=== PATIENT | male | born 1965 | race African-American/Black ===

== ENCOUNTER → 2016-10-31 | Outpatient (CLI) | payer BC ==
--- NOTE | 2016-10-31 08:59 | US ---
EXAMINATION TYPE: US kidneys/renal and bladder DATE OF EXAM: 10/31/2016 8:29 AM COMPARISON: NONE CLINICAL HISTORY: R31.9 Hematuria, R10.9 Right Flank Pain since fell on back early September 2016; larg e body habitus patient; diabetic. EXAM MEASUREMENTS: Right Kidney: 12.9 x 6.1 x 5.3 cm Left Kidney: 12.5 x 6.4 x 5.8 cm Post Void Residual Volume: 4.8 mL TECHNOLOGIST IMPRESSION: Right Kidney: No hydronephrosis or masses seen Left Kidney: No hydronephrosis or masses seen Bladder: wnl Bilateral Jets seen: Yes Normal Post Void Residual: Yes There is no evidence for hydronephrosis at this point in time. No nephrolithiasis is seen. No trinity s are identified on images saved. The urinary bladder is anechoic. Bilateral ureteral jets are seen . Bladder is not greatly distended and thus suboptimally evaluated. No intraluminal mass is present. Af ter voiding minimal residual urine is present. IMPRESSION: No hydronephrosis is evident bilaterally. No significant finding is seen to account for patient's sym ptoms.
== END | disposition home or self-care (01) ==
LOC: RADUSWWP 08:01
PROVIDERS: ATTEND Internal Medicine
DX: R10.9 Unspecified abdominal pain (principal); R31.9 Hematuria, unspecified
CPT/HCPCS: 76770

== ENCOUNTER → 2018-04-24 | Outpatient (CLI) | payer BC ==
--- NOTE | 2018-04-24 18:09 | PN ---
PROGRESS NOTE A 52-year-old male patient seeing me in followup regarding his obstructive sleep apnea. The patient was diagnosed having severe DIAMOND with an AHI of 65 back in 2008. Subsequently the patient underwent a CPAP titration and following that, he was switched to a BiPAP back in 2014 at pressure of 22/18 cm of water. On today's evaluation, the patient is coming in for a compliancy check. His main complaint is leaks around the mask. He is currently using the AirTouch full face mask. Based on the compliance data, he has been utilizing his CPAP every night. His CPAP use for more than 4 hours is 28/30 based on a 30-day compliancy and his average CPAP use is around 6.3 hours per night. Leak factor is 119 L/minute. His tidal volume obtained is 640. His AHI while on treatment is at 15.6. He is gaining weight. He is up to 397 pounds and used to weigh 346 back in 2008. His BMI is 64. He is feeling well. His does not major sleepiness during the day. His excessive hypersomnia and sleepiness improved while on the BiPAP treatment. He is diabetic. He also has hypertension and diabetes mellitus. REVIEW OF SYSTEMS: A 12-point review of system was done. Positive findings are mentioned above in history of present illness. He has still some residual tiredness and fatigue. He goes to bed around 12:00 a.m., wakes up at 6:00 a.m. in the morning, averaging about 6 hours of sleep. He has some restlessness in the lower extremities and he is waking up with a dry mouth. He sleeps on his side rather than the back. No nightmares. No history of motor vehicle accident because of feeling drowsy or sleepy. MEDICATION LIST: Includes: 1. Lisinopril 10 daily. 2. Amlodipine 10 daily. 3. Lantus insulin 110 units twice a day. 4. Lasix 40 mg p.o. daily. 5. Potassium 10 mEq daily. 6. Tamsulosin 0.4 daily. 7. Hydrochlorothiazide 25 daily. BP is 184/93, pulse 96, respirations 16, temperature 98.0, saturation 90% on room air. Weight is 397. Height is 5 feet 6 inches, BMI is 64. GENERAL APPEARANCE: Calm, comfortable. HEAD: Atraumatic, normocephalic. Neck is supple. No JVD. No goiter or neck mass. Mallampati class IV. LUNGS: Diminished, otherwise clear. HEART: Sounds are regular rate and rhythm. Normal S1, S2. No S3, S4. No murmurs. ABDOMEN: Obese, soft, nontender. No organomegaly. EXTREMITIES: Trace edema. There is no cyanosis or clubbing. NEUROLOGIC: Alert and oriented x3. There are no focal neurological deficits. PSYCHIATRIC: Negative for anxiety or depression. IMPRESSION: 1. Severe obstructive sleep apnea, apnea-hypopnea index of 65. The patient demonstrates excellent compliancy. He is having leaks around the mask due to a poor mask fit. 2. Morbid obesity, BMI of 64. 3. Diabetes mellitus. 4. Hypertension. PLAN: 1. Continue BiPAP therapy at a pressure of 22/18. 2. Utilize a full-face mask. I will switch this patient to an AirFit F20 large size and I gave another alternative, which would be an Yadira View large size. Both masks were appropriate and gave him a good seal and he will call me and decide at a later stage which will be his mask of choice. 3. Encourage weight loss. 4. Tight control of cardiovascular risk factors. 5. Renew his of CPAP supplies. 6. See me back in a year's time, earlier if needed. MMODL / IJN: [id number] /
== END | disposition home or self-care (01) ==
LOC: SLEEP 15:39
PROVIDERS: ATTEND Internal Medicine
DX: G47.33 Obstructive sleep apnea (adult) (pediatric) (principal); E11.9 Type 2 diabetes mellitus without complications; I10 Essential (primary) hypertension; E66.01 Morbid (severe) obesity due to excess calories; Z79.4 Long term (current) use of insulin; Z79.899 Other long term (current) drug therapy; Z68.44 Body mass index [BMI] 60.0-69.9, adult; Z99.89 Dependence on other enabling machines and devices
CPT/HCPCS: 99211

== ENCOUNTER → 2018-05-14 | Outpatient (CLI) | payer BC ==
--- NOTE | 2018-05-14 15:15 | US ---
EXAMINATION TYPE: US venous doppler duplex LE BI DATE OF EXAM: 05/14/2018 2:23 PM COMPARISON: NONE CLINICAL HISTORY: 52-year-old male R22.41 Swelling right leg;R22.42 swelling left leg. Morbidly obese patient with bilat leg swelling, left is worse then right, no h/o dvt SIDE PERFORMED: Bilateral TECHNIQUE: The lower extremity deep venous system is examined utilizing real time linear array sonog иван with graded compression, doppler sonography and color-flow sonography. FINDINGS: VESSELS IMAGED: External Iliac Vein (EIV) Common Femoral Vein Deep Femoral Vein Greater Saphenous Vein * Femoral Vein Popliteal Vein Small Saphenous Vein * Proximal Calf Veins (* superficial vessels) Right Leg: Appears negative for DVT Left Leg: APpears negative for DVT *tech impression relayed to Dr Plummer's office IMPRESSION: No evidence for DVT within the bilateral lower extremities imaged from the groin to the knees.
== END | disposition home or self-care (01) ==
LOC: RADUSWWP 13:34
PROVIDERS: ATTEND Internal Medicine
DX: R22.42 Localized swelling, mass and lump, left lower limb (principal)
CPT/HCPCS: 93970

== ENCOUNTER 2019-09-06 10:14 | Inpatient (IN) | payer OTHER ==
[2019-09-06] MEDS ORDERED: MECLIZINE 12.5 MG TAB PO STA (10:22)
[2019-09-06] MEDS ORDERED: SODIUM CHLORIDE 0.9% 1,000 ML IV STA (10:22)
[2019-09-06] MEDS ORDERED: SODIUM CHLORIDE 0.9% 500 ML 500 ML IV STA (10:22)
[2019-09-06 10:33] LABS: Glucose,Whole Blood 311 mg/dL (75-99)
[2019-09-06] MEDS ORDERED: hydrALAZINE HCL 20 MG/ML 1 ML VIAL IVP STA (10:34)
--- NOTE | 2019-09-06 10:34 | ED ---
General Adult HPI - General Source: patient, EMS, RN notes reviewed Mode of arrival: EMS Limitations: no limitations <Kishan Garrison - Last Filed: 09/06/19 11:27> <Wili Hua - Last Filed: 09/06/19 13:09> - General Stated complaint: Hyperglycemia Time Seen by Provider: 09/06/19 10:17 - History of Present Illness Initial comments: This a 54-year-old male presents emergency department via EMS chief complaint of hyperglycemia, dizziness. Patient states that he is a known diabetic and history of hypertension. Patient states he woke up his blood sugar was over 300. He states she just felt sick. He states that he was dizzy with movement. Denies any focal weakness denies chest pain or shortness of breath. Patient states he did take his 100 units of long-acting insulin this morning. Patient is also on oral medications. Patient has no complaints of blurred vision, fever, chills, dysuria, diarrhea or any other complaints this time. (Kishan Garrison) - Related Data Home Medications Medication Instructions Recorded Confirmed Furosemide [Lasix] 40 mg PO DAILY 09/06/19 09/06/19 Insulin Glargine,Hum.rec.anlog 110 unit SQ BID 09/06/19 09/06/19 [Basaglar Kwikpen U-100] Tamsulosin [Flomax] 0.4 mg PO DAILY 09/06/19 09/06/19 amLODIPine [Norvasc] 10 mg PO DAILY 09/06/19 09/06/19 metFORMIN HCL 1,000 mg PO BID 09/06/19 09/06/19 Allergies Allergy/AdvReac Type Severity Reaction Status Date / Time aspirin AdvReac Dyspnea Verified 09/06/19 10:30 Review of Systems ROS Other: All systems not noted in ROS Statement are negative. <Kishan Garrison - Last Filed: 09/06/19 11:27> ROS Other: All systems not noted in ROS Statement are negative. <Wili Hua - Last Filed: 09/06/19 13:09> ROS Statement: Those systems with pertinent positive or pertinent negative responses have been documented in the HPI. Past Medical History Past Medical History: Diabetes Mellitus, Hyperlipidemia, Hypertension, Sleep Apnea/CPAP/BIPAP Additional Past Medical History / Comment(s): neuropathy History of Any Multi-Drug Resistant Organisms: None Reported Past Surgical History: No Surgical Hx Reported Past Psychological History: No Psychological Hx Reported Smoking Status: Never smoker Past Alcohol Use History: None Reported Past Drug Use History: Marijuana <Kishan Garrison - Last Filed: 09/06/19 11:27> General Exam Limitations: no limitations General appearance: alert, in no apparent distress Head exam: Present: atraumatic, normocephalic, normal inspection Eye exam: Present: normal appearance, PERRL, EOMI. Absent: scleral icterus, conjunctival injection, periorbital swelling Neck exam: Present: normal inspection, full ROM. Absent: tenderness, meningismus, lymphadenopathy Respiratory exam: Present: normal lung sounds bilaterally. Absent: respiratory distress, wheezes, rales, rhonchi, stridor Cardiovascular Exam: Present: regular rate, normal rhythm, normal heart sounds. Absent: systolic murmur, diastolic murmur, rubs, gallop, clicks GI/Abdominal exam: Present: soft, normal bowel sounds. Absent: distended, tenderness, guarding, rebound, rigid Neurological exam: Present: alert, oriented X3, CN II-XII intact, reflexes normal. Absent: motor sensory deficit Skin exam: Present: warm, dry, intact, normal color. Absent: rash <Kishan Garrison - Last Filed: 09/06/19 11:27> Course Vital Signs 09/06/19 09/06/19 09/06/19 10:18 11:08 11:21 Temperature 98.5 F Pulse Rate 71 78 Respiratory 16 17 Rate Blood Pressure 174/123 199/108 181/92 O2 Sat by Pulse 94 L Oximetry 09/06/19 09/06/19 12:03 12:37 Temperature 98.3 F Pulse Rate 77 Respiratory 18 17 Rate Blood Pressure 156/76 O2 Sat by Pulse 100 Oximetry EKG Findings - EKG Comments: EKG Findings:: EKG performed at 10:30 sinus rhythm with first-degree block rate of 71 OK 234 QRS 118 QTC is QTC 4:30/467 is inverted T waves in V4 through V6 no old EKG to compare to. <Kishan Garrison - Last Filed: 09/06/19 11:27> Medical Decision Making - Lab Data Result diagrams: 09/06/19 10:48 09/06/19 10:48 <Kishan Garrison - Last Filed: 09/06/19 11:27> - Lab Data Result diagrams: 09/06/19 10:48 09/06/19 10:48 - Radiology Data Radiology results: image reviewed (Chest x-ray shows left hilar infiltrate) <Wili Hua - Last Filed: 09/06/19 13:09> - Medical Decision Making Patient presented for hypertension, hyperglycemia, dizziness. Patient has noted EKG changes with no old EKG to compare to. Troponin is mildly elevated he currently does not have any chest pain. Patient told to have hypokalemia. This was corrected with oral, IV. Patient was given blood pressure control, insulin was ordered. Patient will be admitted for cardiology evaluation, hyperglycemia, hypokalemia (Kishan Garrison) Patient was reevaluated by myself, Dr. Hua. Patient resting comfortably in bed. Heart rate has elevated. Monitor shows narrow complex tachycardia with a regular rhythm consistent with atrial fibrillation. Patient is near symptom- free at this time. Patient is updated on results and plan. Cardiology was arty placed on consult. Cardizem and heparin will be started. Chest x-ray concerning for infiltrate. Blood culture and antibiotics have been ordered. Tachycardia is related to atrial fibrillation. Patient does not meet sepsis criteria at this time. (Wili Hua) - Lab Data Lab Results 09/06/19 09/06/19 09/06/19 Range/Units 10:22 10:23 10:48 WBC (3.8-10.6) k/uL RBC (4.30-5.90) m/uL Hgb (13.0-17.5) gm/dL Hct (39.0-53.0) % MCV (80.0-100.0) fL MCH (25.0-35.0) pg MCHC (31.0-37.0) g/dL RDW (11.5-15.5) % Plt Count (150-450) k/uL Neutrophils % % Lymphocytes % % Monocytes % % Eosinophils % % Basophils % % Neutrophils # (1.3-7.7) k/uL Lymphocytes # (1.0-4.8) k/uL Monocytes # (0-1.0) k/uL Eosinophils # (0-0.7) k/uL Basophils # (0-0.2) k/uL VBG pH (7.31-7.41) VBG pCO2 (37-51) mmHg VBG HCO3 (24-28) mmol/L Sodium 142 (137-145) mmol/L Potassium 2.5 L* (3.5-5.1) mmol/L Chloride 101 (98-107) mmol/L Carbon Dioxide 35 H (22-30) mmol/L Anion Gap 6 mmol/L BUN 12 (9-20) mg/dL Creatinine 1.05 (0.66-1.25) mg/dL Est GFR (CKD-EPI)AfAm >90 (>60 ml/min/1.73 sqM) Est GFR (CKD-EPI)NonAf 80 (>60 ml/min/1.73 sqM) Glucose 303 H (74-99) mg/dL POC Glucose (mg/dL) 311 H (75-99) mg/dL POC Glu [employer] ID Nuria Reynolds Calcium 8.8 (8.4-10.2) mg/dL Magnesium 1.5 L (1.6-2.3) mg/dL Total Bilirubin 0.4 (0.2-1.3) mg/dL AST 27 (17-59) U/L ALT 20 (4-49) U/L Alkaline Phosphatase 103 (38-126) U/L Troponin I (0.000-0.034) ng/mL Total Protein 6.8 (6.3-8.2) g/dL Albumin 3.5 (3.5-5.0) g/dL Urine Color Colorless Urine Appearance Clear (Clear) Urine pH 7.5 (5.0-8.0) Ur Specific [employer] 1.004 (1.001-1.035) Urine Protein 1+ H (Negative) Urine Glucose (UA) 3+ H (Negative) Urine Ketones Negative (Negative) Urine Blood Trace H (Negative) Urine Nitrite Negative (Negative) Urine Bilirubin Negative (Negative) Urine Urobilinogen <2.0 (<2.0) mg/dL Ur Leukocyte Esterase Negative (Negative) Urine RBC 1 (0-5) /hpf Urine WBC <1 (0-5) /hpf Urine Bacteria Rare H (None) /hpf Acetone, Qual Negative (Negative) 09/06/19 09/06/19 09/06/19 Range/Units 10:48 10:48 10:48 WBC 6.3 (3.8-10.6) k/uL RBC 4.34 (4.30-5.90) m/uL Hgb 12.3 L (13.0-17.5) gm/dL Hct 37.3 L (39.0-53.0) % MCV 86.1 (80.0-100.0) fL MCH 28.3 (25.0-35.0) pg MCHC 32.9 (31.0-37.0) g/dL RDW 14.0 (11.5-15.5) % Plt Count 302 (150-450) k/uL Neutrophils % 75 % Lymphocytes % 12 % Monocytes % 7 % Eosinophils % 2 % Basophils % 2 % Neutrophils # 4.7 (1.3-7.7) k/uL Lymphocytes # 0.8 L (1.0-4.8) k/uL Monocytes # 0.4 (0-1.0) k/uL Eosinophils # 0.1 (0-0.7) k/uL Basophils # 0.1 (0-0.2) k/uL VBG pH 7.38 (7.31-7.41) VBG pCO2 60 H (37-51) mmHg VBG HCO3 35 H (24-28) mmol/L Sodium (137-145) mmol/L Potassium (3.5-5.1) mmol/L Chloride (98-107) mmol/L Carbon Dioxide (22-30) mmol/L Anion Gap mmol/L BUN (9-20) mg/dL Creatinine (0.66-1.25) mg/dL Est GFR (CKD-EPI)AfAm (>60 ml/min/1.73 sqM) Est GFR (CKD-EPI)NonAf (>60 ml/min/1.73 sqM) Glucose (74-99) mg/dL POC Glucose (mg/dL) (75-99) mg/dL POC Glu [employer] ID Calcium (8.4-10.2) mg/dL Magnesium (1.6-2.3) mg/dL Total Bilirubin (0.2-1.3) mg/dL AST (17-59) U/L ALT (4-49) U/L Alkaline Phosphatase (38-126) U/L Troponin I 0.048 H* (0.000-0.034) ng/mL Total Protein (6.3-8.2) g/dL Albumin (3.5-5.0) g/dL Urine Color Urine Appearance (Clear) Urine pH (5.0-8.0) Ur Specific [employer] (1.001-1.035) Urine Protein (Negative) Urine Glucose (UA) (Negative) Urine Ketones (Negative) Urine Blood (Negative) Urine Nitrite (Negative) Urine Bilirubin (Negative) Urine Urobilinogen (<2.0) mg/dL Ur Leukocyte Esterase (Negative) Urine RBC (0-5) /hpf Urine WBC (0-5) /hpf Urine Bacteria (None) /hpf Acetone, Qual (Negative) Disposition <Kishan Garrison - Last Filed: 09/06/19 11:27> <Wili Hua - Last Filed: 09/06/19 13:09> Clinical Impression: Hyperglycemia, Hypertension, Dizziness, Hypokalemia Disposition: ADMITTED IP TO THIS [facility] Condition: Fair
[2019-09-06] MEDS ORDERED: INSULIN ASPART (NovoLOG) 100 UNIT/ML VIAL SQ ONE (10:35)
[2019-09-06 10:51] LABS: Appearance,Urine Clear (Clear); Bacteria,Urine Rare /hpf; Bilirubin,Urine Negative (Negative); Blood,Urine Trace (Negative); Color,Urine Colorless; Glucose,Urine (UA) 3+ (Negative); Ketones,Urine Negative (Negative); Leukocyte Esterase,Urine Negative (Negative); Nitrite,Urine Negative (Negative); PH, Urine 7.5 (5.0-8.0); Protein,Urine 1+ (Negative); RBC,Urine 1 /hpf (0-5); Specific Gravity,Urine 1.004 (1.001-1.035); Urobilinogen,Urine <2.0 mg/dL (<2.0); WBC,Urine <1 /hpf (0-5)
[2019-09-06 11:02] LABS: Basophils # (A) 0.1 k/uL (0-0.2); Basophils % (A) 2 %; Eosinophils # (A) 0.1 k/uL (0-0.7); Eosinophils % (A) 2 %; HCT 37.3 % (39.0-53.0); HGB 12.3 gm/dL (13.0-17.5); Lymphocytes # (A) 0.8 k/uL (1.0-4.8); Lymphocytes % (A) 12 %; MCH 28.3 pg (25.0-35.0); MCHC 32.9 g/dL (31.0-37.0); MCV 86.1 fL (80.0-100.0); Monocytes # (A) 0.4 k/uL (0-1.0); Monocytes % (A) 7 %; Neutrophils # (A) 4.7 k/uL (1.3-7.7); Neutrophils % (A) 75 %; Platelet Count 302 k/uL (150-450); RBC 4.34 m/uL (4.30-5.90); VBG PH 7.38 (7.31-7.41); WBC 6.3 k/uL (3.8-10.6)
[2019-09-06 11:11] LABS: ALT 20 U/L (4-49); AST 27 U/L (17-59); African American GFR (CKD) >90 (>60 ml/min/1.73 sqM); Albumin 3.5 g/dL (3.5-5.0); Alkaline Phosphatase 103 U/L (38-126); Anion Gap 6 mmol/L; Blood Urea Nitrogen 12 mg/dL (9-20); Calcium 8.8 mg/dL (8.4-10.2); Carbon Dioxide 35 mmol/L (22-30); Chloride 101 mmol/L (98-107); Glucose 303 mg/dL (74-99); Magnesium 1.5 mg/dL (1.6-2.3); Non-African American GFR(CKD) 80 (>60 ml/min/1.73 sqM); Sodium 142 mmol/L (137-145); Total Bilirubin 0.4 mg/dL (0.2-1.3); Total Protein 6.8 g/dL (6.3-8.2)
[2019-09-06 11:18] LABS: Potassium 2.5 mmol/L (3.5-5.1)
[2019-09-06] MEDS ORDERED: POTASSIUM CHLORIDE ER 20 MEQ TAB.ER PO STA (11:25)
[2019-09-06 11:27] LABS: Glucose,Whole Blood 278 mg/dL (75-99)
[2019-09-06] MEDS ORDERED: NITROGLYCERIN SL TABS 0.4 MG TAB SUBLINGUAL PRN (11:29)
[2019-09-06] MEDS ORDERED: POTASSIUM CHLORIDE 20 MEQ in WATER FOR INJECTION 1 100ML.BAG IVPB STA (11:30)
[2019-09-06] MEDS ORDERED: MAGNESIUM OXIDE 400 MG TAB PO STA (11:45)
--- NOTE | 2019-09-06 11:45 | XR ---
EXAMINATION TYPE: XR chest 2V DATE OF EXAM: 09/06/2019 HISTORY: dizziness. REFERENCE: NONE. FINDINGS: Lung lines are mildly prominent. The heart is not enlarged. Pleural spaces are clear. There is a left-sided perihilar infiltrate. There is some peribronchial cuffing. IMPRESSION: 1. CORRELATE FOR COPD. 2. EVIDENCE OF A PERIHILAR INFILTRATE LIKELY REPRESENTING PNEUMONIA.
[2019-09-06] MEDS ORDERED: MAGNESIUM SULFATE-D5W PMX 1 GM in DEXTROSE/WATER 1 100ML.BAG IVPB ONE (12:43)
[2019-09-06] MEDS ORDERED: HEPARIN SODIUM,PORCINE 5,000 UNIT/ML 1 ML VIAL IV ONE (12:55)
[2019-09-06] MEDS ORDERED: DILTIAZEM DRIP BOLUS FROM BAG 1 MG SOLN IV ONE (12:55)
[2019-09-06 13:08] LABS: Glucose,Whole Blood 167 mg/dL (75-99)
[2019-09-06] MEDS ORDERED: AZITHROMYCIN 500 MG in SODIUM CHLORIDE 0.9% 250 ML IVPB STA (13:08)
[2019-09-06] MEDS ORDERED: PNEUMONIA PROTOCOL UTILIZED 1 EACH MISC PO PRN (13:08)
[2019-09-06] MEDS ORDERED: DILTIAZEM 125 MG in SODIUM CHLORIDE 0.9% 100 ML IV SCH (13:15)
[2019-09-06] MEDS: HEPARIN SOD,PORK IN 0.45% NACL 25,000 UNIT in 0.45% NACL 1 250ML.BAG IV SCH (13:33)
[2019-09-06] MEDS: INSULIN ASPART (NovoLOG) 100 UNIT/ML VIAL SQ SCH ×3 (13:36→21:38)
[2019-09-06] MEDS ORDERED: Potassium Replacement Protocol 1 EACH MISC MISCELLANE PRN ×3 (15:39→23:14)
[2019-09-06] MEDS: METOPROLOL TARTRATE 12.5 MG TAB PO SCH ×2 (15:45→20:03)
[2019-09-06 17:05] LABS: Glucose,Whole Blood 47 mg/dL (75-99)
[2019-09-06 17:25] LABS: Glucose,Whole Blood 69 mg/dL (75-99)
--- NOTE | 2019-09-06 17:30 | P.CRDCN ---
History of Present Illness Consult date: 09/06/19 History of present illness: This is a 54-year-old gentleman with history of hypertension and also diabetes mellitus who comes with complaints of weakness and dizziness. Apparently his blood sugar was more than 300. He took some insulin and came to the emergency room. He was complaining of dizziness like vertigo. He claims that whenever he tries to move., He gets the dizziness. Denied any chest pain or shortness of breath. He was in sinus rhythm on arrival to the emergency room. However, he converted to atrial fibrillation. While in the emergency room. Patient was initiated on IV Cardizem. However, by the time patient came to the 40s rate is well controlled. He is being initiated on metoprolol 12.5 mg by mouth twice a day. His EKG showed mild ST-T abnormalities. His troponin is mildly elevated. We're going to get serious of troponins and echocardiogram. Patient is also initiated on a heparin drip. His potassium is low at 2.5 which is being c orrected. Further recommendations depend upon the clinical course. Chest x-ray did not show any evidence of CHF Review of Systems As per the chart Past Medical History Past Medical History: Diabetes Mellitus, Hyperlipidemia, Hypertension, Sleep Apnea/CPAP/BIPAP Additional Past Medical History / Comment(s): neuropathy History of Any Multi-Drug Resistant Organisms: None Reported Past Surgical History: No Surgical Hx Reported Past Anesthesia/Blood Transfusion Reactions: No Reported Reaction Past Psychological History: No Psychological Hx Reported Smoking Status: Never smoker Past Alcohol Use History: None Reported Past Drug Use History: Marijuana - Past Family History Father Family Medical History: No Reported History Additional Family Medical History / Comment(s): not sure Mother Family Medical History: Diabetes Mellitus, Hypertension Additional Family Medical History / Comment(s): mom is still alive Medications and Allergies Home Medications Medication Instructions Recorded Confirmed Type Furosemide [Lasix] 40 mg PO DAILY 09/06/19 09/06/19 History Insulin Glargine,Hum.rec.anlog 110 unit SQ BID 09/06/19 09/06/19 History [Basaglar Kwikpen U-100] Tamsulosin [Flomax] 0.4 mg PO DAILY 09/06/19 09/06/19 History amLODIPine [Norvasc] 10 mg PO DAILY 09/06/19 09/06/19 History metFORMIN HCL 1,000 mg PO BID 09/06/19 09/06/19 History Allergies Allergy/AdvReac Type Severity Reaction Status Date / Time aspirin AdvReac Dyspnea Verified 09/06/19 10:30 Physical Exam Vitals: Vital Signs Temp Pulse Pulse Resp BP BP Pulse Ox 09/06/19 14:34 97 09/06/19 14:30 98.1 F 83 20 148/76 97 09/06/19 14:16 98.6 F 93 09/06/19 14:01 18 09/06/19 13:45 92 18 156/84 100 09/06/19 13:25 98.1 F 84 20 148/76 97 09/06/19 12:37 17 09/06/19 12:03 98.3 F 77 18 156/76 100 09/06/19 11:21 17 181/92 09/06/19 11:08 78 199/108 09/06/19 10:18 98.5 F 71 16 174/123 94 L Intake and Output 09/06/19 09/06/19 09/06/19 06:59 14:59 22:59 Output Total 500 Balance -500 Output: Urine 500 Other: Voiding Method Urinal Weight 159.5 kg GENERAL EXAM: Patient is alert and oriented and doesn't appear to be in any acute distress HEENT: Normocephalic. Normal reaction of pupils, equal size, normal range of extraocular motion. No erythema or exudates in the throat. NECK: No masses, no nuchal rigidity. CHEST: No chest wall deformity. LUNGS: Equal air entry with no crackles or wheeze. HEART: S1 and S2 normal with no audible mumurs or gallops. Regular rhythm, femorals equal on both sides.. ABDOMEN: No hepatosplenomegaly, normal bowel sounds, no guarding or rigidity. SKIN: No rashes CENTRAL NERVOUS SYSTEM: No focal deficits. EXTREMITIES: 2+ edema Results 09/06/19 10:48 09/06/19 10:48 Cardiac Enzymes 09/06/19 09/06/19 Range/Units 10:48 10:48 AST 27 (17-59) U/L Troponin I 0.048 H* (0.000-0.034) ng/mL CBC 09/06/19 Range/Units 10:48 WBC 6.3 (3.8-10.6) k/uL RBC 4.34 (4.30-5.90) m/uL Hgb 12.3 L (13.0-17.5) gm/dL Hct 37.3 L (39.0-53.0) % Plt Count 302 (150-450) k/uL Comprehensive Metabolic Panel 09/06/19 Range/Units 10:48 Sodium 142 (137-145) mmol/L Potassium 2.5 L* (3.5-5.1) mmol/L Chloride 101 (98-107) mmol/L Carbon Dioxide 35 H (22-30) mmol/L BUN 12 (9-20) mg/dL Creatinine 1.05 (0.66-1.25) mg/dL Glucose 303 H (74-99) mg/dL Calcium 8.8 (8.4-10.2) mg/dL AST 27 (17-59) U/L ALT 20 (4-49) U/L Alkaline Phosphatase 103 (38-126) U/L Total Protein 6.8 (6.3-8.2) g/dL Albumin 3.5 (3.5-5.0) g/dL Current Medications Generic Name Dose Route Start Last Admin Trade Name Freq PRN Reason Stop Dose Admin Azithromycin 500 mg 09/07/19 12:00 Zithromax PO DAILY@1200 MICHAEL Heparin Sodium (Porcine) 0 unit 09/06/19 12:55 Heparin IV PER PROTOCOL PRN Low PTT Protocol Heparin Sodium/Sodium Chloride 250 mls @ 10 mls/hr 09/06/19 13:00 09/06/19 13:33 25,000 unit/ Sodium Chloride IV 6.04 units/kg/hr .Q24H MICHAEL 10 mls/hr Administration Protocol 6.04 UNITS/KG/HR Ceftriaxone Sodium 1 gm/ 50 mls @ 100 mls/hr 09/07/19 09:00 Sodium Chloride IVPB 09/10/19 09:01 Q24HR [facility] Insulin Aspart 0 unit 09/06/19 12:30 09/06/19 17:16 Novolog SQ Not Given ACHS [facility] Protocol Metoprolol Tartrate 12.5 mg 09/06/19 15:45 09/06/19 15:45 Lopressor PO 12.5 mg BID MICHAEL Administration Miscellaneous Information 1 each 09/06/19 13:08 Pneumonia Protocol Utilized PO ONCE PRN Per Protocol Miscellaneous Information 1 each 09/06/19 15:39 Potassium Per Protocol MISCELLANE DAILY PRN Per Protocol Protocol Nitroglycerin 0.4 mg 09/06/19 11:29 Nitrostat SUBLINGUAL Q5M PRN Chest Pain Intake and Output 09/06/19 09/06/19 09/06/19 06:59 14:59 22:59 Output Total 500 Balance -500 Output: Urine 500 Other: Voiding Method Urinal Weight 159.5 kg Patient Weight 09/07/19 06:59 Weight 159.5 kg 09/06/19 10:48 09/06/19 10:48 EKG Interpretations (text) Initial EKG showed sinus rhythm. Subsequent EKG showed atrial fibrillation with a rapid ventricular response with ST-T changes in the lateral leads Assessment and Plan (1) New onset atrial fibrillation Current Visit: Yes Status: Acute Code(s): I48.91 - UNSPECIFIED ATRIAL FIBRILLATION SNOMED Code(s): 05647158 (2) Dizziness Current Visit: Yes Status: Acute Code(s): R42 - DIZZINESS AND GIDDINESS SNOMED Code(s): 551124628 (3) Hyperglycemia Current Visit: Yes Status: Acute Code(s): R73.9 - HYPERGLYCEMIA, UNSPECIFIED SNOMED Code(s): 16800941 (4) Hypertension Current Visit: Yes Status: Acute Code(s): I10 - ESSENTIAL (PRIMARY) HYPERTENSION SNOMED Code(s): 22820830 (5) Hypokalemia Current Visit: Yes Status: Acute Code(s): E87.6 - HYPOKALEMIA SNOMED Code(s): 96966951 (6) Elevated troponin Current Visit: Yes Status: Acute Code(s): R79.89 - OTHER SPECIFIED ABNORMAL FINDINGS OF BLOOD CHEMISTRY SNOMED Code(s): 062327960 Plan: Continue current medical therapy with beta blockers, heparin and aspirin. He'll continue to manage his diabetes. Echocardiogram. Continue to follow troponin values. Further recommendations depend upon the clinical course and lab values
[2019-09-06 17:31] LABS: Glucose,Whole Blood 117 mg/dL (75-99)
--- NOTE | 2019-09-06 18:02 | P.HPIM ---
History of Present Illness H&P Date: 09/06/19 Chief Complaint: Severe dizziness Patient is a 54-year-old male with a known history of diabetes type 2 insulin- dependent, hypertension, hyperlipidemia, obstructive sleep apnea and morbid obesity and also marijuana use came to ER with complaints of severe dizziness. Patient says that she woke up in the morning and check his blood sugar found to be more than 300. Patient also felt very sick and extreme dizziness and lightheadedness and about to fall. No complaints of chest pain. Patient does have nausea. as of vomiting. No shortness of breath. No commerce of focal weakness. No complaints of visual disturbance. Denied any dysuria. No recent diarrhea or changes. No recent change in medications. Initial EKG showed sinus rhythm with ST-T wave AV block and T-wave inversions in the lateral leads.. Patient later converted to atrial fibrillation with rapid regular rate. Chest x-ray showed correlate for COPD. Evidence of a perihilar infiltrate likely representing pneumonia. Potassium 2.5, bicarb 35 The sugar was 303 on admission Magnesium 1.5 Troponin 0.048 Acidosis negative UA negative for infection. Review of Systems Constitutional: Patient denies any fever or chills . Generalized weakness. Abdomen: Patient denied nausea vomiting and diarrhea and abdominal pain. Cardiovascular: Patient denies any chest pain or short of breath no palpitations. Respiratory: patient denied any cough is from production. No shortness of breath Neurologic: Patient denied any numbness or tingling headache. Patient does have dizziness and near syncope. Musculoskeletal: Patient denies any complaints of joint swelling or deformity. Skin: Negative Psychiatric: Negative Endocrine: No heat or cold intolerance. No recent weight gain. Genitourinary: No dysuria or hematuria. All other 14 point ROS negative except the above Past Medical History Past Medical History: Diabetes Mellitus, Hyperlipidemia, Hypertension, Sleep Apnea/CPAP/BIPAP Additional Past Medical History / Comment(s): neuropathy History of Any Multi-Drug Resistant Organisms: None Reported Past Surgical History: No Surgical Hx Reported Past Anesthesia/Blood Transfusion Reactions: No Reported Reaction Past Psychological History: No Psychological Hx Reported Smoking Status: Never smoker Past Alcohol Use History: None Reported Past Drug Use History: Marijuana - Past Family History Father Family Medical History: No Reported History Additional Family Medical History / Comment(s): not sure Mother Family Medical History: Diabetes Mellitus, Hypertension Additional Family Medical History / Comment(s): mom is still alive Medications and Allergies Home Medications Medication Instructions Recorded Confirmed Type Furosemide [Lasix] 40 mg PO DAILY 09/06/19 09/06/19 History Insulin Glargine,Hum.rec.anlog 110 unit SQ BID 09/06/19 09/06/19 History [Basaglar Kwikpen U-100] Tamsulosin [Flomax] 0.4 mg PO DAILY 09/06/19 09/06/19 History amLODIPine [Norvasc] 10 mg PO DAILY 09/06/19 09/06/19 History metFORMIN HCL 1,000 mg PO BID 09/06/19 09/06/19 History Allergies Allergy/AdvReac Type Severity Reaction Status Date / Time aspirin AdvReac Dyspnea Verified 09/06/19 10:30 Physical Exam Vitals: Vital Signs Temp Pulse Pulse Resp BP BP Pulse Ox 09/06/19 14:34 97 09/06/19 14:30 98.1 F 83 20 148/76 97 09/06/19 14:16 98.6 F 93 09/06/19 14:01 18 09/06/19 13:45 92 18 156/84 100 09/06/19 13:25 98.1 F 84 20 148/76 97 09/06/19 12:37 17 09/06/19 12:03 98.3 F 77 18 156/76 100 09/06/19 11:21 17 181/92 09/06/19 11:08 78 199/108 09/06/19 10:18 98.5 F 71 16 174/123 94 L Intake and Output 09/06/19 09/06/19 09/06/19 06:59 14:59 22:59 Output Total 500 Balance -500 Output: Urine 500 Other: Voiding Method Urinal Weight 159.5 kg PHYSICAL EXAMINATION: Patient is lying in the bed comfortably, no acute distress, awake alert and oriented. Morbid obese.. HEENT: Normocephalic. Neck is supple. Pupils reactive. Nostrils clear. Oral cavity is moist. Ears reveal no drainage. Neck reveals no JVD, carotid bruits, or thyromegaly. CHEST EXAMINATION: Trachea is central. Symmetrical expansion. Bibasilar diminished air entry. Lung ricketts clear to auscultation and percussion. CARDIAC: Normal S1, S2 with no gallops. No murmurs. Tachycardic. ABDOMEN: Soft. Bowel sounds normal. No organomegaly. No abdominal bruits. Extremities: Trace edema. No clubbing or cyanosis Neurologically awake, alert, oriented x3 with well-coordinated movements. No focal deficits noted Skin: No rash or skin lesions. Psychiatric: Coperative. Nonsuicidal Musculoskeletal: No joint swelling or deformity. Normal range of motion. Results CBC & Chem 7: 09/06/19 10:48 09/06/19 10:48 Labs: Abnormal Lab Results - Last 24 Hours (Table) 09/06/19 09/06/19 09/06/19 Range/Units 10:22 10:23 10:48 Hgb (13.0-17.5) gm/dL Hct (39.0-53.0) % Lymphocytes # (1.0-4.8) k/uL VBG pCO2 (37-51) mmHg VBG HCO3 (24-28) mmol/L Potassium 2.5 L* (3.5-5.1) mmol/L Carbon Dioxide 35 H (22-30) mmol/L Glucose 303 H (74-99) mg/dL POC Glucose (mg/dL) 311 H (75-99) mg/dL Magnesium 1.5 L (1.6-2.3) mg/dL Troponin I (0.000-0.034) ng/mL Urine Protein 1+ H (Negative) Urine Glucose (UA) 3+ H (Negative) Urine Blood Trace H (Negative) Urine Bacteria Rare H (None) /hpf 09/06/19 09/06/19 09/06/19 Range/Units 10:48 10:48 10:48 Hgb 12.3 L (13.0-17.5) gm/dL Hct 37.3 L (39.0-53.0) % Lymphocytes # 0.8 L (1.0-4.8) k/uL VBG pCO2 60 H (37-51) mmHg VBG HCO3 35 H (24-28) mmol/L Potassium (3.5-5.1) mmol/L Carbon Dioxide (22-30) mmol/L Glucose (74-99) mg/dL POC Glucose (mg/dL) (75-99) mg/dL Magnesium (1.6-2.3) mg/dL Troponin I 0.048 H* (0.000-0.034) ng/mL Urine Protein (Negative) Urine Glucose (UA) (Negative) Urine Blood (Negative) Urine Bacteria (None) /hpf 09/06/19 09/06/19 09/06/19 Range/Units 11:27 13:07 16:58 Hgb (13.0-17.5) gm/dL Hct (39.0-53.0) % Lymphocytes # (1.0-4.8) k/uL VBG pCO2 (37-51) mmHg VBG HCO3 (24-28) mmol/L Potassium (3.5-5.1) mmol/L Carbon Dioxide (22-30) mmol/L Glucose (74-99) mg/dL POC Glucose (mg/dL) 278 H 167 H 47 L (75-99) mg/dL Magnesium (1.6-2.3) mg/dL Troponin I (0.000-0.034) ng/mL Urine Protein (Negative) Urine Glucose (UA) (Negative) Urine Blood (Negative) Urine Bacteria (None) /hpf 09/06/19 Range/Units 17:14 Hgb (13.0-17.5) gm/dL Hct (39.0-53.0) % Lymphocytes # (1.0-4.8) k/uL VBG pCO2 (37-51) mmHg VBG HCO3 (24-28) mmol/L Potassium (3.5-5.1) mmol/L Carbon Dioxide (22-30) mmol/L Glucose (74-99) mg/dL POC Glucose (mg/dL) 69 L (75-99) mg/dL Magnesium (1.6-2.3) mg/dL Troponin I (0.000-0.034) ng/mL Urine Protein (Negative) Urine Glucose (UA) (Negative) Urine Blood (Negative) Urine Bacteria (None) /hpf Thrombosis Risk Factor Assmnt - DVT/VTE Prophylaxis DVT/VTE Prophylaxis: Pharmacologic Prophylaxis ordered - Choose All That Apply Each Factor Represents 1 point: Age 41-60 years, Obesity (BMI >25), Swollen legs (current) Thrombosis Risk Factor Assessment Total Risk Factor Score: 3 Thrombosis Risk Factor Assessment Level: Moderate Risk Assessment and Plan Assessment: Dizziness and near syncope secondary to atrial fibrillation. New onset atrial fibrillation with RVR. Elevated troponin level possible non-ST OK Left perihilar infiltrate with possible pneumonia. Severe hypokalemia and hypomagnesemia Hyperglycemia with uncontrolled diabetes type 2 Hypertensive urgency History of marijuana use Diary peripheral neuropathy Obstructive sleep apnea on CPAP at home Hyperlipidemia Morbid obesity BMI 56.8 No prior history of smoking Plan: Patient will be continued on telemetry monitoring. Serial EKGs and troponins. Patient was started on Cardizem drip which is being tapered off. Continue with heparin IV. Patient was started on Plavix, metoprolol and follow-up lipid panel. Continue with antibiotics in the form of ceftriaxone and azithromycin. Continue with insulin dosing Levemir 110 units twice daily along with insulin sliding scale and follow blood sugars closely. Replace electrolyte, potassium and magnesium. Cardiology has seen the patient and 2-D echocardiography was ordered. Further recommendations based on the clinical course. Time with Patient: Greater than 30
[2019-09-06] MEDS: POTASSIUM CHLORIDE ER 20 MEQ TAB.ER PO SCH ×3 (18:35→21:47)
[2019-09-06] MEDS: HEPARIN SODIUM,PORCINE 5,000 UNIT/ML 1 ML VIAL IV PRN (20:03)
[2019-09-06 20:24] LABS: Glucose,Whole Blood 108 mg/dL (75-99)
[2019-09-06] MEDS: INSULIN DETEMIR (LEVEMIR) 100 UNIT/ML SYR SQ SCH (21:47)
[2019-09-06 22:15] LABS: Glucose,Whole Blood 135 mg/dL (75-99)
[2019-09-07] MEDS: POTASSIUM CHLORIDE ER 20 MEQ TAB.ER PO SCH ×10 (00:02→22:54)
[2019-09-07 01:37] LABS: Glucose,Whole Blood 49 mg/dL (75-99)
[2019-09-07 02:02] LABS: Glucose,Whole Blood 75 mg/dL (75-99)
[2019-09-07 02:39] LABS: Glucose,Whole Blood 126 mg/dL (75-99)
[2019-09-07 02:59] LABS: Basophils # (A) 0.1 k/uL (0-0.2); Basophils % (A) 1 %; Eosinophils # (A) 0.2 k/uL (0-0.7); Eosinophils % (A) 2 %; HCT 37.1 % (39.0-53.0); Lymphocytes # (A) 1.4 k/uL (1.0-4.8); Lymphocytes % (A) 17 %; MCH 28.2 pg (25.0-35.0); MCHC 32.3 g/dL (31.0-37.0); MCV 87.3 fL (80.0-100.0); Mean Platelet Volume 7.6; Monocytes # (A) 0.5 k/uL (0-1.0); Monocytes % (A) 7 %; Neutrophils # (A) 5.8 k/uL (1.3-7.7); Neutrophils % (A) 72 %; Platelet Count 302 k/uL (150-450); RBC 4.25 m/uL (4.30-5.90); RDW 14.1 % (11.5-15.5); WBC 8.1 k/uL (3.8-10.6)
[2019-09-07 03:11] LABS: ALT 19 U/L (4-49); AST 26 U/L (17-59); African American GFR (CKD) >90 (>60 ml/min/1.73 sqM); Albumin 3.3 g/dL (3.5-5.0); Alkaline Phosphatase 74 U/L (38-126); Anion Gap 6 mmol/L; Blood Urea Nitrogen 11 mg/dL (9-20); Calcium 8.8 mg/dL (8.4-10.2); Carbon Dioxide 33 mmol/L (22-30); Chloride 105 mmol/L (98-107); Cholesterol 132 mg/dL (<200); Glucose 110 mg/dL (74-99); HDL Cholesterol 38 mg/dL (40-60); LDL Cholesterol,Calculated 68 mg/dL (0-99); Magnesium 1.5 mg/dL (1.6-2.3); Non-African American GFR(CKD) 87 (>60 ml/min/1.73 sqM); Potassium 2.8 mmol/L (3.5-5.1); Sodium 144 mmol/L (137-145); Total Bilirubin 0.4 mg/dL (0.2-1.3); Total Protein 6.4 g/dL (6.3-8.2); Triglycerides 128 mg/dL (<150)
[2019-09-07] MEDS: HEPARIN SODIUM,PORCINE 5,000 UNIT/ML 1 ML VIAL IV PRN ×2 (04:02→12:06)
[2019-09-07] MEDS ORDERED: Magnesium Replacement Protocol 1 EACH MISC MISCELLANE PRN (05:35)
[2019-09-07 06:15] LABS: Glucose,Whole Blood 77 mg/dL (75-99)
[2019-09-07] MEDS: MAGNESIUM SULFATE-D5W PMX 1 GM in DEXTROSE/WATER 1 100ML.BAG IVPB SCH ×2 (06:17→08:24)
[2019-09-07] MEDS: HEPARIN SOD,PORK IN 0.45% NACL 25,000 UNIT in 0.45% NACL 1 250ML.BAG IV SCH ×2 (06:17→17:55)
--- NOTE | 2019-09-07 06:35 | XR ---
EXAMINATION TYPE: XR chest 2V DATE OF EXAM: 09/07/2019 HISTORY: pneumonia. REFERENCE: Previous examination dated 09/06/2019. FINDINGS: There is patchy airspace disease present bilaterally. That on the right may have worsened s lightly. Heart size upper limits of normal. Pleural spaces are clear. IMPRESSION: 1. PATCHY BILATERAL INFILTRATES. 2. INFILTRATE ON THE RIGHT MAY HAVE WORSENED SLIGHTLY.
[2019-09-07] MEDS: INSULIN DETEMIR (LEVEMIR) 100 UNIT/ML SYR SQ SCH ×2 (07:05→21:32)
[2019-09-07] MEDS: INSULIN ASPART (NovoLOG) 100 UNIT/ML VIAL SQ SCH ×4 (07:06→21:32)
[2019-09-07] MEDS: TAMSULOSIN 0.4 MG CAP.ER.24H PO SCH (08:21)
[2019-09-07] MEDS: CLOPIDOGREL 75 MG TAB PO SCH (08:21)
[2019-09-07] MEDS: METOPROLOL TARTRATE 12.5 MG TAB PO SCH (08:21)
[2019-09-07] MEDS: amLODIPine 10 MG TAB PO SCH (09:50)
--- NOTE | 2019-09-07 10:19 | P.PN ---
Subjective This is a pleasant 54-year-old -[place] male past medical history significant for hypertension, dyslipidemia, diabetes mellitus and obstructive sleep apnea. He presented to the emergency department and was found to be in atrial fibrillation. He has since converted to sinus mechanism. Cardizem as been discontinued. He is maintained on IV heparin. He is seen and examined ambulate back to the bathroom. He is quite dyspneic with exertion. He denies symptoms of chest pain continues to complain of shortness of breath. He denies palpitations or dizziness. Laboratory data reviewed, to be WBC 8.1, hemoglobin 12, platelets 302, sodium 144, potassium 2.8, creatinine 0.98, LDL 68. GENERAL: Well-appearing, well-nourished and in no acute distress. Morbidly obese. NECK: Supple without JVD or thyromegaly. LUNGS: Breath sounds clear to auscultation bilaterally. Respiration equal and unlabored. No wheezes, rales or rhonchi. Diminished bilaterally. HEART: Regular rate and rhythm without murmurs, rubs or gallops. S1 and S2 heard. Distant heart sounds. EXTREMITIES: Normal range of motion, 2+ bilateral lower extremity pitting edema. No clubbing or cyanosis. Peripheral pulses intact. ASSESSMENT New onset atrial fibrillation with rapid ventricular response, spontaneously converted to sinus mechanism Elevated troponin of unclear etiology. Could be related to RVR. Hypokalemia Hypomagnesemia Hyperglycemia PLAN Continue to replace electrolytes per protocol. Continue IV heparin at this time until echocardiogram has been obtained. If there is wall motion abnormalities heart catheterization will be considered. jail anticoagulation will be initiated thereafter. Continue Plavix at this time as he is anaphylactic reaction to aspirin. Resume amlodipine 10 mg daily. Increase metoprolol to 25 mg twice a day. Further recommendations to follow based upon clinical course. Nurse Practitioner note has been reviewed, I agree with a documented findings and plan of care. Patient was seen and examined. Objective - Vital Signs Vital signs: Vital Signs Temp 98.2 F 09/07/19 08:00 Pulse 83 09/07/19 08:00 Resp 20 09/07/19 08:00 BP 185/90 09/07/19 08:00 Pulse Ox 96 09/07/19 08:00 Intake & Output 09/06/19 09/07/19 09/07/19 18:59 06:59 18:59 Intake Total 700 349.173 240 Output Total 1000 750 400 Balance -300 -400.827 -160 Weight 159.5 kg 162.2 kg Intake: Intake, IV Titration 229.173 Amount Heparin Sod,Pork in 0.45% 229.173 NaCl 25,000 unit In 0.45 % NaCl 1 250ml.bag @ 6.04 UNITS/KG/HR 10 mls/hr IV .Q24H [facility] Rx#:[id number] Oral 700 120 240 Output: Urine 1000 750 400 Other: Voiding Method Urinal # Voids 1 - Labs CBC & Chem 7: 09/07/19 02:31 09/07/19 02:31 Labs: Abnormal Lab Results - Last 24 Hours (Table) 09/06/19 09/06/19 09/06/19 Range/Units 10:22 10:23 10:48 RBC (4.30-5.90) m/uL Hgb (13.0-17.5) gm/dL Hct (39.0-53.0) % Lymphocytes # (1.0-4.8) k/uL APTT (22.0-30.0) sec VBG pCO2 (37-51) mmHg VBG HCO3 (24-28) mmol/L Potassium 2.5 L* (3.5-5.1) mmol/L Carbon Dioxide 35 H (22-30) mmol/L Glucose 303 H (74-99) mg/dL POC Glucose (mg/dL) 311 H (75-99) mg/dL Magnesium 1.5 L (1.6-2.3) mg/dL Troponin I (0.000-0.034) ng/mL Albumin (3.5-5.0) g/dL HDL Cholesterol (40-60) mg/dL Urine Protein 1+ H (Negative) Urine Glucose (UA) 3+ H (Negative) Urine Blood Trace H (Negative) Urine Bacteria Rare H (None) /hpf 09/06/19 09/06/19 09/06/19 Range/Units 10:48 10:48 10:48 RBC (4.30-5.90) m/uL Hgb 12.3 L (13.0-17.5) gm/dL Hct 37.3 L (39.0-53.0) % Lymphocytes # 0.8 L (1.0-4.8) k/uL APTT (22.0-30.0) sec VBG pCO2 60 H (37-51) mmHg VBG HCO3 35 H (24-28) mmol/L Potassium (3.5-5.1) mmol/L Carbon Dioxide (22-30) mmol/L Glucose (74-99) mg/dL POC Glucose (mg/dL) (75-99) mg/dL Magnesium (1.6-2.3) mg/dL Troponin I 0.048 H* (0.000-0.034) ng/mL Albumin (3.5-5.0) g/dL HDL Cholesterol (40-60) mg/dL Urine Protein (Negative) Urine Glucose (UA) (Negative) Urine Blood (Negative) Urine Bacteria (None) /hpf 09/06/19 09/06/19 09/06/19 Range/Units 11:27 13:07 16:58 RBC (4.30-5.90) m/uL Hgb (13.0-17.5) gm/dL Hct (39.0-53.0) % Lymphocytes # (1.0-4.8) k/uL APTT (22.0-30.0) sec VBG pCO2 (37-51) mmHg VBG HCO3 (24-28) mmol/L Potassium (3.5-5.1) mmol/L Carbon Dioxide (22-30) mmol/L Glucose (74-99) mg/dL POC Glucose (mg/dL) 278 H 167 H 47 L (75-99) mg/dL Magnesium (1.6-2.3) mg/dL Troponin I (0.000-0.034) ng/mL Albumin (3.5-5.0) g/dL HDL Cholesterol (40-60) mg/dL Urine Protein (Negative) Urine Glucose (UA) (Negative) Urine Blood (Negative) Urine Bacteria (None) /hpf 09/06/19 09/06/19 09/06/19 Range/Units 16:59 16:59 17:14 RBC (4.30-5.90) m/uL Hgb (13.0-17.5) gm/dL Hct (39.0-53.0) % Lymphocytes # (1.0-4.8) k/uL APTT (22.0-30.0) sec VBG pCO2 (37-51) mmHg VBG HCO3 (24-28) mmol/L Potassium 2.8 L (3.5-5.1) mmol/L Carbon Dioxide (22-30) mmol/L Glucose (74-99) mg/dL POC Glucose (mg/dL) 69 L (75-99) mg/dL Magnesium (1.6-2.3) mg/dL Troponin I 0.053 H* (0.000-0.034) ng/mL Albumin (3.5-5.0) g/dL HDL Cholesterol (40-60) mg/dL Urine Protein (Negative) Urine Glucose (UA) (Negative) Urine Blood (Negative) Urine Bacteria (None) /hpf 09/06/19 09/06/19 09/06/19 Range/Units 17:27 20:22 21:45 RBC (4.30-5.90) m/uL Hgb (13.0-17.5) gm/dL Hct (39.0-53.0) % Lymphocytes # (1.0-4.8) k/uL APTT (22.0-30.0) sec VBG pCO2 (37-51) mmHg VBG HCO3 (24-28) mmol/L Potassium (3.5-5.1) mmol/L Carbon Dioxide (22-30) mmol/L Glucose (74-99) mg/dL POC Glucose (mg/dL) 117 H 108 H 135 H (75-99) mg/dL Magnesium (1.6-2.3) mg/dL Troponin I (0.000-0.034) ng/mL Albumin (3.5-5.0) g/dL HDL Cholesterol (40-60) mg/dL Urine Protein (Negative) Urine Glucose (UA) (Negative) Urine Blood (Negative) Urine Bacteria (None) /hpf 09/06/19 09/06/19 09/07/19 Range/Units 22:08 22:08 01:35 RBC (4.30-5.90) m/uL Hgb (13.0-17.5) gm/dL Hct (39.0-53.0) % Lymphocytes # (1.0-4.8) k/uL APTT (22.0-30.0) sec VBG pCO2 (37-51) mmHg VBG HCO3 (24-28) mmol/L Potassium 2.9 L (3.5-5.1) mmol/L Carbon Dioxide (22-30) mmol/L Glucose (74-99) mg/dL POC Glucose (mg/dL) 49 L (75-99) mg/dL Magnesium (1.6-2.3) mg/dL Troponin I 0.057 H* (0.000-0.034) ng/mL Albumin (3.5-5.0) g/dL HDL Cholesterol (40-60) mg/dL Urine Protein (Negative) Urine Glucose (UA) (Negative) Urine Blood (Negative) Urine Bacteria (None) /hpf 09/07/19 09/07/19 09/07/19 Range/Units 02:31 02:31 02:31 RBC 4.25 L (4.30-5.90) m/uL Hgb 12.0 L (13.0-17.5) gm/dL Hct 37.1 L (39.0-53.0) % Lymphocytes # (1.0-4.8) k/uL APTT 30.6 H (22.0-30.0) sec VBG pCO2 (37-51) mmHg VBG HCO3 (24-28) mmol/L Potassium 2.8 L (3.5-5.1) mmol/L Carbon Dioxide 33 H (22-30) mmol/L Glucose 110 H (74-99) mg/dL POC Glucose (mg/dL) (75-99) mg/dL Magnesium 1.5 L (1.6-2.3) mg/dL Troponin I (0.000-0.034) ng/mL Albumin 3.3 L (3.5-5.0) g/dL HDL Cholesterol 38 L (40-60) mg/dL Urine Protein (Negative) Urine Glucose (UA) (Negative) Urine Blood (Negative) Urine Bacteria (None) /hpf 09/07/19 Range/Units 02:37 RBC (4.30-5.90) m/uL Hgb (13.0-17.5) gm/dL Hct (39.0-53.0) % Lymphocytes # (1.0-4.8) k/uL APTT (22.0-30.0) sec VBG pCO2 (37-51) mmHg VBG HCO3 (24-28) mmol/L Potassium (3.5-5.1) mmol/L Carbon Dioxide (22-30) mmol/L Glucose (74-99) mg/dL POC Glucose (mg/dL) 126 H (75-99) mg/dL Magnesium (1.6-2.3) mg/dL Troponin I (0.000-0.034) ng/mL Albumin (3.5-5.0) g/dL HDL Cholesterol (40-60) mg/dL Urine Protein (Negative) Urine Glucose (UA) (Negative) Urine Blood (Negative) Urine Bacteria (None) /hpf
[2019-09-07 11:11] LABS: Glucose,Whole Blood 143 mg/dL (75-99)
[2019-09-07 11:22] LABS: INR 0.9 (<1.2); Partial Thromboplastin Time 38.7 sec (22.0-30.0)
[2019-09-07 11:42] LABS: Glucose,Whole Blood 118 mg/dL (75-99)
[2019-09-07] MEDS: AZITHROMYCIN 500 MG TAB PO SCH (12:06)
[2019-09-07] MEDS ORDERED: ONDANSETRON 4 MG/2 ML VIAL IVP PRN (14:02)
[2019-09-07 14:13] LABS: Glucose,Whole Blood 220 mg/dL (75-99)
[2019-09-07] MEDS ORDERED: METOPROLOL TARTRATE 25 MG TAB PO STA (14:52)
--- NOTE | 2019-09-07 15:51 | CT ---
EXAMINATION TYPE: CT brain wo con DATE OF EXAM: 09/07/2019 HISTORY: dizziness CT DLP: 1074.4 mGycm. Automated Exposure Control for Dose Reduction was Utilized. TECHNIQUE: CT scan of the head is performed without contrast. COMPARISON: None. FINDINGS: There is no acute intracranial hemorrhage or midline shift identified. Campa-white matter differentiation is maintained. Ventricles and sulci are felt within normal limits in size for patient 's age. No suspicious fluid signal in bilateral mastoid air cells. The visualized sinuses are clear. Symmetric curvilinear calcification superior medial globe near rectus muscle insertion incidentall y noted. IMPRESSION: No acute intracranial hemorrhage or midline shift.
[2019-09-07 16:51] LABS: Glucose,Whole Blood 182 mg/dL (75-99)
[2019-09-07 20:51] LABS: Glucose,Whole Blood 167 mg/dL (75-99)
[2019-09-07] MEDS: METOPROLOL TARTRATE 25 MG TAB PO SCH (21:32)
[2019-09-07] MEDS ORDERED: ACETAMINOPHEN TAB 325 MG TAB PO PRN (21:41)
[2019-09-08] MEDS: amLODIPine 10 MG TAB PO SCH (05:13)
[2019-09-08] MEDS: METOPROLOL TARTRATE 25 MG TAB PO SCH (05:14)
[2019-09-08] MEDS: HEPARIN SOD,PORK IN 0.45% NACL 25,000 UNIT in 0.45% NACL 1 250ML.BAG IV SCH (05:14)
[2019-09-08 06:55] LABS: Glucose,Whole Blood 199 mg/dL (75-99)
[2019-09-08 06:55] LABS: Basophils # (A) 0.1 k/uL (0-0.2); Basophils % (A) 1 %; Eosinophils # (A) 0.1 k/uL (0-0.7); Eosinophils % (A) 2 %; HGB 11.4 gm/dL (13.0-17.5); Lymphocytes # (A) 1.5 k/uL (1.0-4.8); Lymphocytes % (A) 22 %; MCH 27.8 pg (25.0-35.0); MCHC 31.7 g/dL (31.0-37.0); MCV 87.8 fL (80.0-100.0); Monocytes # (A) 0.3 k/uL (0-1.0); Monocytes % (A) 5 %; Neutrophils # (A) 4.8 k/uL (1.3-7.7); Neutrophils % (A) 69 %; Platelet Count 275 k/uL (150-450); RDW 14.2 % (11.5-15.5); WBC 6.9 k/uL (3.8-10.6)
[2019-09-08 06:59] LABS: INR 0.9 (<1.2); Prothrombin Time 10.1 sec (9.0-12.0)
[2019-09-08] MEDS: INSULIN DETEMIR (LEVEMIR) 100 UNIT/ML SYR SQ SCH ×2 (07:06→21:08)
[2019-09-08 07:14] LABS: Magnesium 1.8 mg/dL (1.6-2.3); Potassium 3.3 mmol/L (3.5-5.1)
[2019-09-08] MEDS ORDERED: Potassium Replacement Protocol 1 EACH MISC MISCELLANE PRN (08:01)
[2019-09-08] MEDS: TAMSULOSIN 0.4 MG CAP.ER.24H PO SCH (08:29)
[2019-09-08] MEDS: CLOPIDOGREL 75 MG TAB PO SCH (08:29)
[2019-09-08] MEDS: INSULIN ASPART (NovoLOG) 100 UNIT/ML VIAL SQ SCH ×4 (08:29→21:08)
[2019-09-08] MEDS: POTASSIUM CHLORIDE ER 20 MEQ TAB.ER PO SCH ×2 (09:04→11:37)
[2019-09-08 10:38] VITALS: BMI 57.8
[2019-09-08] MEDS: AZITHROMYCIN 500 MG TAB PO SCH (11:37)
[2019-09-08] MEDS ORDERED: METOPROLOL TARTRATE 25 MG TAB PO STA (11:46)
[2019-09-08] MEDS ORDERED: MECLIZINE 25 MG TAB PO PRN (11:53)
[2019-09-08 12:06] LABS: Glucose,Whole Blood 112 mg/dL (75-99)
[2019-09-08] MEDS: LOSARTAN 50 MG TAB PO SCH (12:11)
--- NOTE | 2019-09-08 12:42 | P.PN ---
Subjective Progress Note Date: 09/08/19 This is a pleasant 54-year-old -[place] male past medical history significant for hypertension, dyslipidemia, diabetes mellitus and obstructive sleep apnea. He presented to the emergency department and was found to be in atrial fibrillation. He has since converted to sinus mechanism.he continues to be in normal sinus rhythm this morning. Patient is still complaining of some symptoms of dizziness. We will add Antivert to his medication regime. His echo was reviewed by Dr. Edwards, revealed mildly reduced LV function. His troponin abnormality was likely secondary to atrial fibrillation with rapid ventricular response with no evidence of significant rise or fall pattern. We will discontinue the IV heparin and start the patient on Eliquis.initiate losartan 50 mg daily, and increase dose of beta sunny to 50 mg by mouth twice a day to optimize blood pressure control. Objective - Vital Signs Vital signs: Vital Signs Temp 98.7 F 09/08/19 11:53 Pulse 83 09/08/19 11:53 Resp 18 09/08/19 11:53 BP 198/95 09/08/19 11:53 Pulse Ox 95 09/08/19 11:53 Intake & Output 09/07/19 09/08/19 09/08/19 18:59 06:59 18:59 Intake Total 1328.132 1278 50 Output Total 3350 950 1200 Balance -1938.000 420 -1150 Weight 162.5 kg 162.5 kg Intake: IV 442 270 50 Heparin Sod,Pork in 0.45% 192 270 NaCl 25,000 unit In 0.45 % NaCl 1 250ml.bag @ 6.04 UNITS/KG/HR 10 mls/hr IV .Q24H [facility] Rx#:[id number] Magnesium Sulfate-D5w Pmx 200 1 gm In Dextrose/Water 1 100ml.bag @ 100 mls/hr IVPB Q1H [facility] Rx#: [id number] cefTRIAXone 1 gm In 50 50 Sodium Chloride 0.9% 50 ml @ 100 mls/hr IVPB Q24HR [facility] Rx#:[id number] Intake, IV Titration 250.000 250 Amount Heparin Sod,Pork in 0.45% 250.000 250 NaCl 25,000 unit In 0.45 % NaCl 1 250ml.bag @ 6.04 UNITS/KG/HR 10 mls/hr IV .Q24H [facility] Rx#:[id number] Oral 720 850 Output: Urine 3350 950 1200 Other: Voiding Method Urinal Urinal # Voids 1 3 1 # Bowel Movements 0 - Exam GENERAL: Well-appearing, well-nourished and in no acute distress. Morbidly obese. NECK: Supple without JVD or thyromegaly. LUNGS: Breath sounds clear to auscultation bilaterally. Respiration equal and unlabored. No wheezes, rales or rhonchi. Diminished bilaterally. HEART: Regular rate and rhythm without murmurs, rubs or gallops. S1 and S2 heard. Distant heart sounds. EXTREMITIES: Normal range of motion, 2+ bilateral lower extremity pitting edema. No clubbing or cyanosis. Peripheral pulses intact. - Labs CBC & Chem 7: 09/08/19 06:18 09/08/19 06:18 Labs: Abnormal Lab Results - Last 24 Hours (Table) 09/07/19 09/07/19 09/07/19 Range/Units 14:11 14:26 16:29 RBC (4.30-5.90) m/uL Hgb (13.0-17.5) gm/dL Hct (39.0-53.0) % APTT (22.0-30.0) sec Potassium 3.0 L (3.5-5.1) mmol/L POC Glucose (mg/dL) 220 H 182 H (75-99) mg/dL 09/07/19 09/07/19 09/07/19 Range/Units 18:16 18:16 20:47 RBC (4.30-5.90) m/uL Hgb (13.0-17.5) gm/dL Hct (39.0-53.0) % APTT 53.4 H (22.0-30.0) sec Potassium 3.1 L (3.5-5.1) mmol/L POC Glucose (mg/dL) 167 H (75-99) mg/dL 09/07/19 09/08/19 09/08/19 Range/Units 22:46 06:18 06:18 RBC 4.10 L (4.30-5.90) m/uL Hgb 11.4 L (13.0-17.5) gm/dL Hct 36.0 L (39.0-53.0) % APTT (22.0-30.0) sec Potassium 3.4 L 3.3 L (3.5-5.1) mmol/L POC Glucose (mg/dL) (75-99) mg/dL 09/08/19 09/08/19 09/08/19 Range/Units 06:49 08:57 12:04 RBC (4.30-5.90) m/uL Hgb (13.0-17.5) gm/dL Hct (39.0-53.0) % APTT 44.0 H (22.0-30.0) sec Potassium (3.5-5.1) mmol/L POC Glucose (mg/dL) 199 H 112 H (75-99) mg/dL Microbiology - Last 24 Hours (Table) 09/06/19 13:25 Blood Culture - Preliminary Blood No Growth after 24 hours Assessment and Plan Plan: ASSESSMENTand plan #1New onset atrial fibrillation with rapid ventricular response,paroxysmal, spontaneously converted to sinus mechanism #2Elevated troponin likely related to atrial fibrillation with rapid ventricular response, no significant rise and fall pattern #3Hypokalemia, replaced #4Hypomagnesemia #5Hyperglycemia #6 hypertension Plan We will discontinue the IV heparin and start the patient on Eliquis. Add losartan to his medication regime and increase the dose of beta sunny to optimize blood pressure control. We will also start the patient on some Anti vert because of this symptoms of dizziness. DNP note has been reviewed, I agree with a documented findings and plan of care. Patient was seen and examined.
[2019-09-08] MEDS: APIXABAN 5 MG TAB PO SCH ×2 (13:37→21:08)
[2019-09-08 16:55] LABS: Glucose,Whole Blood 172 mg/dL (75-99)
[2019-09-08 20:12] LABS: Glucose,Whole Blood 205 mg/dL (75-99)
[2019-09-08] MEDS: METOPROLOL TARTRATE 50 MG TAB PO SCH (21:08)
[2019-09-08] MEDS: MECLIZINE 25 MG TAB PO SCH (21:08)
--- NOTE | 2019-09-08 21:37 | P.PN ---
Subjective Progress Note Date: 09/07/19 Principal diagnosis: new onset atrial fibrillationcurrently converted tosinus rhythm Dizziness Elevated troponin level Patient is a 54-year-old male with a known history of diabetes type 2 insulin- dependent, hypertension, hyperlipidemia, obstructive sleep apnea and morbid obesity and also marijuana use came to ER with complaints of severe dizziness. Patient says that she woke up in the morning and check his blood sugar found to be more than 300. Patient also felt very sick and extreme dizziness and lightheadedness and about to fall. No complaints of chest pain. Patient does have nausea. as of vomiting. No shortness of breath. No commerce of focal weakness. No complaints of visual disturbance. Denied any dysuria. No recent diarrhea or changes. No recent change in medications. Initial EKG showed sinus rhythm with ST-T wave AV block and T-wave inversions in the lateral leads.. Patient later converted to atrial fibrillation with rapid regular rate. Chest x-ray showed correlate for COPD. Evidence of a perihilar infiltrate likely representing pneumonia. Potassium 2.5, bicarb 35 The sugar was 303 on admission Magnesium 1.5 Troponin 0.048 Acidosis negative UA negative for infection. 09/07/2019 Patient is complaining ofdizziness today especially when he lies flat. Converted to normal sinus rhythm spontaneously. Heart rate is controlled. Cardizem has been discontinued. Currently on IV heparin due to elevatedtroponin level. Patient is having exertional dyspnea. No complaints of chest pain. CT of the head was done showedno acute cardiopulmonary process. Chest x-ray showed possible increasing right-sided air space disease. WBC 8.1, hemoglobin 12, platelets 302, creatinine leve 0.98 and Potassium 2.8 which is being replaced aggressively. patient was having hypoglycemic episodes. Levemir dose reduced to 55 units twice a day. current medications reviewed. Objective - Vital Signs Vital signs: Vital Signs Temp 98.2 F 09/07/19 08:00 Pulse 83 09/07/19 08:00 Resp 20 09/07/19 08:00 BP 185/90 09/07/19 08:00 Pulse Ox 96 09/07/19 08:00 Intake & Output 09/06/19 09/07/19 09/07/19 18:59 06:59 18:59 Intake Total 700 349.173 240 Output Total 1000 750 400 Balance -300 -400.827 -160 Weight 159.5 kg 162.2 kg Intake: Intake, IV Titration 229.173 Amount Heparin Sod,Pork in 0.45% 229.173 NaCl 25,000 unit In 0.45 % NaCl 1 250ml.bag @ 6.04 UNITS/KG/HR 10 mls/hr IV .Q24H [facility] Rx#:[id number] Oral 700 120 240 Output: Urine 1000 750 400 Other: Voiding Method Urinal # Voids 1 - Exam PHYSICAL EXAMINATION: Patient is lying in the bed comfortably, no acute distress, awake alert and oriented.. HEENT: Normocephalic. Neck is supple. Pupils reactive. Nostrils clear. Oral cavity is moist. Ears reveal no drainage. Neck reveals no JVD, carotid bruits, or thyromegaly. CHEST EXAMINATION: Trachea is central. Symmetrical expansion. bibasilar diminished ar entry.Lung ricketts clear to auscultation and percussion. CARDIAC: Normal S1, S2 with no gallops. No murmurs ABDOMEN: Soft. Bowel sounds normal. No organomegaly. No abdominal bruits. Extremities: reveal no edema. No clubbing or cyanosis Neurologically awake, alert, oriented x3 with well-coordinated movements. No focal deficits noted Skin: No rash or skin lesions. Psychiatric: Coperative. Nonsuicidal Musculoskeletal: No joint swelling or deformity. Normal range of motion. - Labs CBC & Chem 7: 09/08/19 06:18 09/08/19 06:18 Labs: Abnormal Lab Results - Last 24 Hours (Table) 09/06/19 09/06/19 09/06/19 Range/Units 10:22 10:23 10:48 RBC (4.30-5.90) m/uL Hgb (13.0-17.5) gm/dL Hct (39.0-53.0) % Lymphocytes # (1.0-4.8) k/uL APTT (22.0-30.0) sec VBG pCO2 (37-51) mmHg VBG HCO3 (24-28) mmol/L Potassium 2.5 L* (3.5-5.1) mmol/L Carbon Dioxide 35 H (22-30) mmol/L Glucose 303 H (74-99) mg/dL POC Glucose (mg/dL) 311 H (75-99) mg/dL Magnesium 1.5 L (1.6-2.3) mg/dL Troponin I (0.000-0.034) ng/mL Albumin (3.5-5.0) g/dL HDL Cholesterol (40-60) mg/dL Urine Protein 1+ H (Negative) Urine Glucose (UA) 3+ H (Negative) Urine Blood Trace H (Negative) Urine Bacteria Rare H (None) /hpf 09/06/19 09/06/19 09/06/19 Range/Units 10:48 10:48 10:48 RBC (4.30-5.90) m/uL Hgb 12.3 L (13.0-17.5) gm/dL Hct 37.3 L (39.0-53.0) % Lymphocytes # 0.8 L (1.0-4.8) k/uL APTT (22.0-30.0) sec VBG pCO2 60 H (37-51) mmHg VBG HCO3 35 H (24-28) mmol/L Potassium (3.5-5.1) mmol/L Carbon Dioxide (22-30) mmol/L Glucose (74-99) mg/dL POC Glucose (mg/dL) (75-99) mg/dL Magnesium (1.6-2.3) mg/dL Troponin I 0.048 H* (0.000-0.034) ng/mL Albumin (3.5-5.0) g/dL HDL Cholesterol (40-60) mg/dL Urine Protein (Negative) Urine Glucose (UA) (Negative) Urine Blood (Negative) Urine Bacteria (None) /hpf 09/06/19 09/06/19 09/06/19 Range/Units 11:27 13:07 16:58 RBC (4.30-5.90) m/uL Hgb (13.0-17.5) gm/dL Hct (39.0-53.0) % Lymphocytes # (1.0-4.8) k/uL APTT (22.0-30.0) sec VBG pCO2 (37-51) mmHg VBG HCO3 (24-28) mmol/L Potassium (3.5-5.1) mmol/L Carbon Dioxide (22-30) mmol/L Glucose (74-99) mg/dL POC Glucose (mg/dL) 278 H 167 H 47 L (75-99) mg/dL Magnesium (1.6-2.3) mg/dL Troponin I (0.000-0.034) ng/mL Albumin (3.5-5.0) g/dL HDL Cholesterol (40-60) mg/dL Urine Protein (Negative) Urine Glucose (UA) (Negative) Urine Blood (Negative) Urine Bacteria (None) /hpf 09/06/19 09/06/19 09/06/19 Range/Units 16:59 16:59 17:14 RBC (4.30-5.90) m/uL Hgb (13.0-17.5) gm/dL Hct (39.0-53.0) % Lymphocytes # (1.0-4.8) k/uL APTT (22.0-30.0) sec VBG pCO2 (37-51) mmHg VBG HCO3 (24-28) mmol/L Potassium 2.8 L (3.5-5.1) mmol/L Carbon Dioxide (22-30) mmol/L Glucose (74-99) mg/dL POC Glucose (mg/dL) 69 L (75-99) mg/dL Magnesium (1.6-2.3) mg/dL Troponin I 0.053 H* (0.000-0.034) ng/mL Albumin (3.5-5.0) g/dL HDL Cholesterol (40-60) mg/dL Urine Protein (Negative) Urine Glucose (UA) (Negative) Urine Blood (Negative) Urine Bacteria (None) /hpf 09/06/19 09/06/19 09/06/19 Range/Units 17:27 20:22 21:45 RBC (4.30-5.90) m/uL Hgb (13.0-17.5) gm/dL Hct (39.0-53.0) % Lymphocytes # (1.0-4.8) k/uL APTT (22.0-30.0) sec VBG pCO2 (37-51) mmHg VBG HCO3 (24-28) mmol/L Potassium (3.5-5.1) mmol/L Carbon Dioxide (22-30) mmol/L Glucose (74-99) mg/dL POC Glucose (mg/dL) 117 H 108 H 135 H (75-99) mg/dL Magnesium (1.6-2.3) mg/dL Troponin I (0.000-0.034) ng/mL Albumin (3.5-5.0) g/dL HDL Cholesterol (40-60) mg/dL Urine Protein (Negative) Urine Glucose (UA) (Negative) Urine Blood (Negative) Urine Bacteria (None) /hpf 09/06/19 09/06/19 09/07/19 Range/Units 22:08 22:08 01:35 RBC (4.30-5.90) m/uL Hgb (13.0-17.5) gm/dL Hct (39.0-53.0) % Lymphocytes # (1.0-4.8) k/uL APTT (22.0-30.0) sec VBG pCO2 (37-51) mmHg VBG HCO3 (24-28) mmol/L Potassium 2.9 L (3.5-5.1) mmol/L Carbon Dioxide (22-30) mmol/L Glucose (74-99) mg/dL POC Glucose (mg/dL) 49 L (75-99) mg/dL Magnesium (1.6-2.3) mg/dL Troponin I 0.057 H* (0.000-0.034) ng/mL Albumin (3.5-5.0) g/dL HDL Cholesterol (40-60) mg/dL Urine Protein (Negative) Urine Glucose (UA) (Negative) Urine Blood (Negative) Urine Bacteria (None) /hpf 09/07/19 09/07/19 09/07/19 Range/Units 02:31 02:31 02:31 RBC 4.25 L (4.30-5.90) m/uL Hgb 12.0 L (13.0-17.5) gm/dL Hct 37.1 L (39.0-53.0) % Lymphocytes # (1.0-4.8) k/uL APTT 30.6 H (22.0-30.0) sec VBG pCO2 (37-51) mmHg VBG HCO3 (24-28) mmol/L Potassium 2.8 L (3.5-5.1) mmol/L Carbon Dioxide 33 H (22-30) mmol/L Glucose 110 H (74-99) mg/dL POC Glucose (mg/dL) (75-99) mg/dL Magnesium 1.5 L (1.6-2.3) mg/dL Troponin I (0.000-0.034) ng/mL Albumin 3.3 L (3.5-5.0) g/dL HDL Cholesterol 38 L (40-60) mg/dL Urine Protein (Negative) Urine Glucose (UA) (Negative) Urine Blood (Negative) Urine Bacteria (None) /hpf 09/07/19 Range/Units 02:37 RBC (4.30-5.90) m/uL Hgb (13.0-17.5) gm/dL Hct (39.0-53.0) % Lymphocytes # (1.0-4.8) k/uL APTT (22.0-30.0) sec VBG pCO2 (37-51) mmHg VBG HCO3 (24-28) mmol/L Potassium (3.5-5.1) mmol/L Carbon Dioxide (22-30) mmol/L Glucose (74-99) mg/dL POC Glucose (mg/dL) 126 H (75-99) mg/dL Magnesium (1.6-2.3) mg/dL Troponin I (0.000-0.034) ng/mL Albumin (3.5-5.0) g/dL HDL Cholesterol (40-60) mg/dL Urine Protein (Negative) Urine Glucose (UA) (Negative) Urine Blood (Negative) Urine Bacteria (None) /hpf Assessment and Plan Assessment: Dizziness and near syncope secondary to atrial fibrillation. currently converted to spontaneous rhythm. New onset atrial fibrillation with RVR. rate controlled. Patient is off Cardizem drip Elevated troponin level .likely due to atrial fibrillation. Left perihilar infiltrate with possible pneumonia. Severe hypokalemia and hypomagnesemia Hyperglycemia with uncontrolled diabetes type 2 Hypertensive urgency History of marijuana use Diary peripheral neuropathy Obstructive sleep apnea on CPAP at home Hyperlipidemia Morbid obesity BMI 56.8 No prior history of smoking Plan: Patient will be continued on telemetry monitoring. Serial EKGs and troponinstrending down. Patient was started on Cardizem drip which is being tapered off. Continue with heparin IV. Patient was started on Plavix, metoprolol and LDL 68. Continue with antibiotics in the form of ceftriaxone and azithromycin. Continue with insulin dosing Levemir 110-->55 units twice daily along with insulin sliding scale and follow blood sugars closely. Replace electrolyte, potassium and magnesium. Cardiology has seen the patient and 2-D echocardiography was ordered. Further recommendations based on the clinical course. Time with Patient: Greater than 30
--- NOTE | 2019-09-08 21:47 | P.PN ---
Subjective Progress Note Date: 09/08/19 Principal diagnosis: new onset atrial fibrillationcurrently converted tosinus rhythm Dizziness Elevated troponin level Patient is a 54-year-old male with a known history of diabetes type 2 insulin- dependent, hypertension, hyperlipidemia, obstructive sleep apnea and morbid obesity and also marijuana use came to ER with complaints of severe dizziness. Patient says that she woke up in the morning and check his blood sugar found to be more than 300. Patient also felt very sick and extreme dizziness and lightheadedness and about to fall. No complaints of chest pain. Patient does have nausea. as of vomiting. No shortness of breath. No commerce of focal weakness. No complaints of visual disturbance. Denied any dysuria. No recent diarrhea or changes. No recent change in medications. Initial EKG showed sinus rhythm with ST-T wave AV block and T-wave inversions in the lateral leads.. Patient later converted to atrial fibrillation with rapid regular rate. Chest x-ray showed correlate for COPD. Evidence of a perihilar infiltrate likely representing pneumonia. Potassium 2.5, bicarb 35 The sugar was 303 on admission Magnesium 1.5 Troponin 0.048 Acidosis negative UA negative for infection. 09/07/2019 Patient is complaining ofdizziness today especially when he lies flat. Converted to normal sinus rhythm spontaneously. Heart rate is controlled. Cardizem has been discontinued. Currently on IV heparin due to elevatedtroponin level. Patient is having exertional dyspnea. No complaints of chest pain. CT of the head was done showedno acute cardiopulmonary process. Chest x-ray showed possible increasing right-sided air space disease. WBC 8.1, hemoglobin 12, platelets 302, creatinine leve 0.98 and Potassium 2.8 which is being replaced aggressively. patient was having hypoglycemic episodes. Levemir dose reduced to 55 units twice a day. 09/08/2019 Patient says that his dizziness is better today. Still having dizziness when he is lying flat. Added Antivert. Otherwise patient remaned in sinus rhythm. heparin drip has been discontinued and was started on Eliquis. patient is blood pressure is high today with SBP greater than 190 mm Hg.continued on metoprolol and added losartan. Cardiology is following. No complaints of chest pain. Shortness of breath is improving. Currently patient is also on antibiotics for possible pneumonia. Patient has be en afebrile ..blood sugar is controlled. Anticipate discharge in the next 24-48 hours with symptomatic improvement. current medications reviewed. Active Medications Acetaminophen (Tylenol Tab) 650 mg PO Q6HR PRN PRN Reason: Fever and/ or Pain Amlodipine Besylate (Norvasc) 10 mg PO DAILY [facility] Last Admin: 09/08/19 05:13 Dose: 10 mg Documented by: Apixaban (Eliquis) 5 mg PO BID [facility] Last Admin: 09/08/19 13:37 Dose: 5 mg Documented by: Azithromycin (Zithromax) 500 mg PO DAILY@1200 [facility] Last Admin: 09/08/19 11:37 Dose: 500 mg Documented by: Clopidogrel Bisulfate (Plavix) 75 mg PO DAILY [facility] Last Admin: 09/08/19 08:29 Dose: 75 mg Documented by: Ceftriaxone Sodium 1 gm/ (Sodium Chloride) 50 mls @ 100 mls/hr IVPB Q24HR [facility] Stop: 09/10/19 09:01 Last Admin: 09/08/19 08:28 Dose: 100 mls/hr Documented by: Insulin Aspart (Novolog) 0 unit SQ ACHS [facility]; Protocol Last Admin: 09/08/19 21:08 Dose: 5 unit Documented by: Insulin Detemir (Levemir) 55 unit SQ BID@0700,2100 [facility] Last Admin: 09/08/19 21:08 Dose: 55 unit Documented by: Losartan Potassium (Cozaar) 50 mg PO DAILY [facility] Last Admin: 09/08/19 12:11 Dose: 50 mg Documented by: Meclizine HCl (Antivert) 25 mg PO BID [facility] Last Admin: 09/08/19 21:08 Dose: 25 mg Documented by: Metoprolol Tartrate (Lopressor) 50 mg PO BID [facility] Last Admin: 09/08/19 21:08 Dose: 50 mg Documented by: Miscellaneous Information (Pneumonia Protocol Utilized) 1 each PO ONCE PRN PRN Reason: Per Protocol Miscellaneous Information (Potassium Per Protocol) 1 each MISCELLANE DAILY PRN; Protocol PRN Reason: Per Protocol Miscellaneous Information (Magnesium Per Protocol) 1 each MISCELLANE DAILY PRN; Protocol PRN Reason: Per Protocol Miscellaneous Information (Potassium Per Protocol) 1 each MISCELLANE DAILY PRN; Protocol PRN Reason: Per Protocol Nitroglycerin (Nitrostat) 0.4 mg SUBLINGUAL Q5M PRN PRN Reason: Chest Pain Ondansetron HCl (Zofran) 4 mg IVP Q6HR PRN PRN Reason: Nausea And Vomiting Last Admin: 09/07/19 14:12 Dose: 4 mg Documented by: Tamsulosin HCl (Flomax) 0.4 mg PO DAILY [facility] Last Admin: 09/08/19 08:29 Dose: 0.4 mg Documented by: Objective - Vital Signs Vital signs: Vital Signs Temp 97.8 F 09/08/19 15:42 Pulse 77 09/08/19 15:42 Resp 18 09/08/19 15:42 BP 132/86 09/08/19 15:42 Pulse Ox 97 09/08/19 17:37 Intake & Output 09/07/19 09/08/19 09/08/19 18:59 06:59 18:59 Intake Total 6013.419 2530 650 Output Total 3350 950 1200 Balance -1938.000 420 -550 Weight 162.5 kg 162.5 kg Intake: IV 442 270 50 Heparin Sod,Pork in 0.45% 192 270 NaCl 25,000 unit In 0.45 % NaCl 1 250ml.bag @ 6.04 UNITS/KG/HR 10 mls/hr IV .Q24H [facility] Rx#:[id number] Magnesium Sulfate-D5w Pmx 200 1 gm In Dextrose/Water 1 100ml.bag @ 100 mls/hr IVPB Q1H [facility] Rx#: [id number] cefTRIAXone 1 gm In 50 50 Sodium Chloride 0.9% 50 ml @ 100 mls/hr IVPB Q24HR [facility] Rx#:[id number] Intake, IV Titration 250.000 250 Amount Heparin Sod,Pork in 0.45% 250.000 250 NaCl 25,000 unit In 0.45 % NaCl 1 250ml.bag @ 6.04 UNITS/KG/HR 10 mls/hr IV .Q24H [facility] Rx#:[id number] Oral 720 850 600 Output: Urine 3350 950 1200 Other: Voiding Method Urinal Urinal # Voids 1 3 1 # Bowel Movements 0 - Exam PHYSICAL EXAMINATION: Patient is lying in the bed comfortably, no acute distress, awake alert and oriented.. HEENT: Normocephalic. Neck is supple. Pupils reactive. Nostrils clear. Oral cavity is moist. Ears reveal no drainage. Neck reveals no JVD, carotid bruits, or thyromegaly. CHEST EXAMINATION: Trachea is central. Symmetrical expansion. bibasilar diminished ar entry.Lung ricketts clear to auscultation and percussion. CARDIAC: Normal S1, S2 with no gallops. No murmurs ABDOMEN: Soft. Bowel sounds normal. No organomegaly. No abdominal bruits. Extremities: reveal no edema. No clubbing or cyanosis Neurologically awake, alert, oriented x3 with well-coordinated movements. No focal deficits noted Skin: No rash or skin lesions. Psychiatric: Coperative. Nonsuicidal Musculoskeletal: No joint swelling or deformity. Normal range of motion. - Labs CBC & Chem 7: 09/08/19 06:18 09/08/19 06:18 Labs: Abnormal Lab Results - Last 24 Hours (Table) 09/07/19 09/07/19 09/07/19 Range/Units 18:16 18:16 20:47 RBC (4.30-5.90) m/uL Hgb (13.0-17.5) gm/dL Hct (39.0-53.0) % APTT 53.4 H (22.0-30.0) sec Potassium 3.1 L (3.5-5.1) mmol/L POC Glucose (mg/dL) 167 H (75-99) mg/dL 09/07/19 09/08/19 09/08/19 Range/Units 22:46 06:18 06:18 RBC 4.10 L (4.30-5.90) m/uL Hgb 11.4 L (13.0-17.5) gm/dL Hct 36.0 L (39.0-53.0) % APTT (22.0-30.0) sec Potassium 3.4 L 3.3 L (3.5-5.1) mmol/L POC Glucose (mg/dL) (75-99) mg/dL 09/08/19 09/08/19 09/08/19 Range/Units 06:49 08:57 12:04 RBC (4.30-5.90) m/uL Hgb (13.0-17.5) gm/dL Hct (39.0-53.0) % APTT 44.0 H (22.0-30.0) sec Potassium (3.5-5.1) mmol/L POC Glucose (mg/dL) 199 H 112 H (75-99) mg/dL 09/08/19 Range/Units 16:52 RBC (4.30-5.90) m/uL Hgb (13.0-17.5) gm/dL Hct (39.0-53.0) % APTT (22.0-30.0) sec Potassium (3.5-5.1) mmol/L POC Glucose (mg/dL) 172 H (75-99) mg/dL Microbiology - Last 24 Hours (Table) 09/06/19 13:25 Blood Culture - Preliminary Blood No Growth after 48 hours Assessment and Plan Assessment: Dizziness and near syncope secondary to atrial fibrillation. currently converted to spontaneous rhythm. New onset atrial fibrillation with RVR. rate controlled. Patient is off Cardizem drip. started on Eliquis Elevated troponin level .likely due to atrial fibrillation. Left perihilar infiltrate with possible pneumonia. Severe hypokalemia and hypomagnesemia. Replaced Hyperglycemia with uncontrolled diabetes type 2 Hypertensive urgency History of marijuana use Diary peripheral neuropathy Obstructive sleep apnea on CPAP at home Hyperlipidemia Morbid obesity BMI 56.8 No prior history of smoking Plan: Patient will be continued on telemetry monitoring. Serial EKGs and troponinstrending down. Patient was started on Cardizem drip which is being tapered off. Continue with heparin IV. Patient was started on Plavix, metoprolol and LDL 68. Continue with antibiotics in the form of ceftriaxone and azithromycin. Continue with insulin dosing Levemir 110-->55 units twice daily along with insulin sliding scale and follow blood sugars closely. Replace electrolyte, potassium and magnesium. Cardiology has seen the patient and 2-D echocardiography was ordered. Further recommendations based on the clinical course. Time with Patient: Greater than 30
[2019-09-09 06:32] LABS: Glucose,Whole Blood 94 mg/dL (75-99)
[2019-09-09] MEDS: INSULIN DETEMIR (LEVEMIR) 100 UNIT/ML SYR SQ SCH ×2 (06:43→20:45)
[2019-09-09] MEDS: INSULIN ASPART (NovoLOG) 100 UNIT/ML VIAL SQ SCH ×4 (06:43→20:45)
[2019-09-09 06:55] LABS: Basophils % (A) 1 %; Eosinophils # (A) 0.2 k/uL (0-0.7); Eosinophils % (A) 2 %; HCT 33.6 % (39.0-53.0); HGB 11.1 gm/dL (13.0-17.5); Lymphocytes # (A) 1.3 k/uL (1.0-4.8); Lymphocytes % (A) 18 %; MCH 28.3 pg (25.0-35.0); MCV 85.6 fL (80.0-100.0); Mean Platelet Volume 7.8; Monocytes # (A) 0.4 k/uL (0-1.0); Monocytes % (A) 5 %; Neutrophils # (A) 5.5 k/uL (1.3-7.7); Neutrophils % (A) 73 %; Platelet Count 270 k/uL (150-450); RBC 3.92 m/uL (4.30-5.90); WBC 7.6 k/uL (3.8-10.6)
[2019-09-09 07:04] LABS: Prothrombin Time 10.3 sec (9.0-12.0)
[2019-09-09] MEDS: LOSARTAN 50 MG TAB PO SCH (09:02)
[2019-09-09] MEDS: amLODIPine 10 MG TAB PO SCH (09:02)
[2019-09-09] MEDS: CLOPIDOGREL 75 MG TAB PO SCH (09:02)
[2019-09-09] MEDS: APIXABAN 5 MG TAB PO SCH ×2 (09:02→19:49)
[2019-09-09] MEDS: METOPROLOL TARTRATE 50 MG TAB PO SCH ×2 (09:02→19:50)
[2019-09-09] MEDS: MECLIZINE 25 MG TAB PO SCH ×2 (09:02→19:49)
[2019-09-09] MEDS: TAMSULOSIN 0.4 MG CAP.ER.24H PO SCH (09:02)
[2019-09-09 11:29] LABS: Glucose,Whole Blood 94 mg/dL (75-99)
[2019-09-09] MEDS: AZITHROMYCIN 500 MG TAB PO SCH (11:52)
[2019-09-09] MEDS: hydrALAZINE HCL 10 MG TAB PO SCH ×2 (12:44→19:49)
[2019-09-09 16:48] LABS: Glucose,Whole Blood 133 mg/dL (75-99)
--- NOTE | 2019-09-09 18:38 | P.PN ---
Subjective Progress Note Date: 09/09/19 This 54-year-old gentleman was admitted with a dizziness, not feeling well with uncontrolled hypertension and also bout of atrial fibrillation while in the emergency room. Patient converted to sinus rhythm. She complains of being fatigued and dizzy. His blood pressure has been fluctuating. Echo showed evidence of mild nonischemic cardiomyopathy. Patient has been on Cozaar and also beta sunny. Add hydralazine today. Continue current medical therapy. Increase activity as tolerated. Possible discharge within next 24-48 hours. Needs further evaluation with the stress correlation study to rule out underlying ischemic heart disease Objective - Vital Signs Vital signs: Vital Signs Temp 98.1 F 09/09/19 15:46 Pulse 70 09/09/19 15:46 Resp 18 09/09/19 15:46 BP 161/80 09/09/19 15:46 Pulse Ox 97 09/09/19 15:46 Intake & Output 09/08/19 09/09/19 09/09/19 18:59 06:59 18:59 Intake Total 1130 740 Output Total 1200 Balance -70 740 Weight 162.5 kg 165.3 kg Intake: IV 50 cefTRIAXone 1 gm In 50 Sodium Chloride 0.9% 50 ml @ 100 mls/hr IVPB Q24HR [facility] Rx#:[id number] Oral 1080 740 Output: Urine 1200 Other: Voiding Method Urinal Urinal Urinal # Voids 1 2 3 - Exam GENERAL EXAM: Patient is alert and oriented and doesn't appear to be in any acute distress HEENT: Normocephalic. Normal reaction of pupils, equal size, normal range of extraocular motion. No erythema or exudates in the throat. NECK: No masses, no nuchal rigidity. CHEST: No chest wall deformity. LUNGS: Equal air entry with no crackles or wheeze. HEART: S1 and S2 normal with no audible mumurs or gallops. Regular rhythm, femorals equal on both sides.. ABDOMEN: No hepatosplenomegaly, normal bowel sounds, no guarding or rigidity. SKIN: No rashes CENTRAL NERVOUS SYSTEM: No focal deficits. EXTREMITIES: No cyanosis, clubbing or edema. - Labs CBC & Chem 7: 09/09/19 06:07 09/08/19 06:18 Labs: Abnormal Lab Results - Last 24 Hours (Table) 09/08/19 09/09/19 09/09/19 Range/Units 20:10 06:07 16:47 RBC 3.92 L (4.30-5.90) m/uL Hgb 11.1 L (13.0-17.5) gm/dL Hct 33.6 L (39.0-53.0) % POC Glucose (mg/dL) 205 H 133 H (75-99) mg/dL Microbiology - Last 24 Hours (Table) 09/06/19 13:25 Blood Culture - Preliminary Blood No Growth after 72 hours Assessment and Plan (1) New onset atrial fibrillation Current Visit: Yes Status: Acute Code(s): I48.91 - UNSPECIFIED ATRIAL FIBRILLATION SNOMED Code(s): 26142116 (2) Dizziness Current Visit: Yes Status: Acute Code(s): R42 - DIZZINESS AND GIDDINESS SNOMED Code(s): 304223225 (3) Hyperglycemia Current Visit: Yes Status: Acute Code(s): R73.9 - HYPERGLYCEMIA, UNSPECIFIED SNOMED Code(s): 17194009 (4) Hypertension Current Visit: Yes Status: Acute Code(s): I10 - ESSENTIAL (PRIMARY) HYPERTENSION SNOMED Code(s): 48896875 (5) Hypokalemia Current Visit: Yes Status: Acute Code(s): E87.6 - HYPOKALEMIA SNOMED Code(s): 34757937 (6) Elevated troponin Current Visit: Yes Status: Acute Code(s): R79.89 - OTHER SPECIFIED ABNORMAL FINDINGS OF BLOOD CHEMISTRY SNOMED Code(s): 523346788 Plan: Patient is feeling slightly better. Blood pressure is not well controlled. Ma intaining sinus rhythm. We will order hydralazine. Further recommendations depend upon the clinical course
[2019-09-09 20:32] LABS: Glucose,Whole Blood 216 mg/dL (75-99)
[2019-09-10 06:08] LABS: Glucose,Whole Blood 109 mg/dL (75-99)
[2019-09-10] MEDS: INSULIN ASPART (NovoLOG) 100 UNIT/ML VIAL SQ SCH ×2 (06:14→12:24)
[2019-09-10] MEDS: INSULIN DETEMIR (LEVEMIR) 100 UNIT/ML SYR SQ SCH (07:03)
[2019-09-10 08:37] LABS: Calcium 8.8 mg/dL (8.4-10.2); Magnesium 1.8 mg/dL (1.6-2.3); Potassium 3.2 mmol/L (3.5-5.1)
[2019-09-10] MEDS: CLOPIDOGREL 75 MG TAB PO SCH (08:47)
[2019-09-10] MEDS: hydrALAZINE HCL 10 MG TAB PO SCH (08:47)
[2019-09-10] MEDS: METOPROLOL TARTRATE 50 MG TAB PO SCH (08:47)
[2019-09-10] MEDS: TAMSULOSIN 0.4 MG CAP.ER.24H PO SCH (08:47)
[2019-09-10] MEDS: LOSARTAN 50 MG TAB PO SCH (08:47)
[2019-09-10] MEDS: amLODIPine 10 MG TAB PO SCH (08:47)
[2019-09-10] MEDS: APIXABAN 5 MG TAB PO SCH (08:47)
[2019-09-10] MEDS: MECLIZINE 25 MG TAB PO SCH (08:47)
[2019-09-10] MEDS: POTASSIUM CHLORIDE ER 20 MEQ TAB.ER PO SCH ×2 (09:59→11:30)
[2019-09-10] MEDS: MAGNESIUM SULFATE-D5W PMX 1 GM in DEXTROSE/WATER 1 100ML.BAG IVPB SCH ×2 (09:59→11:30)
[2019-09-10] MEDS: AZITHROMYCIN 500 MG TAB PO SCH (11:30)
[2019-09-10 11:55] LABS: Glucose,Whole Blood 148 mg/dL (75-99)
--- NOTE | 2019-09-10 13:56 | P.PN ---
Subjective Progress Note Date: 09/10/19 This 54-year-old gentleman was admitted with a dizziness, not feeling well with uncontrolled hypertension and also bout of atrial fibrillation while in the emergency room. Patient converted to sinus rhythm. She complains of being fatigued and dizzy. His blood pressure has been fluctuating. Echo showed evidence of mild nonischemic cardiomyopathy. Patient has been on Cozaar and also beta sunny. Add hydralazine today. Continue current medical therapy. Increase activity as tolerated. Possible discharge within next 24-48 hours. Needs further evaluation with the stress correlation study to rule out underlying ischemic heart disease. 08/28/2019: This patient is feeling better. Complaints of mild dizziness. Blood pressure is well controlled tolerating activity. No complaints of any chest pain or shortness of breath. Patient could be discharged home on current medical therapy. Follow-up in the office in one week. Outpatient stress test to be considered Objective - Vital Signs Vital signs: Vital Signs Temp 98 F 09/10/19 08:00 Pulse 75 09/10/19 11:40 Resp 18 09/10/19 11:40 BP 135/74 09/10/19 11:40 Pulse Ox 93 L 09/10/19 11:40 Intake & Output 09/09/19 09/10/19 09/10/19 18:59 06:59 18:59 Intake Total 740 240 50 Balance 740 240 50 Weight 165.9 kg Intake: Intake, IV Titration 50 Amount cefTRIAXone 1 gm In 50 Sodium Chloride 0.9% 50 ml @ 100 mls/hr IVPB Q24HR [facility] Rx#:[id number] Oral 740 240 Other: Voiding Method Urinal Urinal Urinal # Voids 3 2 - Exam GENERAL EXAM: Patient is alert and oriented and doesn't appear to be in any acute distress HEENT: Normocephalic. Normal reaction of pupils, equal size, normal range of extraocular motion. No erythema or exudates in the throat. NECK: No masses, no nuchal rigidity. CHEST: No chest wall deformity. LUNGS: Equal air entry with no crackles or wheeze. HEART: S1 and S2 normal with no audible mumurs or gallops. Regular rhythm, femorals equal on both sides.. ABDOMEN: No hepatosplenomegaly, normal bowel sounds, no guarding or rigidity. SKIN: No rashes CENTRAL NERVOUS SYSTEM: No focal deficits. EXTREMITIES: No cyanosis, clubbing or edema. - Labs CBC & Chem 7: 09/09/19 06:07 09/10/19 12:49 Labs: Abnormal Lab Results - Last 24 Hours (Table) 09/09/19 09/09/19 09/10/19 Range/Units 16:47 20:31 06:07 Potassium (3.5-5.1) mmol/L Glucose (74-99) mg/dL POC Glucose (mg/dL) 133 H 216 H 109 H (75-99) mg/dL 09/10/19 09/10/19 Range/Units 07:53 11:52 Potassium 3.2 L (3.5-5.1) mmol/L Glucose 183 H (74-99) mg/dL POC Glucose (mg/dL) 148 H (75-99) mg/dL Microbiology - Last 24 Hours (Table) 09/06/19 13:25 Blood Culture - Preliminary Blood No Growth after 72 hours Assessment and Plan (1) New onset atrial fibrillation Current Visit: Yes Status: Acute Code(s): I48.91 - UNSPECIFIED ATRIAL FIBRILLATION SNOMED Code(s): 96479404 (2) Dizziness Current Visit: Yes Status: Acute Code(s): R42 - DIZZINESS AND GIDDINESS SNOMED Code(s): 425468517 (3) Hyperglycemia Current Visit: Yes Status: Acute Code(s): R73.9 - HYPERGLYCEMIA, UNSPECIFIED SNOMED Code(s): 09214916 (4) Hypertension Current Visit: Yes Status: Acute Code(s): I10 - ESSENTIAL (PRIMARY) HYPERTENSION SNOMED Code(s): 55442377 (5) Hypokalemia Current Visit: Yes Status: Acute Code(s): E87.6 - HYPOKALEMIA SNOMED Code(s): 65894386 (6) Elevated troponin Current Visit: Yes Status: Acute Code(s): R79.89 - OTHER SPECIFIED ABNORMAL FINDINGS OF BLOOD CHEMISTRY SNOMED Code(s): 137288911 Plan: Patient is critically stable. Blood pressure is well controlled. Patient could be discharged home. Follow-up in the office in one week
[2019-09-10] MEDS ORDERED: POTASSIUM CHLORIDE ER 20 MEQ TAB.ER PO SCH (15:00)
--- NOTE | 2019-09-10 15:09 | P.PN ---
Subjective Progress Note Date: 09/09/19 Principal diagnosis: new onset atrial fibrillation currently in sinus rhythm Dizziness Elevated troponin level 54-year-old gentleman was admitted with a dizziness, not feeling well with uncontrolled hypertension and also bout of atrial fibrillation while in the emergency room. Patient converted to sinus rhythm. She complains of being fatigued and dizzy. His blood pressure has been fluctuating. Echo showed evidence of mild nonischemic cardiomyopathy. Patient has been on Cozaar and also beta sunny. Objective - Vital Signs Vital signs: Vital Signs Temp 98.1 F 09/09/19 15:46 Pulse 70 09/09/19 15:46 Resp 18 09/09/19 15:46 BP 161/80 09/09/19 15:46 Pulse Ox 97 09/09/19 15:46 Intake & Output 09/08/19 09/09/19 09/09/19 18:59 06:59 18:59 Intake Total 1130 620 Output Total 1200 Balance -70 620 Weight 162.5 kg 165.3 kg Intake: IV 50 cefTRIAXone 1 gm In 50 Sodium Chloride 0.9% 50 ml @ 100 mls/hr IVPB Q24HR [facility] Rx#:[id number] Oral 1080 620 Output: Urine 1200 Other: Voiding Method Urinal Urinal Urinal # Voids 1 2 3 - Exam Patient is lying in the bed comfortably, no acute distress, awake alert and oriented.. HEENT: Normocephalic. Neck is supple. Pupils reactive. Nostrils clear. Oral cavity is moist. Ears reveal no drainage. Neck reveals no JVD, carotid bruits, or thyromegaly. CHEST EXAMINATION: Trachea is central. Symmetrical expansion. bibasilar diminished ar entry.Lung ricketts clear to auscultation and percussion. CARDIAC: Normal S1, S2 with no gallops. No murmurs ABDOMEN: Soft. Bowel sounds normal. No organomegaly. No abdominal bruits. Extremities: reveal no edema. No clubbing or cyanosis Neurologically awake, alert, oriented x3 with well-coordinated movements. No focal deficits noted Skin: No rash or skin lesions. - Labs CBC & Chem 7: 09/09/19 06:07 09/10/19 12:49 Labs: Abnormal Lab Results - Last 24 Hours (Table) 09/08/19 09/08/19 09/09/19 Range/Units 16:52 20:10 06:07 RBC 3.92 L (4.30-5.90) m/uL Hgb 11.1 L (13.0-17.5) gm/dL Hct 33.6 L (39.0-53.0) % POC Glucose (mg/dL) 172 H 205 H (75-99) mg/dL Microbiology - Last 24 Hours (Table) 09/06/19 13:25 Blood Culture - Preliminary Blood No Growth after 48 hours Assessment and Plan Assessment: Dizziness and near syncope secondary to atrial fibrillation. currently converted to spontaneous rhythm. New onset atrial fibrillation with RVR. rate controlled. Patient is off Cardizem drip. started on Eliquis Elevated troponin level .likely due to atrial fibrillation. Left perihilar infiltrate with possible pneumonia. Severe hypokalemia and hypomagnesemia. Replaced Hyperglycemia with uncontrolled diabetes type 2 Hypertensive urgency History of marijuana use Diary peripheral neuropathy Obstructive sleep apnea on CPAP at home Hyperlipidemia Morbid obesity BMI 56.8 No prior history of smoking Plan: Patient will be continued on telemetry monitoring. Serial EKGs and troponinstrending down. Patient was started on Cardizem drip which is being tapered off. Continue with heparin IV. Patient was started on Plavix, metoprolol and LDL 68. Continue with antibiotics in the form of ceftriaxone and azithromycin. Continue with insulin dosing Levemir 110-->55 units twice daily along with in sulin sliding scale and follow blood sugars closely. Replace electrolyte, potassium and magnesium. Cardiology has seen the patient and 2-D echocardiography was ordered. Further recommendations based on the clinical course.
[2019-09-10 15:12] VITALS: BP 171/79; PULSE 68; RESP 16; TEMP 97.6
--- NOTE | 2019-09-10 15:31 | P.DS ---
Providers Date of admission: 09/06/19 11:26 Expected date of discharge: 09/10/19 Attending physician: Monica Betancourt Consults: 09/06/19 11:29 Consult Physician Urgent Consulting Provider: Devorah Edwards Consult Reason/Comments: dizziness, hypokalemia, elevated trop Do you want consulting provider notified?: Yes Primary care physician: Elian Luna [facility] Course: 54-year-old gentleman was admitted with a dizziness, not feeling well with uncontrolled hypertension and also bout of atrial fibrillation while in the emergency room. Patient converted to sinus rhythm. She complains of being fatigued and dizzy. His blood pressure has been fluctuating. Echo showed evidence of mild nonischemic cardiomyopathy. Patient has been on Cozaar and also beta sunny. Add hydralazine today. Continue current medical therapy. Increase activity as tolerated. Possible discharge within next 24-48 hours per cardiology. Needs further evaluation with the stress correlation study to rule out underlying ischemic heart disease BP meds were adjusted extensivel and patient is recommended ischemia workup as outpatient Patient Condition at Discharge: Fair Plan - Discharge Summary Discharge Rx Participant: Yes New Discharge Prescriptions: New Meclizine [Antivert] 25 mg PO BID #15 tab hydrALAZINE HCL [Apresoline] 20 mg PO BID #60 tab Losartan [Cozaar] 50 mg PO DAILY #30 tab Apixaban [Eliquis] 5 mg PO BID #60 tab Metoprolol Tartrate [Lopressor] 50 mg PO BID #30 tab Clopidogrel [Plavix] 75 mg PO DAILY #30 tab Continue metFORMIN HCL 1,000 mg PO BID amLODIPine [Norvasc] 10 mg PO DAILY Tamsulosin [Flomax] 0.4 mg PO DAILY Furosemide [Lasix] 40 mg PO DAILY Insulin Glargine,Hum.rec.anlog [Basaglar Kwikpen U-100] 110 unit SQ BID Discharge Medication List Furosemide [Lasix] 40 mg PO DAILY 09/06/19 [History] Insulin Glargine,Hum.rec.anlog [Basaglar Kwikpen U-100] 110 unit SQ BID 09/06/19 [History] Tamsulosin [Flomax] 0.4 mg PO DAILY 09/06/19 [History] amLODIPine [Norvasc] 10 mg PO DAILY 09/06/19 [History] metFORMIN HCL 1,000 mg PO BID 09/06/19 [History] Apixaban [Eliquis] 5 mg PO BID #60 tab 09/10/19 [Rx] Clopidogrel [Plavix] 75 mg PO DAILY #30 tab 09/10/19 [Rx] Losartan [Cozaar] 50 mg PO DAILY #30 tab 09/10/19 [Rx] Meclizine [Antivert] 25 mg PO BID #15 tab 09/10/19 [Rx] Metoprolol Tartrate [Lopressor] 50 mg PO BID #30 tab 09/10/19 [Rx] hydrALAZINE HCL [Apresoline] 20 mg PO BID #60 tab 09/10/19 [Rx] Follow up Appointment(s)/Referral(s): Cliff Plummer MD [Primary Care Provider] - 1-2 days Activity/Diet/Wound Care/Special Instructions: Prescription for test strips on chart, please make sure patient has this on discharge. outpatient diabetes program Discharge Disposition: HOME SELF-CARE
== END 2019-09-10 16:07 | disposition home or self-care (01) | DRG 308 ==
LOC: EC 10:14 → 3SCARD 11:26
PROVIDERS: ADMIT Hospitalist; ATTEND Hospitalist
DX: I48.91 Unspecified atrial fibrillation (principal); J18.9 Pneumonia, unspecified organism; Z68.43 Body mass index [BMI] 50.0-59.9, adult; E11.65 Type 2 diabetes mellitus with hyperglycemia; E66.01 Morbid (severe) obesity due to excess calories; E78.5 Hyperlipidemia, unspecified; E83.42 Hypomagnesemia; E87.6 Hypokalemia; G47.33 Obstructive sleep apnea (adult) (pediatric); E11.42 Type 2 diabetes mellitus with diabetic polyneuropathy; I10 Essential (primary) hypertension; I16.0 Hypertensive urgency; I42.8 Other cardiomyopathies; I44.30 Unspecified atrioventricular block; Z79.01 Long term (current) use of anticoagulants; Z79.02 Long term (current) use of antithrombotics/antiplatelets; Z79.4 Long term (current) use of insulin; Z79.899 Other long term (current) drug therapy; Z82.49 Family history of ischemic heart disease and other diseases of the circulatory system; Z83.3 Family history of diabetes mellitus; R79.89 Other specified abnormal findings of blood chemistry
CPT/HCPCS: 36415; 70450; 71046; 80048; 80053; 80061; 81001; 82009; 82803; 83605; 83735; 84132; 84484; 85025; 85610; 85730; 87040; 93005; 93306; 94660; 96361; 96365; 96366; 96368; 96375; 96376; 99285

== ENCOUNTER 2020-04-25 20:55 | Inpatient (IN) | payer OTHER ==
[2020-04-25] MEDS ORDERED: NITROGLYCERIN SL TABS 0.4 MG TAB SUBLINGUAL STA (21:06)
[2020-04-25] MEDS ORDERED: NITROGLYCERIN-D5W PMX 50 MG in DEXTROSE/WATER 1 250ML.BAG IV ONE (21:16)
[2020-04-25 21:17] LABS: VBG PH 7.46 (7.31-7.41)
[2020-04-25 21:19] LABS: Basophils # (A) 0.1 k/uL (0-0.2); Basophils % (A) 1 %; Eosinophils # (A) 0.3 k/uL (0-0.7); Eosinophils % (A) 2 %; HCT 44.6 % (39.0-53.0); HGB 14.3 gm/dL (13.0-17.5); Lymphocytes # (A) 1.9 k/uL (1.0-4.8); Lymphocytes % (A) 14 %; MCH 28.1 pg (25.0-35.0); MCHC 32.1 g/dL (31.0-37.0); MCV 87.5 fL (80.0-100.0); Monocytes # (A) 0.6 k/uL (0-1.0); Monocytes % (A) 4 %; Neutrophils # (A) 10.5 k/uL (1.3-7.7); Neutrophils % (A) 77 %; Platelet Count 334 k/uL (150-450); RBC 5.09 m/uL (4.30-5.90); RDW 13.9 % (11.5-15.5); WBC 13.6 k/uL (3.8-10.6)
--- NOTE | 2020-04-25 21:19 | ED ---
General Adult HPI - General Chief complaint: Shortness of Breath Stated complaint: JONO Time Seen by Provider: 04/25/20 21:07 Source: patient, EMS Mode of arrival: EMS Limitations: no limitations - History of Present Illness Initial comments: Dictation was produced using [employer] dictation software. please excuse any grammatical, word or spelling errors. This patient was cared for during a federal and state declared state of emergency secondary to Covid 19 Chief Complaint: 54-year-old male with one-day history of dyspnea. History of Present Illness: 54-year-old male who has past medical history of morbid obesity, sleep apnea, dyslipidemia and hypertension. Patient also has A. fib. He takes liquids. Patient states that upon waking up this morning he has been feeling worsening shortness of breath. Last night he had some spaghetti. Today he had some chili dogs. Patient states his symptoms are severe. Feels definitely more symptomatic when lying flat. Patient has history of hypertension. Takes multiple antihypertensive medications. Patient has a history of heart failure. The ROS documented in this emergency department record has been reviewed and confirmed by me. Those systems with pertinent positive or negative responses have been documented in the HPI. All other systems are other negative and/or noncontributory. PHYSICAL EXAM: General Impression: Alert and oriented x3, diaphoretic, dyspneic HEENT: Normocephalic atraumatic, extra-ocular movements intact, pupils equal and reactive to light bilaterally, mucous membranes moist. Cardiovascular: Diffuse rales Chest: One to 2 word sentences, tripoding Abdomen: abdomen soft, non-tender, non-distended, no organomegaly Musculoskeletal: Pulses present and equal in all extremities, diffuse lower extremity edema Motor: no focal deficits noted Neurological: CN II-XII grossly intact, no focal motor or sensory deficits noted Skin: Intact with no visualized rashes Psych: Normal affect and mood ED course: 54-year-old male with multiple comorbidities presents with acute onset dyspnea. Signs upon arrival shows heart rate of 1:30, respiratory rate of 38, oxygen saturation 91 on 6 L nasal cannula. Patient is in severe acute respiratory distress. Point of care bedside ultrasound showed findings to suggest pulmonary edema. Patient placed on BiPAP. EKG shows sinus tachycardia. No signs of myocardial infarction. Patient gives sublingual nitroglycerin. Clinical presentation consistent with hypertensive emergency secondary to acute decompensated heart failure. Patient's systolic blood pressure is 190. Laboratory evaluation obtained. Leukocytosis of 13.66 secondary to stress. Coag panel is unremarkable. Blood gas shows pH is 7.46 with a CO2 of 41 and a bicarb of 29. Metabolic panel is unremarkable. Troponin is 0.063 with a brain natruretic peptide of 1130. Chest x-ray shows interstitial perineum the hilar pulmonary infiltrates. Patient reevaluated after several minutes of BiPAP and after sublingual nitroglycerin and some time on nitro glycerin infusion with significant improvement of symptoms. He is not diaphoretic or showing any signs or rest. Her distress. He sitting comfortably with his legs up. At this point I believe patient is amenable for cardiac telemetry floor. We will have cardiology consulted. Patient given 40 mg of IV Lasix. EKG interpretation: Ventricular rate 1I, sinus tachycardia, RI interval 180, QRS 112, QTC 487. No RI prolongation, no QTC prolongation, no ST or T-wave changes noted. EKG compared to September 06 2019 showing no changes. Overall, this EKG is unremarkable - Related Data Home Medications Medication Instructions Recorded Confirmed Furosemide [Lasix] 40 mg PO DAILY 09/06/19 09/06/19 Insulin Glargine,Hum.rec.anlog 110 unit SQ BID 09/06/19 09/06/19 [Basaglyvette Mata U-100] Tamsulosin [Flomax] 0.4 mg PO DAILY 09/06/19 09/06/19 amLODIPine [Norvasc] 10 mg PO DAILY 09/06/19 09/06/19 metFORMIN HCL 1,000 mg PO BID 09/06/19 09/06/19 Previous Rx's Medication Instructions Recorded Apixaban [Eliquis] 5 mg PO BID #60 tab 09/10/19 Clopidogrel [Plavix] 75 mg PO DAILY #30 tab 09/10/19 Losartan [Cozaar] 50 mg PO DAILY #30 tab 09/10/19 Meclizine [Antivert] 25 mg PO BID #15 tab 09/10/19 Metoprolol Tartrate [Lopressor] 50 mg PO BID #30 tab 09/10/19 hydrALAZINE HCL [Apresoline] 20 mg PO BID #60 tab 09/10/19 Allergies Allergy/AdvReac Type Severity Reaction Status Date / Time aspirin AdvReac Dyspnea Verified 09/06/19 10:30 Review of Systems ROS Statement: Those systems with pertinent positive or pertinent negative responses have been documented in the HPI. ROS Other: All systems not noted in ROS Statement are negative. Past Medical History Past Medical History: Diabetes Mellitus, Hyperlipidemia, Hypertension, Sleep Apnea/CPAP/BIPAP Additional Past Medical History / Comment(s): neuropathy History of Any Multi-Drug Resistant Organisms: None Reported Past Surgical History: No Surgical Hx Reported Past Anesthesia/Blood Transfusion Reactions: No Reported Reaction Past Psychological History: No Psychological Hx Reported Past Alcohol Use History: None Reported Past Drug Use History: Marijuana - Past Family History Father Family Medical History: No Reported History Additional Family Medical History / Comment(s): not sure Mother Family Medical History: Diabetes Mellitus, Hypertension Additional Family Medical History / Comment(s): mom is still alive General Exam Limitations: no limitations Course Vital Signs 04/25/20 04/25/20 04/25/20 21:00 21:07 21:12 Temperature 98.5 F Pulse Rate 130 H 108 H Respiratory 38 H 32 H 38 H Rate Blood Pressure 194/105 O2 Sat by Pulse 91 L 100 Oximetry 04/25/20 21:30 Temperature Pulse Rate 101 H Respiratory 28 H Rate Blood Pressure 183/99 O2 Sat by Pulse 100 Oximetry Medical Decision Making - Lab Data Result diagrams: 04/25/20 21:11 04/25/20 21:11 Lab Results 04/25/20 04/25/20 04/25/20 Range/Units 21:03 21:11 21:11 WBC 13.6 H (3.8-10.6) k/uL RBC 5.09 (4.30-5.90) m/uL Hgb 14.3 (13.0-17.5) gm/dL Hct 44.6 (39.0-53.0) % MCV 87.5 (80.0-100.0) fL MCH 28.1 (25.0-35.0) pg MCHC 32.1 (31.0-37.0) g/dL RDW 13.9 (11.5-15.5) % Plt Count 334 (150-450) k/uL Neutrophils % 77 % Lymphocytes % 14 % Monocytes % 4 % Eosinophils % 2 % Basophils % 1 % Neutrophils # 10.5 H (1.3-7.7) k/uL Lymphocytes # 1.9 (1.0-4.8) k/uL Monocytes # 0.6 (0-1.0) k/uL Eosinophils # 0.3 (0-0.7) k/uL Basophils # 0.1 (0-0.2) k/uL PT 9.5 (9.0-12.0) sec INR 0.9 (<1.2) APTT 23.5 (22.0-30.0) sec VBG pH 7.46 H (7.31-7.41) VBG pCO2 41 (37-51) mmHg VBG HCO3 29 H (24-28) mmol/L Sodium (137-145) mmol/L Potassium (3.5-5.1) mmol/L Chloride (98-107) mmol/L Carbon Dioxide (22-30) mmol/L Anion Gap mmol/L BUN (9-20) mg/dL Creatinine (0.66-1.25) mg/dL Est GFR (CKD-EPI)AfAm (>60 ml/min/1.73 sqM) Est GFR (CKD-EPI)NonAf (>60 ml/min/1.73 sqM) Glucose (74-99) mg/dL Plasma Lactic Acid Vick (0.7-2.0) mmol/L Calcium (8.4-10.2) mg/dL Magnesium (1.6-2.3) mg/dL Total Bilirubin (0.2-1.3) mg/dL AST (17-59) U/L ALT (4-49) U/L Alkaline Phosphatase (38-126) U/L Troponin I (0.000-0.034) ng/mL NT-Pro-B Natriuret Pep pg/mL Total Protein (6.3-8.2) g/dL Albumin (3.5-5.0) g/dL 04/25/20 04/25/20 04/25/20 Range/Units 21:11 21:11 21:11 WBC (3.8-10.6) k/uL RBC (4.30-5.90) m/uL Hgb (13.0-17.5) gm/dL Hct (39.0-53.0) % MCV (80.0-100.0) fL MCH (25.0-35.0) pg MCHC (31.0-37.0) g/dL RDW (11.5-15.5) % Plt Count (150-450) k/uL Neutrophils % % Lymphocytes % % Monocytes % % Eosinophils % % Basophils % % Neutrophils # (1.3-7.7) k/uL Lymphocytes # (1.0-4.8) k/uL Monocytes # (0-1.0) k/uL Eosinophils # (0-0.7) k/uL Basophils # (0-0.2) k/uL PT (9.0-12.0) sec INR (<1.2) APTT (22.0-30.0) sec VBG pH (7.31-7.41) VBG pCO2 (37-51) mmHg VBG HCO3 (24-28) mmol/L Sodium 140 (137-145) mmol/L Potassium 4.2 (3.5-5.1) mmol/L Chloride 103 (98-107) mmol/L Carbon Dioxide 27 (22-30) mmol/L Anion Gap 10 mmol/L BUN 16 (9-20) mg/dL Creatinine 1.08 (0.66-1.25) mg/dL Est GFR (CKD-EPI)AfAm 88 (>60 ml/min/1.73 sqM) Est GFR (CKD-EPI)NonAf 76 (>60 ml/min/1.73 sqM) Glucose 196 H (74-99) mg/dL Plasma Lactic Acid Vick 1.7 (0.7-2.0) mmol/L Calcium 9.3 (8.4-10.2) mg/dL Magnesium 1.6 (1.6-2.3) mg/dL Total Bilirubin 0.6 (0.2-1.3) mg/dL AST 45 (17-59) U/L ALT 24 (4-49) U/L Alkaline Phosphatase 100 (38-126) U/L Troponin I 0.063 H* (0.000-0.034) ng/mL NT-Pro-B Natriuret Pep pg/mL Total Protein 8.0 (6.3-8.2) g/dL Albumin 4.3 (3.5-5.0) g/dL 04/25/20 Range/Units 21:11 WBC (3.8-10.6) k/uL RBC (4.30-5.90) m/uL Hgb (13.0-17.5) gm/dL Hct (39.0-53.0) % MCV (80.0-100.0) fL MCH (25.0-35.0) pg MCHC (31.0-37.0) g/dL RDW (11.5-15.5) % Plt Count (150-450) k/uL Neutrophils % % Lymphocytes % % Monocytes % % Eosinophils % % Basophils % % Neutrophils # (1.3-7.7) k/uL Lymphocytes # (1.0-4.8) k/uL Monocytes # (0-1.0) k/uL Eosinophils # (0-0.7) k/uL Basophils # (0-0.2) k/uL PT (9.0-12.0) sec INR (<1.2) APTT (22.0-30.0) sec VBG pH (7.31-7.41) VBG pCO2 (37-51) mmHg VBG HCO3 (24-28) mmol/L Sodium (137-145) mmol/L Potassium (3.5-5.1) mmol/L Chloride (98-107) mmol/L Carbon Dioxide (22-30) mmol/L Anion Gap mmol/L BUN (9-20) mg/dL Creatinine (0.66-1.25) mg/dL Est GFR (CKD-EPI)AfAm (>60 ml/min/1.73 sqM) Est GFR (CKD-EPI)NonAf (>60 ml/min/1.73 sqM) Glucose (74-99) mg/dL Plasma Lactic Acid Vick (0.7-2.0) mmol/L Calcium (8.4-10.2) mg/dL Magnesium (1.6-2.3) mg/dL Total Bilirubin (0.2-1.3) mg/dL AST (17-59) U/L ALT (4-49) U/L Alkaline Phosphatase (38-126) U/L Troponin I (0.000-0.034) ng/mL NT-Pro-B Natriuret Pep 1130 pg/mL Total Protein (6.3-8.2) g/dL Albumin (3.5-5.0) g/dL Critical Care Time Critical Care Time: Yes Total Critical Care Time: 33 Disposition Clinical Impression: Congestive heart failure Disposition: ADMITTED IP TO THIS HOSP Condition: Fair Referrals: Cliff Plummer MD [Primary Care Provider] - 1-2 days Decision Time: 22:07
--- NOTE | 2020-04-25 21:27 | XR ---
EXAMINATION TYPE: XR chest 1V portable DATE OF EXAM: 04/25/2020 COMPARISON: 09/07/2019 HISTORY: Difficulty breathing TECHNIQUE: Single view FINDINGS: Heart is normal. There is coarsening of the interstitial pulmonary markings. There is no gr oss heart failure. There is no pleural effusion. Mediastinum appears normal. IMPRESSION: Interstitial perihilar pulmonary infiltrates. No heart failure seen. Pulmonary density in creased overall compared to last exam.
[2020-04-25 21:28] LABS: Albumin 4.3 g/dL (3.5-5.0); Calcium 9.3 mg/dL (8.4-10.2); INR 0.9 (<1.2); Magnesium 1.6 mg/dL (1.6-2.3); Partial Thromboplastin Time 23.5 sec (22.0-30.0); Prothrombin Time 9.5 sec (9.0-12.0); Total Bilirubin 0.6 mg/dL (0.2-1.3)
[2020-04-25 21:31] LABS: Potassium 4.2 mmol/L (3.5-5.1)
[2020-04-25] MEDS ORDERED: FUROSEMIDE 10 MG/ML 4 ML VIAL IV STA (22:02)
[2020-04-25] MEDS ORDERED: NITROGLYCERIN OINT 1 INCH/GM PACKET TOPICAL STA (22:27)
[2020-04-25 23:38] LABS: Glucose,Whole Blood 167 mg/dL (75-99)
[2020-04-25] MEDS ORDERED: HYDROcodone/APAP 10-325MG 1 EACH TAB PO PRN (23:59)
[2020-04-26] MEDS: hydrALAZINE HCL 25 MG TAB PO SCH ×2 (00:39→09:12)
[2020-04-26] MEDS ORDERED: DEXTROSE 50% SYRINGE 50 ML IVP ONE (05:36)
[2020-04-26 05:43] LABS: Glucose,Whole Blood 49 mg/dL (75-99)
[2020-04-26 05:50] LABS: Glucose,Whole Blood 106 mg/dL (75-99)
[2020-04-26] MEDS: INSULIN ASPART (NovoLOG) 100 UNIT/ML VIAL SQ SCH ×4 (06:19→20:39)
[2020-04-26] MEDS: INSULIN DETEMIR (LEVEMIR) 100 UNIT/ML SYR SQ SCH ×2 (08:56→20:39)
[2020-04-26] MEDS ORDERED: CLOPIDOGREL 75 MG TAB PO SCH (09:00)
[2020-04-26] MEDS: TAMSULOSIN 0.4 MG CAP.ER.24H PO SCH (09:11)
[2020-04-26] MEDS: METOPROLOL TARTRATE 50 MG TAB PO SCH ×2 (09:11→20:38)
[2020-04-26] MEDS: POTASSIUM CHLORIDE ER 20 MEQ TAB.ER PO SCH (09:11)
[2020-04-26] MEDS: amLODIPine 5 MG TAB PO SCH (09:12)
[2020-04-26] MEDS: MECLIZINE 25 MG TAB PO SCH ×2 (09:12→20:38)
[2020-04-26] MEDS: FUROSEMIDE 10 MG/ML 4 ML VIAL IV SCH ×2 (09:12→20:38)
[2020-04-26 09:23] LABS: Glucose,Whole Blood 49 mg/dL (75-99)
[2020-04-26 09:23] LABS: Glucose,Whole Blood 80 mg/dL (75-99)
[2020-04-26] MEDS ORDERED: ALPRAZolam 0.5 MG TAB PO PRN (09:59)
[2020-04-26] MEDS ORDERED: NITROGLYCERIN SL TABS 0.4 MG TAB SUBLINGUAL PRN (09:59)
[2020-04-26] MEDS ORDERED: ATORVASTATIN 80 MG TAB PO STA (09:59)
[2020-04-26] MEDS ORDERED: SODIUM CHLORIDE 0.9% 1,000 ML in EMPTY BAG 1 BAG IV ONE ×2 (09:59→21:00)
[2020-04-26] MEDS ORDERED: ASPIRIN 325 MG TAB PO STA (09:59)
[2020-04-26] MEDS ORDERED: ALPRAZolam 0.25 MG TAB PO PRN (09:59)
[2020-04-26] MEDS: LOSARTAN 50 MG TAB PO SCH (10:50)
[2020-04-26] MEDS: hydroCHLOROthiazide 25 MG TAB PO SCH (10:50)
[2020-04-26 11:39] LABS: Glucose,Whole Blood 162 mg/dL (75-99)
[2020-04-26 12:36] VITALS: BMI 51.9
[2020-04-26 13:51] LABS: Cholesterol 158 mg/dL (<200); HDL Cholesterol 41 mg/dL (40-60); LDL Cholesterol,Calculated 99 mg/dL (0-99); Triglycerides 92 mg/dL (<150)
--- NOTE | 2020-04-26 15:14 | CONS ---
CONSULTATION Mr. Harvey is a 54-year-old male, history of hypertension, history of diabetes mellitus, morbid obesity, who presented with progressive dyspnea, much worse on presentation. In view of that, Cardiology consultation was requested. The patient has no prior history of ischemic heart disease. He had an episode of paroxysmal atrial fibrillation in August related to pneumonia, electrolyte imbalance. He has been followed by Dr. Edwards. His dyspnea is quite severe, quite limiting with minimal physical activity. He has some dizziness. No palpitation. No syncope. He has chronic peripheral edema. He has not been very compliant with his salt intake and had excess salt over the last day or so. He denies any prior history of ischemic heart disease. His echocardiogram in August revealed a mildly impaired left ventricular systolic function. MEDICATION: At home include metoprolol tartrate 50 mg twice a day, losartan 50 mg daily, insulin, furosemide 40 mg daily, Eliquis 5 mg twice a day, metformin 1 g twice a day, hydralazine 20 mg twice a day, tamsulosin and Norvasc 5 mg daily. REVIEW OF SYSTEMS: RESPIRATORY SYSTEM: He had dyspnea on exertion. No recent wheezing or cough. No history of obstructive lung disease. GI SYSTEM: No recent GI bleeding. No peptic ulcer disease. SYSTEM: No dysuria or hematuria. NERVOUS SYSTEM: No stroke or seizure. PAST MEDICAL HISTORY: Past medical history is remarkable for history of hypertension, diabetes, obstructive sleep apnea on CPAP. PHYSICAL EXAMINATION: He is a 54-year-old male, alert, oriented, in no apparent distress on BiPAP, blood pressure running in the 160s to 100 with a heart rate in the 80s. HEAD: Normocephalic. EYES: Sclerae nonicteric. NECK: Good upstroke, no bruit. LUNGS: With a few crackles at the bases. HEART: Regular rate and rhythm, S1, S2. No S3 with a systolic murmur at the base. No diastolic murmur, no rub. ABDOMEN: Soft, obese, nontender. Positive bowel sounds, no organomegaly. EXTREMITIES: +1 edema bilaterally. LAB DATA: Revealed troponin 0.063 and 0.124. NT proBNP of 1130. BUN and creatinine 16 and 1.08. Hemoglobin 14.3, white blood cell of 13.6. His EKG revealed a sinus mechanism with PACs, left axis deviation, left ventricular hypertrophy. His chest x-ray showed mild congestion. IMPRESSION: 1. Symptoms of worsening dyspnea on exertion, could be exacerbated by the hypertension and the salt load, although the mild elevation of the troponin raised a question of ischemic event. The possibility of acute coronary artery syndrome cannot be totally excluded. 2. History of hypertension. 3. Diabetes mellitus. 4. Morbid obesity with obstructive sleep apnea. 5. Prior history of atrial fibrillation. RECOMMENDATION: I will hold his Eliquis. Continue IV diuretics. I would recommend to proceed with coronary angiography tomorrow by Dr. Edwards to assess his status and guide his treatment. The rationale behind the procedures, risks, and complication were discussed with the patient, who is in full understanding and agreement. Thank you for this consult. Will follow with you. HARJEET / MODESTAN: [id number] / AMISH
[2020-04-26 17:28] LABS: Glucose,Whole Blood 189 mg/dL (75-99)
[2020-04-26] MEDS: hydrALAZINE HCL 50 MG TAB PO SCH ×2 (17:30→20:38)
[2020-04-26] MEDS ORDERED: LIDOCAINE 1% (10MG/ML) FOR IV START INTRADERMA PRN (17:47)
--- NOTE | 2020-04-26 17:49 | ECHOF ---
Referral Reason:chf MEASUREMENTS -------- HEIGHT: 167.6 cm WEIGHT: 145.6 kg BP: 165/86 RVIDd: 3.4 cm (< 3.3) IVSd: 2.0 cm (0.6 - 1.1) LVIDd: 5.3 cm (3.9 - 5.3) LVPWd: 2.3 cm (0.6 - 1.1) IVSs: 2.3 cm LVIDs: 4.2 cm LVPWs: 2.8 cm LAESV Index (A-L): 36.62 ml/m Ao Diam: 3.2 cm (2.0 - 3.7) AV Cusp: 2.3 cm (1.5 - 2.6) MV EXCURSION: 18.486 mm (> 18.000) MV EF SLOPE: 82 mm/s (70 - 150) EPSS: 1.4 cm MV E Frankie: 0.94 m/s MV DecT: 155 ms MV A Frankie: 0.37 m/s MV E/A Ratio: 2.56 RAP: 20.00 mmHg RVSP: 31.57 mmHg FINDINGS -------- This was a technically difficult study with suboptimal apical views. The left ventricular size is normal. There is severe concentric left ventricular hypertrophy. Ove rall left ventricular systolic function is mildly impaired with, an EF between 45 - 50 %. The RV was not well visualized. LA is moderately dilated 34-39 ml/m2 The right atrium was not well visualized. 5.0mg of Lumason was utilized for enhancement of images Interatrial and interventricular septum intact. There is no evidence of aortic regurgitation. There is no evidence of aortic stenosis. [id number] mitral regurgitation is present. Mild tricuspid regurgitation present. There is borderline pulmonary artery hypertension. The righ t ventricular systolic pressure, as measured by Doppler, is 31.57mmHg. There is no pulmonic regurgitation present. The aortic root size is normal. The inferior vena cava is dilated with poor inspiratory collapse which is consistent with estimated r ight atrial pressure of 20 mmHg. There is no pericardial effusion. CONCLUSIONS -------- 1. The left ventricular size is normal. 2. There is severe concentric left ventricular hypertrophy. 3. Overall left ventricular systolic function is mildly impaired with, an EF between 45 - 50 %. 4. LA is moderately dilated 34-39 ml/m2 5. [id number] mitral regurgitation is present. 6. Mild tricuspid regurgitation present. 7. There is borderline pulmonary artery hypertension. 8. The right ventricular systolic pressure, as measured by Doppler, is 31.57mmHg. 9. The inferior vena cava is dilated with poor inspiratory collapse which is consistent with estimate d right atrial pressure of 20 mmHg. TICKET DISPATCHER: Zabrina Carrington RDCS
[2020-04-26] MEDS: LACTATED RINGERS 1,000 ML IV SCH (17:56)
[2020-04-26 20:35] LABS: Glucose,Whole Blood 200 mg/dL (75-99)
--- NOTE | 2020-04-27 01:15 | P.HPIM ---
History of Present Illness H&P Date: 04/26/20 Chief Complaint: Dyspnea Mr. Harvey is a 54-year-old male with a past medical history of chronic multiple medical conditions including diabetes mellitus, hypertension, hyperlipidemia, obstructive sleep apnea on BiPAP, atrial fibrillation, morbid obesity with BMI of 52, coming in with a chief complaint of difficulty in breathing. Patient follows with Dr. Edwards in the outpatient setting. Patient has difficulty in breathing at baseline due to morbid obesity and chronic peripheral edema. But for the past 1 day, his difficulty in breathing has worsened. Patient states that he has been compliant with his diet and salt intake. Patient denies having any cough, fevers, chills or rigors. Denies having any abdominal pain, nausea or vomiting. No diarrhea or constipation. No dysuria or hematuria. In the emergency patient, he was given a dose of IV Lasix. Patient had EKG done showing left axis deviation with left ventricular hypertrophy and in sinus rhy thm. He HAD blood work done showing elevation of troponin to 0.063 and he was evaluated by cardiology Dr. Morales and they are planning for cardiac catheterization for tomorrow morning. Patient is currently asymptomatic and sleeping in bed with his BiPAP on. Review of Systems REVIEW OF SYSTEMS: CONSTITUTIONAL: No fever, no malaise, no fatigue. HEENT: No recent visual problems or hearing problems. Denied any sore throat. CARDIOVASCULAR: As per HPI PULMONARY: No shortness of breath, no cough, no hemoptysis. GASTROINTESTINAL: No diarrhea, no nausea,no abdominal pain. NEUROLOGICAL: No headaches, no weakness, no numbness. HEMATOLOGICAL: Denies any bleeding or petechiae. GENITOURINARY: Denies any burning micturition, frequency, or urgency. MUSCULOSKELETAL/RHEUMATOLOGICAL: No joint pain or swelling ENDOCRINE: Denies any polyuria or polydipsia. The rest of the 13-point review of systems is negative. Past Medical History Past Medical History: Diabetes Mellitus, Hyperlipidemia, Hypertension, Sleep Ap elizabeth/CPAP/BIPAP Additional Past Medical History / Comment(s): neuropathy, afib History of Any Multi-Drug Resistant Organisms: None Reported Past Surgical History: No Surgical Hx Reported Past Anesthesia/Blood Transfusion Reactions: No Reported Reaction Past Psychological History: No Psychological Hx Reported Smoking Status: Never smoker Past Alcohol Use History: None Reported Past Drug Use History: Marijuana - Past Family History Father Family Medical History: No Reported History Additional Family Medical History / Comment(s): not sure Mother Family Medical History: Diabetes Mellitus, Hypertension Additional Family Medical History / Comment(s): mom is still alive Medications and Allergies Home Medications Medication Instructions Recorded Confirmed Type Furosemide [Lasix] 40 mg PO DAILY 09/06/19 04/25/20 History Insulin Glargine,Hum.rec.anlog 110 unit SQ BID 09/06/19 04/25/20 History [Basaglar Kwikpen U-100] Tamsulosin [Flomax] 0.4 mg PO DAILY 09/06/19 04/25/20 History metFORMIN HCL 1,000 mg PO BID 09/06/19 04/25/20 History Apixaban [Eliquis] 5 mg PO BID #60 tab 09/10/19 04/25/20 Rx Losartan [Cozaar] 50 mg PO DAILY #30 tab 09/10/19 04/25/20 Rx Meclizine [Antivert] 25 mg PO BID #15 tab 09/10/19 04/25/20 Rx Metoprolol Tartrate [Lopressor] 50 mg PO BID #30 tab 09/10/19 04/25/20 Rx hydrALAZINE HCL [Apresoline] 20 mg PO BID #60 tab 09/10/19 04/25/20 Rx HYDROcodone/APAP 10-325MG [Century 1 tab PO TID PRN 04/25/20 04/25/20 History 10-325] Potassium Chloride [Klor-Con 20] 20 meq PO DAILY 04/25/20 04/25/20 History amLODIPine [Norvasc] 5 mg PO DAILY 04/25/20 04/25/20 History Allergies Allergy/AdvReac Type Severity Reaction Status Date / Time aspirin AdvReac Dyspnea Verified 04/25/20 22:53 Physical Exam Vitals: Vital Signs Temp Pulse Pulse Resp BP BP Pulse Ox 04/26/20 11:48 97.3 F L 80 14 161/74 92 L 04/26/20 08:00 97.3 F L 92 22 191/87 97 04/26/20 03:52 97.9 F 82 29 H 165/86 100 04/26/20 00:30 98 F 86 30 H 168/103 98 04/25/20 23:34 97.8 F 94 29 H 201/99 100 04/25/20 23:02 98.4 F 97 24 218/137 98 04/25/20 22:00 96 20 202/119 100 04/25/20 21:30 101 H 28 H 183/99 100 04/25/20 21:12 38 H 04/25/20 21:07 108 H 32 H 194/105 100 04/25/20 21:00 98.5 F 130 H 38 H 91 L Intake and Output 04/25/20 04/26/20 04/26/20 22:59 06:59 14:59 Intake Total 600 Output Total 183 129 8406 Balance -021 -548 -4427 Intake: Oral 600 Output: Urine 945 963 0770 Other: Voiding Method Indwelling Catheter Indwelling Catheter Weight 165.108 kg 146 kg 146 kg PHYSICAL EXAMINATION: GENERAL: morbidly obese , sleeping with BiPPAP HEENT: Pupils are round and equally reacting to light. EOMI. mild scleral icterus. No conjunctival pallor. Normocephalic, atraumatic. Short webbed neck CARDIOVASCULAR: Distant heart sounds heard PULMONARY: Bilateral breath sounds are positive distantly ABDOMEN: Soft, nontender, nondistended, normoactive bowel sounds. Thick abdominal wall. MUSCULOSKELETAL: No joint swelling or deformity. EXTREMITIES: mild pitting edema NEUROLOGICAL: AAO X 3, Gross neurological examination did not reveal any focal deficits. Results CBC & Chem 7: 04/27/20 06:25 04/27/20 06:25 Labs: Abnormal Lab Results - Last 24 Hours (Table) 04/25/20 04/25/20 04/25/20 Range/Units 21:03 21:11 21:11 WBC 13.6 H (3.8-10.6) k/uL Neutrophils # 10.5 H (1.3-7.7) k/uL VBG pH 7.46 H (7.31-7.41) VBG HCO3 29 H (24-28) mmol/L Glucose 196 H (74-99) mg/dL POC Glucose (mg/dL) (75-99) mg/dL Troponin I (0.000-0.034) ng/mL 04/25/20 04/25/20 04/26/20 Range/Units 21:11 23:35 03:10 WBC (3.8-10.6) k/uL Neutrophils # (1.3-7.7) k/uL VBG pH (7.31-7.41) VBG HCO3 (24-28) mmol/L Glucose (74-99) mg/dL POC Glucose (mg/dL) 167 H (75-99) mg/dL Troponin I 0.063 H* 0.124 H* (0.000-0.034) ng/mL 04/26/20 04/26/20 04/26/20 Range/Units 05:34 05:49 09:01 WBC (3.8-10.6) k/uL Neutrophils # (1.3-7.7) k/uL VBG pH (7.31-7.41) VBG HCO3 (24-28) mmol/L Glucose (74-99) mg/dL POC Glucose (mg/dL) 49 L 106 H 49 L (75-99) mg/dL Troponin I (0.000-0.034) ng/mL 04/26/20 04/26/20 04/26/20 Range/Units 09:09 09:09 11:31 WBC (3.8-10.6) k/uL Neutrophils # (1.3-7.7) k/uL VBG pH (7.31-7.41) VBG HCO3 (24-28) mmol/L Glucose 44 L* (74-99) mg/dL POC Glucose (mg/dL) 162 H (75-99) mg/dL Troponin I 0.102 H* (0.000-0.034) ng/mL Thrombosis Risk Factor Assmnt - Choose All That Apply Each Factor Represents 1 point: Age 41-60 years Thrombosis Risk Factor Assessment Total Risk Factor Score: 1 Thrombosis Risk Factor Assessment Level: Low Risk Assessment and Plan Assessment: ASSESSMENT Dyspnea -could have multiple etiologies-chest x-ray showing interstitial perihilar pulmonary infiltrates and there mild elevation in troponin, morbid besity Type 2 diabetes mellitus Hypertension Hyperlipidemia Obstructive sleep apnea on BiPAP Morbid obesity with BMI of 52 PLAN: Patient was given IV Lasix, that helped the patient with dyspnea. Patient had an echocardiogram done this afternoon showing ejection fraction of 45 to 50%. There is borderline pulmonary hypertension and mild to moderate mitral regurgitation. Cardiology on board and planning for cardiac catheterization tomorrow morning. Patient's home medications have been resumed. Overall prognosis is guarded due to chronic multiple medical conditions. Further recommendations depending on the progress of the patient.
[2020-04-27] MEDS: amLODIPine 5 MG TAB PO SCH (04:58)
[2020-04-27] MEDS: LOSARTAN 50 MG TAB PO SCH (04:58)
[2020-04-27] MEDS: ATORVASTATIN 40 MG TAB PO SCH (04:58)
[2020-04-27] MEDS: METOPROLOL TARTRATE 50 MG TAB PO SCH ×2 (04:58→22:26)
[2020-04-27] MEDS: hydrALAZINE HCL 50 MG TAB PO SCH ×3 (04:58→22:26)
[2020-04-27] MEDS: INSULIN ASPART (NovoLOG) 100 UNIT/ML VIAL SQ SCH ×4 (06:14→22:25)
[2020-04-27 06:21] LABS: Glucose,Whole Blood 50 mg/dL (75-99)
[2020-04-27 06:35] LABS: Glucose,Whole Blood 53 mg/dL (75-99)
[2020-04-27] MEDS ORDERED: DEXTROSE 50% SYRINGE 50 ML IVP ONE (06:35)
[2020-04-27 06:49] LABS: Glucose,Whole Blood 124 mg/dL (75-99)
[2020-04-27 07:29] LABS: Basophils # (A) 0.1 k/uL (0-0.2); Basophils % (A) 1 %; Eosinophils # (A) 0.2 k/uL (0-0.7); Eosinophils % (A) 3 %; HCT 37.5 % (39.0-53.0); HGB 11.7 gm/dL (13.0-17.5); Lymphocytes # (A) 1.9 k/uL (1.0-4.8); Lymphocytes % (A) 21 %; MCH 27.6 pg (25.0-35.0); MCHC 31.3 g/dL (31.0-37.0); MCV 88.2 fL (80.0-100.0); Monocytes # (A) 0.6 k/uL (0-1.0); Monocytes % (A) 6 %; Neutrophils % (A) 67 %; Platelet Count 263 k/uL (150-450); RBC 4.25 m/uL (4.30-5.90); RDW 13.9 % (11.5-15.5); WBC 8.9 k/uL (3.8-10.6)
[2020-04-27] MEDS ORDERED: VERAPAMIL 2.5 MG/ML 2 ML AMP ONE (07:41)
[2020-04-27] MEDS ORDERED: LIDOCAINE 1% INJ 10MG/ML (20 ML MDV) ONE (07:42)
[2020-04-27 07:50] LABS: Calcium 8.6 mg/dL (8.4-10.2); Potassium 3.3 mmol/L (3.5-5.1)
[2020-04-27] MEDS ORDERED: IV FLUID CONTINUATION 900 ML IV ONE (07:59)
[2020-04-27] MEDS ORDERED: LIDOCAINE 1% INJ 10MG/ML (20 ML MDV) SQ ONE (08:02)
[2020-04-27] MEDS ORDERED: MIDAZOLAM 2 MG/2 ML VIAL IV ONE (08:03)
[2020-04-27] MEDS: VERAPAMIL SYRINGE (5 MG/10 ML) INTRAARTER ONE ×2 (08:06→08:21)
[2020-04-27] MEDS ORDERED: IOPAMIDOL-370 100ML BTL INJ ONE (08:24)
[2020-04-27] MEDS ORDERED: RX INFO: IV CONTRAST WAS GIVEN 1 EACH MISC MISCELLANE PRN (08:28)
[2020-04-27] MEDS: INSULIN DETEMIR (LEVEMIR) 100 UNIT/ML SYR SQ SCH ×2 (08:31→22:25)
--- NOTE | 2020-04-27 08:36 | P.CARDCATH ---
Date of Procedure: 04/27/20 Preoperative Diagnosis: CHF, cardiomyopathy and multiple risk factors including hypertension and diabetes Postoperative Diagnosis: Normal coronary arteries Procedure(s) Performed: Left heart catheterization without left ventriculography Description of Procedure: HISTORY: This is a 54-year-old gentleman with history of hypertension, diabetes, atrial fibrillation was admitted to the hospital with exertional shortness of breath and CHF. Because of his risk factor profile a cardiac catheterization is requested to rule out underlying ischemic heart disease CONSENT:I have discussed the risks, benefits and alternative therapies for the above-mentioned procedure and for both sedation/analgesia as well as necessary blood product administration, if indicated, as they pertain to this patient. The patient has indicated understanding and acceptance of the risks and procedures discussed. PROCEDURE: Patient was brought to the lab in a fasting state. Patient was given some IV sedation. The right wrist is infiltrated with lidocaine and right radial artery was entered using Seldinger technique. A 6-Latvian catheter was left in place and selective coronary arteriography was performed. Patient tolerated the procedure well. TR band was applied for hemostasis. No immediate complications were noted and patient was transferred to [facility] in a stable condition Conscious Sedation: Versed 1mg Fentanyl 25 g Duration 20minutes HEMODYNAMICS: Aortic pressure is about 170/80. Left ventricular end-diastolic pressure was 20. There was no gradient across the aortic valve SELECTIVE CORONARY ARTERIOGRAPHY: LEFT MAIN: Large and free of occlusive disease THE LEFT ANTERIOR DESCENDING CORONARY ARTERY:. Good caliber vessel giving rise to good-sized diagonal branch. Free of occlusive disease THE LEFT CIRCUMFLEX AND IS CORONARY ARTERY:. Good caliber vessel giving rise to good-sized OM branch, free of any occlusive disease THE RIGHT CORONARY ARTERY:. Good caliber vessel giving rise to good-sized PDA. Free of any significant occlusive disease LEFT VENTRICULOGRAPHY:. Not performed FINAL IMPRESSION:, Normal coronary arteries. Elevated end-diastolic pressure PLAN: Continuation of maximal medical therapy and risk factor modification PROGNOSIS: Is guarded
[2020-04-27] MEDS: FUROSEMIDE 10 MG/ML 4 ML VIAL IV SCH ×3 (09:40→22:25)
[2020-04-27] MEDS: POTASSIUM CHLORIDE ER 20 MEQ TAB.ER PO SCH ×3 (09:46→16:43)
[2020-04-27] MEDS: TAMSULOSIN 0.4 MG CAP.ER.24H PO SCH (09:46)
[2020-04-27] MEDS: hydroCHLOROthiazide 25 MG TAB PO SCH (09:46)
[2020-04-27] MEDS: MECLIZINE 25 MG TAB PO SCH ×2 (09:46→22:26)
[2020-04-27] MEDS: SODIUM CHLORIDE 0.9% 1,000 ML IV SCH (09:47)
[2020-04-27] MEDS ORDERED: LOSARTAN 50 MG TAB PO STA (11:37)
[2020-04-27 12:01] LABS: Glucose,Whole Blood 99 mg/dL (75-99)
[2020-04-27] MEDS ORDERED: Potassium Replacement Protocol 1 EACH MISC MISCELLANE PRN (14:53)
[2020-04-27] MEDS: AZITHROMYCIN 500 MG in SODIUM CHLORIDE 0.9% 250 ML IVPB SCH (15:42)
[2020-04-27 16:42] LABS: Glucose,Whole Blood 163 mg/dL (75-99)
[2020-04-27 18:42] LABS: Glucose,Whole Blood 117 mg/dL (75-99)
--- NOTE | 2020-04-27 18:44 | NM ---
EXAMINATION TYPE: NM pul vent and perfuse DATE OF EXAM: 04/27/2020 COMPARISON: Chest x-ray 04/25/2020 HISTORY: Positive d-dimer, shortness of breath and difficulty breathing TECHNIQUE: Utilizing inhalation of 68.9 mCi Tc 99m DTPA aerosol and intravenous injection of 5.2 mCi of Tc 99m MAA, ventilation and perfusion images are acquired post injection in multiple projections. FINDINGS: Normal radiotracer distribution is noted in the lungs. There is no evidence of mismatched defects. IMPRESSION: Normal ventilation/perfusion scan
[2020-04-27] MEDS: LACTATED RINGERS 1,000 ML IV SCH (18:45)
[2020-04-27 20:33] LABS: Glucose,Whole Blood 220 mg/dL (75-99)
--- NOTE | 2020-04-27 23:52 | P.PN ---
Subjective Progress Note Date: 04/27/20 Mr. Harvey is a 54-year-old male with a past medical history of chronic multiple medical conditions including diabetes mellitus, hypertension, hyperlipidemia, obstructive sleep apnea on BiPAP, atrial fibrillation, morbid obesity with BMI of 52, coming in with a chief complaint of difficulty in breathing. Patient follows with Dr. Edwards in the outpatient setting. Patient has difficulty in breathing at baseline due to morbid obesity and chronic peripheral edema. But for the past 1 day, his difficulty in breathing has worsened. Patient states that he has been compliant with his diet and salt intake. In the emergency patient, he was given a dose of IV Lasix. Patient had EKG done showing left axis deviation with left ventricular hypertrophy and in sinus rhythm. He HAD blood work done showing elevation of troponin to 0.063 and he was evaluated by cardiology Dr. Morales and they are planning for cardiac catheterization for tomorrow morning. Patient is currently asymptomatic and slee ping in bed with his BiPAP on. On 04/27/20 - Patient had cardiac catheterization done this morning and it showed normal coronary arteries with elevated end-diastolic pressure. Patient states that he is still short of breath on walking from the bed to the restroom. Patient denies having any recent travel but mentions about working with homeless people. Will check d-dimer to look for other reasons for his dyspnea. If the d-dimer levels are high we will get a VQ scan as the patient's creatinine is slightly high at 1.27 compared to yesterday. On review of systems Constitutional-no fever chills or rigors, denies myalgias Respiratory-still having difficulty in breathing Cardiovascular-no chest pain or palpitations GI-no abdominal pain nausea vomiting or diarrhea Active Medications Hydrocodone Bitart/Acetaminophen (Roscoe 10) 1 each PO TID PRN PRN Reason: Pain Alprazolam (Xanax) 0.25 mg PO Q6HR PRN PRN Reason: Mild Anxiety Alprazolam (Xanax) 0.5 mg PO Q6HR PRN PRN Reason: Moderate Anxiety Amlodipine Besylate (Norvasc) 5 mg PO DAILY [facility] Last Admin: 04/27/20 04:58 Dose: 5 mg Documented by: Atorvastatin Calcium (Lipitor) 40 mg PO DAILY [facility] Last Admin: 04/27/20 04:58 Dose: 40 mg Documented by: Furosemide (Lasix) 40 mg IV Q12H [facility] Last Admin: 04/27/20 11:43 Dose: 40 mg Documented by: Hydralazine HCl (Apresoline) 50 mg PO TID [facility] Last Admin: 04/27/20 04:58 Dose: 50 mg Documented by: Hydrochlorothiazide (Hydrodiuril) 25 mg PO DAILY [facility] Last Admin: 04/27/20 09:46 Dose: 25 mg Documented by: Lactated Ringer's (Lactated Ringers) 1,000 mls @ 20 mls/hr IV .Q24H [facility] Last Admin: 04/26/20 17:56 Dose: Not Given Documented by: Sodium Chloride (Saline 0.9%) 1,000 mls @ 50 mls/hr IV .Q20H [facility] Last Admin: 04/27/20 09:47 Dose: Not Given Documented by: Ceftriaxone Sodium 1 gm/ (Sodium Chloride) 50 mls @ 100 mls/hr IVPB Q24HR [facility] Azithromycin 500 mg/ Sodium (Chloride) 250 mls @ 250 mls/hr IVPB DAILY [facility] Insulin Aspart (Novolog) 0 unit SQ ACHS [facility]; Protocol Last Admin: 04/27/20 12:39 Dose: Not Given Documented by: Insulin Detemir (Levemir) 55 unit SQ BID [facility] Last Admin: 04/27/20 08:31 Dose: Not Given Documented by: Lidocaine HCl (.Xylocaine 1% Inj (10mg/Ml) For Iv Start) 0.1 ml INTRADERMA PER PROTOCOL PRN PRN Reason: IV Start Losartan Potassium (Cozaar) 100 mg PO DAILY [facility] Meclizine HCl (Antivert) 25 mg PO BID [facility] Last Admin: 04/27/20 09:46 Dose: 25 mg Documented by: Metoprolol Tartrate (Lopressor) 50 mg PO BID [facility] Last Admin: 04/27/20 04:58 Dose: 50 mg Documented by: Miscellaneous Information (Rx Info: Iv Contrast Was Given) 1 each MISCELLANE DAILY PRN PRN Reason: Per Protocol Stop: 04/29/20 08:28 Miscellaneous Information (Potassium Per Protocol) 1 each MISCELLANE DAILY PRN; Protocol PRN Reason: Per Protocol Nitroglycerin (Nitrostat) 0.4 mg SUBLINGUAL Q5M PRN PRN Reason: Chest Pain Potassium Chloride (K-Dur 20) 20 meq PO DAILY [facility] Last Admin: 04/27/20 09:46 Dose: 20 meq Documented by: Potassium Chloride (K-Dur 20) 20 meq PO Q1HR MICHAEL; Protocol Stop: 04/27/20 16:01 Tamsulosin HCl (Flomax) 0.4 mg PO DAILY [facility] Last Admin: 04/27/20 09:46 Dose: 0.4 mg Documented by: Objective - Vital Signs Vital signs: Vital Signs Temp 98.3 F 04/27/20 04:44 Pulse 72 04/27/20 12:13 Resp 16 04/27/20 12:13 BP 188/79 04/27/20 12:13 Pulse Ox 95 04/27/20 08:43 Intake & Output 04/26/20 04/27/20 04/27/20 18:59 06:59 18:59 Intake Total 1910 170 Output Total 4000 800 Balance -2089 Weight 146 kg 169.8 kg Intake: IV 50 Oral 0 120 Output: Urine 4000 800 Other: Voiding Method Indwelling Catheter Urinal Urinal # Voids 2 2 - Exam PHYSICAL EXAMINATION: GENERAL: morbidly obese HEENT: Pupils are round and equally reacting to light. EOMI. mild scleral icterus. No conjunctival pallor. Normocephalic, atraumatic. Short webbed neck CARDIOVASCULAR: Distant heart sounds heard PULMONARY: Bilateral breath sounds are positive distantly . No wheezing or crackles. ABDOMEN: Soft, nontender, nondistended, normoactive bowel sounds. Thick abdominal wall. MUSCULOSKELETAL: No joint swelling or deformity. EXTREMITIES: mild pitting edema NEUROLOGICAL: AAO X 3, Gross neurological examination did not reveal any focal deficits. - Labs CBC & Chem 7: 04/27/20 06:25 04/27/20 06:25 Labs: Abnormal Lab Results - Last 24 Hours (Table) 04/26/20 04/26/20 04/27/20 Range/Units 17:15 20:34 06:19 RBC (4.30-5.90) m/uL Hgb (13.0-17.5) gm/dL Hct (39.0-53.0) % Potassium (3.5-5.1) mmol/L Carbon Dioxide (22-30) mmol/L Creatinine (0.66-1.25) mg/dL Glucose (74-99) mg/dL POC Glucose (mg/dL) 189 H 200 H 50 L (75-99) mg/dL 04/27/20 04/27/20 04/27/20 Range/Units 06:25 06:25 06:34 RBC 4.25 L (4.30-5.90) m/uL Hgb 11.7 L (13.0-17.5) gm/dL Hct 37.5 L (39.0-53.0) % Potassium 3.3 L (3.5-5.1) mmol/L Carbon Dioxide 35 H (22-30) mmol/L Creatinine 1.27 H (0.66-1.25) mg/dL Glucose 37 L* (74-99) mg/dL POC Glucose (mg/dL) 53 L (75-99) mg/dL 04/27/20 Range/Units 06:46 RBC (4.30-5.90) m/uL Hgb (13.0-17.5) gm/dL Hct (39.0-53.0) % Potassium (3.5-5.1) mmol/L Carbon Dioxide (22-30) mmol/L Creatinine (0.66-1.25) mg/dL Glucose (74-99) mg/dL POC Glucose (mg/dL) 124 H (75-99) mg/dL Assessment and Plan Assessment: ASSESSMENT Dyspnea -could have multiple etiologies-chest x-ray showing interstitial perihilar pulmonary infiltrates and there mild elevation in troponin, morbid besity Type 2 diabetes mellitus Hypertension Hyperlipidemia Obstructive sleep apnea on BiPAP Morbid obesity with BMI of 52 PLAN: Patient had an echocardiogram done showing ejection fraction of 45 to 50%. There is borderline pulmonary hypertension and mild to moderate mitral regurgitation. Cardiology on board , cath done today showing normal coronaries. Will check d-dimer to look for other reasons for his dyspnea. If the d-dimer levels are high we will get a VQ scan as the patient's creatinine is slightly high at 1.27 compared to yesterday. Patient has been started on ceftriaxone and Zithromax for possible underlying pneumonia. Overall prognosis is guarded due to chronic multiple medical conditions. Further recommendations depending on the progress of the patient.
[2020-04-28 02:55] LABS: Glucose,Whole Blood 219 mg/dL (75-99)
[2020-04-28 05:03] LABS: Glucose,Whole Blood 182 mg/dL (75-99)
[2020-04-28] MEDS: SODIUM CHLORIDE 0.9% 1,000 ML IV SCH (05:59)
[2020-04-28 06:13] LABS: Glucose,Whole Blood 165 mg/dL (75-99)
[2020-04-28] MEDS: INSULIN ASPART (NovoLOG) 100 UNIT/ML VIAL SQ SCH ×4 (06:19→21:21)
[2020-04-28 07:55] LABS: Basophils # (A) 0.1 k/uL (0-0.2); Basophils % (A) 1 %; Eosinophils # (A) 0.2 k/uL (0-0.7); Eosinophils % (A) 3 %; HCT 37.3 % (39.0-53.0); HGB 11.6 gm/dL (13.0-17.5); Lymphocytes # (A) 1.3 k/uL (1.0-4.8); Lymphocytes % (A) 16 %; MCH 27.5 pg (25.0-35.0); MCHC 31.1 g/dL (31.0-37.0); MCV 88.3 fL (80.0-100.0); Mean Platelet Volume 8.1; Monocytes # (A) 0.5 k/uL (0-1.0); Monocytes % (A) 7 %; Neutrophils % (A) 72 %; Platelet Count 270 k/uL (150-450); RBC 4.22 m/uL (4.30-5.90); RDW 13.8 % (11.5-15.5); WBC 8.2 k/uL (3.8-10.6)
[2020-04-28 08:12] LABS: Calcium 8.6 mg/dL (8.4-10.2); Potassium 3.3 mmol/L (3.5-5.1)
[2020-04-28] MEDS: INSULIN DETEMIR (LEVEMIR) 100 UNIT/ML SYR SQ SCH ×2 (08:56→21:24)
[2020-04-28] MEDS: FUROSEMIDE 10 MG/ML 4 ML VIAL IV SCH ×2 (08:56→21:21)
[2020-04-28] MEDS: APIXABAN 5 MG TAB PO SCH ×2 (08:57→21:21)
[2020-04-28] MEDS: POTASSIUM CHLORIDE ER 20 MEQ TAB.ER PO SCH ×2 (08:57→21:20)
[2020-04-28] MEDS: hydroCHLOROthiazide 25 MG TAB PO SCH (08:57)
[2020-04-28] MEDS: TAMSULOSIN 0.4 MG CAP.ER.24H PO SCH (08:57)
[2020-04-28] MEDS: METOPROLOL TARTRATE 50 MG TAB PO SCH ×2 (08:57→21:20)
[2020-04-28] MEDS: hydrALAZINE HCL 50 MG TAB PO SCH ×3 (08:57→21:20)
[2020-04-28] MEDS: amLODIPine 5 MG TAB PO SCH (08:57)
[2020-04-28] MEDS: ATORVASTATIN 40 MG TAB PO SCH (08:57)
[2020-04-28] MEDS: MECLIZINE 25 MG TAB PO SCH ×2 (08:57→21:20)
[2020-04-28] MEDS: LOSARTAN 50 MG TAB PO SCH (08:57)
--- NOTE | 2020-04-28 09:57 | PN ---
PROGRESS NOTE Mr. Harvey is a 54-year-old male with history of paroxysmal atrial fibrillation who presented with symptoms of dyspnea, had elevation of troponin, underwent cardiac catheterization yesterday by Dr. Edwards and was found to have no evidence of obstructive coronary artery disease. He is doing well this morning. His breathing is stable. He continues to have peripheral edema. He denies any dizziness, palpitation. He denies any nausea. He continues to be on amlodipine 5 mg daily, Lipitor 40 mg daily, hydralazine 50 mg 3 times a day, Lasix 40 mg IV q.12 hours, hydrochlorothiazide 25 mg daily, metoprolol tartrate 50 mg twice a day, potassium 20 mEq daily. PHYSICAL EXAMINATION: Blood pressure 145/70 with a heart rate in the 60s. LUNGS: Clear. HEART: Regular rate and rhythm, S1, S2. No S3 with no rub. ABDOMEN: Soft, obese, nontender. EXTREMITIES: +2 edema bilaterally. Right radial pulse intact. LAB DATA: Revealed a potassium of 3.3, creatinine 1.42, BUN of 20, hemoglobin of 11.6. IMPRESSION: 1. Symptoms of congestive heart failure with evidence of fluid overload, probably related to hypertension, diastolic dysfunction. 2. Mild troponin elevation related to the heart failure with no significant obstructive disease. 3. Paroxysmal atrial fibrillation. 4. Morbid obesity. RECOMMENDATION: Will re-initiate treatment with the anticoagulation, continue the rest of his medical regimen. Increase his level of activity. Follow his renal function. Continue IV diuretic for 24 hours. If he is stable, I would expect he should be able to be discharged home in the next 24 to 48 hours. MMODL / MODESTAN: [id number] /
[2020-04-28] MEDS: AZITHROMYCIN 500 MG in SODIUM CHLORIDE 0.9% 250 ML IVPB SCH (09:59)
[2020-04-28 12:21] LABS: Glucose,Whole Blood 167 mg/dL (75-99)
[2020-04-28 17:20] LABS: Glucose,Whole Blood 223 mg/dL (75-99)
[2020-04-28 20:52] LABS: Glucose,Whole Blood 246 mg/dL (75-99)
[2020-04-28] MEDS: LACTATED RINGERS 1,000 ML IV SCH (21:21)
--- NOTE | 2020-04-28 22:43 | P.PN ---
Subjective Progress Note Date: 04/28/20 Principal diagnosis: Diastolic CHF exacerbation Mr. Harvey is a 54-year-old male with a past medical history of chronic multiple medical conditions including diabetes mellitus, hypertension, hyperlipidemia, obstructive sleep apnea on BiPAP, atrial fibrillation, morbid obesity with BMI of 52, coming in with a chief complaint of difficulty in breathing. Patient follows with Dr. Edwards in the outpatient setting. Patient has difficulty in breathing at baseline due to morbid obesity and chronic peripheral edema. But for the past 1 day, his difficulty in breathing has worsened. Patient states that he has been compliant with his diet and salt intake. In the emergency patient, he was given a dose of IV Lasix. Patient had EKG done showing left axis deviation with left ventricular hypertrophy and in sinus rhythm. He HAD blood work done showing elevation of troponin to 0.063 and he was evaluated by cardiology Dr. Morales and they are planning for cardiac jeane terization for tomorrow morning. Patient is currently asymptomatic and sleeping in bed with his BiPAP on. On 04/27/20 - Patient had cardiac catheterization done this morning and it showed normal coronary arteries with elevated end-diastolic pressure. Patient states that he is still short of breath on walking from the bed to the restroom. Patient denies having any recent travel but mentions about working with homeless people. Will check d-dimer to look for other reasons for his dyspnea. If the d-dimer levels are high we will get a VQ scan as the patient's creatinine is slightly high at 1.27 compared to yesterday. On 04/28/20 - Patient is sitting up in the bed and his fiance is at the be dside. He states that his difficulty in breathing is better today. Yesterday d-dimer was slightly elevated at 0.71, as the patient's creatinine was high, a VQ scan was obtained and it was showing normal ventilation/perfusion scan. He was also started on ceftriaxone and Zithromax. COVID-19 came back negative. On reviewing the vitals patient is saturating at 95% on room air. Blood pressure 135/62, heart rate 77, temperature 98.2. On reviewing his labs white count of 8.2, hemoglobin 9.6. Sodium 140, potassium 3.3, chloride 99, bicarb 37, BUN 20, creatinine 1.42 slightly increased from yesterday. Blood sugars running in 200- 3 100s. On review of systems Constitutional-no fever chills or rigors, denies myalgias Respiratory- difficulty in breathing better than yesterday Cardiovascular-no chest pain or palpitations GI-no abdominal pain nausea vomiting or diarrhea Active Medications Hydrocodone Bitart/Acetaminophen ([place] 10) 1 each PO TID PRN PRN Reason: Pain Alprazolam (Xanax) 0.25 mg PO Q6HR PRN PRN Reason: Mild Anxiety Alprazolam (Xanax) 0.5 mg PO Q6HR PRN PRN Reason: Moderate Anxiety Amlodipine Besylate (Norvasc) 5 mg PO DAILY [facility] Last Admin: 04/28/20 08:57 Dose: 5 mg Documented by: Apixaban (Eliquis) 5 mg PO BID [facility] Last Admin: 04/28/20 08:57 Dose: 5 mg Documented by: Atorvastatin Calcium (Lipitor) 40 mg PO DAILY [facility] Last Admin: 04/28/20 08:57 Dose: 40 mg Documented by: Azithromycin (Zithromax) 500 mg PO DAILY [facility] Furosemide (Lasix) 40 mg IV Q12H [facility] Last Admin: 04/28/20 08:56 Dose: 40 mg Documented by: Hydralazine HCl (Apresoline) 50 mg PO TID [facility] Last Admin: 04/28/20 08:57 Dose: 50 mg Documented by: Hydrochlorothiazide (Hydrodiuril) 25 mg PO DAILY [facility] Last Admin: 04/28/20 08:57 Dose: 25 mg Documented by: Lactated Ringer's (Lactated Ringers) 1,000 mls @ 20 mls/hr IV .Q24H [facility] Last Admin: 04/27/20 18:45 Dose: Not Given Documented by: Sodium Chloride (Saline 0.9%) 1,000 mls @ 50 mls/hr IV .Q20H [facility] Last Admin: 04/28/20 05:59 Dose: Not Given Documented by: Ceftriaxone Sodium 1 gm/ (Sodium Chloride) 50 mls @ 100 mls/hr IVPB Q24HR [facility] Last Admin: 04/28/20 08:56 Dose: 100 mls/hr Documented by: Insulin Aspart (Novolog) 0 unit SQ ACHS [facility]; Protocol Last Admin: 04/28/20 12:48 Dose: 3 unit Documented by: Insulin Detemir (Levemir) 55 unit SQ BID [facility] Last Admin: 04/28/20 08:56 Dose: 55 unit Documented by: Lidocaine HCl (.Xylocaine 1% Inj (10mg/Ml) For Iv Start) 0.1 ml INTRADERMA PER PROTOCOL PRN PRN Reason: IV Start Losartan Potassium (Cozaar) 100 mg PO DAILY [facility] Last Admin: 04/28/20 08:57 Dose: 100 mg Documented by: Meclizine HCl (Antivert) 25 mg PO BID [facility] Last Admin: 04/28/20 08:57 Dose: 25 mg Documented by: Metoprolol Tartrate (Lopressor) 50 mg PO BID [facility] Last Admin: 04/28/20 08:57 Dose: 50 mg Documented by: Miscellaneous Information (Rx Info: Iv Contrast Was Given) 1 each MISCELLANE DAILY PRN PRN Reason: Per Protocol Stop: 04/29/20 08:28 Miscellaneous Information (Potassium Per Protocol) 1 each MISCELLANE DAILY PRN; Protocol PRN Reason: Per Protocol Nitroglycerin (Nitrostat) 0.4 mg SUBLINGUAL Q5M PRN PRN Reason: Chest Pain Potassium Chloride (K-Dur 20) 20 meq PO BID [facility] Last Admin: 04/28/20 08:57 Dose: 20 meq Documented by: Tamsulosin HCl (Flomax) 0.4 mg PO DAILY [facility] Last Admin: 04/28/20 08:57 Dose: 0.4 mg Documented by: Objective - Vital Signs Vital signs: Vital Signs Temp 98.2 F 04/28/20 12:00 Pulse 61 04/28/20 12:00 Resp 18 04/28/20 12:00 BP 135/62 04/28/20 12:00 Pulse Ox 100 04/28/20 12:00 Intake & Output 04/27/20 04/28/20 04/28/20 18:59 06:59 18:59 Intake Total 170 150 340 Output Total 1600 2200 700 Balance -1429 -360 Weight 169.7 kg Intake: IV 50 Oral 120 150 340 Output: Urine 1600 2200 700 Other: Voiding Method Urinal # Voids 2 2 # Bowel Movements 1 - Exam PHYSICAL EXAMINATION: GENERAL: morbidly obese HEENT: Pupils are round and equally reacting to light. EOMI. mild scleral icterus. No conjunctival pallor. Normocephalic, atraumatic. Short webbed neck CARDIOVASCULAR: Distant heart sounds heard PULMONARY: Bilateral breath sounds are positive distantly . No wheezing or crackles. ABDOMEN: Soft, nontender, nondistended, normoactive bowel sounds. Thick abdominal wall. MUSCULOSKELETAL: No joint swelling or deformity. EXTREMITIES: wrinking of the skin in lower extremities indicating decreasing edema NEUROLOGICAL: AAO X 3, Gross neurological examination did not reveal any focal deficits. - Labs CBC & Chem 7: 04/28/20 07:26 04/28/20 07:26 Labs: Abnormal Lab Results - Last 24 Hours (Table) 04/27/20 04/27/20 04/27/20 Range/Units 15:02 16:35 18:38 RBC (4.30-5.90) m/uL Hgb (13.0-17.5) gm/dL Hct (39.0-53.0) % D-Dimer 0.71 H (<0.60) mg/L FEU Potassium (3.5-5.1) mmol/L Carbon Dioxide (22-30) mmol/L Creatinine (0.66-1.25) mg/dL Glucose (74-99) mg/dL POC Glucose (mg/dL) 163 H 117 H (75-99) mg/dL 04/27/20 04/28/20 04/28/20 Range/Units 20:31 02:53 05:01 RBC (4.30-5.90) m/uL Hgb (13.0-17.5) gm/dL Hct (39.0-53.0) % D-Dimer (<0.60) mg/L FEU Potassium (3.5-5.1) mmol/L Carbon Dioxide (22-30) mmol/L Creatinine (0.66-1.25) mg/dL Glucose (74-99) mg/dL POC Glucose (mg/dL) 220 H 219 H 182 H (75-99) mg/dL 04/28/20 04/28/20 04/28/20 Range/Units 06:11 07:26 07:26 RBC 4.22 L (4.30-5.90) m/uL Hgb 11.6 L (13.0-17.5) gm/dL Hct 37.3 L (39.0-53.0) % D-Dimer (<0.60) mg/L FEU Potassium 3.3 L (3.5-5.1) mmol/L Carbon Dioxide 37 H (22-30) mmol/L Creatinine 1.42 H (0.66-1.25) mg/dL Glucose 116 H (74-99) mg/dL POC Glucose (mg/dL) 165 H (75-99) mg/dL 04/28/20 Range/Units 12:19 RBC (4.30-5.90) m/uL Hgb (13.0-17.5) gm/dL Hct (39.0-53.0) % D-Dimer (<0.60) mg/L FEU Potassium (3.5-5.1) mmol/L Carbon Dioxide (22-30) mmol/L Creatinine (0.66-1.25) mg/dL Glucose (74-99) mg/dL POC Glucose (mg/dL) 167 H (75-99) mg/dL Assessment and Plan Assessment: ASSESSMENT Dyspnea -could have multiple etiologies-chest x-ray showing interstitial perihilar pulmonary infiltrates and there mild elevation in troponin, morbid besity Diastolic CHF exacerbation Type 2 diabetes mellitus Hypertension Hyperlipidemia Obstructive sleep apnea on BiPAP Morbid obesity with BMI of 52 PLAN: Patient had an echocardiogram done showing ejection fraction of 45 to 50%. There is borderline pulmonary hypertension and mild to moderate mitral regurgitation. Cardiology on board , cath done today showing normal coronaries. Patient was started on ceftriaxone and Zithromax for possible underlying pneumonia. Yesterday d-dimer was slightly elevated at 0.71, as the patient's creatinine was high, a VQ scan was obtained and it was showing normal ventilation/perfusion scan. COVID-19 came back negative. Will repeat AM labs due to uptrending creatinine. Overall prognosis is guarded due to chronic multiple medical conditions. Further recommendations depending on the progress of the patient.
[2020-04-29] MEDS: SODIUM CHLORIDE 0.9% 1,000 ML IV SCH ×2 (03:23→21:11)
[2020-04-29 06:00] LABS: Glucose,Whole Blood 117 mg/dL (75-99)
[2020-04-29 06:19] LABS: Calcium 8.4 mg/dL (8.4-10.2); Potassium 3.1 mmol/L (3.5-5.1)
[2020-04-29] MEDS: INSULIN ASPART (NovoLOG) 100 UNIT/ML VIAL SQ SCH ×4 (07:01→21:10)
[2020-04-29] MEDS: ATORVASTATIN 40 MG TAB PO SCH (08:11)
[2020-04-29] MEDS: hydroCHLOROthiazide 25 MG TAB PO SCH (08:11)
[2020-04-29] MEDS: FUROSEMIDE 10 MG/ML 4 ML VIAL IV SCH ×2 (08:11→21:10)
[2020-04-29] MEDS: METOPROLOL TARTRATE 50 MG TAB PO SCH ×2 (08:11→21:09)
[2020-04-29] MEDS: AZITHROMYCIN 500 MG TAB PO SCH (08:11)
[2020-04-29] MEDS: INSULIN DETEMIR (LEVEMIR) 100 UNIT/ML SYR SQ SCH ×2 (08:11→21:09)
[2020-04-29] MEDS: hydrALAZINE HCL 50 MG TAB PO SCH (08:11)
[2020-04-29] MEDS: LOSARTAN 50 MG TAB PO SCH (08:11)
[2020-04-29] MEDS: APIXABAN 5 MG TAB PO SCH ×2 (08:11→21:09)
[2020-04-29] MEDS: MECLIZINE 25 MG TAB PO SCH ×2 (08:11→21:09)
[2020-04-29] MEDS: amLODIPine 5 MG TAB PO SCH (08:11)
[2020-04-29] MEDS: POTASSIUM CHLORIDE ER 20 MEQ TAB.ER PO SCH ×2 (08:11→21:09)
[2020-04-29] MEDS: TAMSULOSIN 0.4 MG CAP.ER.24H PO SCH (08:12)
--- NOTE | 2020-04-29 11:26 | P.PN ---
Subjective Progress Note Date: 04/29/20 CHIEF COMPLAINT: Heart failure HISTORY OF PRESENT ILLNESS: Patient examined this morning at the bedside. He reports he walked to the bathroom this morning and is feeling short of breath. He reports a lack of energy. He reports some improvement in his lower extremity edema. He is in a negative fluid balance 1760cc over the last 24 hours. Weight is down approximately 5 kg. Patient's blood pressure remains significantly elevated this morning with a systolic of 190. Creatinine slightly improved at 1.34 today. PHYSICAL EXAM: VITAL SIGNS: Reviewed. GENERAL: Well-developed in no acute distress. NECK: Supple. No JVD or thyromegaly LUNGS: Respirations even and unlabored. Lungs essentially clear to auscultation bilaterally. HEART: Regular rate and rhythm. S1 and S2 heard. EXTREMITIES: Normal range of motion. No clubbing or cyanosis. Peripheral pulses intact. 2+ lower extremity edema ASSESSMENT: 1. Symptoms of congestive heart failure with evidence of fluid overload, probably related to hypertension and diastolic dysfunction 2. Mild troponin elevation related to heart failure with no significant ob structive disease 3. Paroxysmal atrial fibrillation 4. Morbid obesity PLAN: -Continue Eliquis for anticoagulation -Continue IV Lasix for another 24 hours. Anticipate transitioning to oral dosing tomorrow -Accurate I&O and daily weights -Hydralazine increased to 75 mg 3 times a day -Add Imdur 30 mg daily Nurse practitioner note has been reviewed by physician. Signing provider agrees with the documented findings, assessment, and plan of care. Objective - Vital Signs Vital signs: Vital Signs Temp 97.5 F L 04/29/20 08:00 Pulse 69 04/29/20 08:00 Resp 22 04/29/20 08:00 BP 161/79 04/29/20 08:00 Pulse Ox 97 04/29/20 08:00 Intake & Output 04/28/20 04/29/20 04/29/20 18:59 06:59 18:59 Intake Total 340 240 Output Total 700 1400 500 Balance -360 -1400 -260 Weight 164.6 kg Intake: Oral 340 240 Output: Urine 700 1400 500 Other: Voiding Method Urinal Urinal # Voids 2 # Bowel Movements 1 - Labs CBC & Chem 7: 04/28/20 07:26 04/29/20 05:51 Labs: Abnormal Lab Results - Last 24 Hours (Table) 04/28/20 04/28/20 04/28/20 Range/Units 12:19 17:09 20:50 Potassium (3.5-5.1) mmol/L Carbon Dioxide (22-30) mmol/L BUN (9-20) mg/dL Creatinine (0.66-1.25) mg/dL Glucose (74-99) mg/dL POC Glucose (mg/dL) 167 H 223 H 246 H (75-99) mg/dL 04/29/20 04/29/20 Range/Units 05:51 05:59 Potassium 3.1 L (3.5-5.1) mmol/L Carbon Dioxide 37 H (22-30) mmol/L BUN 23 H (9-20) mg/dL Creatinine 1.34 H (0.66-1.25) mg/dL Glucose 115 H (74-99) mg/dL POC Glucose (mg/dL) 117 H (75-99) mg/dL
[2020-04-29 11:58] LABS: Glucose,Whole Blood 248 mg/dL (75-99)
[2020-04-29] MEDS: ISOSORBIDE MONONITRATE ER 30 MG TAB.ER.24H PO SCH (12:11)
[2020-04-29] MEDS: hydrALAZINE HCL 25 MG TAB PO SCH ×2 (16:23→21:09)
[2020-04-29 16:36] LABS: Glucose,Whole Blood 153 mg/dL (75-99)
[2020-04-29] MEDS: LACTATED RINGERS 1,000 ML IV SCH (18:00)
[2020-04-29 20:13] LABS: Glucose,Whole Blood 283 mg/dL (75-99)
--- NOTE | 2020-04-30 01:34 | P.PN ---
Subjective Progress Note Date: 04/29/20 Principal diagnosis: Diastolic CHF exacerbation Mr. Harvey is a 54-year-old male with a past medical history of chronic multiple medical conditions including diabetes mellitus, hypertension, hyperlipidemia, obstructive sleep apnea on BiPAP, atrial fibrillation, morbid obesity with BMI of 52, coming in with a chief complaint of difficulty in breathing. Patient follows with Dr. Edwards in the outpatient setting. Patient has difficulty in breathing at baseline due to morbid obesity and chronic peripheral edema. But for the past 1 day, his difficulty in breathing has worsened. Patient states that he has been compliant with his diet and salt intake. In the emergency patient, he was given a dose of IV Lasix. Patient had EKG done showing left axis deviation with left ventricular hypertrophy and in sinus rhythm. He HAD blood work done showing elevation of troponin to 0.063 and he was evaluated by cardiology Dr. Morales and they are planning for cardiac jeane terization for tomorrow morning. Patient is currently asymptomatic and sleeping in bed with his BiPAP on. On 04/27/20 - Patient had cardiac catheterization done this morning and it showed normal coronary arteries with elevated end-diastolic pressure. Patient states that he is still short of breath on walking from the bed to the restroom. Patient denies having any recent travel but mentions about working with homeless people. Will check d-dimer to look for other reasons for his dyspnea. If the d-dimer levels are high we will get a VQ scan as the patient's creatinine is slightly high at 1.27 compared to yesterday. On 04/28/20 - Patient is sitting up in the bed and his fiance is at the be dside. He states that his difficulty in breathing is better today. Yesterday d-dimer was slightly elevated at 0.71, as the patient's creatinine was high, a VQ scan was obtained and it was showing normal ventilation/perfusion scan. He was also started on ceftriaxone and Zithromax. COVID-19 came back negative. On reviewing the vitals patient is saturating at 95% on room air. Blood pressure 135/62, heart rate 77, temperature 98.2. On reviewing his labs white count of 8.2, hemoglobin 9.6. Sodium 140, potassium 3.3, chloride 99, bicarb 37, BUN 20, creatinine 1.42 slightly increased from yesterday. Blood sugars running in 200- 3 100s. On 04/29/2020 -patient is sitting up in the bed appears to be in no distress. He mentions that his breathing is better, but not back to his baseline yet. Patient has been started on ceftriaxone and Zithromax, and continues to be on IV Lasix 40 mg twice daily. Patient's blood sugars have been running on the higher side in the 200s to 300s. On reviewing the patient's vitals temperature 98.4, heart rate 75, respiratory rate 17, blood pressure 1 the higher side systolics between 170s to 190s systolic between 70s to 90s. Patient's labs from this mor royal sodium 138 potassium 3.4 chloride 98 bicarb 37 BUN 23 creatinine 1.34 On review of systems Constitutional-no fever chills or rigors, denies myalgias Respiratory- difficulty in breathing better than yesterday Cardiovascular-no chest pain or palpitations GI-no abdominal pain nausea vomiting or diarrhea Active Medications Hydrocodone Bitart/Acetaminophen ([place] 10) 1 each PO TID PRN PRN Reason: Pain Alprazolam (Xanax) 0.25 mg PO Q6HR PRN PRN Reason: Mild Anxiety Alprazolam (Xanax) 0.5 mg PO Q6HR PRN PRN Reason: Moderate Anxiety Amlodipine Besylate (Norvasc) 5 mg PO DAILY [facility] Last Admin: 04/29/20 08:11 Dose: 5 mg Documented by: Apixaban (Eliquis) 5 mg PO BID [facility] Last Admin: 04/29/20 21:09 Dose: 5 mg Documented by: Atorvastatin Calcium (Lipitor) 40 mg PO DAILY [facility] Last Admin: 04/29/20 08:11 Dose: 40 mg Documented by: Azithromycin (Zithromax) 500 mg PO DAILY [facility] Last Admin: 04/29/20 08:11 Dose: 500 mg Documented by: Furosemide (Lasix) 40 mg IV Q12H [facility] Last Admin: 04/29/20 21:10 Dose: 40 mg Documented by: Hydralazine HCl (Apresoline) 75 mg PO TID [facility] Last Admin: 04/29/20 21:09 Dose: 75 mg Documented by: Hydrochlorothiazide (Hydrodiuril) 25 mg PO DAILY [facility] Last Admin: 04/29/20 08:11 Dose: 25 mg Documented by: Lactated Ringer's (Lactated Ringers) 1,000 mls @ 20 mls/hr IV .Q24H [facility] Last Admin: 04/29/20 18:00 Dose: Not Given Documented by: Sodium Chloride (Saline 0.9%) 1,000 mls @ 50 mls/hr IV .Q20H [facility] Last Admin: 04/29/20 21:11 Dose: 50 mls/hr Documented by: Ceftriaxone Sodium 1 gm/ (Sodium Chloride) 50 mls @ 100 mls/hr IVPB Q24HR [facility] Last Admin: 04/29/20 08:12 Dose: 100 mls/hr Documented by: Insulin Aspart (Novolog) 0 unit SQ ACHS [facility]; Protocol Last Admin: 04/29/20 21:10 Dose: 11 unit Documented by: Insulin Detemir (Levemir) 55 unit SQ BID [facility] Last Admin: 04/29/20 21:09 Dose: 55 unit Documented by: Isosorbide Mononitrate (Imdur) 30 mg PO DAILY [facility] Last Admin: 04/29/20 12:11 Dose: 30 mg Documented by: Lidocaine HCl (.Xylocaine 1% Inj (10mg/Ml) For Iv Start) 0.1 ml INTRADERMA PER PROTOCOL PRN PRN Reason: IV Start Losartan Potassium (Cozaar) 100 mg PO DAILY [facility] Last Admin: 04/29/20 08:11 Dose: 100 mg Documented by: Meclizine HCl (Antivert) 25 mg PO BID [facility] Last Admin: 04/29/20 21:09 Dose: 25 mg Documented by: Metoprolol Tartrate (Lopressor) 50 mg PO BID [facility] Last Admin: 04/29/20 21:09 Dose: 50 mg Documented by: Miscellaneous Information (Potassium Per Protocol) 1 each MISCELLANE DAILY PRN; Protocol PRN Reason: Per Protocol Nitroglycerin (Nitrostat) 0.4 mg SUBLINGUAL Q5M PRN PRN Reason: Chest Pain Potassium Chloride (K-Dur 20) 20 meq PO BID [facility] Last Admin: 04/29/20 21:09 Dose: 20 meq Documented by: Tamsulosin HCl (Flomax) 0.4 mg PO DAILY [facility] Last Admin: 04/29/20 08:12 Dose: 0.4 mg Documented by: Objective - Vital Signs Vital signs: Vital Signs Temp 98 F 04/29/20 16:25 Pulse 68 08/13/20 16:25 Resp 20 04/29/20 16:25 BP 162/79 04/29/20 16:25 Pulse Ox 97 04/29/20 16:25 Intake & Output 04/28/20 04/29/20 04/29/20 18:59 06:59 18:59 Intake Total 340 476 Output Total 700 1400 1950 Balance -319 -6281 -7647 Weight 164.6 kg Intake: Oral 340 476 Output: Urine 700 1400 1950 Other: Voiding Method Urinal Urinal # Voids 2 # Bowel Movements 1 - Exam PHYSICAL EXAMINATION: GENERAL: morbidly obese HEENT: Pupils are round and equally reacting to light. EOMI. mild scleral icterus. No conjunctival pallor. Short webbed neck CARDIOVASCULAR: Distant heart sounds heard PULMONARY: Bilateral breath sounds are positive distantly . No wheezing or cr ackles. ABDOMEN: Soft, nontender, nondistended, normoactive bowel sounds. Thick abdominal wall. MUSCULOSKELETAL: No joint swelling or deformity. EXTREMITIES: wrinking of the skin in lower extremities indicating decreasing edema NEUROLOGICAL: AAO X 3, Gross neurological examination did not reveal any focal deficits. - Labs CBC & Chem 7: 04/28/20 07:26 04/29/20 05:51 Labs: Abnormal Lab Results - Last 24 Hours (Table) 04/28/20 04/28/20 04/29/20 Range/Units 17:09 20:50 05:51 Potassium 3.1 L (3.5-5.1) mmol/L Carbon Dioxide 37 H (22-30) mmol/L BUN 23 H (9-20) mg/dL Creatinine 1.34 H (0.66-1.25) mg/dL Glucose 115 H (74-99) mg/dL POC Glucose (mg/dL) 223 H 246 H (75-99) mg/dL 04/29/20 04/29/20 04/29/20 Range/Units 05:59 11:57 16:35 Potassium (3.5-5.1) mmol/L Carbon Dioxide (22-30) mmol/L BUN (9-20) mg/dL Creatinine (0.66-1.25) mg/dL Glucose (74-99) mg/dL POC Glucose (mg/dL) 117 H 248 H 153 H (75-99) mg/dL Assessment and Plan Assessment: ASSESSMENT Dyspnea -have multiple etiologies-chest x-ray showing interstitial perihilar pulmonary infiltrates and there is mild elevation in troponin, morbid besity Diastolic CHF exacerbation Type 2 diabetes mellitus Hypertension Hyperlipidemia Obstructive sleep apnea on BiPAP Morbid obesity with BMI of 52 PLAN: Patient had an echocardiogram done showing ejection fraction of 45 to 50%. There is borderline pulmonary hypertension and mild to moderate mitral regurgitation. Cardiology on board , cath done t showing normal coronaries. Patient was started on ceftriaxone and Zithromax for possible underlying pneumonia. VQ scan was obtained and it was showing normal ventilation/perfusion scan. COVID-19 has came back negative. Patient's blood pressure has been running on the higher side, cardiology adjusting his blood pressure medications. Will also obtain pulmonary consult. Overall prognosis is guarded due to chronic multiple medical conditions. Further recommendations depending on the progress of the patient.
[2020-04-30] MEDS: POTASSIUM CHLORIDE ER 20 MEQ TAB.ER PO SCH ×4 (03:29→20:41)
[2020-04-30 05:53] LABS: Glucose,Whole Blood 148 mg/dL (75-99)
[2020-04-30] MEDS: INSULIN ASPART (NovoLOG) 100 UNIT/ML VIAL SQ SCH ×4 (07:01→20:42)
[2020-04-30 07:47] LABS: Calcium 8.9 mg/dL (8.4-10.2); Potassium 3.5 mmol/L (3.5-5.1)
[2020-04-30] MEDS: MECLIZINE 25 MG TAB PO SCH ×2 (09:16→20:41)
[2020-04-30] MEDS: APIXABAN 5 MG TAB PO SCH ×2 (09:16→20:41)
[2020-04-30] MEDS: METOPROLOL TARTRATE 50 MG TAB PO SCH ×2 (09:16→20:41)
[2020-04-30] MEDS: LOSARTAN 50 MG TAB PO SCH (09:16)
[2020-04-30] MEDS: amLODIPine 5 MG TAB PO SCH (09:16)
[2020-04-30] MEDS: hydrALAZINE HCL 25 MG TAB PO SCH ×3 (09:16→20:40)
[2020-04-30] MEDS: ATORVASTATIN 40 MG TAB PO SCH (09:16)
[2020-04-30] MEDS: INSULIN DETEMIR (LEVEMIR) 100 UNIT/ML SYR SQ SCH ×2 (09:16→20:41)
[2020-04-30] MEDS: hydroCHLOROthiazide 25 MG TAB PO SCH (09:16)
[2020-04-30] MEDS: TAMSULOSIN 0.4 MG CAP.ER.24H PO SCH (09:17)
[2020-04-30] MEDS: ISOSORBIDE MONONITRATE ER 30 MG TAB.ER.24H PO SCH (09:17)
[2020-04-30] MEDS: FUROSEMIDE 10 MG/ML 4 ML VIAL IV SCH ×2 (09:17→20:41)
[2020-04-30] MEDS: AZITHROMYCIN 500 MG TAB PO SCH (09:17)
[2020-04-30 11:51] LABS: Glucose,Whole Blood 145 mg/dL (75-99)
--- NOTE | 2020-04-30 13:06 | P.PN ---
Subjective Progress Note Date: 04/30/20 CHIEF COMPLAINT: Heart failure HISTORY OF PRESENT ILLNESS: Patient examined this morning at the bedside. He expresses frustration due to his blood pressure remaining elevated and his lower extremity edema. He states his swelling in his feet seems a little worse than yesterday. Fluid balance over the last 24 hours is -3134. He is down approximately 4 kg. Creatinine remains stable at 1.29 today. Blood pressure 164/70. PHYSICAL EXAM: VITAL SIGNS: Reviewed. GENERAL: Well-developed in no acute distress. NECK: Supple. No JVD or thyromegaly LUNGS: Respirations even and unlabored. Lungs essentially clear to auscultation bilaterally. HEART: Regular rate and rhythm. S1 and S2 heard. EXTREMITIES: Normal range of motion. No clubbing or cyanosis. Peripheral pulses intact. 2-3+ lower extremity edema ASSESSMENT: 1. Symptoms of congestive heart failure with evidence of fluid overload, probably related to hypertension and diastolic dysfunction 2. Mild troponin elevation related to heart failure with no significant obstructive disease 3. Paroxysmal atrial fibrillation 4. Morbid obesity PLAN: -Continue Eliquis for anticoagulation -Continue IV Lasix -Monitor renal function -Accurate I&O and daily weights -Continue current medication regimen -Add Aldactone Nurse practitioner note has been reviewed by physician. Signing provider agrees with the documented findings, assessment, and plan of care. Objective - Vital Signs Vital signs: Vital Signs Temp 98.2 F 04/30/20 04:00 Pulse 71 04/30/20 04:00 Resp 19 04/30/20 04:00 BP 164/70 04/30/20 04:00 Pulse Ox 99 04/30/20 04:00 Intake & Output 04/29/20 04/30/20 04/30/20 18:59 06:59 18:59 Intake Total 716 120 Output Total 1950 1900 800 Balance -1234 1900 -680 Weight 162.2 kg Intake: Oral 716 120 Output: Urine 1950 1900 800 Other: Voiding Method Urinal Urinal # Voids 1 - Labs CBC & Chem 7: 04/28/20 07:26 04/30/20 06:55 Labs: Abnormal Lab Results - Last 24 Hours (Table) 04/29/20 04/29/20 04/30/20 Range/Units 16:35 20:12 05:52 Carbon Dioxide (22-30) mmol/L BUN (9-20) mg/dL Creatinine (0.66-1.25) mg/dL Glucose (74-99) mg/dL POC Glucose (mg/dL) 153 H 283 H 148 H (75-99) mg/dL 04/30/20 04/30/20 Range/Units 06:55 11:40 Carbon Dioxide 36 H (22-30) mmol/L BUN 22 H (9-20) mg/dL Creatinine 1.29 H (0.66-1.25) mg/dL Glucose 126 H (74-99) mg/dL POC Glucose (mg/dL) 145 H (75-99) mg/dL
[2020-04-30] MEDS: SPIRONOLACTONE 25 MG TAB PO SCH (13:25)
--- NOTE | 2020-04-30 14:35 | P.CNPUL ---
History of Present Illness Consult date: 04/30/20 Reason for consult: dyspnea Chief complaint: Shortness of breath, hypertension History of present illness: 54-year-old white male patient with past medical history of obstructive sleep apnea, on CPAP, morbid obesity, hypertension, dyslipidemia, paroxysmal atrial fibrillation on Eliquis, and diabetes mellitus type 2, who came into the hospital on 04/25/2020 for worsening shortness of breath, lower extremity edema. Patient was in severe respiratory distress on presentation, tachycardic, tachypneic, hypoxic with a pulse ox of only 91 on 6 L per nasal cannula. Preventive care ultrasound showed findings suggesting pulmonary edema patient was placed on BiPAP, systolic blood pressure was 1 90 mmHg, and his clinical presentation was consistent with hypertensive emergency secondary to acute decompensated heart failure. He had a proBNP of 1130, mild troponin leak of 0.063, chest x-ray showed interstitial perihilar pulmonary infiltrates. Echocardiogram was completed showing left ventricular systolic function mildly impaired with an EF of 45-50%, no evidence of aortic stenosis or regurgitation, [id number] MR, mild tricuspid regurgitation, borderline pulmonary hypertension with right-sided pressures of 31.5 mmHg, the inferior vena cava was dilated with poor inspiratory collapse consistent with estimated right atrial pressure of 20 mmHg. His second and third troponin came back at 0.124, and 0.102. Patient was started on diuretics, cardiology did heart catheterization on 04/27/2020 which showed normal coronary arteries and elevated end-diastolic pressure of 20. Patient is on empiric antibiotic coverage in the form of azithromycin and Rocephin, his been afebrile during this whole hospital stay. He is not bringing up any sputum. No leukocytosis, he continues to have swelling in his lower extremities, left greater than right. He continues on Eliquis for history of paroxysmal atrial fibrillation but currently he is in sinus mechanism. They have VQ scan was obtained showing a normal ventilation perfusion scan. COVID 19 was negative. He is maintaining negative fluid balance, he is down 2.9 kg since admission. Review of Systems All systems: negative Constitutional: Denies chills, Denies fever Eyes: denies blurred vision, denies pain Ears, nose, mouth and throat: Denies headache, Denies sore throat Cardiovascular: Reports dyspnea on exertion, Reports edema, Reports leg edema, Reports orthopnea, Reports paroxysmal nocturnal dyspnea, Denies chest pain, Denies shortness of breath Respiratory: Reports dyspnea, Denies cough Gastrointestinal: Denies abdominal pain, Denies diarrhea, Denies nausea, Denies vomiting Musculoskeletal: Denies myalgias Integumentary: Denies pruritus, Denies rash Neurological: Denies numbness, Denies weakness Psychiatric: Denies anxiety, Denies depression Endocrine: Denies fatigue, Denies weight change Past Medical History Past Medical History: Diabetes Mellitus, Hyperlipidemia, Hypertension, Sleep Apnea/CPAP/BIPAP Additional Past Medical History / Comment(s): neuropathy, afib History of Any Multi-Drug Resistant Organisms: None Reported Past Surgical History: No Surgical Hx Reported Past Anesthesia/Blood Transfusion Reactions: No Reported Reaction Past Psychological History: No Psychological Hx Reported Smoking Status: Never smoker Past Alcohol Use History: None Reported Past Drug Use History: Marijuana - Past Family History Father Family Medical History: No Reported History Additional Family Medical History / Comment(s): not sure Mother Family Medical History: Diabetes Mellitus, Hypertension Additional Family Medical History / Comment(s): mom is still alive Medications and Allergies Home Medications Medication Instructions Recorded Confirmed Type Furosemide [Lasix] 40 mg PO DAILY 09/06/19 04/25/20 History Insulin Glargine,Hum.rec.anlog 110 unit SQ BID 09/06/19 04/25/20 History [Basaglar Kwikpen U-100] Tamsulosin [Flomax] 0.4 mg PO DAILY 09/06/19 04/25/20 History metFORMIN HCL 1,000 mg PO BID 09/06/19 04/25/20 History Apixaban [Eliquis] 5 mg PO BID #60 tab 09/10/19 04/25/20 Rx Losartan [Cozaar] 50 mg PO DAILY #30 tab 09/10/19 04/25/20 Rx Meclizine [Antivert] 25 mg PO BID #15 tab 09/10/19 04/25/20 Rx Metoprolol Tartrate [Lopressor] 50 mg PO BID #30 tab 09/10/19 04/25/20 Rx hydrALAZINE HCL [Apresoline] 20 mg PO BID #60 tab 09/10/19 04/25/20 Rx HYDROcodone/APAP 10-325MG [[place] 1 tab PO TID PRN 04/25/20 04/25/20 History 10-325] Potassium Chloride [Klor-Con 20] 20 meq PO DAILY 04/25/20 04/25/20 History amLODIPine [Norvasc] 5 mg PO DAILY 04/25/20 04/25/20 History Allergies Allergy/AdvReac Type Severity Reaction Status Date / Time aspirin AdvReac Dyspnea Verified 04/25/20 22:53 Physical Exam Vitals: Vital Signs Temp Pulse Resp BP Pulse Ox 04/30/20 12:00 98.6 F 78 18 177/80 94 L 04/30/20 08:00 97.9 F 75 20 178/91 95 04/30/20 04:00 98.2 F 71 19 164/70 99 04/30/20 00:00 98.4 F 75 17 177/74 92 L 04/29/20 20:00 97.9 F 79 18 175/75 95 04/29/20 16:25 98 F 68 20 162/79 97 Intake and Output 04/29/20 04/30/20 04/30/20 22:59 06:59 14:59 Intake Total 240 360 Output Total 1000 1550 1550 Balance -760 -1550 -1190 Intake: Oral 240 360 Output: Urine 1000 1550 1550 Other: Voiding Method Urinal Urinal Urinal # Voids 1 Weight 162.2 kg GENERAL EXAM: Alert, very pleasant, morbidly obese 54-year-old -[place] male, sitting up on the edge of the bed on room air, with a pulse ox of 94-95%, comfortable in no apparent distress. HEAD: Normocephalic/atraumatic. EYES: Normal reaction of pupils, equal size. Conjunctiva pink, sclera white. NOSE: Clear with pink turbinates. THROAT: No erythema or exudates. NECK: No masses, no JVD, no thyroid enlargement, no adenopathy. CHEST: No chest wall deformity. Symmetrical expansion. LUNGS: Equal air entry with no crackles, wheeze, rhonchi or dullness. CVS: Regular rate and rhythm, normal S1 and S2, no gallops, no murmurs, no rubs, patient is currently in sinus mechanism ABDOMEN: Soft, nontender. No hepatosplenomegaly, normal bowel sounds, no guarding or rigidity. EXTREMITIES: No clubbing, 1+ lower extremity edema in the right lower extremity and pedal edema, and 2+ lower extremity edema in the left lower extremity, no cyanosis, 2+ pulses and upper and lower extremities. MUSCULOSKELETAL: Muscle strength and tone normal. SPINE: No scoliosis or deformity SKIN: No rashes CENTRAL NERVOUS SYSTEM: Alert and oriented -3. No focal deficits, tone is normal in all 4 extremities. PSYCHIATRIC: Alert and oriented -3. Appropriate affect. Intact judgment and insight. Results - Laboratory Findings CBC and BMP: 04/28/20 07:26 04/30/20 06:55 PT/INR, D-dimer PT 9.5 sec (9.0-12.0) 04/25/20 21:11 INR 0.9 (<1.2) 04/25/20 21:11 D-Dimer 0.71 mg/L FEU (<0.60) H 04/27/20 15:02 Abnormal lab findings: Abnormal Labs 04/25/20 04/25/20 04/25/20 21:03 21:11 21:11 WBC 13.6 H RBC Hgb Hct Neutrophils # 10.5 H D-Dimer VBG pH 7.46 H VBG HCO3 29 H Potassium Carbon Dioxide BUN Creatinine Glucose 196 H POC Glucose (mg/dL) Troponin I 04/25/20 04/25/20 04/26/20 21:11 23:35 03:10 WBC RBC Hgb Hct Neutrophils # D-Dimer VBG pH VBG HCO3 Potassium Carbon Dioxide BUN Creatinine Glucose POC Glucose (mg/dL) 167 H Troponin I 0.063 H* 0.124 H* 04/26/20 04/26/20 04/26/20 05:34 05:49 09:01 WBC RBC Hgb Hct Neutrophils # D-Dimer VBG pH VBG HCO3 Potassium Carbon Dioxide BUN Creatinine Glucose POC Glucose (mg/dL) 49 L 106 H 49 L Troponin I 04/26/20 04/26/20 04/26/20 09:09 09:09 11:31 WBC RBC Hgb Hct Neutrophils # D-Dimer VBG pH VBG HCO3 Potassium Carbon Dioxide BUN Creatinine Glucose 44 L* POC Glucose (mg/dL) 162 H Troponin I 0.102 H* 04/26/20 04/26/20 04/27/20 17:15 20:34 06:19 WBC RBC Hgb Hct Neutrophils # D-Dimer VBG pH VBG HCO3 Potassium Carbon Dioxide BUN Creatinine Glucose POC Glucose (mg/dL) 189 H 200 H 50 L Troponin I 04/27/20 04/27/20 04/27/20 06:25 06:25 06:34 WBC RBC 4.25 L Hgb 11.7 L Hct 37.5 L Neutrophils # D-Dimer VBG pH VBG HCO3 Potassium 3.3 L Carbon Dioxide 35 H BUN Creatinine 1.27 H Glucose 37 L* POC Glucose (mg/dL) 53 L Troponin I 04/27/20 04/27/20 04/27/20 06:46 15:02 16:35 WBC RBC Hgb Hct Neutrophils # D-Dimer 0.71 H VBG pH VBG HCO3 Potassium Carbon Dioxide BUN Creatinine Glucose POC Glucose (mg/dL) 124 H 163 H Troponin I 04/27/20 04/27/20 04/28/20 18:38 20:31 02:53 WBC RBC Hgb Hct Neutrophils # D-Dimer VBG pH VBG HCO3 Potassium Carbon Dioxide BUN Creatinine Glucose POC Glucose (mg/dL) 117 H 220 H 219 H Troponin I 04/28/20 04/28/20 04/28/20 05:01 06:11 07:26 WBC RBC Hgb Hct Neutrophils # D-Dimer VBG pH VBG HCO3 Potassium 3.3 L Carbon Dioxide 37 H BUN Creatinine 1.42 H Glucose 116 H POC Glucose (mg/dL) 182 H 165 H Troponin I 04/28/20 04/28/20 04/28/20 07:26 12:19 17:09 WBC RBC 4.22 L Hgb 11.6 L Hct 37.3 L Neutrophils # D-Dimer VBG pH VBG HCO3 Potassium Carbon Dioxide BUN Creatinine Glucose POC Glucose (mg/dL) 167 H 223 H Troponin I 04/28/20 04/29/20 04/29/20 20:50 05:51 05:59 WBC RBC Hgb Hct Neutrophils # D-Dimer VBG pH VBG HCO3 Potassium 3.1 L Carbon Dioxide 37 H BUN 23 H Creatinine 1.34 H Glucose 115 H POC Glucose (mg/dL) 246 H 117 H Troponin I 04/29/20 04/29/20 04/29/20 11:57 16:35 20:12 WBC RBC Hgb Hct Neutrophils # D-Dimer VBG pH VBG HCO3 Potassium Carbon Dioxide BUN Creatinine Glucose POC Glucose (mg/dL) 248 H 153 H 283 H Troponin I 04/30/20 04/30/20 04/30/20 05:52 06:55 11:40 WBC RBC Hgb Hct Neutrophils # D-Dimer VBG pH VBG HCO3 Potassium Carbon Dioxide 36 H BUN 22 H Creatinine 1.29 H Glucose 126 H POC Glucose (mg/dL) 148 H 145 H Troponin I - Diagnostic Findings Chest x-ray: report reviewed, image reviewed Additional studies: Pulmonary perfusion scan, EEG, echocardiogram report, cardiac cath report reviewed Assessment and Plan Plan: Assessment: #1. Acute hypoxic respiratory failure related to acute exacerbation of chronic congestive heart failure with diastolic dysfunction #2. Mild pulmonary hypertension #3. Mild troponin elevation likely related to acute CHF #4. Paroxysmal atrial fibrillation, currently in sinus mechanism with a controlled rate, on Eliquis #5. Morbid obesity #6. Obstructive sleep apnea on CPAP therapy #7. Hypertensive emergency on presentation with pulmonary edema, improved #8. Diabetes mellitus2 Plan: Continue with diuretics, patient is maintaining negative fluid balance, we'll obtain a follow-up chest x-ray today, BiPAP as needed and at bedtime. Clinically stable, will obtain lower extremity Dopplers to rule out DVT, although the patient is on chronic Eliquis. We'll continue to follow I performed a history & physical examination of the patient and discussed their management with my nurse practitioner, Dang Marroquin. I reviewed the nurse practitioner's note and agree with the documented findings and plan of care. Lung sounds are positive for diminished breath sounds. The findings and the impression was discussed with the patient. I attest to the documentation by the nurse practitioner. Time with Patient: Greater than 30
[2020-04-30 16:50] LABS: Glucose,Whole Blood 178 mg/dL (75-99)
[2020-04-30] MEDS: SODIUM CHLORIDE 0.9% 1,000 ML IV SCH (16:59)
[2020-04-30] MEDS: LACTATED RINGERS 1,000 ML IV SCH (18:00)
--- NOTE | 2020-04-30 18:05 | XR ---
EXAMINATION TYPE: XR chest 2V DATE OF EXAM: 04/30/2020 COMPARISON: 04/25/2020 HISTORY: 54-year-old male follow-up shortness of breath TECHNIQUE: PA and lateral views FINDINGS: Heart mildly enlarged. Interstitial prominence and prominent pulmonary vasculature. No kenneth consolid ation or pleural effusion. IMPRESSION: Consider CHF with pulmonary vascular congestion.
[2020-04-30 20:20] LABS: Glucose,Whole Blood 253 mg/dL (75-99)
--- NOTE | 2020-04-30 20:26 | US ---
EXAMINATION TYPE: US venous doppler duplex LE DATE OF EXAM: 04/30/2020 7:45 PM COMPARISON: NONE CLINICAL HISTORY: left leg swelling. Chronic left leg swelling, no injury, no h/o dvt SIDE PERFORMED: Bilateral TECHNIQUE: The lower extremity deep venous system is examined utilizing real time linear array sonog иван with graded compression, doppler sonography and color-flow sonography. VESSELS IMAGED: External Iliac Vein (EIV) Common Femoral Vein Deep Femoral Vein Greater Saphenous Vein * Femoral Vein Popliteal Vein Small Saphenous Vein * Proximal Calf Veins (* superficial vessels) large patient weighing 357lbs, difficult to image Right Leg: Negative for DVT, unable to view popiteal vessels without color for compression, partly d ue to anterior fluid collection that most likely represents 3.5cm Vital's cyst, and size of patient. Left Leg: Negative for DVT IMPRESSION: Exam limited due to patient's size. No evidence for deep vein thrombosis. There is right side popliteal cyst.
--- NOTE | 2020-05-01 00:52 | P.PN ---
Subjective Progress Note Date: 04/30/20 Principal diagnosis: Diastolic CHF exacerbation Mr. Harvey is a 54-year-old male with a past medical history of chronic multiple medical conditions including diabetes mellitus, hypertension, hyperlipidemia, obstructive sleep apnea on BiPAP, atrial fibrillation, morbid obesity with BMI of 52, coming in with a chief complaint of difficulty in breathing. Patient follows with Dr. Edwards in the outpatient setting. Patient has difficulty in breathing at baseline due to morbid obesity and chronic peripheral edema. But for the past 1 day, his difficulty in breathing has worsened. Patient states that he has been compliant with his diet and salt intake. In the emergency patient, he was given a dose of IV Lasix. Patient had EKG done showing left axis deviation with left ventricular hypertrophy and in sinus rhythm. He HAD blood work done showing elevation of troponin to 0.063 and he was evaluated by cardiology Dr. Morales and they are planning for cardiac jeane terization for tomorrow morning. Patient is currently asymptomatic and sleeping in bed with his BiPAP on. On 04/27/20 - Patient had cardiac catheterization done this morning and it showed normal coronary arteries with elevated end-diastolic pressure. Patient states that he is still short of breath on walking from the bed to the restroom. Patient denies having any recent travel but mentions about working with homeless people. Will check d-dimer to look for other reasons for his dyspnea. If the d-dimer levels are high we will get a VQ scan as the patient's creatinine is slightly high at 1.27 compared to yesterday. On 04/28/20 - Patient is sitting up in the bed and his fiance is at the be dside. He states that his difficulty in breathing is better today. Yesterday d-dimer was slightly elevated at 0.71, as the patient's creatinine was high, a VQ scan was obtained and it was showing normal ventilation/perfusion scan. He was also started on ceftriaxone and Zithromax. COVID-19 came back negative. On reviewing the vitals patient is saturating at 95% on room air. Blood pressure 135/62, heart rate 77, temperature 98.2. On reviewing his labs white count of 8.2, hemoglobin 9.6. Sodium 140, potassium 3.3, chloride 99, bicarb 37, BUN 20, creatinine 1.42 slightly increased from yesterday. Blood sugars running in 200- 3 100s. On 04/29/2020 -patient is sitting up in the bed appears to be in no distress. He mentions that his breathing is better, but not back to his baseline yet. Patient has been started on ceftriaxone and Zithromax, and continues to be on IV Lasix 40 mg twice daily. Patient's blood sugars have been running on the higher side in the 200s to 300s. On reviewing the patient's vitals temperature 98.4, heart rate 75, respiratory rate 17, blood pressure 1 the higher side systolics between 170s to 190s systolic between 70s to 90s. Patient's labs from this mor royal sodium 138 potassium 3.4 chloride 98 bicarb 37 BUN 23 creatinine 1.34 On 04/30/2020- Patient is comfortably sitting up in the bed. He does not appear to be any acute distress. Overnight no acute events reported by nursing staff. Patient states that his breathing is still the same and that he is short of breath, but denies any worsening. On reviewing the vitals he is saturating about 93% on room air. His labs from this morning show sodium 140, potassium 3.4, chloride 99, bicarb 36, BUN 22, creatinine 1.29. On review of systems Constitutional-no fever chills or rigors, denies myalgias Respiratory- difficulty in breathing better than yesterday Cardiovascular-no chest pain or palpitations GI-no abdominal pain nausea vomiting or diarrhea Active Medications Hydrocodone Bitart/Acetaminophen ([place] 10) 1 each PO TID PRN PRN Reason: Pain Alprazolam (Xanax) 0.25 mg PO Q6HR PRN PRN Reason: Mild Anxiety Alprazolam (Xanax) 0.5 mg PO Q6HR PRN PRN Reason: Moderate Anxiety Amlodipine Besylate (Norvasc) 5 mg PO DAILY [facility] Last Admin: 04/30/20 09:16 Dose: 5 mg Documented by: Apixaban (Eliquis) 5 mg PO BID [facility] Last Admin: 04/30/20 20:41 Dose: 5 mg Documented by: Atorvastatin Calcium (Lipitor) 40 mg PO DAILY [facility] Last Admin: 04/30/20 09:16 Dose: 40 mg Documented by: Azithromycin (Zithromax) 500 mg PO DAILY [facility] Last Admin: 04/30/20 09:17 Dose: 500 mg Documented by: Furosemide (Lasix) 40 mg IV Q12H [facility] Last Admin: 04/30/20 20:41 Dose: 40 mg Documented by: Hydralazine HCl (Apresoline) 75 mg PO TID [facility] Last Admin: 04/30/20 20:40 Dose: 75 mg Documented by: Hydrochlorothiazide (Hydrodiuril) 25 mg PO DAILY [facility] Last Admin: 04/30/20 09:16 Dose: 25 mg Documented by: Lactated Ringer's (Lactated Ringers) 1,000 mls @ 20 mls/hr IV .Q24H [facility] Last Admin: 04/30/20 18:00 Dose: Not Given Documented by: Sodium Chloride (Saline 0.9%) 1,000 mls @ 50 mls/hr IV .Q20H [facility] Last Admin: 04/30/20 16:59 Dose: Not Given Documented by: Ceftriaxone Sodium 1 gm/ (Sodium Chloride) 50 mls @ 100 mls/hr IVPB Q24HR [facility] Last Admin: 04/30/20 09:16 Dose: 100 mls/hr Documented by: Insulin Aspart (Novolog) 0 unit SQ ACHS [facility]; Protocol Last Admin: 04/30/20 20:42 Dose: 9 unit Documented by: Insulin Detemir (Levemir) 55 unit SQ BID [facility] Last Admin: 04/30/20 20:41 Dose: 55 unit Documented by: Isosorbide Mononitrate (Imdur) 30 mg PO DAILY [facility] Last Admin: 04/30/20 09:17 Dose: 30 mg Documented by: Lidocaine HCl (.Xylocaine 1% Inj (10mg/Ml) For Iv Start) 0.1 ml INTRADERMA PER PROTOCOL PRN PRN Reason: IV Start Losartan Potassium (Cozaar) 100 mg PO DAILY [facility] Last Admin: 04/30/20 09:16 Dose: 100 mg Documented by: Meclizine HCl (Antivert) 25 mg PO BID [facility] Last Admin: 04/30/20 20:41 Dose: 25 mg Documented by: Metoprolol Tartrate (Lopressor) 50 mg PO BID [facility] Last Admin: 04/30/20 20:41 Dose: 50 mg Documented by: Miscellaneous Information (Potassium Per Protocol) 1 each MISCELLANE DAILY PRN; Protocol PRN Reason: Per Protocol Nitroglycerin (Nitrostat) 0.4 mg SUBLINGUAL Q5M PRN PRN Reason: Chest Pain Potassium Chloride (K-Dur 20) 20 meq PO BID [facility] Last Admin: 04/30/20 20:41 Dose: 20 meq Documented by: Spironolactone (Aldactone) 25 mg PO DAILY [facility] Last Admin: 04/30/20 13:25 Dose: 25 mg Documented by: Tamsulosin HCl (Flomax) 0.4 mg PO DAILY [facility] Last Admin: 04/30/20 09:17 Dose: 0.4 mg Documented by: Objective - Vital Signs Vital signs: Vital Signs Temp 97.9 F 04/30/20 23:44 Pulse 73 04/30/20 23:44 Resp 17 04/30/20 23:44 BP 146/69 04/30/20 23:44 Pulse Ox 94 L 04/30/20 23:44 Intake & Output 04/30/20 04/30/20 05/01/20 06:59 18:59 06:59 Intake Total 600 Output Total 1900 1950 500 Balance -1900 -1350 -500 Weight 162.2 kg Intake: Oral 600 Output: Urine 1900 1950 500 Other: Voiding Method Urinal Urinal Urinal # Voids 1 3 - Exam PHYSICAL EXAMINATION: GENERAL: morbidly obese HEENT: Pupils are round and equally reacting to light. EOMI. mild scleral icterus. No conjunctival pallor. Short webbed neck CARDIOVASCULAR: Distant heart sounds heard PULMONARY: Bilateral breath sounds are positive distantly . No wheezing or crackles. ABDOMEN: Soft, nontender, nondistended, normoactive bowel sounds. Thick abdominal wall. MUSCULOSKELETAL: No joint swelling or deformity. EXTREMITIES: wrinking of the skin in lower extremities indicating decreasing edema NEUROLOGICAL: AAO X 3, Gross neurological examination did not reveal any focal deficits. - Labs CBC & Chem 7: 04/28/20 07:26 04/30/20 06:55 Labs: Abnormal Lab Results - Last 24 Hours (Table) 04/30/20 04/30/20 04/30/20 Range/Units 05:52 06:55 11:40 Carbon Dioxide 36 H (22-30) mmol/L BUN 22 H (9-20) mg/dL Creatinine 1.29 H (0.66-1.25) mg/dL Glucose 126 H (74-99) mg/dL POC Glucose (mg/dL) 148 H 145 H (75-99) mg/dL 04/30/20 04/30/20 Range/Units 16:41 20:19 Carbon Dioxide (22-30) mmol/L BUN (9-20) mg/dL Creatinine (0.66-1.25) mg/dL Glucose (74-99) mg/dL POC Glucose (mg/dL) 178 H 253 H (75-99) mg/dL Assessment and Plan Assessment: ASSESSMENT Dyspnea -have multiple etiologies-chest x-ray showing interstitial perihilar pulmonary infiltrates and there is mild elevation in troponin, morbid besity Diastolic CHF exacerbation Type 2 diabetes mellitus Hypertension Hyperlipidemia Obstructive sleep apnea on BiPAP Morbid obesity with BMI of 52 PLAN: Patient had an echocardiogram done showing ejection fraction of 45 to 50%. There is borderline pulmonary hypertension and mild to moderate mitral regurgitation. Cardiology on board , cath done showing normal coronaries. Patient was started on ceftriaxone and Zithromax for possible underlying pneumonia. VQ scan was obtained and it was showing normal ventilation/perfusion scan. COVID-19 has came back negative. Patient's blood pressure has been running on the higher side, cardiology adjusting his blood pressure medications. Pulmonary service evaluated the patient, recommended bilateral lower extremity Doppler. To continue with the rest of his current medication regimen. Patient is daily on IV 40 mg twice daily of Lasix. Overall prognosis is guarded due to chronic multiple medical conditions. Further recommendations depending on the progress of the patient.
[2020-05-01 06:08] LABS: Glucose,Whole Blood 88 mg/dL (75-99)
[2020-05-01 06:23] LABS: Calcium 9.1 mg/dL (8.4-10.2); Potassium 3.2 mmol/L (3.5-5.1)
[2020-05-01] MEDS: INSULIN ASPART (NovoLOG) 100 UNIT/ML VIAL SQ SCH ×4 (06:35→21:08)
[2020-05-01] MEDS: METOPROLOL TARTRATE 50 MG TAB PO SCH ×2 (08:32→21:07)
[2020-05-01] MEDS: hydrALAZINE HCL 25 MG TAB PO SCH ×3 (08:32→21:08)
[2020-05-01] MEDS: SPIRONOLACTONE 25 MG TAB PO SCH (08:32)
[2020-05-01] MEDS: MECLIZINE 25 MG TAB PO SCH ×2 (08:32→21:07)
[2020-05-01] MEDS: ISOSORBIDE MONONITRATE ER 30 MG TAB.ER.24H PO SCH (08:32)
[2020-05-01] MEDS: POTASSIUM CHLORIDE ER 20 MEQ TAB.ER PO SCH ×4 (08:32→21:07)
[2020-05-01] MEDS: AZITHROMYCIN 500 MG TAB PO SCH (08:33)
[2020-05-01] MEDS: INSULIN DETEMIR (LEVEMIR) 100 UNIT/ML SYR SQ SCH ×2 (08:33→21:08)
[2020-05-01] MEDS: FUROSEMIDE 10 MG/ML 4 ML VIAL IV SCH (08:33)
[2020-05-01] MEDS: LOSARTAN 50 MG TAB PO SCH (08:33)
[2020-05-01] MEDS: TAMSULOSIN 0.4 MG CAP.ER.24H PO SCH (08:33)
[2020-05-01] MEDS: ATORVASTATIN 40 MG TAB PO SCH (08:33)
[2020-05-01] MEDS: APIXABAN 5 MG TAB PO SCH ×2 (08:33→21:07)
[2020-05-01] MEDS: amLODIPine 5 MG TAB PO SCH (08:33)
[2020-05-01] MEDS: hydroCHLOROthiazide 25 MG TAB PO SCH (08:33)
--- NOTE | 2020-05-01 12:28 | PN ---
PROGRESS NOTE Mr. Harvey is a 54-year-old male with a history of paroxysmal fibrillation, who presented with symptoms of progressive dyspnea, had mild troponin elevation. He continues to be in sinus mechanism. He is feeling better overall today. He denies any symptoms of chest pain. He denies any dizziness or palpitation. His blood pressure is under better control. His peripheral edema is improving. He was seen by Dr. May yesterday and underwent duplex scan of the lower extremities that showed no evidence of DVT. His chest x-ray performed yesterday showed evidence of CHF. He continues to be at this time on amlodipine 5 mg daily, Eliquis 5 mg twice a day, Lipitor 40 mg daily, furosemide 40 mg IV q.12 hours, hydralazine 75 mg 3 times a day, hydrochlorothiazide 25 mg daily, isosorbide mononitrate 30 mg daily, losartan 100 mg daily, metoprolol tartrate 50 mg twice a day and spironolactone 25 mg daily. PHYSICAL EXAMINATION: Blood pressure 155/70 with a heart rate in 60s. His trend of the blood pressure is much better. LUNGS: Clear. HEART: Regular rate and rhythm S1, S2. No S3. No rub. ABDOMEN: Soft, obese, nontender. EXTREMITIES: 2+ edema, improving. LAB DATA: He has lost 2 kg since yesterday. IMPRESSION: 1. Congestive heart failure with diastolic dysfunction. 2. Hypertension under better control. 3. Paroxysmal atrial fibrillation. 4. Obesity. RECOMMENDATIONS: I will switch him to oral diuretics, increase his level of activity. From the cardiac standpoint, he may be able to be discharged home and followed as an outpatient with Dr. Edwards. MMODL / IJN: [id number] /
[2020-05-01] MEDS: SODIUM CHLORIDE 0.9% 1,000 ML IV SCH (12:29)
[2020-05-01 13:20] LABS: Glucose,Whole Blood 169 mg/dL (75-99)
--- NOTE | 2020-05-01 13:50 | P.PN ---
Subjective Progress Note Date: 05/01/20 Principal diagnosis: Acute exacerbation of diastolic congestive heart failure 54-year-old white male patient with past medical history of obstructive sleep apnea, on CPAP, morbid obesity, hypertension, dyslipidemia, paroxysmal atrial fibrillation on Eliquis, and diabetes mellitus type 2, who came into the hospital on 04/25/2020 for worsening shortness of breath, lower extremity edema. Patient was in severe respiratory distress on presentation, tachycardic, tachypneic, hypoxic with a pulse ox of only 91 on 6 L per nasal cannula. Preventive care ultrasound showed findings suggesting pulmonary edema patient was placed on BiPAP, systolic blood pressure was 1 90 mmHg, and his clinical presentation was consistent with hypertensive emergency secondary to acute decompensated heart failure. He had a proBNP of 1130, mild troponin leak of 0.063, chest x-ray showed interstitial perihilar pulmonary infiltrates. Echocardiogram was completed showing left ventricular systolic function mildly impaired with an EF of 45-50%, no evidence of aortic stenosis or regurgitation, [id number] MR, mild tricuspid regurgitation, borderline pulmonary hypertension with right-sided pressures of 31.5 mmHg, the inferior vena cava was dilated with poor inspiratory collapse consistent with estimated right atrial pressure of 20 mmHg. His second and third troponin came back at 0.124, and 0.102. Patient was started on diuretics, cardiology did heart catheterization on 04/27/2020 which showed normal coronary arteries and elevated end-diastolic pressure of 20. Patient is on empiric antibiotic coverage in the form of azithromycin and Rocephin, his been afebrile during this whole hospital stay. He is not bringing up any sputum. No leukocytosis, he continues to have swelling in his lower extremities, left greater than right. He continues on Eliquis for history of paroxysmal atrial fibrillation but currently he is in sinus mechanism. They have VQ scan was obtained showing a normal ventilation perfusion scan. COVID 19 was negative. He is maintaining negative fluid balance , he is down 2.9 kg since admission. The patient is seen today 05/01/2020 in follow-up on the selective care unit. He is awake and alert in no acute distress. Resting fairly comfortably in bed. Breathing easier today as compared to yesterday. Maintaining O2 saturations in the 90s on room air. He did utilize his BiPAP last evening he was saturating at 99% on 50% FiO2. He's been afebrile. Sodium 138. Potassium 3.2. Creatinine 1.24. He is on oral diuretics. Remains in a negative balance. Dopplers of the lower extremities negative for DVT. Objective - Vital Signs Vital signs: Vital Signs Temp 97.9 F 05/01/20 04:00 Pulse 65 05/01/20 04:00 Resp 16 05/01/20 04:00 BP 155/71 05/01/20 04:00 Pulse Ox 99 05/01/20 04:00 Intake & Output 04/30/20 05/01/20 05/01/20 18:59 06:59 18:59 Intake Total 600 Output Total 1950 750 Balance -1350 -750 Weight 164.2 kg Intake: Oral 600 Output: Urine 1950 750 Other: Voiding Method Urinal Urinal # Voids 3 - Exam GENERAL EXAM: Alert, very pleasant, morbidly obese 54-year-old -[place] male, sitting up on the edge of the bed on room air, comfortable in no apparent distress. HEAD: Normocephalic/atraumatic. EYES: Normal reaction of pupils, equal size. Conjunctiva pink, sclera white. NOSE: Clear with pink turbinates. THROAT: No erythema or exudates. NECK: No masses, no JVD, no thyroid enlargement, no adenopathy. CHEST: No chest wall deformity. Symmetrical expansion. LUNGS: Equal air entry with no crackles, wheeze, rhonchi or dullness. CVS: Regular rate and rhythm, normal S1 and S2, no gallops, no murmurs, no rubs, patient is currently in sinus mechanism ABDOMEN: Soft, nontender. No hepatosplenomegaly, normal bowel sounds, no guarding or rigidity. EXTREMITIES: No clubbing, 1+ lower extremity edema in the right lower extremity and pedal edema, and 2+ lower extremity edema in the left lower extremity, no cyanosis, 2+ pulses and upper and lower extremities. MUSCULOSKELETAL: Muscle strength and tone normal. SPINE: No scoliosis or deformity SKIN: No rashes CENTRAL NERVOUS SYSTEM: No focal deficits, tone is normal in all 4 extremities. PSYCHIATRIC: Alert and oriented -3. Appropriate affect. Intact judgment and insight. - Labs CBC & Chem 7: 04/28/20 07:26 05/01/20 05:47 Labs: Abnormal Lab Results - Last 24 Hours (Table) 04/30/20 04/30/2020 Range/Units 16:41 20:19 05:47 Potassium 3.2 L (3.5-5.1) mmol/L Carbon Dioxide 34 H (22-30) mmol/L BUN 21 H (9-20) mg/dL POC Glucose (mg/dL) 178 H 253 H (75-99) mg/dL 05/01/20 Range/Units 13:16 Potassium (3.5-5.1) mmol/L Carbon Dioxide (22-30) mmol/L BUN (9-20) mg/dL POC Glucose (mg/dL) 169 H (75-99) mg/dL Assessment and Plan Assessment: #1. Acute hypoxic respiratory failure related to acute exacerbation of chronic congestive heart failure with diastolic dysfunction #2. Mild pulmonary hypertension #3. Mild troponin elevation likely related to acute CHF #4. Paroxysmal atrial fibrillation, currently in sinus mechanism with a controlled rate, on Eliquis #5. Morbid obesity #6. Obstructive sleep apnea on CPAP therapy #7. Hypertensive emergency on presentation with pulmonary edema, improved #8. Diabetes mellitus2 Plan: The patient was seen and evaluated by Dr. Yadira Damian from the pulmonary standpoint Dopplers negative for DVT Home once cleared medically Continue BiPAP support at bedtime I, the cosigning physician, performed a history & physical examination of the pa tient. Lungs sounds are clear. Maintaining good O2 saturations in the 90s on room air. I discussed the assessment and plan of care with my nurse practitioner, Dinah Becerra. I attest to the above note as dictated by her.
[2020-05-01 17:33] LABS: Glucose,Whole Blood 208 mg/dL (75-99)
[2020-05-01] MEDS: LACTATED RINGERS 1,000 ML IV SCH (18:00)
[2020-05-01 20:18] LABS: Glucose,Whole Blood 229 mg/dL (75-99)
[2020-05-01] MEDS: FUROSEMIDE 40 MG TAB PO SCH (21:07)
[2020-05-02 06:09] LABS: Glucose,Whole Blood 124 mg/dL (75-99)
[2020-05-02] MEDS: INSULIN ASPART (NovoLOG) 100 UNIT/ML VIAL SQ SCH ×2 (06:31→12:41)
[2020-05-02] MEDS: SODIUM CHLORIDE 0.9% 1,000 ML IV SCH (08:17)
[2020-05-02] MEDS: hydrALAZINE HCL 25 MG TAB PO SCH ×2 (08:23→17:23)
[2020-05-02] MEDS: LOSARTAN 50 MG TAB PO SCH (08:23)
[2020-05-02] MEDS: FUROSEMIDE 40 MG TAB PO SCH (08:23)
[2020-05-02] MEDS: ISOSORBIDE MONONITRATE ER 30 MG TAB.ER.24H PO SCH (08:23)
[2020-05-02] MEDS: AZITHROMYCIN 500 MG TAB PO SCH (08:23)
[2020-05-02] MEDS: hydroCHLOROthiazide 25 MG TAB PO SCH (08:23)
[2020-05-02] MEDS: amLODIPine 5 MG TAB PO SCH (08:23)
[2020-05-02] MEDS: MECLIZINE 25 MG TAB PO SCH (08:23)
[2020-05-02] MEDS: INSULIN DETEMIR (LEVEMIR) 100 UNIT/ML SYR SQ SCH (08:24)
[2020-05-02] MEDS: APIXABAN 5 MG TAB PO SCH (08:24)
[2020-05-02] MEDS: ATORVASTATIN 40 MG TAB PO SCH (08:24)
[2020-05-02] MEDS: POTASSIUM CHLORIDE ER 20 MEQ TAB.ER PO SCH (08:24)
[2020-05-02] MEDS: METOPROLOL TARTRATE 50 MG TAB PO SCH (08:24)
[2020-05-02] MEDS: SPIRONOLACTONE 25 MG TAB PO SCH (08:24)
[2020-05-02] MEDS: TAMSULOSIN 0.4 MG CAP.ER.24H PO SCH (08:24)
--- NOTE | 2020-05-02 11:51 | P.PN ---
Subjective Progress Note Date: 05/01/20 Principal diagnosis: Acute on chronic diastolic CHF Mr. Harvey is a 54-year-old male with a past medical history of chronic multiple medical conditions including diabetes mellitus, hypertension, hyperlipidemia, obstructive sleep apnea on BiPAP, atrial fibrillation, morbid obesity with BMI of 52, coming in with a chief complaint of difficulty in breathing. Patient follows with Dr. Edwards in the outpatient setting. Patient has difficulty in breathing at baseline due to morbid obesity and chronic peripheral edema. But for the past 1 day, his difficulty in breathing has worsened. Patient states that he has been compliant with his diet and salt intake. In the emergency patient, he was given a dose of IV Lasix. Patient had EKG done showing left axis deviation with left ventricular hypertrophy and in sinus rhythm. He HAD blood work done showing elevation of troponin to 0.063 and he was evaluated by cardiology Dr. Morales and they are planning for cardiac catheteriz ation for tomorrow morning. Patient is currently asymptomatic and sleeping in bed with his BiPAP on. On 04/27/20 - Patient had cardiac catheterization done this morning and it showed normal coronary arteries with elevated end-diastolic pressure. Patient states that he is still short of breath on walking from the bed to the restroom. Patient denies having any recent travel but mentions about working with homeless people. Will check d-dimer to look for other reasons for his dyspnea. If the d-dimer levels are high we will get a VQ scan as the patient's creatinine is slightly high at 1.27 compared to yesterday. On 04/28/20 - Patient is sitting up in the bed and his fiance is at the bedside . He states that his difficulty in breathing is better today. Yesterday d- dimer was slightly elevated at 0.71, as the patient's creatinine was high, a VQ scan was obtained and it was showing normal ventilation/perfusion scan. He was also started on ceftriaxone and Zithromax. COVID-19 came back negative. On reviewing the vitals patient is saturating at 95% on room air. Blood pressure 135/62, heart rate 77, temperature 98.2. On reviewing his labs white count of 8.2, hemoglobin 9.6. Sodium 140, potassium 3.3, chloride 99, bicarb 37, BUN 20, creatinine 1.42 slightly increased from yesterday. Blood sugars running in 200- 3 100s. On 04/29/2020 -patient is sitting up in the bed appears to be in no distress. He mentions that his breathing is better, but not back to his baseline yet. Roxann ent has been started on ceftriaxone and Zithromax, and continues to be on IV Lasix 40 mg twice daily. Patient's blood sugars have been running on the higher side in the 200s to 300s. On reviewing the patient's vitals temperature 98.4, heart rate 75, respiratory rate 17, blood pressure 1 the higher side systolics between 170s to 190s systolic between 70s to 90s. Patient's labs from this morning sodium 138 potassium 3.4 chloride 98 bicarb 37 BUN 23 creatinine 1.34 On 04/30/2020- Patient is comfortably sitting up in the bed. He does not appear to be any acute distress. Overnight no acute events reported by nursing staff. Patient states that his breathing is still the same and that he is short of breath, but denies any worsening. On reviewing the vitals he is saturating about 93% on room air. His labs from this morning show sodium 140, potassium 3.4, chloride 99, bicarb 36, BUN 22, creatinine 1.29. 05/01/20 Patient is currently awake alert and oriented 3. Lying in the bed comfortably. Breathing is better compared to today. Currently on oxygen on room air 90%. Did use BiPAP last night. Patient has been afebrile. Potassium level is 3.2 which is being replaced. Otherwise patient is being continued on antibiotics in the form of ceftriaxone and azithromycin. Continue on Lasix changed to by mouth today. Cardiology and pulmonary is following. On review of systems Constitutional-no fever chills or rigors, denies myalgias Respiratory- difficulty in breathing better than yesterday Cardiovascular-no chest pain or palpitations GI-no abdominal pain nausea vomiting or diarrhea Objective - Vital Signs Vital signs: Vital Signs Temp 98.1 F 05/01/20 16:00 Pulse 66 05/01/20 16:00 Resp 16 05/01/20 16:00 BP 170/76 05/01/20 16:00 Pulse Ox 95 05/01/20 16:00 Intake & Output 05/01/20 05/01/20 05/02/20 06:59 18:59 06:59 Intake Total 640 Output Total 750 400 Balance -750 240 Weight 164.2 kg Intake: Oral 640 Output: Urine 750 400 Other: Voiding Method Urinal # Voids 3 - Exam PHYSICAL EXAMINATION: GENERAL: morbidly obese HEENT: Pupils are round and equally reacting to light. EOMI. mild scleral icterus. No conjunctival pallor. Short webbed neck CARDIOVASCULAR: Distant heart sounds heard PULMONARY: Bilateral breath sounds are positive distantly . No wheezing or crackles. ABDOMEN: Soft, nontender, nondistended, normoactive bowel sounds. Thick abdominal wall. MUSCULOSKELETAL: No joint swelling or deformity. EXTREMITIES: wrinking of the skin in lower extremities indicating decreasing edema NEUROLOGICAL: AAO X 3, Gross neurological examination did not reveal any focal deficits. - Labs CBC & Chem 7: 04/28/20 07:26 05/01/20 05:47 Labs: Abnormal Lab Results - Last 24 Hours (Table) 05/01/20 05/01/20 05/01/20 Range/Units 05:47 13:16 17:29 Potassium 3.2 L (3.5-5.1) mmol/L Carbon Dioxide 34 H (22-30) mmol/L BUN 21 H (9-20) mg/dL POC Glucose (mg/dL) 169 H 208 H (75-99) mg/dL 05/01/20 Range/Units 20:16 Potassium (3.5-5.1) mmol/L Carbon Dioxide (22-30) mmol/L BUN (9-20) mg/dL POC Glucose (mg/dL) 229 H (75-99) mg/dL Assessment and Plan Assessment: Dyspnea -have multiple etiologies-chest x-ray showing interstitial perihilar pulmonary infiltrates and there is mild elevation in troponin, morbid besity Diastolic CHF exacerbation Type 2 diabetes mellitus Hypertension Hyperlipidemia Obstructive sleep apnea on BiPAP Morbid obesity with BMI of 52 PLAN: Patient had an echocardiogram done showing ejection fraction of 45 to 50%. There is borderline pulmonary hypertension and mild to moderate mitral regurgitation. Cardiology on board , cath done showing normal coronaries. Patient was started on ceftriaxone and Zithromax for possible underlying pneumonia. VQ scan was obtained and it was showing normal ventilation/perfusion scan. COVID-19 has came back negative. Patient's blood pressure has been running on the higher side, cardiology adjusting his blood pressure medications. Pulmonary service evaluated the patient, recommended bilateral lower extremity Doppler. To continue with the rest of his current medication regimen. Patient is daily on IV 40 mg twice daily of Lasix. Overall prognosis is guarded due to chronic multiple medical conditions. Further recommendations depending on the progress of the patient. Time with Patient: Greater than 30
[2020-05-02 12:39] VITALS: RESP 18
[2020-05-02 12:42] LABS: Glucose,Whole Blood 126 mg/dL (75-99)
[2020-05-02 13:14] LABS: Calcium 9.2 mg/dL (8.4-10.2); Potassium 3.7 mmol/L (3.5-5.1)
[2020-05-02 15:36] VITALS: BP 173/97; PULSE 81; TEMP 97.8
--- NOTE | 2020-05-02 16:59 | PN ---
PROGRESS NOTE Mr. Harvey is a 54-year-old male with a history of hypertension, paroxysmal atrial fibrillation. He is doing well this morning. He is ambulating without any discomfort. His breathing is stable. He denies any chest pain. He denies any dizziness or palpitation. He continues to have episodes of elevated blood pressure. He denies any nausea. He continues to be on amlodipine 5 mg daily, Eliquis 5 mg twice a day, Lipitor 40 mg daily, furosemide 40 mg twice a day, hydralazine 75 mg 3 times a day, hydrochlorothiazide 25 mg daily, isosorbide mononitrate 30 mg daily, losartan 100 mg daily, metoprolol tartrate 50 mg twice a day and spironolactone 25 mg daily. PHYSICAL EXAMINATION: Blood pressure running in the 140s-160s with a heart rate in the 70s. LUNGS: Clear. HEART: Regular rate and rhythm, S1, S2. No S3. No rub. ABDOMEN: Soft, obese, nontender. EXTREMITIES: +1 to 2 edema bilaterally. LAB DATA: Revealed a potassium 3.7, creatinine of 1.54. IMPRESSION: 1. Episode of chest discomfort with no evidence of obstructive coronary artery disease. 2. Hypertension. 3. Paroxysmal atrial fibrillation. 4. Hyperlipidemia. 5. Diabetes mellitus. 6. Renal failure. RECOMMENDATIONS: I will cut down the dose of his diuretics to once a day, continue his medical regimen. I would expect he should be able to be discharged home soon and follow his renal function as an outpatient. He will follow up as an outpatient with Dr. Edwards to further assess his status and guide his treatment. MMODL / IJN: [id number] /
[2020-05-02] MEDS: LACTATED RINGERS 1,000 ML IV SCH (17:03)
[2020-05-03] MEDS ORDERED: FUROSEMIDE 40 MG TAB PO SCH (09:00)
--- NOTE | 2020-05-04 16:09 | CDI ---
Documentation Clarification Form Date: 05/04/20 From: Francisca Guerrero CCS Phone: If you have a question about this query, please contact Farida Coffey, Gift Shop Clerk at [phone] between 8am and 5pm. Admit Date: 04/25/20 Discharge Date:05/02/20 Patient Name: Ralph Harvey Visit Number: [id number] ATTENTION: The Clinical Documentation Specialists (CDI) and [facility] Coding Staff appreciate your assistance in clarifying documentation. Please respond to the clarification below the line at the bottom and electronically sign. The CDI & [facility] Coding staff will review the response and follow-up if needed. Please note: Queries are made part of the Legal Health Record. If you have any questions, please contact the author of this message via ITS. Dear Dr. Delgado, Renal failure was documented in the PN dated 05/02. IMPRESSION: Renal failure. RECOMMENDATIONS: I would expect he should be able to be discharged home soon and follow his renal function as an outpatient. PN 04/30, 04/28 document: -Monitor renal function History/Risk Factors: HTN, CHF, Morbid obesity, DM, AFIB Clinical Indicators: Renal failure Current BUN: 04/29-05/01 -23, 22, 21 Cr: 04/27-04/30- 1.27, 1.42, 1.34, 1.29 GFR: 04/29-05/01- 59, 62, 65, 50 Transplant status, Hemodialysis status Treatment: Monitor renal function In order to capture the severity of condition, please clarify if the condition signifies: Acute kidney injury Acute renal failure Acute on chronic renal failure CKD Stage 1 GFR >90 CKD Stage 2 GFR 60-89 CKD Stage 3 GFR 30-59 CKD Stage 4 GFR 15-29 CKD Stage 5 GFR <15 Chronic renal failure/Chronic Kidney disease (CKD) please stage (if known): CKD Stage 1 GFR >90 CKD Stage 2 GFR 60-89 CKD Stage 3 GFR 30-59 CKD Stage 4 GFR 15-29 CKD Stage 5 GFR <15 ESRD Other, please specify Unable to determine Acute on chronic kidney disease stage II MTDD
== END 2020-05-02 17:52 | disposition home health service (06) | DRG 286 ==
LOC: EC 20:55 → 3SCARD 22:06
PROVIDERS: ADMIT Hospitalist; ATTEND Hospitalist
PROC: 5A09457 Assistance with Respiratory Ventilation, 24-96 Consecutive Hours, Continuous Positive Airway Pressure (ICD-10-PCS; 2020-04-25)
PROC: B2111ZZ Fluoroscopy of Multiple Coronary Arteries using Low Osmolar Contrast (ICD-10-PCS; principal; 2020-04-27 07:30)
PROC: 4A023N7 Measurement of Cardiac Sampling and Pressure, Left Heart, Percutaneous Approach (ICD-10-PCS; principal; 2020-04-27 07:30)
DX: I13.0 Hypertensive heart and chronic kidney disease with heart failure and stage 1 through stage 4 chronic kidney disease, or unspecified chronic kidney disease (principal); J96.01 Acute respiratory failure with hypoxia; I50.33 Acute on chronic diastolic (congestive) heart failure; Z68.43 Body mass index [BMI] 50.0-59.9, adult; I16.1 Hypertensive emergency; N17.9 Acute kidney failure, unspecified; I27.22 Pulmonary hypertension due to left heart disease; I42.9 Cardiomyopathy, unspecified; E11.40 Type 2 diabetes mellitus with diabetic neuropathy, unspecified; Z20.828 Contact with and (suspected) exposure to other viral communicable diseases; Z79.4 Long term (current) use of insulin; E66.01 Morbid (severe) obesity due to excess calories; I48.0 Paroxysmal atrial fibrillation; R00.0 Tachycardia, unspecified; N18.2 Chronic kidney disease, stage 2 (mild); G47.33 Obstructive sleep apnea (adult) (pediatric); E78.5 Hyperlipidemia, unspecified; I08.1 Rheumatic disorders of both mitral and tricuspid valves; R79.89 Other specified abnormal findings of blood chemistry; F41.9 Anxiety disorder, unspecified; D72.829 Elevated white blood cell count, unspecified; Z79.899 Other long term (current) drug therapy; Z79.01 Long term (current) use of anticoagulants; Z79.02 Long term (current) use of antithrombotics/antiplatelets; Z87.01 Personal history of pneumonia (recurrent); Z83.3 Family history of diabetes mellitus; Z82.49 Family history of ischemic heart disease and other diseases of the circulatory system
CPT/HCPCS: 36415; 71045; 71046; 78582; 80048; 80053; 80061; 82803; 82947; 83605; 83735; 83880; 84484; 85025; 85379; 85610; 85730; 87635; 93005; 93306; 93458; 93970; 94660; 96365; 96375; 99291

== ENCOUNTER → 2022-09-02 | Outpatient (CLI) | payer OTHER | END | disposition home or self-care (01) | LOC: LABWHC1 10:15 | PROVIDERS: ATTEND Nurse Practitioner Family | DX: D50.9 Iron deficiency anemia, unspecified (principal) | CPT/HCPCS: 36415; 82272 ==

== ENCOUNTER → 2023-02-08 | Outpatient (CLI) | payer OTHER ==
--- NOTE | 2023-02-08 13:11 | CT ---
EXAMINATION TYPE: CT abdomen pelvis w con CT DLP: 4362 mGycm, Automated exposure control for dose reduction was used. DATE OF EXAM: 02/08/2023 12:51 PM COMPARISON: Ultrasound 11/21/2022 CLINICAL INDICATION:Male, 57 years old with history of R10.12 LUQ pain; LUQ PAIN TECHNIQUE: Axial CT of the abdomen and pelvis. Sagittal and coronal reformats were created on a [employer] workstation. Contrast used:100 mL of Isovue 300 with IV Contrast, Oral contrast used: with Oral Contrast FINDINGS: LOWER CHEST: Unremarkable ABDOMEN LIVER: Unremarkable GALLBLADDER AND BILE DUCTS: Unremarkable. PANCREAS: Unremarkable. SPLEEN: Unremarkable. ADRENAL GLANDS: Unremarkable. KIDNEYS AND URETERS: Indeterminant region within the right kidney measuring 44 Hounsfield units and 5 9 x 58 mm. No obstructive uropathy. This may been present on prior ultrasound is predominantly hypoec hoic. Additional renal cysts are present which appear more simple. PELVIS BLADDER: Unremarkable REPRODUCTIVE: Unremarkable. ABDOMEN & PELVIS STOMACH AND BOWEL: No evidence of bowel obstruction. There is redundant colon. No evidence for PERITONEUM/RETROPERITONEUM: No evidence of pneumoperitoneum or free fluid. VASCULATURE: No evidence of aortic aneurysm. MUSCULOSKELETAL: No acute osseous abnormalities LYMPH NODES: No gross evidence for lymphadenopathy. SOFT TISSUE/ABDOMINAL WALL: Unremarkable IMPRESSION: Limited evaluation secondary [id number] ratio. 1. Indeterminate right renal lesion measuring up to 59 mm and not simple fluid density. Further eval uation with MRI or CT renal mass protocol is recommended. 2. No evidence for acute left upper quadrant process to explain the patient's pain.
== END | disposition home or self-care (01) ==
LOC: RADCTMAIN 10:37
PROVIDERS: ATTEND Family Medicine
DX: R10.12 Left upper quadrant pain (principal)
CPT/HCPCS: 82565; 84520; 74177; 36415; Q9967

== ENCOUNTER → 2023-03-08 | Outpatient (CLI) | payer OTHER | END | disposition home or self-care (01) | LOC: RADMRIMAIN 12:27 | PROVIDERS: ATTEND Family Medicine | DX: Z53.9 Procedure and treatment not carried out, unspecified reason (principal) ==

== ENCOUNTER 2023-03-15 08:07 | Day surgery (SDC) | payer OTHER ==
[2023-03-14 09:45] VITALS: BMI 59.2
[~2023-03-15 08:07] MED LIST: LACTATED RINGERS 1,000 ML IV SCH; LIDOCAINE 1% (10MG/ML) FOR IV START INTRADERMA PRN
[2023-03-15 09:18] VITALS: TEMP 97.6
[2023-03-15 09:35] LABS: Glucose,Whole Blood 213 mg/dL (70-110)
[2023-03-15] MEDS ORDERED: PROPOFOL 10 MG/ML 20 ML VIAL IV ONE (09:55)
--- NOTE | 2023-03-15 10:02 | P.GSHP ---
History of Present Illness H&P Date: 03/15/23 Chief Complaint: GI bleed this a 57-year-old male presents today for colonoscopy. Patient's had issues with GI bleed. Past Medical History Past Medical History: Atrial Fibrillation, Diabetes Mellitus, Hyperlipidemia, Hypertension, Sleep Apnea/CPAP/BIPAP Additional Past Medical History / Comment(s): neuropathy, USES C PAP. BLOOD IN STOOL, CYST ON KIDNEY History of Any Multi-Drug Resistant Organisms: None Reported Past Surgical History: No Surgical Hx Reported Additional Past Surgical History / Comment(s): COLONOSCOPY Past Anesthesia/Blood Transfusion Reactions: No Reported Reaction Smoking Status: Never smoker - Past Family History Father Family Medical History: No Reported History Additional Family Medical History / Comment(s): not sure Mother Family Medical History: Diabetes Mellitus, Hypertension Additional Family Medical History / Comment(s): mom is still alive Medications and Allergies Home Medications Medication Instructions Recorded Confirmed Type HYDROcodone/APAP 10-325MG [Arverne 1 tab PO TID PRN 04/25/20 03/14/23 History 10-325] Insulin Glargine,Hum.rec.anlog 80 unit SQ BID 11/28/22 03/14/23 History [Basaglar Kwikpen U-100] Spironolactone [Aldactone] 50 mg PO BID 11/28/22 03/14/23 History Atorvastatin [Lipitor] 80 mg PO DAILY 03/14/23 03/14/23 History Empagliflozin [Jardiance] 25 mg PO DAILY 03/14/23 03/14/23 History Furosemide [Lasix] 40 mg PO DAILY 03/14/23 03/14/23 History Losartan Potassium 100 mg PO DAILY 03/14/23 03/14/23 History Metoprolol Succinate (ER) [Toprol 100 mg PO DAILY 03/14/23 03/14/23 History Xl] Rivaroxaban [Xarelto] 20 mg PO DAILY 03/14/23 03/14/23 History Semaglutide [Ozempic] 0.5 mg SQ TU 03/14/23 03/14/23 History Tamsulosin [Flomax] 0.4 mg PO DAILY 03/14/23 03/14/23 History amLODIPine [Norvasc] 10 mg PO DAILY 03/14/23 03/14/23 History hydrALAZINE HCL [Apresoline] 100 mg PO TID 03/14/23 03/14/23 History Allergies Allergy/AdvReac Type Severity Reaction Status Date / Time aspirin AdvReac Dyspnea Verified 03/15/23 09:09 Surgical - Exam Vital Signs Temp Pulse Resp BP Pulse Ox 97.6 F 78 16 185/84 98 03/15/23 09:13 03/15/23 09:13 03/15/23 09:13 03/15/23 09:13 03/15/23 09:13 - General well developed, well nourished, no distress - Eyes PERRL - ENT normal pinna - Neck no masses - Respiratory normal expansion - Cardiovascular Rhythm: regular - Abdomen Abdomen: soft, non tender Results - Labs Abnormal Lab Results - Last 24 Hours (Table) 03/15/23 Range/Units 09:23 POC Glucose (mg/dL) 213 H (70-110) mg/dL Assessment and Plan Assessment: GI bleed. We'll perform colonoscopy.
--- NOTE | 2023-03-15 10:28 | P.OP ---
Date of Procedure: 03/15/23 Preoperative Diagnosis: GI bleed Postoperative Diagnosis: sigmoid colon polyp Right colon polyp internal hemorrhoids Procedure(s) Performed: colonoscopy Anesthesia: MAC Surgeon: Yoel Aaron Pathology: other (colon polyps) Condition: stable Disposition: PACU Description of Procedure: the patient's placed on the endoscopy table in the lateral position. He received IV sedation. Digital rectal exam was performed. There were internal hemorrhoids noted. Lthe flexible colonoscope was then placed patient anus and passed throughout the entire colon. The ileocecal valve was visualized. Just above the cecum in the right colon there was a peduncular polyp. This removed with the snare and cold forcepAppeared the remainder the ascending colon appeared normal. The transverse colon appeared normal. In the descending colon there was a few scattered diverticula. In the sigmoid colon another polyp was seen and removed with the snare. The scope was brought back the rectum and this appeared normal. Scope withdrawn through the anus and internal hemorrhoids were noted. There is no evidence of any active GI bleed. Presumed patient may have had bleeding from polyps or his internal hemorrhoids.
[2023-03-15 10:45] LABS: Glucose,Whole Blood 210 mg/dL (70-110)
[2023-03-15 11:02] VITALS: BP 151/79; PULSE 95; RESP 18
== END 2023-03-15 11:19 | disposition home or self-care (01) ==
LOC: ORWHC2ENDO 08:07
PROVIDERS: ATTEND Surgery
DX: D12.0 Benign neoplasm of cecum (principal); D12.5 Benign neoplasm of sigmoid colon; K57.30 Diverticulosis of large intestine without perforation or abscess without bleeding; K64.1 Second degree hemorrhoids; I48.91 Unspecified atrial fibrillation; I10 Essential (primary) hypertension; E78.5 Hyperlipidemia, unspecified; E11.9 Type 2 diabetes mellitus without complications; G47.30 Sleep apnea, unspecified; Z79.4 Long term (current) use of insulin; Z79.84 Long term (current) use of oral hypoglycemic drugs; Z79.899 Other long term (current) drug therapy; Z79.01 Long term (current) use of anticoagulants; Z88.6 Allergy status to analgesic agent
CPT/HCPCS: 88305; 45385; J2704

== ENCOUNTER 2023-07-23 05:42 | Emergency (ER) | payer OTHER ==
[2023-07-23 05:54] VITALS: RESP 18
--- NOTE | 2023-07-23 06:35 | ED ---
Male Urogenital HPI - General Chief complaint: Urogenital Stated complaint: peeing blood Time Seen by Provider: 07/23/23 05:59 Source: patient, family, RN notes reviewed Mode of arrival: ambulatory Limitations: no limitations - History of Present Illness Initial comments: This is a 57-year-old male who presents to the emergency department for an area of bleeding on his genitalia. His girlfriend states that he went to use the restroom this morning, and when he wiped himself, he started to notice bleeding in an area between his penis and scrotum. Believes that he may have pulled on a hair and irritated the area. Bleeding was initially somewhat difficult to control. This was not painful. He is not taking any blood thinners. States that the bleeding has improved at this time. - Related Data Home Medications Medication Instructions Recorded Confirmed HYDROcodone/APAP 10-325MG [[place] 1 tab PO TID PRN 04/25/20 03/14/23 10-325] Insulin Glargine,Hum.rec.anlog 80 unit SQ BID 11/28/22 03/14/23 [Basaglar Kwikpen U-100] Spironolactone [Aldactone] 50 mg PO BID 11/28/22 03/14/23 Atorvastatin [Lipitor] 80 mg PO DAILY 03/14/23 03/14/23 Empagliflozin [Jardiance] 25 mg PO DAILY 03/14/23 03/14/23 Furosemide [Lasix] 40 mg PO DAILY 03/14/23 03/14/23 Losartan Potassium 100 mg PO DAILY 03/14/23 03/14/23 Metoprolol Succinate (ER) [Toprol 100 mg PO DAILY 03/14/23 03/14/23 Xl] Rivaroxaban [Xarelto] 20 mg PO DAILY 03/14/23 03/14/23 Semaglutide [Ozempic] 0.5 mg SQ TU 03/14/23 03/14/23 Tamsulosin [Flomax] 0.4 mg PO DAILY 03/14/23 03/14/23 amLODIPine [Norvasc] 10 mg PO DAILY 03/14/23 03/14/23 hydrALAZINE HCL [Apresoline] 100 mg PO TID 03/14/23 03/14/23 Allergies Allergy/AdvReac Type Severity Reaction Status Date / Time aspirin AdvReac Dyspnea Verified 07/23/23 05:51 Review of Systems ROS Statement: Those systems with pertinent positive or pertinent negative responses have been documented in the HPI. ROS Other: All systems not noted in ROS Statement are negative. Past Medical History Past Medical History: Atrial Fibrillation, Diabetes Mellitus, Hyperlipidemia, Hypertension, Sleep Apnea/CPAP/BIPAP Additional Past Medical History / Comment(s): neuropathy, USES C PAP. BLOOD IN STOOL, CYST ON KIDNEY History of Any Multi-Drug Resistant Organisms: None Reported Past Surgical History: No Surgical Hx Reported Additional Past Surgical History / Comment(s): COLONOSCOPY Past Anesthesia/Blood Transfusion Reactions: No Reported Reaction Past Psychological History: No Psychological Hx Reported Smoking Status: Never smoker Past Alcohol Use History: None Reported Past Drug Use History: None Reported - Past Family History Father Family Medical History: No Reported History Additional Family Medical History / Comment(s): not sure Mother Family Medical History: Diabetes Mellitus, Hypertension Additional Family Medical History / Comment(s): mom is still alive General Exam Limitations: no limitations General appearance: alert, in no apparent distress Head exam: Present: atraumatic, normocephalic, normal inspection Respiratory exam: Present: normal lung sounds bilaterally. Absent: respiratory distress, wheezes, rales, rhonchi, stridor Cardiovascular Exam: Present: regular rate, normal rhythm, normal heart sounds. Absent: systolic murmur, diastolic murmur, rubs, gallop, clicks exam: Present: other (1 mm area of irritation on the anterior aspect of the left scrotum. Dried blood on the surrounding hair without any active bleeding. No tenderness.) Neurological exam: Present: alert, oriented X3, CN II-XII intact Psychiatric exam: Present: normal affect, normal mood Skin exam: Present: warm, dry, normal color. Absent: rash Course Vital Signs 07/23/23 07/23/23 07/23/23 05:49 06:15 06:47 Temperature 97.8 F 98.0 F Pulse Rate 63 69 65 Respiratory 18 20 18 Rate Blood Pressure 206/93 185/89 198/96 O2 Sat by Pulse 97 97 Oximetry Medical Decision Making - Medical Decision Making This is a 57-year-old male who presents to the emergency department for bleeding on the scrotum. Was pt. sent in by a medical professional or institution? @ -No Did you speak to anyone other than the patient for history? @ -No Did you review nursing and triage notes? @ -Yes, and I agree, it is accurate with regards to the patient's symptoms. Were old charts reviewed? @ -No Differential Diagnosis? @ -Differential Scrotal Bleeding: Injury, dry skin, irritation, tumor, this is not meant to be an all-inclusive list. EKG interpreted by me (3pts min.)? @ -Not obtained X-rays interpreted by me (1pt min.)? @ -Not obtained CT interpreted by me (1pt min.)? @ -Not obtained U/S interpreted by me (1pt. min.)? @ -Not obtained What testing was considered but not performed? (CT, X-rays, U/S, labs)? Why? @ -None What meds were considered but not given? Why? @ -None Did you discuss the management of the patient with other professionals? @ -No Did you reconcile home meds? @ -No Was smoking cessation discussed for >3mins.? @ -No Was critical care preformed (if so, how long)? @ -No Were there social determinants of health that impacted care today? How? (Homelessness, low income, unemployed, alcoholism, drug addiction, transportation, low edu. Level, literacy, decrease access to med. care, alf, rehab)? @ -No Was there de-escalation of care discussed even if they declined? (Discuss DNR or withdrawal of care, Hospice)? @ -No What co-morbidities impacted this encounter? (DM, HTN, Smoking, COPD, CAD, Cancer, CVA, Hep., AIDS, mental health diagnosis, sleep apnea, morbid obesity)? @ -Morbid obesity Was patient admitted / discharged? @ -Discharged. Physical examination reveals a small 1 mm area on the left scrotum that appears to be around a hair follicle. No active bleeding or tenderness was present. Dr. Del Rosario evaluated the patient himself as well, and advised Gold Cabrera powder to dry up the area, otherwise there is nothing that needs to be done from our end. Patient expresses understanding and was discharged home in stable condition. Undiagnosed new problem with uncertain prognosis? @ -None Drug Therapy requiring intensive monitoring for toxicity (Heparin, Nitro, Insulin, Cardizem)? @ -None Were any procedures done? @ -None Diagnosis/symptom? @ -Scrotal bleeding Acute, or Chronic, or Acute on Chronic? @ -Acute Uncomplicated (without systemic symptoms) or Complicated (systemic symptoms)? @ -Uncomplicated Side effects of treatment? @ -None Exacerbation, Progression, or Severe Exacerbation] @ -Not applicable Poses a threat to life or bodily function? @ -No Return precautions reviewed in depth, the patient is instructed to return to the emergency department with any new, worsening, or concerning symptoms. Patient verbalized understanding. This case was discussed in detail with the attending ED physician, Dr. Del Rosario. Presentation, findings, and treatment plan discussed in detail as well. Disposition Clinical Impression: Scrotal bleeding Disposition: HOME SELF-CARE Additional Instructions: Return to the emergency department with any new, worsening, or concerning symptoms. You can try using Gold Cabrera powder or something similar to dry up the area. Follow up with your primary care provider in 1-2 days. Is patient prescribed a controlled substance at d/c from ED?: No Referrals: Tj Chavis MD [Primary Care Provider] - 1-2 days
[2023-07-23 07:02] VITALS: BP 198/96; PULSE 65; TEMP 98
== END 2023-07-23 06:54 | disposition home or self-care (01) ==
LOC: EC 05:42
DX: N50.89 Other specified disorders of the male genital organs (principal); E11.40 Type 2 diabetes mellitus with diabetic neuropathy, unspecified; I10 Essential (primary) hypertension; I48.91 Unspecified atrial fibrillation; E78.5 Hyperlipidemia, unspecified; E66.01 Morbid (severe) obesity due to excess calories; Z79.4 Long term (current) use of insulin; Z79.84 Long term (current) use of oral hypoglycemic drugs; Z79.01 Long term (current) use of anticoagulants; Z79.899 Other long term (current) drug therapy; Z88.6 Allergy status to analgesic agent; Z68.43 Body mass index [BMI] 50.0-59.9, adult
CPT/HCPCS: 99283

== ENCOUNTER 2024-02-12 09:01 | Inpatient (IN) | payer OTHER ==
--- NOTE | 2024-02-12 09:38 | ED ---
General Adult HPI - General Chief complaint: Chest Pain Stated complaint: SOB Time Seen by Provider: 02/12/24 09:14 Source: patient, RN notes reviewed, old records reviewed Mode of arrival: wheelchair Limitations: no limitations - History of Present Illness Initial comments: 58-year-old male presenting for evaluation of exertional dyspnea. Patient has history of heart failure. He reports bilateral lower extremity swelling. He does report some intermittent chest pain which is resolved at this time. Patient denies cough or fever. - Related Data Home Medications Medication Instructions Recorded Confirmed HYDROcodone/APAP 10-325MG [[place] 1 tab PO TID PRN 04/25/20 02/12/24 10-325] Empagliflozin [Jardiance] 25 mg PO DAILY 03/14/23 02/12/24 Furosemide [Lasix] 40 mg PO DAILY 03/14/23 02/12/24 Losartan Potassium 100 mg PO DAILY 03/14/23 02/12/24 Metoprolol Succinate (ER) [Toprol 100 mg PO DAILY 03/14/23 02/12/24 Xl] Rivaroxaban [Xarelto] 20 mg PO DAILY 03/14/23 02/12/24 Tamsulosin [Flomax] 0.4 mg PO DAILY 03/14/23 02/12/24 amLODIPine [Norvasc] 10 mg PO DAILY 03/14/23 02/12/24 hydrALAZINE HCL [Apresoline] 100 mg PO TID 03/14/23 02/12/24 Insulin Glargine,Hum.rec.anlog 110 units SQ DAILY 02/12/24 02/12/24 [Lantus Solostar Pen] Semaglutide [Ozempic] 1 mg SQ TH 02/12/24 02/12/24 Spironolactone [Aldactone] 100 mg PO DAILY 02/12/24 02/12/24 Allergies Allergy/AdvReac Type Severity Reaction Status Date / Time aspirin AdvReac Dyspnea Verified 02/12/24 10:45 Review of Systems ROS Statement: Those systems with pertinent positive or pertinent negative responses have been documented in the HPI. ROS Other: All systems not noted in ROS Statement are negative. Past Medical History Past Medical History: Atrial Fibrillation, Diabetes Mellitus, Hyperlipidemia, Hypertension, Sleep Apnea/CPAP/BIPAP Additional Past Medical History / Comment(s): neuropathy, USES C PAP. BLOOD IN STOOL, CYST ON KIDNEY History of Any Multi-Drug Resistant Organisms: None Reported Past Surgical History: No Surgical Hx Reported Additional Past Surgical History / Comment(s): COLONOSCOPY Past Anesthesia/Blood Transfusion Reactions: No Reported Reaction Past Psychological History: No Psychological Hx Reported Smoking Status: Never smoker Past Alcohol Use History: None Reported Past Drug Use History: None Reported - Past Family History Father Family Medical History: No Reported History Additional Family Medical History / Comment(s): not sure Mother Family Medical History: Diabetes Mellitus, Hypertension Additional Family Medical History / Comment(s): mom is still alive General Exam Limitations: no limitations General appearance: alert, in no apparent distress Head exam: Present: atraumatic, normocephalic Eye exam: Present: normal appearance, PERRL ENT exam: Present: normal exam Neck exam: Present: normal inspection. Absent: tenderness, meningismus Respiratory exam: Present: decreased breath sounds. Absent: respiratory distress Cardiovascular Exam: Present: regular rate, normal rhythm GI/Abdominal exam: Present: soft. Absent: distended, tenderness Extremities exam: Present: pedal edema (worse on the left, patient states this is chronic) Neurological exam: Present: alert, oriented X3 Psychiatric exam: Present: normal affect, normal mood Skin exam: Present: warm, dry Course Vital Signs 02/12/24 02/12/24 09:10 09:40 Temperature 98.5 F Pulse Rate 83 74 Respiratory 16 18 Rate Blood Pressure 195/81 175/76 O2 Sat by Pulse 96 100 Oximetry Medical Decision Making - Medical Decision Making Was pt. sent in by a medical professional or institution (, PA, FORGING PRESS OPERATOR, urgent care, hospital, or correction...) When possible be specific @ -No Did you speak to anyone other than the patient for history (EMS, parent, family, police, friend...)? What history was obtained from this source @ -No Did you review nursing and triage notes (agree or disagree)? Why? @ -I reviewed and agree with nursing and triage notes Were old charts reviewed (outside hosp., previous admission, EMS record, old EKG, old radiological studies, urgent care reports/EKG's, correction records)? Report findings @ -No old charts were reviewed Differential Dyspnea: Coronary syndrome, arrhythmia, tamponade, asthma, COPD, pulmonary embolism, pneumonia, pneumothorax, pulmonary effusion, anaphylaxis, diabetic ketoacidosis, flailed chest, pulmonary contusion, diaphragmatic rupture, anemia, neuromuscular, this is not meant to be an all-inclusive list. EKG interpreted by me (3pts min.). @ -Sinus rhythm with first-degree AV block LVH, rate of 75, FL interval 231, QRS duration 125, QTc [address] segment elevation T wave inversion in the lateral precordium. X-rays interpreted by me (1pt min.). @ -[Chest x-ray bilateral lower lobe atelectasis CT interpreted by me (1pt min.). @ -None done U/S interpreted by me (1pt. min.). @ -None done What testing was considered but not performed or refused? (CT, X-rays, U/S, labs)? Why? @ -None What meds were considered but not given or refused? Why? @ -None Did you discuss the management of the patient with other professionals (professionals i.e. , PA, FORGING PRESS OPERATOR, lab, RT, psych nurse, social service technician, hotel front office manager, teacher, navigating officer, welfare case worker)? Give summary @ -No Was smoking cessation discussed for >3mins.? @ -No Was critical care preformed (if so, how long)? @ -No Were there social determinants of health that impacted care today? How? (Homelessness, low income, unemployed, alcoholism, drug addiction, transportation, low edu. Level, literacy, decrease access to med. care, group home, rehab)? @ -No Was there de-escalation of care discussed even if they declined (Discuss DNR or withdrawal of care, Hospice)? DNR status @ -No What co-morbidities impacted this encounter? (DM, HTN, Smoking, COPD, CAD, Cancer, CVA, ARF, Chemo, Hep., AIDS, mental health diagnosis, sleep apnea, morbid obesity)? @ -[Hypertension, CAD, CHF Was patient admitted / discharged? Hospital course, mention meds given and route, prescriptions, significant lab abnormalities, going to OR and other pertinent info. @58-year-old male presenting with increased dyspnea, mild chest discomfort. EKG is negative for ST segment elevation but does show T wave inversion. Patient is on Xarelto. He has a minimal troponin elevation which is baseline for this patient. His BNP is 1200. I do suspect CHF exacerbation. Patient placed on Lasix in the emergency department. He will be admitted for serial cardiac enzy mes, telemetry, cardiology consultation. Case discussed with Dr. Chavis who will admit. Undiagnosed new problem with uncertain prognosis? @ -No Drug Therapy requiring intensive monitoring for toxicity (Heparin, Nitro, Insulin, Cardizem)? @ -No Were any procedures done? @ -No Diagnosis/symptom? @ -CHF, obesity associated hypoventilation Acute, or Chronic, or Acute on Chronic? @ -Acute on chronic Uncomplicated (without systemic symptoms) or Complicated (systemic symptoms)? @ -Default Side effects of treatment? @ -No Exacerbation, Progression, or Severe Exacerbation? @ -No Poses a threat to life or bodily function? How? (Chest pain, [place], [place], pneumonia, PE, COPD, DKA, ARF, appy, cholecystitis, CVA, Diverticulitis, Homicidal, Suicidal, threat to staff... and all critical care pts) @ -Yes, CHF - Lab Data Result diagrams: 02/12/24 09:15 02/12/24 09:15 Lab Results 02/12/24 02/12/24 02/12/24 Range/Units 09:15 09:15 09:15 WBC 9.3 (3.8-10.6) k/uL RBC 3.65 L (4.30-5.90) m/uL Hgb 10.2 L (13.0-17.5) gm/dL Hct 32.0 L (39.0-53.0) % MCV 87.7 (80.0-100.0) fL MCH 27.9 (25.0-35.0) pg MCHC 31.7 (31.0-37.0) g/dL RDW 14.3 (11.5-15.5) % Plt Count 279 (150-450) k/uL MPV 8.3 Neutrophils % 76 % Lymphocytes % 12 % Monocytes % 6 % Eosinophils % 2 % Basophils % 1 % Neutrophils # 7.1 (1.3-7.7) k/uL Lymphocytes # 1.1 (1.0-4.8) k/uL Monocytes # 0.6 (0-1.0) k/uL Eosinophils # 0.2 (0-0.7) k/uL Basophils # 0.1 (0-0.2) k/uL Hypochromasia Slight PT 10.3 (10.0-12.5) sec INR 0.9 (<1.2) APTT 24.7 (22.0-30.0) sec Sodium 143 (137-145) mmol/L Potassium 3.1 L (3.5-5.1) mmol/L Chloride 109 H (98-107) mmol/L Carbon Dioxide 27 (22-30) mmol/L Anion Gap 7 mmol/L BUN 20 (9-20) mg/dL Creatinine 1.74 H (0.66-1.25) mg/dL Est GFR (CKD-EPI)AfAm 48 (>60 ml/min/1.73 sqM) Est GFR (CKD-EPI)NonAf 42 (>60 ml/min/1.73 sqM) Glucose 73 L (74-99) mg/dL POC Glucose (mg/dL) (70-110) mg/dL POC Glu Counselling Psychologist ID Calcium 8.3 L (8.4-10.2) mg/dL Magnesium 2.0 (1.6-2.3) mg/dL Total Bilirubin 0.2 (0.2-1.3) mg/dL AST 24 (17-59) U/L ALT 20 (4-49) U/L Alkaline Phosphatase 80 (38-126) U/L Troponin I (0.000-0.034) ng/mL NT-Pro-B Natriuret Pep 1230 pg/mL Total Protein 6.3 (6.3-8.2) g/dL Albumin 3.4 L (3.5-5.0) g/dL 02/12/24 02/12/24 Range/Units 09:15 11:54 WBC (3.8-10.6) k/uL RBC (4.30-5.90) m/uL Hgb (13.0-17.5) gm/dL Hct (39.0-53.0) % MCV (80.0-100.0) fL MCH (25.0-35.0) pg MCHC (31.0-37.0) g/dL RDW (11.5-15.5) % Plt Count (150-450) k/uL MPV Neutrophils % % Lymphocytes % % Monocytes % % Eosinophils % % Basophils % % Neutrophils # (1.3-7.7) k/uL Lymphocytes # (1.0-4.8) k/uL Monocytes # (0-1.0) k/uL Eosinophils # (0-0.7) k/uL Basophils # (0-0.2) k/uL Hypochromasia PT (10.0-12.5) sec INR (<1.2) APTT (22.0-30.0) sec Sodium (137-145) mmol/L Potassium (3.5-5.1) mmol/L Chloride (98-107) mmol/L Carbon Dioxide (22-30) mmol/L Anion Gap mmol/L BUN (9-20) mg/dL Creatinine (0.66-1.25) mg/dL Est GFR (CKD-EPI)AfAm (>60 ml/min/1.73 sqM) Est GFR (CKD-EPI)NonAf (>60 ml/min/1.73 sqM) Glucose (74-99) mg/dL POC Glucose (mg/dL) 40 L* (70-110) mg/dL POC Glu Counselling Psychologist ID Radha Burris Calcium (8.4-10.2) mg/dL Magnesium (1.6-2.3) mg/dL Total Bilirubin (0.2-1.3) mg/dL AST (17-59) U/L ALT (4-49) U/L Alkaline Phosphatase (38-126) U/L Troponin I 0.058 H* (0.000-0.034) ng/mL NT-Pro-B Natriuret Pep pg/mL Total Protein (6.3-8.2) g/dL Albumin (3.5-5.0) g/dL Disposition Clinical Impression: Congestive heart failure, Elevated troponin Disposition: ADMITTED IP TO THIS HOSP Condition: Stable Is patient prescribed a controlled substance at d/c from ED?: No Referrals: Tj Chavis MD [Primary Care Provider] - 1-2 days Time of Disposition: 12:11
[2024-02-12 09:59] LABS: Basophils # (A) 0.1 k/uL (0-0.2); Basophils % (A) 1 %; Eosinophils # (A) 0.2 k/uL (0-0.7); Eosinophils % (A) 2 %; HGB 10.2 gm/dL (13.0-17.5); Hypochromasia Slight; Lymphocytes # (A) 1.1 k/uL (1.0-4.8); Lymphocytes % (A) 12 %; MCH 27.9 pg (25.0-35.0); MCHC 31.7 g/dL (31.0-37.0); MCV 87.7 fL (80.0-100.0); Mean Platelet Volume 8.3; Monocytes # (A) 0.6 k/uL (0-1.0); Monocytes % (A) 6 %; Neutrophils # (A) 7.1 k/uL (1.3-7.7); Neutrophils % (A) 76 %; Platelet Count 279 k/uL (150-450); RBC 3.65 m/uL (4.30-5.90); RDW 14.3 % (11.5-15.5); WBC 9.3 k/uL (3.8-10.6)
[2024-02-12 10:06] LABS: INR 0.9 (<1.2); Partial Thromboplastin Time 24.7 sec (22.0-30.0); Prothrombin Time 10.3 sec (10.0-12.5)
[2024-02-12 10:21] LABS: ALT 20 U/L (4-49); AST 24 U/L (17-59); African American GFR (CKD) 48 (>60 ml/min/1.73 sqM); Albumin 3.4 g/dL (3.5-5.0); Alkaline Phosphatase 80 U/L (38-126); Anion Gap 7 mmol/L; Blood Urea Nitrogen 20 mg/dL (9-20); Calcium 8.3 mg/dL (8.4-10.2); Carbon Dioxide 27 mmol/L (22-30); Chloride 109 mmol/L (98-107); Glucose 73 mg/dL (74-99); Non-African American GFR(CKD) 42 (>60 ml/min/1.73 sqM); Potassium 3.1 mmol/L (3.5-5.1); Sodium 143 mmol/L (137-145); Total Bilirubin 0.2 mg/dL (0.2-1.3); Total Protein 6.3 g/dL (6.3-8.2)
[2024-02-12 10:29] LABS: NT-Pro-B-Type Natriuretic Pept 1230 pg/mL
--- NOTE | 2024-02-12 10:45 | XR ---
EXAMINATION TYPE: XR chest 2V DATE OF EXAM: 02/12/2024 COMPARISON: 04/30/2020 HISTORY: 58-year-old male with chest pain TECHNIQUE: PA and lateral views FINDINGS: Heart upper limits of normal in size. Mild hyperinflation. Some patchy opacity at lung bases. No pleu ral effusion. DISH throughout the mid thoracic spine. IMPRESSION: Borderline heart size. COPD. There is some mild patchy bibasilar atelectasis versus early infiltrate. The former is favored. Clinically correlate.
[2024-02-12 12:00] LABS: Glucose,Whole Blood 40 mg/dL (70-110)
[2024-02-12] MEDS ORDERED: NALOXONE 0.4 MG/ML 1 ML VIAL IV PRN (12:07)
[2024-02-12] MEDS ORDERED: ACETAMINOPHEN TAB 325 MG TAB PO PRN (12:07)
[2024-02-12] MEDS: FUROSEMIDE 10 MG/ML 4 ML VIAL IV STA (12:43)
[2024-02-12 16:08] LABS: Glucose,Whole Blood 90 mg/dL (70-110)
[2024-02-12] MEDS: LABETALOL 5 MG/ML VIAL MDV IVP STA (21:08)
[2024-02-12] MEDS: hydrALAZINE HCL 50 MG TAB PO SCH (21:08)
[2024-02-13] MEDS: ZOLPIDEM 5 MG TAB PO SCH (02:21)
[2024-02-13] MEDS: cloNIDine HCL 0.2 MG TAB PO SCH (02:22)
[2024-02-13] MEDS: LOSARTAN 50 MG TAB PO STA (02:22)
[2024-02-13] MEDS: POTASSIUM CHLORIDE ER 10 MEQ TAB.ER.PRT PO SCH (02:24)
[2024-02-13 03:47] LABS: Glucose,Whole Blood 74 mg/dL (70-110)
[2024-02-13 07:28] LABS: Glucose,Whole Blood 49 mg/dL (70-110)
[2024-02-13 07:58] LABS: Glucose,Whole Blood 169 mg/dL (70-110)
[2024-02-13 08:12] LABS: Basophils # (A) 0.1 k/uL (0-0.2); Basophils % (A) 1 %; Eosinophils # (A) 0.2 k/uL (0-0.7); Eosinophils % (A) 2 %; HGB 10.4 gm/dL (13.0-17.5); Hypochromasia Moderate; Lymphocytes # (A) 0.9 k/uL (1.0-4.8); Lymphocytes % (A) 7 %; MCH 27.6 pg (25.0-35.0); MCHC 30.5 g/dL (31.0-37.0); MCV 90.5 fL (80.0-100.0); Mean Platelet Volume 8.4; Monocytes # (A) 0.8 k/uL (0-1.0); Monocytes % (A) 7 %; Neutrophils # (A) 9.5 k/uL (1.3-7.7); Neutrophils % (A) 81 %; Platelet Count 276 k/uL (150-450); RBC 3.75 m/uL (4.30-5.90); RDW 14.3 % (11.5-15.5); WBC 11.7 k/uL (3.8-10.6)
[2024-02-13 08:32] LABS: ALT 21 U/L (4-49); AST 25 U/L (17-59); African American GFR (CKD) 43 (>60 ml/min/1.73 sqM); Albumin 3.4 g/dL (3.5-5.0); Alkaline Phosphatase 74 U/L (38-126); Anion Gap 3 mmol/L; Blood Urea Nitrogen 20 mg/dL (9-20); Calcium 8.7 mg/dL (8.4-10.2); Carbon Dioxide 33 mmol/L (22-30); Chloride 108 mmol/L (98-107); Glucose 82 mg/dL (74-99); Non-African American GFR(CKD) 37 (>60 ml/min/1.73 sqM); Potassium 3.2 mmol/L (3.5-5.1); Sodium 144 mmol/L (137-145); Total Bilirubin 0.6 mg/dL (0.2-1.3); Total Protein 6.4 g/dL (6.3-8.2)
[2024-02-13] MEDS: RIVAROXABAN 20 MG TAB PO SCH (08:50)
[2024-02-13] MEDS: TAMSULOSIN 0.4 MG CAP.ER.24H PO SCH (08:50)
[2024-02-13] MEDS: DAPAGLIFLOZIN PROPANEDIOL 10 MG TABLET PO SCH (08:51)
[2024-02-13] MEDS: FUROSEMIDE 40 MG TAB PO SCH (08:51)
[2024-02-13] MEDS: carvediloL 12.5 MG TAB PO SCH ×2 (08:51→17:31)
[2024-02-13] MEDS: SPIRONOLACTONE 25 MG TAB PO SCH (08:51)
[2024-02-13] MEDS: VALSARTAN 160 MG TAB PO SCH (08:52)
[2024-02-13] MEDS ORDERED: METOPROLOL SUCCINATE (ER) 100 MG TAB.ER.24H PO SCH (09:00)
[2024-02-13] MEDS ORDERED: LOSARTAN 50 MG TAB PO SCH (09:00)
[2024-02-13] MEDS ORDERED: amLODIPine 10 MG TAB PO SCH (09:00)
[2024-02-13] MEDS: INSULIN DETEMIR (LEVEMIR) 100 UNIT/ML SYR SQ SCH (09:51)
--- NOTE | 2024-02-13 12:31 | P.CRDCN ---
History of Present Illness History of present illness: HISTORY OF PRESENT ILLNESS: This is a 58-year-old male with a past medical history significant for paroxysmal atrial fibrillation, hypertension, diabetes, and morbid obesity. Patient does not follow with a administrative aide. We have been asked to see the patient in consultation for CHF and chest pain. Patient examined at the bedside in the emergency room. Patient presented to the hospital with a chief complaint of lower extremity edema and elevated blood pressure. The patient currently denies having any chest pain or pressure. He currently denies any shortness of breath. Patient's blood pressures have been elevated with a systolic greater than 200. The patient states he has been compliant with his medications at home. DIAGNOSTICS: - EKG reveals sinus mechanism with signs of LVH. - Chest xray borderline heart size. COPD. There is some patchy bibasilar atelectasis versus early infiltrate.. - Laboratory data: WBC 11.7. Hemoglobin 10.4. Platelet count 276. Sodium 144. Potassium 3.2. BUN 20. Creatinine 1.92. Troponin 0.058. 0.067. 0.076. - Current home cardiac medications include hydralazine 100 mg 3 times daily, Aldactone 100 mg daily, Xarelto 20 mg daily, Jardiance 25 mg daily, amlodipine 10 mg daily, metoprolol succinate 100 mg daily, losartan 100 mg daily, Lasix 40 mg daily. REVIEW OF SYSTEMS: At the time of my exam: CONSTITUTIONAL: Denies fever or chills. HEENT: Denies blurred vision, vision changes, or eye pain. Denies hemoptysis CARDIOVASCULAR: Denies chest pain. Denies orthopnea. Denies PND. Denies palpitations RESPIRATORY: Denies shortness of breath. GASTROINTESTINAL: Denies abdominal pain. Denies nausea or vomiting. HEMATOLOGIC: Denies bleeding disorders. GENITOURINARY: Denies any blood in urine. SKIN: Denies pruitis. Denies rash. PHYSICAL EXAM: VITAL SIGNS: Reviewed. GENERAL: Well-developed in no acute distress. HEENT: Head is normocephalic. Pupils are equal, round. Sclerae anicteric. Mucous membranes of the mouth are moist. Neck supple. No JVD or thyromegaly LUNGS: Respirations even and unlabored. Lungs essentially clear to auscultation bilaterally. HEART: Regular rate and rhythm. S1 and S2 heard. ABDOMEN: Soft. Nondistended. Nontender. EXTREMITIES: Normal range of motion. No clubbing or cyanosis. Peripheral pulses intact. Lymphedema of bilateral lower extremities noted NEUROLOGIC: Awake and alert. Oriented x 3. ASSESSMENT: Hypertensive urgency Paroxysmal atrial fibrillation Elevated troponins, flat, not suggestive of acute coronary syndrome, may be related to uncontrolled hypertension Lymphedema of bilateral lower extremities Diabetes Morbid obesity: BMI 59.7 PLAN: Obtain 2D echo to assess cardiac structure and function Discontinue Catapres started by primary medicine Discontinue amlodipine and metoprolol Begin carvedilol 12.5 mg twice a day Begin Procardia XL 60 mg daily Begin valsartan 160 mg twice a day Continue with oral diuretics. Patient with lymphedema of bilateral lower extremities and not evident of congestive heart failure Continue to monitor blood pressure Further recommendations pending patient course Nurse practitioner note has been reviewed by physician. Signing provider agrees with the documented findings, assessment, and plan of care documented by QA TECH as a scribe. Past Medical History Past Medical History: Atrial Fibrillation, Diabetes Mellitus, Hyperlipidemia, Hypertension, Sleep Apnea/CPAP/BIPAP Additional Past Medical History / Comment(s): neuropathy, USES C PAP. BLOOD IN STOOL, CYST ON KIDNEY History of Any Multi-Drug Resistant Organisms: None Reported Past Surgical History: No Surgical Hx Reported Additional Past Surgical History / Comment(s): COLONOSCOPY Past Anesthesia/Blood Transfusion Reactions: No Reported Reaction Past Psychological History: No Psychological Hx Reported Smoking Status: Never smoker Past Alcohol Use History: None Reported Past Drug Use History: None Reported - Past Family History Father Family Medical History: No Reported History Additional Family Medical History / Comment(s): not sure Mother Family Medical History: Diabetes Mellitus, Hypertension Additional Family Medical History / Comment(s): mom is still alive Medications and Allergies Home Medications Medication Instructions Recorded Confirmed Type HYDROcodone/APAP 10-325MG [Edison 1 tab PO TID PRN 04/25/20 02/12/24 History 10-325] Empagliflozin [Jardiance] 25 mg PO DAILY 03/14/23 02/12/24 History Furosemide [Lasix] 40 mg PO DAILY 03/14/23 02/12/24 History Losartan Potassium 100 mg PO DAILY 03/14/23 02/12/24 History Metoprolol Succinate (ER) [Toprol 100 mg PO DAILY 03/14/23 02/12/24 History Xl] Rivaroxaban [Xarelto] 20 mg PO DAILY 03/14/23 02/12/24 History Tamsulosin [Flomax] 0.4 mg PO DAILY 03/14/23 02/12/24 History amLODIPine [Norvasc] 10 mg PO DAILY 03/14/23 02/12/24 History hydrALAZINE HCL [Apresoline] 100 mg PO TID 03/14/23 02/12/24 History Insulin Glargine,Hum.rec.anlog 110 units SQ DAILY 02/12/24 02/12/24 History [Lantus Solostar Pen] Semaglutide [Ozempic] 1 mg SQ TH 02/12/24 02/12/24 History Spironolactone [Aldactone] 100 mg PO DAILY 02/12/24 02/12/24 History Allergies Allergy/AdvReac Type Severity Reaction Status Date / Time aspirin AdvReac Dyspnea Verified 02/12/24 10:45 Physical Exam Vitals: Vital Signs Pulse Resp BP Pulse Ox 02/13/24 07:57 76 18 165/75 100 02/13/24 06:03 63 18 190/90 93 L 02/13/24 03:45 67 20 158/86 94 L 02/13/24 02:26 83 24 177/67 95 02/13/24 00:50 73 22 191/72 94 L 02/12/24 21:30 78 18 189/89 98 02/12/24 20:39 77 18 183/87 99 02/12/24 17:38 81 18 215/97 96 02/12/24 16:00 72 20 211/104 98 02/12/24 12:44 81 20 200/101 97 Results 02/13/24 07:48 02/13/24 07:48 Cardiac Enzymes 02/12/24 02/12/24 02/13/24 Range/Units 14:19 17:31 07:48 AST 25 (17-59) U/L Troponin I 0.067 H* 0.076 H* (0.000-0.034) ng/mL CBC 02/13/24 Range/Units 07:48 WBC 11.7 H (3.8-10.6) k/uL RBC 3.75 L (4.30-5.90) m/uL Hgb 10.4 L (13.0-17.5) gm/dL Hct 34.0 L (39.0-53.0) % Plt Count 276 (150-450) k/uL Comprehensive Metabolic Panel 02/13/24 Range/Units 07:48 Sodium 144 (137-145) mmol/L Potassium 3.2 L (3.5-5.1) mmol/L Chloride 108 H (98-107) mmol/L Carbon Dioxide 33 H (22-30) mmol/L BUN 20 (9-20) mg/dL Creatinine 1.92 H (0.66-1.25) mg/dL Glucose 82 (74-99) mg/dL Calcium 8.7 (8.4-10.2) mg/dL AST 25 (17-59) U/L ALT 21 (4-49) U/L Alkaline Phosphatase 74 (38-126) U/L Total Protein 6.4 (6.3-8.2) g/dL Albumin 3.4 L (3.5-5.0) g/dL Current Medications Generic Name Dose Route Start Last Admin Trade Name Freq PRN Reason Stop Dose Admin Acetaminophen 650 mg 02/12/24 12:07 Acetaminophen Tab 325 Mg Tab PO Q6HR PRN Mild Pain or Fever > 100.5 Hydrocodone Bitart/Acetaminophen 1 each 02/12/24 20:43 Hydrocodone/Apap 10-325mg 1 Each Tab PO TID PRN Pain Carvedilol 12.5 mg 02/13/24 08:00 02/13/24 08:51 Carvedilol 12.5 Mg Tab PO 12.5 mg BID-W/MEALS MICHAEL Administration Dapagliflozin 10 mg 02/13/24 09:00 02/13/24 08:51 Dapagliflozin Propanediol 10 Mg Tablet PO 10 mg DAILY MICHAEL Administration Furosemide 40 mg 02/13/24 09:00 02/13/24 08:51 Furosemide 40 Mg Tab PO 40 mg DAILY MICHAEL Administration Hydralazine HCl 100 mg 02/12/24 22:00 02/13/24 08:51 Hydralazine Hcl 50 Mg Tab PO 100 mg TID MICHAEL Administration Insulin Detemir 110 unit 02/13/24 09:00 02/13/24 09:51 Insulin Detemir (Levemir) 100 Unit/Ml Syr SQ Not Given DAILY MICHAEL Naloxone HCl 0.2 mg 02/12/24 12:07 Naloxone 0.4 Mg/Ml 1 Ml Vial IV Q2M PRN Opioid Reversal Nifedipine 60 mg 02/13/24 12:00 Nifedipine Xl 60 Mg Tab.Er.24 PO DAILY@12 [facility] Non-Formulary Medication 1 mg 02/14/24 21:00 Semaglutide [Ozempic] SQ TH [facility] Potassium Chloride 20 meq 02/13/24 02:00 02/13/24 08:50 Potassium Chloride Er 10 Meq Tab.Er.Prt PO 20 meq TID MICHAEL Administration Rivaroxaban 20 mg 02/13/24 09:00 02/13/24 08:50 Rivaroxaban 20 Mg Tab PO 20 mg DAILY [facility] Administration Protocol Spironolactone 100 mg 02/13/24 09:00 02/13/24 08:51 Spironolactone 25 Mg Tab PO 100 mg DAILY MICHAEL Administration Tamsulosin HCl 0.4 mg 02/13/24 09:00 02/13/24 08:51 Tamsulosin 0.4 Mg Cap.Er.24h PO 0.4 mg DAILY MICHAEL Administration Valsartan 160 mg 02/13/24 09:00 02/13/24 08:52 Valsartan 160 Mg Tab PO 160 mg BID MICHAEL Administration Zolpidem Tartrate 5 mg 02/13/24 01:51 02/13/24 02:21 Zolpidem 5 Mg Tab PO 5 mg HS MICHAEL Administration 02/13/24 07:48 02/13/24 07:48
[2024-02-13 16:28] LABS: Glucose,Whole Blood 73 mg/dL (70-110)
[2024-02-13 19:49] LABS: Glucose,Whole Blood 130 mg/dL (70-110)
[2024-02-13] MEDS: FUROSEMIDE 10 MG/ML 10 ML VIAL IV SCH (23:02)
[2024-02-13] MEDS: SACUBITRIL/VALSARTAN 97 MG-103 MG TABLET PO SCH (23:03)
[2024-02-14 05:55] LABS: Glucose,Whole Blood 75 mg/dL (70-110)
[2024-02-14] MEDS: SPIRONOLACTONE 25 MG TAB PO SCH (09:41)
[2024-02-14] MEDS: NIFEdipine XL 90 MG TAB.ER.24 PO SCH (10:02)
[2024-02-14 11:25] LABS: Glucose,Whole Blood 143 mg/dL (70-110)
[2024-02-14 16:23] LABS: Glucose,Whole Blood 115 mg/dL (70-110)
[2024-02-14 18:15] LABS: Basophils # (A) 0.1 k/uL (0-0.2); Basophils % (A) 1 %; Eosinophils # (A) 0.2 k/uL (0-0.7); Eosinophils % (A) 2 %; HCT 35.7 % (39.0-53.0); HGB 11.1 gm/dL (13.0-17.5); Hypochromasia Slight; Lymphocytes # (A) 1.2 k/uL (1.0-4.8); Lymphocytes % (A) 13 %; MCH 27.5 pg (25.0-35.0); MCV 88.9 fL (80.0-100.0); Mean Platelet Volume 9.3; Monocytes # (A) 0.7 k/uL (0-1.0); Monocytes % (A) 8 %; Neutrophils # (A) 7.1 k/uL (1.3-7.7); Neutrophils % (A) 75 %; Platelet Count 283 k/uL (150-450); RBC 4.02 m/uL (4.30-5.90); RDW 14.2 % (11.5-15.5); WBC 9.5 k/uL (3.8-10.6)
[2024-02-14 18:27] LABS: ALT 19 U/L (4-49); AST 24 U/L (17-59); African American GFR (CKD) 41 (>60 ml/min/1.73 sqM); Albumin 3.2 g/dL (3.5-5.0); Alkaline Phosphatase 75 U/L (38-126); Anion Gap 4 mmol/L; Blood Urea Nitrogen 24 mg/dL (9-20); Calcium 8.2 mg/dL (8.4-10.2); Carbon Dioxide 32 mmol/L (22-30); Chloride 104 mmol/L (98-107); Glucose 157 mg/dL (74-99); Non-African American GFR(CKD) 35 (>60 ml/min/1.73 sqM); Potassium 3.1 mmol/L (3.5-5.1); Sodium 140 mmol/L (137-145); Total Bilirubin 0.5 mg/dL (0.2-1.3); Total Protein 6.2 g/dL (6.3-8.2)
--- NOTE | 2024-02-14 19:43 | P.PN ---
Subjective Patient is doing well. He is resting comfortably in bed. His blood pressure is high but still better than when he came in No chest discomfort dizziness lightheadedness or headache Lung sounds are reduced bilaterally Heart sounds S1-S2 soft normal Blood pressure 174/75 177/77 mmHg pulse rate in the 70s and 80s Hemoglobin 11.1 Sodium 140 potassium 3.1 Creatinine 2.0 BUN 24 Impression morbid obesity Obstructive sleep apnea using CPAP mask Uncontrolled hypertension, hypertensive urgency Mild hypokalemia, rule out Conn syndrome Plan 2D echo Doppler study with Definity contrast This patient has been on clonidine and amlodipine and hydralazine for very severe hypertension These drugs have not worked and will not work If his left ventricular ejection fraction is reduced Entresto would be appropriate as long as the patient can afford it Otherwise 320 mg of valsartan Evaluate for Conn syndrome Use spironolactone and the highest possible dose and avoid oral potassium Stop IV Lasix and oral potassium Objective - Vital Signs Vital signs: Vital Signs Temp 98.3 F 02/14/24 09:40 Pulse 77 02/14/24 09:40 Resp 20 02/14/24 09:40 BP 168/76 02/14/24 09:40 Pulse Ox 93 L 02/14/24 09:40 FiO2 Intake & Output 02/14/24 02/14/24 02/15/24 06:59 18:59 06:59 Intake Total 1358 Output Total 2525 1400 Balance -5 -42 Weight 179.9 kg Intake: Oral 1358 Output: Urine 2525 1400 Other: Voiding Method Urinal Urinal # Voids 0 # Bowel Movements 0 - Labs CBC & Chem 7: 02/14/24 17:59 02/14/24 17:59 Labs: Abnormal Lab Results - Last 24 Hours (Table) 02/13/24 02/14/24 02/14/24 Range/Units 19:48 11:19 16:20 RBC (4.30-5.90) m/uL Hgb (13.0-17.5) gm/dL Hct (39.0-53.0) % Potassium (3.5-5.1) mmol/L Carbon Dioxide (22-30) mmol/L BUN (9-20) mg/dL Creatinine (0.66-1.25) mg/dL Glucose (74-99) mg/dL POC Glucose (mg/dL) 130 H 143 H 115 H (70-110) mg/dL Calcium (8.4-10.2) mg/dL Total Protein (6.3-8.2) g/dL Albumin (3.5-5.0) g/dL 02/14/24 02/14/24 Range/Units 17:59 17:59 RBC 4.02 L (4.30-5.90) m/uL Hgb 11.1 L (13.0-17.5) gm/dL Hct 35.7 L (39.0-53.0) % Potassium 3.1 L (3.5-5.1) mmol/L Carbon Dioxide 32 H (22-30) mmol/L BUN 24 H (9-20) mg/dL Creatinine 2.00 H (0.66-1.25) mg/dL Glucose 157 H (74-99) mg/dL POC Glucose (mg/dL) (70-110) mg/dL Calcium 8.2 L (8.4-10.2) mg/dL Total Protein 6.2 L (6.3-8.2) g/dL Albumin 3.2 L (3.5-5.0) g/dL
[2024-02-14 19:57] LABS: Glucose,Whole Blood 196 mg/dL (70-110)
[2024-02-14] MEDS: NON FORMULARY DRUG (Semaglutide [Ozempic] 1 MG/0.75 ML Each) SQ SCH (20:45)
--- NOTE | 2024-02-14 22:15 | XR ---
EXAMINATION: XR chest 1V portable DATE AND TIME: 02/14/2024 6:12 PM CLINICAL INDICATION: PHH; CHF TECHNIQUE: AP upright portable COMPARISON: 02/04/2024 at 10:31 PM FINDINGS: The soft tissues are prominent. The lungs appear to be clear bilaterally. No definite acute pulmonary process. The pleural spaces are negative. The cardiac silhouette is not enlarged. The skeletal structures and soft tissues are negative for acute findings. IMPRESSION: No acute radiographic process.
--- NOTE | 2024-02-15 01:45 | PN ---
PROGRESS NOTE DATE OF SERVICE: 02/14/2024 CHIEF COMPLAINT: Chest pain, shortness of breath with heart failure. HISTORY OF PRESENT ILLNESS: This gentleman is doing fairly well. He is a little bit less short of breath. He is on BiPAP. Physical exam breath sounds are heard bilaterally. PHYSICAL EXAMINATION: CHEST: Breath sounds are heard bilaterally. CARDIAC: Normal. ABDOMEN: Soft and nontender. IMPRESSION: 1. Chest pain. 2. Acute congestive heart failure. PLAN: Continue current treatment. MMODL / IJN: [id number] /
[2024-02-15 06:08] LABS: Glucose,Whole Blood 149 mg/dL (70-110)
[2024-02-15] MEDS: SPIRONOLACTONE 25 MG TAB PO SCH (09:16)
[2024-02-15 11:24] LABS: Glucose,Whole Blood 134 mg/dL (70-110)
--- NOTE | 2024-02-15 11:49 | CA ---
Transthoracic Echo Report Name: Ralph Harvey Age: 58 Gender: M : 1965 Exam Date: 02/14/2024 09:42 Exam Location: [facility] Ht (in): 66 Wt (lb): 400 Ordering Physician: Dianelys Moseley Attending/Referring Phys: [id number], [employer] Manager Francesca Llamas RDCS Procedure CPT: Indications: LV function, uncontrolled HTN Cardiac Hx: Technical Quality: Technically difficult study Contrast 1: Definity Total Dose (mL): 2 Contrast 2: Total Dose (mL): MEASUREMENTS (Male / Female) Normal Values 2D ECHO LV Diastolic Diameter PLAX 5.7 cm 4.2 - 5.9 / 3.9 - 5.3 cm LV Systolic Diameter PLAX 4.1 cm IVS Diastolic Thickness 1.6 cm 0.6 - 1.0 / 0.6 - 0.9 cm LVPW Diastolic Thickness 1.8 cm 0.6 - 1.0 / 0.6 - 0.9 cm LV Relative Wall Thickness 0.6 RV Internal Dim ED PLAX 3.5 cm LVOT Diameter 2.4 cm Aortic Root Diameter 3.4 cm LV Diastolic Volume MOD BP 214.4 cm??? 67 - 155 / 56 - 104 cm??? LV Systolic Volume MOD BP 83.1 cm??? 22 - 58 / 19 - 49 cm??? LV Ejection Fraction MOD BP 61.2 % >= 55 % LV Cardiac Index MOD BP 3380.4 cm???/min???m??? LV Diastolic Volume MOD 4C 228.5 cm??? LV Systolic Volume MOD 4C 76.2 cm??? LV Ejection Fraction MOD 4C 66.7 % LV Cardiac Index MOD 4C 3920.9 cm???/min???m??? LV Diastolic Length 4C 10.2 cm LV Systolic Length 4C 8.4 cm LV Diastolic Volume MOD 2C 199.7 cm??? LV Systolic Volume MOD 2C 87.8 cm??? LV Ejection Fraction MOD 2C 56.0 % LV Cardiac Index MOD 2C 2880.6 cm???/min???m??? LV Diastolic Length 2C 10.1 cm LV Systolic Length 2C 8.1 cm Ascending Aorta Diameter 3.9 cm DOPPLER AV Peak Velocity 162.5 cm/s AV Peak Gradient 10.6 mmHg AV Mean Velocity 118.0 cm/s AV Mean Gradient 6.1 mmHg AV Velocity Time Integral 28.6 cm LVOT Peak Velocity 114.1 cm/s LVOT Peak Gradient 5.2 mmHg LVOT Velocity Time Integral 19.8 cm LVOT Stroke Volume 90.2 cm??? LVOT Stroke Volume Index 33.6 ml/m??? LVOT Cardiac Index 2322.9 cm???/min???m??? AV Area Cont Eq vti 3.2 cm??? AV Area Cont Eq pk 3.2 cm??? Mitral E Point Velocity 73.5 cm/s Mitral A Point Velocity 60.6 cm/s Mitral E to A Ratio 1.2 MV Deceleration Time 176.9 ms MV E' Velocity 6.6 cm/s Mitral E to MV E' Ratio 11.1 PV Peak Velocity 125.8 cm/s PV Peak Gradient 6.3 mmHg FINDINGS Left Ventricle Left ventricular ejection fraction is estimated at 55-60 %. Moderately increased septal wall thickness. Severely increased left ventricular diastolic volume. Severely increased left ventricular systolic volume. No obvious regional wall motion abnormalities. Right Ventricle Mild right ventricular dilatation with normal function. Unable to estimate the right ventricular systolic pressure. Right Atrium Right atrium not well visualized. Left Atrium Normal left atrial size. Mitral Valve Structurally normal mitral valve. No mitral stenosis, regurgitation or prolapse. Aortic Valve Trileaflet aortic valve. No aortic valve stenosis or regurgitation. Tricuspid Valve Structurally normal tricuspid valve. No tricuspid stenosis. Pulmonic Valve Pulmonic valve not well visualized. No pulmonic stenosis. No pulmonic regurgitation. Pericardium Minimal pericardial effusion (normal variant). Aorta Normal size aortic root and proximal ascending aorta. CONCLUSIONS Normal LV size and systolic function. There is concentric LVH noted. No wall motion abnormalities. No significant abnormality in the Doppler exam. No pericardial effusion of significance. Previewed by: Dr. Kasey Dodson MD (Electronically Signed) Final Date: 15 Feb 2024 11:47
--- NOTE | 2024-02-15 12:06 | P.PN ---
Subjective Patient is resting comfortably in bed, sitting on the edge He denies any chest discomfort dizziness or lightheadedness On examination his blood pressure is better Blood pressure 143/75 139/77 mmHg pulse rate is in the 70s and 80s afebrile Breath sounds are reduced bilaterally Heart sounds are soft and distant Morbid obesity 2D echo and Doppler study shows preserved LV systolic function ejection fraction 55 to 60% with concentric LVH Mild RV dilation with normal function Impression Hypertensive urgency Morbid obesity Obstructive sleep apnea Hypokalemia Chronic kidney disease creatinine 2.0 Plan Continue carvedilol 25 mg twice daily Continue hydralazine 100 mg 3 times a day Continue nifedipine XL 90 mg p.o. daily Spironolactone 50 mg p.o. daily Either Entresto or valsartan 320 mg p.o. daily depending upon availability Evaluation for Conn syndrome, labs was sent Low-salt diet Steady weight reduction is critical Continue Xarelto 20 mg p.o. daily Continue sleep apnea treatment Objective - Vital Signs Vital signs: Vital Signs Temp 97.8 F 02/15/24 11:42 Pulse 81 02/15/24 11:42 Resp 18 02/15/24 11:42 BP 143/75 02/15/24 11:42 Pulse Ox 98 02/15/24 11:42 FiO2 Intake & Output 02/14/24 02/15/24 02/15/24 18:59 06:59 18:59 Intake Total 1358 236 Output Total 1750 400 300 Balance -392 -400 -64 Weight 180.4 kg Intake: Oral 1358 236 Output: Urine 1750 400 300 Other: Voiding Method Urinal Urinal Urinal - Labs CBC & Chem 7: 02/14/24 17:59 02/14/24 17:59 Labs: Abnormal Lab Results - Last 24 Hours (Table) 02/14/24 02/14/24 02/14/24 Range/Units 16:20 17:59 17:59 RBC 4.02 L (4.30-5.90) m/uL Hgb 11.1 L (13.0-17.5) gm/dL Hct 35.7 L (39.0-53.0) % Potassium 3.1 L (3.5-5.1) mmol/L Carbon Dioxide 32 H (22-30) mmol/L BUN 24 H (9-20) mg/dL Creatinine 2.00 H (0.66-1.25) mg/dL Glucose 157 H (74-99) mg/dL POC Glucose (mg/dL) 115 H (70-110) mg/dL Calcium 8.2 L (8.4-10.2) mg/dL Total Protein 6.2 L (6.3-8.2) g/dL Albumin 3.2 L (3.5-5.0) g/dL 02/14/24 02/15/24 02/15/24 Range/Units 19:55 06:07 11:23 RBC (4.30-5.90) m/uL Hgb (13.0-17.5) gm/dL Hct (39.0-53.0) % Potassium (3.5-5.1) mmol/L Carbon Dioxide (22-30) mmol/L BUN (9-20) mg/dL Creatinine (0.66-1.25) mg/dL Glucose (74-99) mg/dL POC Glucose (mg/dL) 196 H 149 H 134 H (70-110) mg/dL Calcium (8.4-10.2) mg/dL Total Protein (6.3-8.2) g/dL Albumin (3.5-5.0) g/dL
--- NOTE | 2024-02-15 15:52 | CDI ---
Documentation Clarification Form Date: 02/15/2024 02:45:14 PM From: Lilia Tian RN CCDS Phone: [phone] Admit Date: 02/12/2024 12:09:00 PM Patient Name: Ralph Harvey Visit Number: [id number] Discharge Date: ATTENTION: The Clinical Documentation Specialists (CDI) and [facility] Coding Staff appreciate your assistance in clarifying documentation. Please respond to the clarification below the line at the bottom and electronically sign. The CDI & [facility] Coding staff will review the response and follow-up if needed. Please note: Queries are made part of the Legal Health Record. If you have any questions, please contact the author of this message via ITS. Dr. Anand Chen Your patient has troponin level(s) of: 0.058; 0.067; 0.076, 02/11. Please clarify if there is an additional diagnosis and/or clinical significance related to this value. Patient history/risk factors: 58-year-old male presents to the ED with lower extremity edema and elevated Blood pressure. Medical History: Paroxysmal atrial fibrillation, hypertension, DM and morbid obesity. 02/12, Cardiology Consult. Clinical indicators: B/Ps: 02/11: 09:10 B/P 195/81; 09:40 B/P 175/76; 12:44 B/P 200/101; 16:00 B/P 211/104; 17:38 B/P 215/97 EK/28: Sinus rhythm with first degree AV Block. Left AXIS Deviation (QRS AXIS <30) Moderate Interventricular Conduction Delay (110+QRSDuration) Moderate T-Wave Abnormality, Consider Lateral Ischemia ECHO, 02/13: EF 55-60% Normal LV size and systolic function. There is concentric LVH noted. No wall motion abnormalities. Troponin, 02/11 0.058; 0.067; 0.076 Treatment: 02/11 Lasix 40mg IV x 1; Labetalol Hcl 20mg IVP x 1; Apresoline 100mg PO TID; 02/12 [id number] PO x 1; 02/12 Catapres 0.2mg PO x 1; 02/12 Coreg 12.5mg PO x 1; 02/12 Farxiga 10mg PO Daily; 02/12 Lasix 40mg PO x 1; 02/12 Aldactone 100mg PO x 1; 02/12 02/13 Diovan 160mg PO BID; 02/12 Procardia Xl 60mg PO x 1; 02/12 - 02/13 Lasix 80mg IV Q12H; 02/12 Entresto 97Mg-103Mg PO BID; 02/13 Procardia Xl 90mg PO Daily @12 MICHAEL; 02/13 Aldactone 25mg PO x1; 02/14 Aldactone 50mg PO Daily. Is there an additional diagnosis and/or clinical significance related to the above lab result/information: [ xxx ] Type 2 NM due to CHF Reference: [employer] Fourth [place] Definition of Myocardial Infraction Elevated Cardiac Troponin >99th percentile with Troponin rise and/or fall * Type II NM (Please indicate etiology) * Without acute ischemia * Acute Myocardial Injury (Template Last Reviewed: March 2023) MTDD
[2024-02-15 16:02] LABS: Glucose,Whole Blood 140 mg/dL (70-110)
[2024-02-15 19:57] LABS: Glucose,Whole Blood 122 mg/dL (70-110)
[2024-02-15] MEDS: POTASSIUM CHLORIDE ER 20 MEQ TAB.ER PO SCH (20:06)
[2024-02-15] MEDS: LORATADINE 10 MG TAB PO SCH (21:58)
[2024-02-16 06:20] LABS: Glucose,Whole Blood 110 mg/dL (70-110)
--- NOTE | 2024-02-16 06:35 | PN ---
PROGRESS NOTE DATE OF SERVICE: 02/13/2024 CHIEF COMPLAINT: Chest pain and shortness of breath with congestive heart failure. HISTORY OF PRESENT ILLNESS: This gentleman is still quite dyspneic. He denies any chest pain. His blood pressure is elevated. REVIEW OF SYSTEMS: He denies headaches, chest pain, chills. He is short of breath. LABORATORY DATA: His blood sugar has dropped during the night and this is being addressed. BNP is elevated. His hemoglobin is only 10.1. BUN is 20, and creatinine 1.29. PHYSICAL EXAMINATION: VITAL SIGNS: Blood pressure is 167/89. HEENT: Head, ears, eyes, nose, mouth, throat are normal. CHEST: Demonstrates scattered rales and he is tachypneic. CARDIAC: Unremarkable. ABDOMEN: Soft, nontender. He is quite edematous. IMPRESSION: 1. Chest pain. 2. Acute congestive heart failure. 3. Anasarca. 4. Hypertension. 5. Type 2 diabetes with hypoglycemia. 6. Anemia. PLAN: 1. Increase diuretic management. 2. Increase management for his hypertension. 3. Await echocardiogram. MMODL / IJN: [id number] /
--- NOTE | 2024-02-16 06:50 | HP ---
HISTORY AND PHYSICAL CHIEF COMPLAINT: Chest pain and shortness of breath. HISTORY OF PRESENT ILLNESS: This is a first known admission for this 58-year-old overweight male. He has numerous medical problems including hypertension, obesity, diabetes. He also has trouble with low back pain. He presented to the emergency room with chest pain and shortness of breath and was found to have an elevated troponin. BNP was also quite high. He was deemed to be in congestive heart failure. REVIEW OF SYSTEMS: He is currently stable. He is having no chest pain or shortness of breath. He has had no diaphoresis. He is quite edematous. Past medical history, family history, personal and social histories reveal he is allergic to aspirin. He is on tamsulosin, amlodipine, Lasix, losartan, metoprolol, Ozempic, Jardiance, hydralazine, Lantus, Vicodin, Xarelto, atorvastatin, and spironolactone. Remainder of his history is unremarkable. PHYSICAL EXAMINATION: VITAL SIGNS: Blood pressure is 146/70 with a pulse of 92, respirations 38. GENERAL: Appeared to be in no acute distress. He was obese. HEAD, EARS, EYES, NOSE, MOUTH, AND THROAT: Normal. Neck veins are not distended. The thyroid is enlarged. Carotids can't be appreciated nor the neck veins due to his obesity. CHEST: Demonstrated decreased breath sounds with bibasilar rales. CARDIAC: Demonstrated sinus tachycardia. ABDOMEN: Protuberant, soft, and nontender. EXTREMITIES: Quite edematous. He was dyspneic. NEUROLOGICAL: He is intact. DIAGNOSES: 1. Chest pain. 2. Possible NSTEMI. 3. Acute congestive heart failure. 4. Hypertension. 5. Type 2 diabetes. PLAN: 1. Bedrest. 2. IV fluids. 3. Manage congestive heart failure. 4. Echocardiogram. 5. Control hypertension. 6. Cardiology consult. MMODL / IJN: [id number] /
--- NOTE | 2024-02-16 07:26 | PN ---
PROGRESS NOTE DATE OF SERVICE: 02/15/2024 CHIEF COMPLAINT: Acute congestive heart failure. HISTORY OF PRESENT ILLNESS: This gentleman is doing well. His blood pressure has been down and he is diuresing. PHYSICAL EXAMINATION: CHEST: Breath sounds are hard to hear, but they are more clear. CARDIAC: Normal. ABDOMEN: Soft, nontender. IMPRESSION: 1. Acute congestive heart failure. 2. Anasarca. 3. Hypertension. PLAN: Continue with his diuresis. He is improving. His ejection fraction is actually excellent at 55. MMODL / IJN: [id number] /
[2024-02-16] MEDS: HYDROcodone/APAP 10-325MG 1 EACH TAB PO PRN (08:43)
[2024-02-16 11:22] LABS: African American GFR (CKD) 37 (>60 ml/min/1.73 sqM); Anion Gap 6 mmol/L; Blood Urea Nitrogen 33 mg/dL (9-20); Calcium 8.6 mg/dL (8.4-10.2); Carbon Dioxide 31 mmol/L (22-30); Chloride 104 mmol/L (98-107); Glucose 157 mg/dL (74-99); Non-African American GFR(CKD) 32 (>60 ml/min/1.73 sqM); Potassium 3.5 mmol/L (3.5-5.1); Sodium 141 mmol/L (137-145)
[2024-02-16 11:31] LABS: Glucose,Whole Blood 129 mg/dL (70-110)
--- NOTE | 2024-02-16 11:58 | P.PN ---
Subjective Progress Note Date: 02/16/24 This is Julio C Aldana NP, I'm dictating on behalf of Dr. Chen's H&P and A&P. Patient was interviewed and examined. Patient is a pleasant 58-year-old male who was admitted to the hospital with congestive heart failure as well as hypertensive urgency. Patient reports that he is feeling okay today. He is denying chest pain, shortness of breath, headaches. Blood pressure is better but still slightly elevated. GENERAL: Well-appearing, well-nourished and in no acute distress. NECK: Supple without JVD or thyromegaly. LUNGS: Breath sounds clear to auscultation bilaterally. Respiration equal and unlabored. No wheezes, rales or rhonchi. HEART: Regular rate and rhythm without murmurs, rubs or gallops. S1 and S2 heard. EXTREMITIES: Normal range of motion, 3+ pitting edema in the right lower extr emity, 1+ pitting in the left lower extremity. No clubbing or cyanosis. Peripheral pulses intact and strong. VITALS: Temp 98.2, pulse 79, respirations 16, blood pressure 143/69, O2 saturation 97% o n room air TELEMETRY: Sinus mechanism LABS: Sodium 141, potassium 3.5, BUN 33, creatinine 2.15, calcium 8.6 IMPRESSION: 1. Hypertensive urgency 2. Congestive heart failure 3. Hypokalemia 4. RYAN PLAN: Stat BMP Continue to monitor blood pressure. Decrease Farxiga to 5 mg daily. Further recommendations based on patient's clinical course. Objective - Vital Signs Vital signs: Vital Signs Temp 98.2 F 02/16/24 08:23 Pulse 79 02/16/24 08:23 Resp 16 02/16/24 08:23 BP 143/69 02/16/24 08:23 Pulse Ox 97 02/16/24 08:23 FiO2 Intake & Output 02/15/24 02/16/24 02/16/24 18:59 06:59 18:59 Intake Total 472 128 Output Total 800 600 250 Balance -328 -600 -122 Weight 181.8 kg Intake: IV 10 Invasive Line 2 10 Oral 472 118 Output: Urine 800 600 250 Other: Voiding Method Urinal Urinal # Voids 1 # Bowel Movements 1 - Labs CBC & Chem 7: 02/14/24 17:59 02/16/24 10:43 Labs: Abnormal Lab Results - Last 24 Hours (Table) 02/15/24 02/15/24 02/15/24 Range/Units 11:23 16:00 19:56 POC Glucose (mg/dL) 134 H 140 H 122 H (70-110) mg/dL
[2024-02-16 12:03] LABS: HCT 35.2 % (39.0-53.0); Hypochromasia Slight; MCH 27.8 pg (25.0-35.0); MCHC 31.2 g/dL (31.0-37.0); MCV 88.9 fL (80.0-100.0); Mean Platelet Volume 8.3; Platelet Count 335 k/uL (150-450); RBC 3.96 m/uL (4.30-5.90); RDW 14.1 % (11.5-15.5); WBC 8.7 k/uL (3.8-10.6)
[2024-02-16] MEDS ORDERED: DEXTROSE 50% SYRINGE 50 ML IVP PRN ×2 (12:33)
--- NOTE | 2024-02-16 12:34 | P.PN ---
Subjective Progress Note Date: 02/16/24 Patient is a pleasant 58-year-old male who was admitted to the hospital with congestive heart failure as well as hypertensive urgency. 02/15. Dr. Silva took over care from Dr. Baldwin. Still has swelling of lower extremities. Denies any shortness of breath at rest, gets short of breath on exertion REVIEW OF SYSTEMS: CONSTITUTIONAL: No fever, no malaise,. CARDIOVASCULAR: No chest pain, no palpitations, no syncope. PULMONARY: As mentioned above GASTROINTESTINAL: No diarrhea, no nausea, no vomiting, no abdominal pain. NEUROLOGICAL: No headaches, no weakness, PHYSICAL EXAMINATION: GENERAL: The patient is alert and oriented x3, not in any acute distress. Well developed, well nourished. HEENT: Pupils are round and equally reacting to light. EOMI. No scleral icterus. No conjunctival pallor. Normocephalic, atraumatic. No pharyngeal erythema. No thyromegaly. CARDIOVASCULAR: S1 and S2 present. No murmurs, rubs, or gallops. PULMONARY: Chest is clear to auscultation, no wheezing or crackles. ABDOMEN: Soft, nontender, nondistended, normoactive bowel sounds. No palpable organomegaly. MUSCULOSKELETAL: No joint swelling or deformity. EXTREMITIES: No cyanosis, clubbing, chronic lymphedema of lower extremities bilaterally NEUROLOGICAL: Gross neurological examination did not reveal any focal deficits. SKIN: No rashes. Assessment and plan Hypertensive urgency Congestive heart failure Hypokalemia RYAN Monitor vital signs Monitor CBC Monitor CMP Continue telemetry monitoring Strict I's and O's, daily weights. Hold diuretics Continue Procardia Monitor blood sugar levels, continue sliding scale insulin and insulin Dose of Farxiga was decreased to 5 mg daily. Consult nephrology Cardiology following Labs and medication were reviewed.. Continue same treatment. Continue with sym ptomatic treatment. Resume home medication. Monitor labs and vitals. DVT and GI prophylaxis. Further recommendations as per clinical course of the patient Dictation was produced using [employer] dictation software. please excuse any grammatical, word or spelling errors. Objective - Vital Signs Vital signs: Vital Signs Temp 98.2 F 02/16/24 08:23 Pulse 79 02/16/24 08:23 Resp 16 02/16/24 08:23 BP 143/69 02/16/24 08:23 Pulse Ox 97 02/16/24 08:23 FiO2 Intake & Output 02/15/24 02/16/24 02/16/24 18:59 06:59 18:59 Intake Total 472 128 Output Total 800 600 250 Balance -328 -600 -122 Weight 181.8 kg Intake: IV 10 Invasive Line 2 10 Oral 472 118 Output: Urine 800 600 250 Other: Voiding Method Urinal Urinal # Voids 1 # Bowel Movements 1 - Labs CBC & Chem 7: 02/16/24 10:53 02/16/24 10:43 Labs: Abnormal Lab Results - Last 24 Hours (Table) 02/15/24 02/15/24 02/16/24 Range/Units 16:00 19:56 10:43 RBC (4.30-5.90) m/uL Hgb (13.0-17.5) gm/dL Hct (39.0-53.0) % Carbon Dioxide 31 H (22-30) mmol/L BUN 33 H (9-20) mg/dL Creatinine 2.15 H (0.66-1.25) mg/dL Glucose 157 H (74-99) mg/dL POC Glucose (mg/dL) 140 H 122 H (70-110) mg/dL 02/16/24 02/16/24 Range/Units 10:53 11:29 RBC 3.96 L (4.30-5.90) m/uL Hgb 11.0 L (13.0-17.5) gm/dL Hct 35.2 L (39.0-53.0) % Carbon Dioxide (22-30) mmol/L BUN (9-20) mg/dL Creatinine (0.66-1.25) mg/dL Glucose (74-99) mg/dL POC Glucose (mg/dL) 129 H (70-110) mg/dL
[2024-02-16 16:55] LABS: Glucose,Whole Blood 94 mg/dL (70-110)
[2024-02-16] MEDS: INSULIN ASPART (NovoLOG) 100 UNIT/ML VIAL SQ SCH (17:15)
[2024-02-16] MEDS: carvediloL 12.5 MG TAB PO SCH (17:21)
[2024-02-16] MEDS ORDERED: carvediloL 12.5 MG TAB PO SCH (17:30)
[2024-02-16 20:00] LABS: Glucose,Whole Blood 165 mg/dL (70-110)
[2024-02-17 06:06] LABS: Glucose,Whole Blood 118 mg/dL (70-110)
[2024-02-17 07:18] LABS: HCT 35.6 % (39.0-53.0); HGB 10.6 gm/dL (13.0-17.5); Hypochromasia Slight; MCH 26.4 pg (25.0-35.0); MCHC 29.8 g/dL (31.0-37.0); MCV 88.5 fL (80.0-100.0); Mean Platelet Volume 8.7; Platelet Count 342 k/uL (150-450); RBC 4.03 m/uL (4.30-5.90); WBC 7.8 k/uL (3.8-10.6)
[2024-02-17 07:42] LABS: ALT 17 U/L (4-49); AST 21 U/L (17-59); African American GFR (CKD) 37 (>60 ml/min/1.73 sqM); Albumin 3.2 g/dL (3.5-5.0); Alkaline Phosphatase 73 U/L (38-126); Anion Gap 5 mmol/L; Blood Urea Nitrogen 34 mg/dL (9-20); Calcium 8.5 mg/dL (8.4-10.2); Carbon Dioxide 29 mmol/L (22-30); Chloride 107 mmol/L (98-107); Glucose 111 mg/dL (74-99); Non-African American GFR(CKD) 32 (>60 ml/min/1.73 sqM); Sodium 141 mmol/L (137-145); Total Bilirubin 0.4 mg/dL (0.2-1.3); Total Protein 6.2 g/dL (6.3-8.2)
--- NOTE | 2024-02-17 10:04 | P.NPCON ---
History of Present Illness - Reason for Consult acute renal failure - History of Present Illness patient is a 58-year-old malewith history of hypertension, morbid obesity, type 2 diabetes, chronic A. fib. Patient is admitted to the hospital with complaints of shortness of breath and increased lower extremity swelling. Patient is noted to be in volume overload with hypertensive urgency and systolic blood pressures above 200 range. Patient has been diuresed. Diuretics are currently on hold. Ejection fraction 55-60%. Serum creatinine 1.7 on initial admission and currently staying at about 2.1. previous creatinine 1.3-1.4 mg/dL in 2019 and about 1.8-2.0 in 2022 Patient was noted to have a low potassium along with hypertensive urgency on initial admission. Serum aldosterone has been sent out and is currently pending. 24 hour urine output at 2.3 L. Review of Systems as per HPI Past Medical History Past Medical History: Atrial Fibrillation, Diabetes Mellitus, Hyperlipidemia, Hypertension, Renal Disease, Sleep Apnea/CPAP/BIPAP Additional Past Medical History / Comment(s): neuropathy, stage 3 renal failure, uses CPAP at home History of Any Multi-Drug Resistant Organisms: None Reported Past Surgical History: No Surgical Hx Reported Additional Past Surgical History / Comment(s): COLONOSCOPY Past Anesthesia/Blood Transfusion Reactions: No Reported Reaction Past Psychological History: No Psychological Hx Reported Smoking Status: Never smoker Past Alcohol Use History: None Reported Past Drug Use History: None Reported - Past Family History Father Family Medical History: No Reported History Additional Family Medical History / Comment(s): not sure Mother Family Medical History: Diabetes Mellitus, Hypertension Additional Family Medical History / Comment(s): mom is still alive Medications and Allergies Home Medications Medication Instructions Recorded Confirmed Type HYDROcodone/APAP 10-325MG [[place] 1 tab PO TID PRN 04/25/20 02/12/24 History 10-325] Empagliflozin [Jardiance] 25 mg PO DAILY 03/14/23 02/12/24 History Rivaroxaban [Xarelto] 20 mg PO DAILY 03/14/23 02/12/24 History Tamsulosin [Flomax] 0.4 mg PO DAILY 03/14/23 02/12/24 History hydrALAZINE HCL [Apresoline] 100 mg PO TID 03/14/23 02/12/24 History Insulin Glargine,Hum.rec.anlog 110 units SQ DAILY 02/12/24 02/12/24 History [Lantus Solostar Pen] Semaglutide [Ozempic] 1 mg SQ TH 02/12/24 02/12/24 History Allergies Allergy/AdvReac Type Severity Reaction Status Date / Time aspirin AdvReac Dyspnea Verified 02/12/24 10:45 Physical Exam Vitals: Vital Signs Temp Pulse Pulse Resp BP BP Pulse Ox 02/17/24 03:02 97.8 F 71 18 143/68 97 02/17/24 02:00 69 75 18 02/16/24 23:22 98.3 F 75 18 156/71 97 02/16/24 19:32 98.1 F 77 18 167/79 97 02/16/24 19:01 148/68 02/16/24 17:17 98.1 F 80 16 178/82 98 02/16/24 12:56 98.1 F 82 18 163/77 98 Intake and Output 02/16/24 02/17/24 02/17/24 22:59 06:59 14:59 Intake Total 360 Output Total 1025 700 Balance -665 -700 Intake: Oral 360 Output: Urine 1025 700 Other: Voiding Method Urinal Urinal Weight 182.4 kg patient is awake, comfortable, no acute distress. Examination of the heart S1 and S2 Examination of the lungs bilateral breath sounds are heard Abdomen is soft morbidly obese Examination of lower extremity shows edema 3-4+ bilaterally [employer] exam grossly intact Results - Lab Results Most recent lab results Calcium 8.5 mg/dL (8.4-10.2) 02/17/24 06:29 Magnesium 2.0 mg/dL (1.6-2.3) 02/12/24 09:15 02/17/24 06:29 02/17/24 06:29 Assessment and Plan Assessment: 1. Acute kidney injury, mostly secondary to uncontrolled hypertension. Check UA. Previous UA showed 1+ protein in 2022. previous ultrasound on 11/21/2022 showed no evidence of hydronephrosis. 2. Chronic kidney disease NKF stage IIIB with baseline creatinine more recently about 1.7-1.9 in 2022 but as low as 1.3-1.4 in 2020. Etiology is likely diabetic kidney disease and nephrosclerosis. 3. hypertensive urgency with improved blood pressures. Rule out secondary causes in view of hypokalemia 4. Paroxysmal A. fib 5. Bilateral lower extremity edema with no evidence of CHF on chest x-ray. Right heart pressures are not elevated. UA did not show significant proteinuria in 2022. This will be repeated. 6. Hypokalemia, seems to be unprovoked as no diuretics noted on home med list. Serum aldosterone and renin levels are pending Plan: check UA Continue potassium supplementation. Continue with Aldactone Follow-up on serum aldosterone and renin levels. Continue current antihypertensive therapy. Patient is advised to follow-up as outpatient for chronic kidney disease. Next Thank you for the consultation. We will continue to follow the patient with you during his hospitalization.
[2024-02-17] MEDS: DAPAGLIFLOZIN PROPANEDIOL 5 MG TABLET PO SCH (10:18)
--- NOTE | 2024-02-17 11:28 | P.PN ---
Subjective Progress Note Date: 02/17/24 This is Julio C Aldana NP, I'm dictating on behalf of Dr. Chen's H&P and A&P. Patient was interviewed and examined. Patient is a pleasant 58-year-old male who presented to hospital with chest pain and congestive heart failure exacerbation as well as accelerated hypertension. Patient reports that he is doing well today. Patient's blood pressure is well within normal limits today. Patient overall feels like he is at his baseline. From a cardiology standpoint patient is okay for discharge. GENERAL: Well-appearing, well-nourished and in no acute distress. NECK: Supple without JVD or thyromegaly. LUNGS: Breath sounds clear to auscultation bilaterally. Respiration equal and unlabored. No wheezes, rales or rhonchi. HEART: Regular rate and rhythm without murmurs, rubs or gallops. S1 and S2 heard. EXTREMITIES: Normal range of motion, 2+ pitting edema in the right lower extremity, 1+ pitting edema in the left lower extremity. No clubbing or cyanosis. Peripheral pulses intact and strong. VITALS: Temp 97.6, pulse 81, respirations 18, blood pressure 119/61, O2 saturation 94% on room air TELEMETRY: Sinus mechanism LABS: White count 7.8, hemoglobin 10.6, platelets 342, sodium 141, potassium 4.0, BUN 34, creatinine 2.15, hemoglobin A1c 6.6 IMPRESSION: 1. Hypertensive urgency 2. Congestive heart failure 3. Hypokalemia 4. RYAN PLAN: Continue prescribed cardiac medications. Patient is okay for discharge from a cardiology standpoint. Patient should follow-up with Dr. Chen in 2 weeks. Thank you for allowing us to participate in the care of this patient. Objective - Vital Signs Vital signs: Vital Signs Temp 97.6 F 02/17/24 09:45 Pulse 81 02/17/24 09:45 Resp 18 02/17/24 09:45 BP 119/61 02/17/24 09:45 Pulse Ox 94 L 02/17/24 09:45 FiO2 Intake & Output 02/16/24 02/17/24 02/17/24 18:59 06:59 18:59 Intake Total 486 360 246 Output Total 650 7115 550 Balance -164 -0325 -304 Weight 182.4 kg Intake: IV 10 10 Invasive Line 2 10 10 Oral 476 360 236 Output: Urine 650 1725 550 Other: Voiding Method Urinal Urinal Urinal # Bowel Movements 1 - Labs CBC & Chem 7: 02/17/24 06:29 02/17/24 06:29 Labs: Abnormal Lab Results - Last 24 Hours (Table) 02/16/24 02/16/24 02/16/24 Range/Units 10:53 11:29 19:58 RBC 3.96 L (4.30-5.90) m/uL Hgb 11.0 L (13.0-17.5) gm/dL Hct 35.2 L (39.0-53.0) % MCHC (31.0-37.0) g/dL BUN (9-20) mg/dL Creatinine (0.66-1.25) mg/dL Glucose (74-99) mg/dL POC Glucose (mg/dL) 129 H 165 H (70-110) mg/dL Hemoglobin A1c (<=6.0) % Total Protein (6.3-8.2) g/dL Albumin (3.5-5.0) g/dL 02/17/24 02/17/24 02/17/24 Range/Units 06:03 06:29 06:29 RBC 4.03 L (4.30-5.90) m/uL Hgb 10.6 L (13.0-17.5) gm/dL Hct 35.6 L (39.0-53.0) % MCHC 29.8 L (31.0-37.0) g/dL BUN (9-20) mg/dL Creatinine (0.66-1.25) mg/dL Glucose (74-99) mg/dL POC Glucose (mg/dL) 118 H (70-110) mg/dL Hemoglobin A1c 6.6 H (<=6.0) % Total Protein (6.3-8.2) g/dL Albumin (3.5-5.0) g/dL 02/17/24 Range/Units 06:29 RBC (4.30-5.90) m/uL Hgb (13.0-17.5) gm/dL Hct (39.0-53.0) % MCHC (31.0-37.0) g/dL BUN 34 H (9-20) mg/dL Creatinine 2.15 H (0.66-1.25) mg/dL Glucose 111 H (74-99) mg/dL POC Glucose (mg/dL) (70-110) mg/dL Hemoglobin A1c (<=6.0) % Total Protein 6.2 L (6.3-8.2) g/dL Albumin 3.2 L (3.5-5.0) g/dL
[2024-02-17 11:47] LABS: Appearance,Urine Clear (Clear); Bilirubin,Urine Negative (Negative); Blood,Urine Small (Negative); Color,Urine Colorless; Glucose,Urine (UA) 4+ (Negative); Ketones,Urine Negative (Negative); Leukocyte Esterase,Urine Negative (Negative); Nitrite,Urine Negative (Negative); PH, Urine 7.5 (5.0-8.0); Protein,Urine 1+ (Negative); RBC,Urine 13 /hpf (0-5); Urobilinogen,Urine <2.0 mg/dL (<2.0); WBC,Urine <1 /hpf (0-5)
[2024-02-17 12:07] LABS: Glucose,Whole Blood 119 mg/dL (70-110)
--- NOTE | 2024-02-17 13:34 | P.PN ---
Subjective Progress Note Date: 02/17/24 Patient is a pleasant 58-year-old male who was admitted to the hospital with congestive heart failure as well as hypertensive urgency. 02/15. Dr. Silva took over care from Dr. Baldwin. Still has swelling of lower extremities. Denies any shortness of breath at rest, gets short of breath on exertion 02/16. Patient seen and examined. Blood work done this morning showed WBC 7.8, hemoglobin 10.6, platelet count 342, sodium 141, potassium 4, BUN 34, creatinine 2.15 REVIEW OF SYSTEMS: CONSTITUTIONAL: No fever, no malaise,. CARDIOVASCULAR: No chest pain, no palpitations, no syncope. PULMONARY: As mentioned above GASTROINTESTINAL: No diarrhea, no nausea, no vomiting, no abdominal pain. NEUROLOGICAL: No headaches, no weakness, PHYSICAL EXAMINATION: GENERAL: The patient is alert and oriented x3, not in any acute distress. Well developed, well nourished. HEENT: Pupils are round and equally reacting to light. EOMI. No scleral icterus. No conjunctival pallor. Normocephalic, atraumatic. No pharyngeal erythema. No thyromegaly. CARDIOVASCULAR: S1 and S2 present. No murmurs, rubs, or gallops. PULMONARY: Chest is clear to auscultation, no wheezing or crackles. ABDOMEN: Soft, nontender, nondistended, normoactive bowel sounds. No palpable organomegaly. MUSCULOSKELETAL: No joint swelling or deformity. EXTREMITIES: No cyanosis, clubbing, chronic lymphedema of lower extremities bilaterally NEUROLOGICAL: Gross neurological examination did not reveal any focal deficits. SKIN: No rashes. Assessment and plan Hypertensive urgency Congestive heart failure Hypokalemia RYAN Monitor vital signs Monitor CBC Monitor CMP Continue telemetry monitoring Strict I's and O's, daily weights. Hold diuretics Continue Procardia Continue Coreg, hydralazine Continue Entresto Monitor blood sugar levels, continue sliding scale insulin and insulin Continue Farxiga 5 mg daily. Consult nephrology Cardiology following Labs and medication were reviewed.. Continue same treatment. Continue with symptomatic treatment. Resume home medication. Monitor labs and vitals. DVT and GI prophylaxis. Further recommendations as per clinical course of the patient Dictation was produced using [employer] dictation software. please excuse any grammatical, word or spelling errors. Objective - Vital Signs Vital signs: Vital Signs Temp 97.8 F 02/17/24 03:02 Pulse 71 02/17/24 03:02 Resp 18 02/17/24 03:02 BP 143/68 02/17/24 03:02 Pulse Ox 97 02/17/24 03:02 FiO2 Intake & Output 02/16/24 02/17/24 02/17/24 18:59 06:59 18:59 Intake Total 486 360 Output Total 650 1725 Balance -164 -1365 Weight 182.4 kg Intake: IV 10 Invasive Line 2 10 Oral 476 360 Output: Urine 650 1725 Other: Voiding Method Urinal Urinal - Labs CBC & Chem 7: 02/17/24 06:29 02/17/24 06:29 Labs: Abnormal Lab Results - Last 24 Hours (Table) 02/16/24 02/16/24 02/16/24 Range/Units 10:43 10:53 11:29 RBC 3.96 L (4.30-5.90) m/uL Hgb 11.0 L (13.0-17.5) gm/dL Hct 35.2 L (39.0-53.0) % MCHC (31.0-37.0) g/dL Carbon Dioxide 31 H (22-30) mmol/L BUN 33 H (9-20) mg/dL Creatinine 2.15 H (0.66-1.25) mg/dL Glucose 157 H (74-99) mg/dL POC Glucose (mg/dL) 129 H (70-110) mg/dL Total Protein (6.3-8.2) g/dL Albumin (3.5-5.0) g/dL 02/16/24 02/17/24 02/17/24 Range/Units 19:58 06:03 06:29 RBC 4.03 L (4.30-5.90) m/uL Hgb 10.6 L (13.0-17.5) gm/dL Hct 35.6 L (39.0-53.0) % MCHC 29.8 L (31.0-37.0) g/dL Carbon Dioxide (22-30) mmol/L BUN (9-20) mg/dL Creatinine (0.66-1.25) mg/dL Glucose (74-99) mg/dL POC Glucose (mg/dL) 165 H 118 H (70-110) mg/dL Total Protein (6.3-8.2) g/dL Albumin (3.5-5.0) g/dL 02/17/24 Range/Units 06:29 RBC (4.30-5.90) m/uL Hgb (13.0-17.5) gm/dL Hct (39.0-53.0) % MCHC (31.0-37.0) g/dL Carbon Dioxide (22-30) mmol/L BUN 34 H (9-20) mg/dL Creatinine 2.15 H (0.66-1.25) mg/dL Glucose 111 H (74-99) mg/dL POC Glucose (mg/dL) (70-110) mg/dL Total Protein 6.2 L (6.3-8.2) g/dL Albumin 3.2 L (3.5-5.0) g/dL
[2024-02-17 16:03] LABS: Glucose,Whole Blood 104 mg/dL (70-110)
[2024-02-17 20:28] LABS: Glucose,Whole Blood 136 mg/dL (70-110)
[2024-02-18 06:10] LABS: Glucose,Whole Blood 94 mg/dL (70-110)
[2024-02-18 08:47] LABS: Basophils # (A) 0.1 k/uL (0-0.2); Basophils % (A) 1 %; Eosinophils # (A) 0.2 k/uL (0-0.7); Eosinophils % (A) 3 %; HCT 32.3 % (39.0-53.0); HGB 9.7 gm/dL (13.0-17.5); Hypochromasia Slight; Lymphocytes # (A) 1.2 k/uL (1.0-4.8); Lymphocytes % (A) 16 %; MCH 26.9 pg (25.0-35.0); MCHC 30.2 g/dL (31.0-37.0); MCV 89.1 fL (80.0-100.0); Mean Platelet Volume 8.8; Monocytes # (A) 0.5 k/uL (0-1.0); Monocytes % (A) 7 %; Neutrophils # (A) 5.3 k/uL (1.3-7.7); Neutrophils % (A) 71 %; Platelet Count 290 k/uL (150-450); RBC 3.63 m/uL (4.30-5.90); WBC 7.5 k/uL (3.8-10.6)
[2024-02-18 09:01] LABS: ALT 17 U/L (4-49); AST 20 U/L (17-59); African American GFR (CKD) 42 (>60 ml/min/1.73 sqM); Albumin 3.1 g/dL (3.5-5.0); Alkaline Phosphatase 69 U/L (38-126); Anion Gap 1 mmol/L; Blood Urea Nitrogen 30 mg/dL (9-20); Calcium 8.3 mg/dL (8.4-10.2); Carbon Dioxide 31 mmol/L (22-30); Chloride 108 mmol/L (98-107); Glucose 127 mg/dL (74-99); Non-African American GFR(CKD) 36 (>60 ml/min/1.73 sqM); Sodium 140 mmol/L (137-145); Total Bilirubin 0.4 mg/dL (0.2-1.3)
[2024-02-18 09:03] LABS: Potassium 4.1 mmol/L (3.5-5.1)
--- NOTE | 2024-02-18 10:19 | P.PN ---
Subjective Progress Note Date: 02/18/24 Principal diagnosis: CHF This is a 58-year-old -[place] gentleman with a past medical history significant for paroxysmal atrial fibrillation and heart failure with preserved ejection fraction as well as multiple comorbid conditions who was admitted to the hospital with hypertension emergency complicated by heart failure mainly right heart failure February 18, 2024 The patient was seen and evaluated this morning. He continues to have severe bilateral lower extremities edema but no shortness of breath and no chest pain. The pressure remains elevated and consistent now with resistant hypertension. I am going to start the patient on clonidine patches in addition to the current medical regimen and give the patient Lasix IV 1 dose and monitor the kidney function and electrolytes with the echo showed normal LV systolic function with no significant valvular abnormalities Assessment Hypertension emergency Resistant hypertension Heart failure with preserved ejection fraction Paroxysmal atrial fibrillation Morbid obesity Plan Add clonidine patches to the current medical regimen Give the patient 1 dose of Lasix IV Continue monitor the kidney function and electrolytes Rule out secondary hypertension Objective - Vital Signs Vital signs: Vital Signs Temp 97.0 F L 02/18/24 08:00 Pulse 71 02/18/24 08:00 Resp 18 02/18/24 08:00 BP 172/80 02/18/24 08:00 Pulse Ox 98 02/18/24 08:00 FiO2 Intake & Output 02/17/24 02/18/24 02/18/24 18:59 06:59 18:59 Intake Total 796 118 Output Total 1275 1350 550 Balance -479 -1350 -432 Weight 184.4 kg Intake: IV 20 Invasive Line 2 10 Invasive Line 3 10 Oral 776 118 Output: Urine 1275 1350 550 Other: Voiding Method Urinal Urinal - Labs CBC & Chem 7: 02/18/24 07:37 02/18/24 07:37 Labs: Abnormal Lab Results - Last 24 Hours (Table) 02/17/24 02/17/24 02/17/24 Range/Units 10:59 12:06 20:17 RBC (4.30-5.90) m/uL Hgb (13.0-17.5) gm/dL Hct (39.0-53.0) % MCHC (31.0-37.0) g/dL Chloride (98-107) mmol/L Carbon Dioxide (22-30) mmol/L BUN (9-20) mg/dL Creatinine (0.66-1.25) mg/dL Glucose (74-99) mg/dL POC Glucose (mg/dL) 119 H 136 H (70-110) mg/dL Calcium (8.4-10.2) mg/dL Total Protein (6.3-8.2) g/dL Albumin (3.5-5.0) g/dL Urine Protein 1+ H (Negative) Urine Glucose (UA) 4+ H (Negative) Urine Blood Small H (Negative) Urine RBC 13 H (0-5) /hpf 02/18/24 02/18/24 Range/Units 07:37 07:37 RBC 3.63 L (4.30-5.90) m/uL Hgb 9.7 L (13.0-17.5) gm/dL Hct 32.3 L (39.0-53.0) % MCHC 30.2 L (31.0-37.0) g/dL Chloride 108 H (98-107) mmol/L Carbon Dioxide 31 H (22-30) mmol/L BUN 30 H (9-20) mg/dL Creatinine 1.97 H (0.66-1.25) mg/dL Glucose 127 H (74-99) mg/dL POC Glucose (mg/dL) (70-110) mg/dL Calcium 8.3 L (8.4-10.2) mg/dL Total Protein 6.0 L (6.3-8.2) g/dL Albumin 3.1 L (3.5-5.0) g/dL Urine Protein (Negative) Urine Glucose (UA) (Negative) Urine Blood (Negative) Urine RBC (0-5) /hpf
[2024-02-18] MEDS ORDERED: hydrALAZINE HCL 20 MG/ML 1 ML VIAL IVP PRN (10:26)
--- NOTE | 2024-02-18 10:28 | P.PN ---
Subjective Patient is seen in follow-up for chronic kidney disease. Renal function stable. Has been voiding. Denies chest pain or shortness of breath. Oral intake is good. Vital signs are stable. General: No acute distress. HEENT: Head exam is unremarkable. LUNGS: No audible rhonchi or wheezes. HEART: Rate and Rhythm are regular. ABDOMEN: Obese, nontender. EXTREMITITES: 2+ edema. Objective - Vital Signs Vital signs: Vital Signs Temp 97.0 F L 02/18/24 08:00 Pulse 71 02/18/24 08:00 Resp 18 02/18/24 08:00 BP 172/80 02/18/24 08:00 Pulse Ox 98 02/18/24 08:00 FiO2 Intake & Output 02/17/24 02/18/24 02/18/24 18:59 06:59 18:59 Intake Total 796 118 Output Total 1275 1350 550 Balance -479 -1350 -432 Weight 184.4 kg Intake: IV 20 Invasive Line 2 10 Invasive Line 3 10 Oral 776 118 Output: Urine 1275 1350 550 Other: Voiding Method Urinal Urinal - Labs CBC & Chem 7: 02/18/24 07:37 02/18/24 07:37 Labs: Abnormal Lab Results - Last 24 Hours (Table) 02/17/24 02/17/24 02/17/24 Range/Units 10:59 12:06 20:17 RBC (4.30-5.90) m/uL Hgb (13.0-17.5) gm/dL Hct (39.0-53.0) % MCHC (31.0-37.0) g/dL Chloride (98-107) mmol/L Carbon Dioxide (22-30) mmol/L BUN (9-20) mg/dL Creatinine (0.66-1.25) mg/dL Glucose (74-99) mg/dL POC Glucose (mg/dL) 119 H 136 H (70-110) mg/dL Calcium (8.4-10.2) mg/dL Total Protein (6.3-8.2) g/dL Albumin (3.5-5.0) g/dL Urine Protein 1+ H (Negative) Urine Glucose (UA) 4+ H (Negative) Urine Blood Small H (Negative) Urine RBC 13 H (0-5) /hpf 02/18/24 02/18/24 Range/Units 07:37 07:37 RBC 3.63 L (4.30-5.90) m/uL Hgb 9.7 L (13.0-17.5) gm/dL Hct 32.3 L (39.0-53.0) % MCHC 30.2 L (31.0-37.0) g/dL Chloride 108 H (98-107) mmol/L Carbon Dioxide 31 H (22-30) mmol/L BUN 30 H (9-20) mg/dL Creatinine 1.97 H (0.66-1.25) mg/dL Glucose 127 H (74-99) mg/dL POC Glucose (mg/dL) (70-110) mg/dL Calcium 8.3 L (8.4-10.2) mg/dL Total Protein 6.0 L (6.3-8.2) g/dL Albumin 3.1 L (3.5-5.0) g/dL Urine Protein (Negative) Urine Glucose (UA) (Negative) Urine Blood (Negative) Urine RBC (0-5) /hpf Assessment and Plan Plan: Assessment: 1. Acute kidney injury secondary to hemodynamic ATN and component of cardiorenal syndrome. Creatinine stable at 1.97 today. UA with 1+ protein and small blood with 13 RBCs. Rule out GN. 2. Chronic kidney disease stage IIIb with baseline creatinine 1.8 in November 2022. 3. Volume overload. 4. Acute on chronic diastolic CHF. 5. Morbid obesity. 6. Hypertension with chronic kidney disease. Plan: Patient scheduled to receive IV Lasix today by cardiology. Add torsemide 20 mg once daily. Clonidine patch also added. Maintain low-salt diet and fluid restriction. Maintain SGLT2 inhibitor. Also on Entresto and Aldactone. Repeat UA and check serologies. Quantify proteinuria. Continue to monitor renal function and urine output. Follow-up renin and aldosterone levels. Repeat BMP and magnesium level 2 to 3 days postdischarge. Advised to follow-up outpatient 1 week postdischarge.
[2024-02-18 11:20] LABS: Glucose,Whole Blood 105 mg/dL (70-110)
[2024-02-18 12:46] LABS: Appearance,Urine Clear (Clear); Bilirubin,Urine Negative (Negative); Blood,Urine Trace (Negative); Color,Urine Colorless; Glucose,Urine (UA) 4+ (Negative); Ketones,Urine Negative (Negative); Leukocyte Esterase,Urine Negative (Negative); Nitrite,Urine Negative (Negative); Protein,Urine 1+ (Negative); RBC,Urine 11 /hpf (0-5); Specific Gravity,Urine 1.012 (1.001-1.035); Urobilinogen,Urine <2.0 mg/dL (<2.0); WBC,Urine 1 /hpf (0-5)
[2024-02-18 13:02] LABS: Creatinine,Urine Random 59.5 mg/dL; Protein/Creatinine Ratio,Urine 2.168
[2024-02-18 16:06] LABS: Hepatitis A Antibody IgM Nonreactive (Nonreactive); Hepatitis B Surface Antigen Nonreactive (Nonreactive); Hepatitis C IgG Antibody Nonreactive (Nonreactive)
[2024-02-18 16:25] LABS: Glucose,Whole Blood 96 mg/dL (70-110)
[2024-02-18 16:41] LABS: Hepatitis B Core IgM Nonreactive (Nonreactive)
[2024-02-18] MEDS: FUROSEMIDE 10 MG/ML 2 ML VIAL IV ONE (18:50)
[2024-02-18] MEDS: cloNIDine 0.1 MG/24HR PATCH TRANSDERM SCH (18:50)
[2024-02-18 19:29] LABS: DNA Double-Stranded Negative (Negative)
[2024-02-18 19:30] LABS: Protein, Total 6.8 g/dL (6.2-8.2)
[2024-02-18 20:20] LABS: Glucose,Whole Blood 136 mg/dL (70-110)
--- NOTE | 2024-02-19 04:13 | PN ---
PROGRESS NOTE DATE OF SERVICE: 02/18/2024 CHIEF COMPLAINT: Acute congestive heart failure. HISTORY OF PRESENT ILLNESS: This gentleman is doing better with his breathing. Blood pressure has been under better control. Laboratory [facility], his hemoglobin is 9.7. BUN is 30 with a creatinine 1.97. PHYSICAL EXAMINATION: CHEST: Improving with better breath sounds. CARDIAC: Normal. ABDOMEN: Soft and nontender. EXTREMITIES: Normal. IMPRESSION: Acute congestive heart failure with preserved ejection fraction. PLAN: Continue to progress activity and he can probably be able to be discharged soon. MMODL / IJN: [id number] /
[2024-02-19 06:20] LABS: Glucose,Whole Blood 151 mg/dL (70-110)
[2024-02-19] MEDS: TORSEMIDE 20 MG TAB PO SCH (08:55)
[2024-02-19 09:39] VITALS: BMI 64.5
[2024-02-19] MEDS: FUROSEMIDE 10 MG/ML 4 ML VIAL IV STA (09:48)
--- NOTE | 2024-02-19 09:50 | P.PN ---
Subjective Patient is seen in follow-up for chronic kidney disease. Renal function stable. Has been voiding. Denies chest pain or shortness of breath. Oral intake is good. Vital signs are stable. General: No acute distress. HEENT: Head exam is unremarkable. LUNGS: No audible rhonchi or wheezes. HEART: Rate and Rhythm are regular. ABDOMEN: Obese, nontender. EXTREMITITES: 2+ edema. Objective - Vital Signs Vital signs: Vital Signs Temp 98.2 F 02/19/24 08:52 Pulse 73 02/19/24 08:52 Resp 17 02/19/24 08:52 BP 123/59 02/19/24 08:52 Pulse Ox 96 02/19/24 08:52 FiO2 Intake & Output 02/18/24 02/19/24 02/19/24 18:59 06:59 18:59 Intake Total 830 720 Output Total 2750 850 500 Balance -1920 -850 220 Weight 181.5 kg Intake: Oral 830 720 Output: Urine 2750 850 500 Other: Voiding Method Urinal Urinal # Voids 1 - Labs CBC & Chem 7: 02/18/24 07:37 02/18/24 07:37 Labs: Abnormal Lab Results - Last 24 Hours (Table) 02/14/24 02/18/24 02/18/24 Range/Units 17:59 11:00 20:17 POC Glucose (mg/dL) 136 H (70-110) mg/dL Renin Direct 2.8 L (3.1 - 57.1) pg/mL Urine Protein 1+ H (Negative) Urine Glucose (UA) 4+ H (Negative) Urine Blood Trace H (Negative) Urine RBC 11 H (0-5) /hpf 02/19/24 Range/Units 06:11 POC Glucose (mg/dL) 151 H (70-110) mg/dL Renin Direct (3.1 - 57.1) pg/mL Urine Protein (Negative) Urine Glucose (UA) (Negative) Urine Blood (Negative) Urine RBC (0-5) /hpf Assessment and Plan Plan: Assessment: 1. Acute kidney injury secondary to hemodynamic ATN and component of cardioren al syndrome. Creatinine stable at 1.97 yesterday. UA with 1+ protein and small blood with 11 RBCs. UPC 2.1 g. Rule out GN. 2. Chronic kidney disease stage IIIb with baseline creatinine 1.8 in November 2022. 3. Volume overload. Improving with diuresis. 4. Acute on chronic diastolic CHF. 5. Morbid obesity. 6. Hypertension with chronic kidney disease. Controlled. Renin 2.8 and aldosterone 25.6. Plan: Maintain torsemide. Maintain low-salt diet and fluid restriction. Maintain SGLT2 inhibitor. Also on Entresto and Aldactone. Follow-up serologies - hepatitis panel negative. Complements normal. KAI and double-stranded DNA antibody negative. Continue to monitor renal function and urine output. Check CT of the abdomen and pelvis as aldosterone slightly on the higher side. Will perform confirmation testing for primary aldosteronism outpatient and consider surgical options as well. Repeat BMP and magnesium level 2 to 3 days postdischarge. Advised to follow-up outpatient 1 week postdischarge. Will consider kidney biopsy outpatient. Currently on Xarelto.
[2024-02-19 11:22] LABS: Glucose,Whole Blood 127 mg/dL (70-110)
[2024-02-19 11:58] LABS: African American GFR (CKD) 43 (>60 ml/min/1.73 sqM); Anion Gap 7 mmol/L; Blood Urea Nitrogen 31 mg/dL (9-20); Carbon Dioxide 28 mmol/L (22-30); Chloride 107 mmol/L (98-107); Glucose 120 mg/dL (74-99); Magnesium 2.3 mg/dL (1.6-2.3); Non-African American GFR(CKD) 37 (>60 ml/min/1.73 sqM); Potassium 4.3 mmol/L (3.5-5.1); Sodium 142 mmol/L (137-145)
--- NOTE | 2024-02-19 12:25 | CT ---
EXAMINATION TYPE: CT abdomen pelvis wo con CT DLP: 2401.7 mGycm, Automated exposure control for dose reduction was used. DATE OF EXAM: 02/19/2024 12:00 PM COMPARISON: CT abdomen pelvis most recent from 02/08/2023 CLINICAL INDICATION:Male, 58 years old with history of HTN, r/o adrenal adenoma; HTN, R/O Adrenal isidra noma TECHNIQUE: Axial CT abdomen pelvis wo con;Sagittal and coronal reformats were created on a separate workstation. Contrast used: mL of , (none if empty) Oral contrast used: without Oral Contrast (none if empty) FINDINGS: LOWER CHEST: Unremarkable ABDOMEN LIVER: Unremarkable GALLBLADDER AND BILE DUCTS: Unremarkable. PANCREAS: Unremarkable. SPLEEN: Unremarkable. ADRENAL GLANDS: Elongated thickened appearance of the left adrenal gland. No right adrenal nodule. KIDNEYS AND URETERS: Masslike bulging of the inferior right kidney measuring 39 x 40 mm. PELVIS BLADDER: Unremarkable REPRODUCTIVE: Unremarkable. ABDOMEN & PELVIS STOMACH AND BOWEL: No evidence of bowel obstruction. PERITONEUM/RETROPERITONEUM: No evidence of pneumoperitoneum or free fluid. VASCULATURE: No evidence of aortic aneurysm. MUSCULOSKELETAL: No acute osseous abnormalities LYMPH NODES: No gross evidence for lymphadenopathy. SOFT TISSUE/ABDOMINAL WALL: Unremarkable IMPRESSION: 1. Adenomatous hypertrophy changes suggested of the left adrenal gland versus underlying adrenal isidra noma. Attention on follow-up MRI for potential right renal cell carcinoma. 2. Masslike bulging of the inferior posterior aspect of the right kidney measuring 40 x 39 mm correl ate with MRI renal mass protocol to rule out underlying renal cell carcinoma. 3. No acute abdominal process.
[2024-02-19 13:12] LABS: C-ANCA <1:20 Titer (<1:20)
--- NOTE | 2024-02-19 13:19 | P.PN ---
Subjective Progress Note Date: 02/19/24 CHF This is a 58-year-old -Citizen Of [place] gentleman with a past medical history significant for paroxysmal atrial fibrillation and heart failure with preserved ejection fraction as well as multiple comorbid conditions who was admitted to the hospital with hypertension emergency complicated by heart failure mainly right heart failure February 18, 2024 The patient was seen and evaluated this morning. He continues to have severe bilateral lower extremities edema but no shortness of breath and no chest pain. The pressure remains elevated and consistent now with resistant hypertension. I am going to start the patient on clonidine patches in addition to the current medical regimen and give the patient Lasix IV 1 dose and monitor the kidney function and electrolytes with the echo showed normal LV systolic function with no significant valvular abnormalities 02/18 Patient states that his lower extremity edema is a little bit better today although still a little puffy from his baseline. Yesterday he received 1 dose of IV Lasix and he was started on clonidine patch. Blood pressure readings are improved at 137/73, heart rate in the 70s, pulse ox 96% on room air. Patient is utilizing CPAP when sleeping. Examination heart rhythm regular, lungs diminished bilaterally, 3+ lower extremity edema. Assessment Hypertension emergency Resistant hypertension Heart failure with preserved ejection fraction Paroxysmal atrial fibrillation Morbid obesity Plan Continue clonidine patches to the current medical regimen Patient is cleared for discharge from cardiology and may follow-up in the office in 1 to 2 weeks. Nurse practitioner note has been reviewed, I agree with documented findings and plan of care. Patient was seen and examined. Objective - Vital Signs Vital signs: Vital Signs Temp 97.4 F L 02/19/24 04:00 Pulse 73 02/19/24 04:00 Resp 16 02/19/24 04:00 BP 137/73 02/19/24 04:00 Pulse Ox 99 02/19/24 04:00 FiO2 Intake & Output 02/18/24 02/19/24 02/19/24 18:59 06:59 18:59 Intake Total 830 Output Total 2750 850 Balance -1919 - Weight 181.5 kg Intake: Oral 830 Output: Urine 2750 850 Other: Voiding Method Urinal - Labs CBC & Chem 7: 02/18/24 07:37 02/19/24 10:49 Labs: Abnormal Lab Results - Last 24 Hours (Table) 02/14/24 02/18/24 02/18/24 Range/Units 17:59 07:37 07:37 RBC 3.63 L (4.30-5.90) m/uL Hgb 9.7 L (13.0-17.5) gm/dL Hct 32.3 L (39.0-53.0) % MCHC 30.2 L (31.0-37.0) g/dL Chloride 108 H (98-107) mmol/L Carbon Dioxide 31 H (22-30) mmol/L BUN 30 H (9-20) mg/dL Creatinine 1.97 H (0.66-1.25) mg/dL Glucose 127 H (74-99) mg/dL POC Glucose (mg/dL) (70-110) mg/dL Calcium 8.3 L (8.4-10.2) mg/dL Total Protein 6.0 L (6.3-8.2) g/dL Albumin 3.1 L (3.5-5.0) g/dL Renin Direct 2.8 L (3.1 - 57.1) pg/mL Urine Protein (Negative) Urine Glucose (UA) (Negative) Urine Blood (Negative) Urine RBC (0-5) /hpf 02/18/24 02/18/24 02/19/24 Range/Units 11:00 20:17 06:11 RBC (4.30-5.90) m/uL Hgb (13.0-17.5) gm/dL Hct (39.0-53.0) % MCHC (31.0-37.0) g/dL Chloride (98-107) mmol/L Carbon Dioxide (22-30) mmol/L BUN (9-20) mg/dL Creatinine (0.66-1.25) mg/dL Glucose (74-99) mg/dL POC Glucose (mg/dL) 136 H 151 H (70-110) mg/dL Calcium (8.4-10.2) mg/dL Total Protein (6.3-8.2) g/dL Albumin (3.5-5.0) g/dL Renin Direct (3.1 - 57.1) pg/mL Urine Protein 1+ H (Negative) Urine Glucose (UA) 4+ H (Negative) Urine Blood Trace H (Negative) Urine RBC 11 H (0-5) /hpf
[2024-02-19] MEDS ORDERED: FUROSEMIDE 40 MG TAB PO SCH (16:00)
[2024-02-19 16:23] LABS: Glucose,Whole Blood 128 mg/dL (70-110)
[2024-02-19 20:30] LABS: Glucose,Whole Blood 151 mg/dL (70-110)
[2024-02-20 06:03] LABS: Glucose,Whole Blood 128 mg/dL (70-110)
[2024-02-20 10:51] VITALS: TEMP 97.5
--- NOTE | 2024-02-20 11:17 | P.PN ---
Subjective Patient is seen in follow-up for chronic kidney disease. Renal function stable. Has been voiding. Denies chest pain or shortness of breath. Oral intake is good. Vital signs are stable. General: No acute distress. HEENT: Head exam is unremarkable. LUNGS: No audible rhonchi or wheezes. HEART: Rate and Rhythm are regular. ABDOMEN: Obese, nontender. EXTREMITITES: 1+ edema. Objective - Vital Signs Vital signs: Vital Signs Temp 97.5 F L 02/20/24 10:25 Pulse 67 02/20/24 10:25 Resp 18 02/20/24 10:25 BP 168/83 02/20/24 10:25 Pulse Ox 96 02/20/24 10:25 FiO2 Intake & Output 02/19/24 02/20/24 02/20/24 18:59 06:59 18:59 Intake Total 1470 118 Output Total 2650 2400 Balance -1180 -2400 118 Weight 181.5 kg 179.6 kg Intake: Oral 1470 118 Output: Urine 2650 2400 Other: Voiding Method Urinal Urinal Urinal # Voids 1 - Labs CBC & Chem 7: 02/18/24 07:37 02/19/24 10:49 Labs: Abnormal Lab Results - Last 24 Hours (Table) 02/18/24 02/19/24 02/19/24 Range/Units 12:05 10:49 11:21 BUN 31 H (9-20) mg/dL Creatinine 1.92 H (0.66-1.25) mg/dL Glucose 120 H (74-99) mg/dL POC Glucose (mg/dL) 127 H (70-110) mg/dL Tot Complement (CH50) >97 H (42 - 95) U/mL 02/19/24 02/19/24 02/20/24 Range/Units 16:21 20:23 05:55 BUN (9-20) mg/dL Creatinine (0.66-1.25) mg/dL Glucose (74-99) mg/dL POC Glucose (mg/dL) 128 H 151 H 128 H (70-110) mg/dL Tot Complement (CH50) (42 - 95) U/mL Assessment and Plan Plan: Assessment: 1. Acute kidney injury secondary to hemodynamic ATN and component of cardiorenal syndrome. Creatinine stable at 1.92 yesterday. UA with 1+ protein and small blood with 11 RBCs. UPC 2.1 g. Rule out GN. 2. Chronic kidney disease stage IIIb with baseline creatinine 1.8 in November 2022. 3. Volume overload. Improved with diuresis. 4. Acute on chronic diastolic CHF. 5. Morbid obesity. 6. Hypertension with chronic kidney disease. Hypokalemia on admission, low renin and elevated aldosterone level suggestive of primary hyperaldosteronism. CT of the abdomen and pelvis showed thickened left adrenal gland. 7. Diabetes mellitus. 8. Right kidney mass. Urology following. MRI outpatient. Plan: Maintain torsemide. Maintain low-salt diet and fluid restriction. Maintain SGLT2 inhibitor. Increased dose to 10 mg. Also on Entresto and Aldactone. Follow-up serologies - hepatitis panel negative. Complements normal. ANCA, KAI and double-stranded DNA antibody negative. Continue to monitor renal function and urine output. Repeat BMP and magnesium level 2 to 3 days postdischarge. Advised to follow-up outpatient 1 week postdischarge. Will consider kidney biopsy outpatient. Currently on Xarelto. Also discussed potential adrenalectomy. This will have to be done at a tertiary care facility if patient agreeable. Wants to think about it. Will readdress outpatient.
--- NOTE | 2024-02-20 11:23 | P.GSCN ---
History of Present Illness Consult date: 02/20/24 Reason for Consult: Right renal mass History of present illness: This is a 58-year-old male admitted to the hospital with chest pain. Urology is consulted for incidental finding of right-sided renal mass. He underwent a CT abdomen and pelvis to evaluate for an adrenal adenoma, at that point a 4 cm mass was seen along the right lower pole of the kidney, in addition to a right-sided upper pole renal cyst, images are limited secondary to noncontrast. He denies any flank pain, gross hematuria or any voiding symptoms. Of note he did have a CT scan in last year at that time the cyst and the mass was visualized and at that time mass measured 3 cm. No known family history of renal malignancies. No previous history of kidney stones or any renal surgeries. Review of Systems - Constitutional Denies fever, Denies weight loss - EENT Ears, nose, mouth and throat: Denies dysphagia - Cardiovascular Denies chest pain, Denies shortness of breath - Respiratory Denies cough, Denies 7 - Gastrointestinal Reports as per HPI - Genitourinary Denies dysuria, Denies hematuria Past Medical History Past Medical History: Atrial Fibrillation, Diabetes Mellitus, Hyperlipidemia, Hypertension, Renal Disease, Sleep Apnea/CPAP/BIPAP Additional Past Medical History / Comment(s): neuropathy, stage 3 renal failure, uses CPAP at home History of Any Multi-Drug Resistant Organisms: None Reported Past Surgical History: No Surgical Hx Reported Additional Past Surgical History / Comment(s): COLONOSCOPY Past Anesthesia/Blood Transfusion Reactions: No Reported Reaction Past Psychological History: No Psychological Hx Reported Smoking Status: Never smoker Past Alcohol Use History: None Reported Past Drug Use History: None Reported - Past Family History Father Family Medical History: No Reported History Additional Family Medical History / Comment(s): not sure Mother Family Medical History: Diabetes Mellitus, Hypertension Additional Family Medical History / Comment(s): mom is still alive Medications and Allergies Home Medications Medication Instructions Recorded Confirmed Type HYDROcodone/APAP 10-325MG [[place] 1 tab PO TID PRN 04/25/20 02/12/24 History 10-325] Empagliflozin [Jardiance] 25 mg PO DAILY 03/14/23 02/12/24 History Rivaroxaban [Xarelto] 20 mg PO DAILY 03/14/23 02/12/24 History Tamsulosin [Flomax] 0.4 mg PO DAILY 03/14/23 02/12/24 History hydrALAZINE HCL [Apresoline] 100 mg PO TID 03/14/23 02/12/24 History Insulin Glargine,Hum.rec.anlog 110 units SQ DAILY 02/12/24 02/12/24 History [Lantus Solostar Pen] Semaglutide [Ozempic] 1 mg SQ TH 02/12/24 02/12/24 History NIFEdipine XL [Procardia XL] 90 mg PO DAILY@12 #30 capsule 02/19/24 Rx Potassium Chloride ER [K-Dur 20] 20 meq PO BID #60 tab 02/19/24 Rx Sacubitril/Valsartan [Entresto 97 1 each PO BID #30 tab 02/19/24 Rx mg-103 mg Tablet] Spironolactone [Aldactone] 25 mg PO DAILY #30 tab 02/19/24 Rx carvediloL [Coreg*] 25 mg PO BID-W/MEALS #60 tab 02/19/24 Rx cloNIDine 0.1 MG/24HR PATCH 1 patch TRANSDERM Q7D #4 patch 02/19/24 Rx [Catapres-TTS] Allergies Allergy/AdvReac Type Severity Reaction Status Date / Time aspirin AdvReac Dyspnea Verified 02/12/24 10:45 Surgical - Exam Vital Signs Temp Pulse Resp BP Pulse Ox 98.5 F 83 16 195/81 96 02/12/24 09:10 02/12/24 09:10 02/12/24 09:10 02/12/24 09:10 02/12/24 09:10 - General no distress - Eyes normal ocular movement, no pale - ENT normal nares, normal mucosa - Respiratory normal expansion, normal respiratory effort - Abdomen Abdomen: soft, non tender Results - Labs 02/18/24 07:37 02/19/24 10:49 Abnormal Lab Results - Last 24 Hours (Table) 02/18/24 02/19/24 02/19/24 Range/Units 12:05 10:49 11:21 BUN 31 H (9-20) mg/dL Creatinine 1.92 H (0.66-1.25) mg/dL Glucose 120 H (74-99) mg/dL POC Glucose (mg/dL) 127 H (70-110) mg/dL Tot Complement (CH50) >97 H (42 - 95) U/mL 02/19/24 02/19/24 02/20/24 Range/Units 16:21 20:23 05:55 BUN (9-20) mg/dL Creatinine (0.66-1.25) mg/dL Glucose (74-99) mg/dL POC Glucose (mg/dL) 128 H 151 H 128 H (70-110) mg/dL Tot Complement (CH50) (42 - 95) U/mL Diabetes panel 02/19/24 Range/Units 10:49 Sodium 142 (137-145) mmol/L Potassium 4.3 (3.5-5.1) mmol/L Chloride 107 (98-107) mmol/L Carbon Dioxide 28 (22-30) mmol/L BUN 31 H (9-20) mg/dL Creatinine 1.92 H (0.66-1.25) mg/dL Glucose 120 H (74-99) mg/dL Calcium 9.0 (8.4-10.2) mg/dL Calcium panel 02/19/24 Range/Units 10:49 Calcium 9.0 (8.4-10.2) mg/dL Pituitary panel 02/19/24 Range/Units 10:49 Sodium 142 (137-145) mmol/L Potassium 4.3 (3.5-5.1) mmol/L Chloride 107 (98-107) mmol/L Carbon Dioxide 28 (22-30) mmol/L BUN 31 H (9-20) mg/dL Creatinine 1.92 H (0.66-1.25) mg/dL Glucose 120 H (74-99) mg/dL Calcium 9.0 (8.4-10.2) mg/dL Adrenal panel 02/19/24 Range/Units 10:49 Sodium 142 (137-145) mmol/L Potassium 4.3 (3.5-5.1) mmol/L Chloride 107 (98-107) mmol/L Carbon Dioxide 28 (22-30) mmol/L BUN 31 H (9-20) mg/dL Creatinine 1.92 H (0.66-1.25) mg/dL Glucose 120 H (74-99) mg/dL Calcium 9.0 (8.4-10.2) mg/dL - Imaging CT scan - abdomen: image reviewed (3.8 cm right lower pole renal mass) Assessment and Plan Assessment: This is a 58-year-old male with a history of right-sided renal mass, mild on review of imaging and measured approximately 3.8 cm from 3 cm a year ago. Image s are noncontrast assessments of limited evaluation, patient would require contrast images to further evaluate, given his CKD he is unable to have IV CT contrast given his morbid obesity is unlikely to fit through a regular MRI machine. At this time he will be set up for an open MRI as an outpatient to further evaluate -Open MRI of the abdomen as an outpatient to evaluate renal mass
[2024-02-20 11:41] LABS: Glucose,Whole Blood 141 mg/dL (70-110)
--- NOTE | 2024-02-20 11:43 | US ---
EXAMINATION TYPE: US kidneys/renal and bladder DATE OF EXAM: 02/20/2024 COMPARISON: CT 02/19/24; US 2022 CLINICAL INDICATION: Male, 58 years old with history of Attention to right kidney (abn CT); EXAM MEASUREMENTS: Right Kidney: 14.3 x 7.3 x 5.9 cm Left Kidney: 10.9 x 6.2 x 5.9 cm Right Kidney: Superior hypoechoic lesion measuring 7.2 x 8.5 x 7.1 cm (on 11/21/2022 ultrasound, it wa s measured as 5.9 x 4.9 x 4.5 cm but felt to have represented a cyst). No hydronephrosis. Left Kidney: Cystic structure measuring 3.4 x 3.1 x 3.0 cm. No hydronephrosis. Bladder: Wnl as visualized Bilateral Jets seen: No IMPRESSION: 1. Indeterminate lesion upper pole right kidney measuring 8.5 cm versus 5.9 cm, previously. Previousl y had the appearance of a cyst. Renal mass protocol MRI to further evaluate. 2. Additional rounded contour at the lower pole of the right kidney seen on CT not well demonstrated by ultrasound. That also appears slightly larger compared to 02/08/2023 CT (3.6 cm now versus 3.3 cm, previously). This should also be assessed on the renal mass protocol MRI. 3. No hydronephrosis on either side.
[2024-02-20 16:43] LABS: Glucose,Whole Blood 79 mg/dL (70-110)
[2024-02-20 17:12] VITALS: BP 128/73; PULSE 70; RESP 16
--- NOTE | 2024-02-20 17:21 | P.CONS ---
History of Present Illness - Reason for Consult Consult date: 02/20/24 Possible [facility] Requesting physician: Roe Chua - Chief Complaint Exertional dyspnea - History of Present Illness Mr. Harvey is a 58-year-old male we have been asked to see because of concerns for of right renal mass. Patient presented to the hospital with complaints of shortness of breath and intermittent chest pain. This was associated with lower extremity swelling that is been going on for few weeks. Patient has a known history of CHF. He was seen by Cardiology, serial troponins were negative. Chest x-ray reported borderline heart size, COPD, patchy bibasilar atelectasis versus an early infiltrate. WBC 11.7, hemoglobin 10.4, potassium 3.2, he has a known history of CKD, BUN 20 and creatinine 1.92. He was seen by nephrology for acute on chronic renal failure. There were some lab abnormalities noted so a CT of the abdomen and pelvis was done for elevated aldosterone. This revealed a right renal mass 40 x 39 mm. Patient denies any personal history of malignancy, no fevers, night sweats, new or unusual pain in the back or lower abdomen, dysuria, hematuria, oliguria, leg pain or weakness. He reports that he was told that he has had a renal cyst before. He thinks it was a few years ago. He thinks he saw Dr. May. Review of Systems 10 point review of systems is negative except as stated in HPI Past Medical History Past Medical History: Atrial Fibrillation, Diabetes Mellitus, Hyperlipidemia, Hypertension, Renal Disease, Sleep Apnea/CPAP/BIPAP Additional Past Medical History / Comment(s): neuropathy, stage 3 renal failure, uses CPAP at home History of Any Multi-Drug Resistant Organisms: None Reported Past Surgical History: No Surgical Hx Reported Additional Past Surgical History / Comment(s): COLONOSCOPY Past Anesthesia/Blood Transfusion Reactions: No Reported Reaction Past Psychological History: No Psychological Hx Reported Smoking Status: Never smoker Past Alcohol Use History: None Reported Past Drug Use History: None Reported - Past Family History Father Family Medical History: No Reported History Additional Family Medical History / Comment(s): not sure Mother Family Medical History: Diabetes Mellitus, Hypertension Additional Family Medical History / Comment(s): mom is still alive Medications and Allergies Home Medications Medication Instructions Recorded Confirmed Type HYDROcodone/APAP 10-325MG [[place] 1 tab PO TID PRN 04/25/20 02/12/24 History 10-325] Empagliflozin [Jardiance] 25 mg PO DAILY 03/14/23 02/12/24 History Rivaroxaban [Xarelto] 20 mg PO DAILY 03/14/23 02/12/24 History Tamsulosin [Flomax] 0.4 mg PO DAILY 03/14/23 02/12/24 History hydrALAZINE HCL [Apresoline] 100 mg PO TID 03/14/23 02/12/24 History Insulin Glargine,Hum.rec.anlog 110 units SQ DAILY 02/12/24 02/12/24 History [Lantus Solostar Pen] Semaglutide [Ozempic] 1 mg SQ TH 02/12/24 02/12/24 History NIFEdipine XL [Procardia XL] 90 mg PO DAILY@12 #30 capsule 02/19/24 Rx Potassium Chloride ER [K-Dur 20] 20 meq PO BID #60 tab 02/19/24 Rx Sacubitril/Valsartan [Entresto 97 1 each PO BID #30 tab 02/19/24 Rx mg-103 mg Tablet] Spironolactone [Aldactone] 25 mg PO DAILY #30 tab 02/19/24 Rx carvediloL [Coreg*] 25 mg PO BID-W/MEALS #60 tab 02/19/24 Rx cloNIDine 0.1 MG/24HR PATCH 1 patch TRANSDERM Q7D #4 patch 02/19/24 Rx [Catapres-TTS] Allergies Allergy/AdvReac Type Severity Reaction Status Date / Time aspirin AdvReac Dyspnea Verified 02/12/24 10:45 Physical Exam Vitals: Vital Signs Temp Pulse Pulse Resp BP Pulse Ox 02/20/24 04:00 97.8 F 72 18 123/79 96 02/19/24 23:58 97.8 F 75 18 108/65 97 02/19/24 20:00 97.7 F 82 18 134/73 96 02/19/24 15:49 70 16 164/66 96 02/19/24 11:07 77 17 145/81 96 Intake and Output 02/19/24 02/20/24 02/20/24 22:59 06:59 14:59 Intake Total 750 118 Output Total 1200 1600 Balance -450 -1600 118 Intake: Oral 750 118 Output: Urine 1200 1600 Other: Voiding Method Urinal Urinal Weight 179.6 kg - Constitutional General appearance: cooperative, morbidly obese, no acute distress - EENT Eyes: anicteric sclerae, EOMI ENT: hearing grossly normal, normal oropharynx - Neck Neck: no lymphadenopathy - Respiratory Respiratory: bilateral: CTA - Cardiovascular Rhythm: regular Heart sounds: normal: S1, S2 Abnormal Heart Sounds: no systolic murmur, no diastolic murmur, no rub, no S3 Gallop, no S4 Gallop, no click, no other leg Peripheral Edema: bilateral: Trace - Gastrointestinal General gastrointestinal: no absent bowel sounds, no decreased bowel sounds, no distended, no hepatomegaly, no hyperactive bowel sounds, normal bowel sounds, no organomegaly, no rigid, no scaphoid, soft, no splenomegaly, no tenderness, no umbilical hernia, no ventral hernia - Neurologic Neurologic: CNII-XII intact - Musculoskeletal Musculoskeletal: strength equal bilaterally - Psychiatric Psychiatric: A&O x's 3, appropriate affect, intact judgment & insight Results CBC & Chem 7: 02/18/24 07:37 02/19/24 10:49 Labs: Abnormal Lab Results - Last 24 Hours (Table) 02/18/24 02/19/24 02/19/24 Range/Units 12:05 10:49 11:21 BUN 31 H (9-20) mg/dL Creatinine 1.92 H (0.66-1.25) mg/dL Glucose 120 H (74-99) mg/dL POC Glucose (mg/dL) 127 H (70-110) mg/dL Tot Complement (CH50) >97 H (42 - 95) U/mL 02/19/24 02/19/24 02/20/24 Range/Units 16:21 20:23 05:55 BUN (9-20) mg/dL Creatinine (0.66-1.25) mg/dL Glucose (74-99) mg/dL POC Glucose (mg/dL) 128 H 151 H 128 H (70-110) mg/dL Tot Complement (CH50) (42 - 95) U/mL CT scan - abdomen: report reviewed CT scan - pelvis: report reviewed Assessment and Plan (1) Renal mass, right Current Visit: Yes Status: Acute Priority: High Code(s): N28.89 - OTHER SPECIFIED DISORDERS OF KIDNEY AND URETER SNOMED Code(s): 751861417 Plan: Renal mass -Discussed with patient possible reasons for what is being seen on the CT including a benign cyst versus malignant process. Need further evaluation -Patient states he was told he had a cyst before, he has seen a Urologist in the past. -Agree with Urology consult -Begin work up with a renal ultrasound. Patient agrees with plan further recommendations to follow. Normocytic normochromic anemia -On chart review patient has been iron deficient in the past -Iron studies will be ordered for evaluation. -Transfuse for a hemoglobin less than 7 or if patient is symptomatic Doctor attests: I performed a history and physical examination of this patient, developed impression and plan of care. Discussed with dictator. I agree with dictators note, documented as a scribe.
[2024-02-20 17:27] LABS: Protein, Total 6.8 g/dL (6.2-8.2)
[2024-02-20 22:44] LABS: Albumin 3.21 g/dL (3.80-4.90); Gamma Globulin 1.37 g/dL (0.70-1.50)
--- NOTE | 2024-02-21 00:37 | DS ---
DISCHARGE SUMMARY CHIEF COMPLAINT: Chest pain and shortness of breath. HISTORY OF PRESENT ILLNESS AND PHYSICAL EXAMINATION: Details of this man's history and physical can be found in the initial workup. LABORATORY STUDIES: While he was in the hospital, he had laboratory studies, details of which can be found in the laboratory section of his chart. COURSE IN THE HOSPITAL: After admission, he was placed on bedrest, started intravenous fluids. It is felt that he may have had an NSTEMI. His biggest problem was his uncontrolled hypertension and congestive heart failure. Medications were adjusted and added gradually. Blood pressure came down and heart failure improved. He began to diurese. He was doing well and was felt he could be discharged and then a mass was found in the lower half of the right kidney. It was felt this will require further evaluation and possibly surgical correction, but could go home anytime. Because of his heart, kidney failure, and obesity, he will not be a candidate for management of his potential tumor here at this institution. FINAL DIAGNOSES: 1. Acute NSTEMI. 2. Acute congestive heart failure. 3. Chronic congestive heart failure. 4. Chronic kidney disease. 5. Morbid obesity. 6. Right renal mass. PLAN: Home with light activity and follow up with us in several days. He will then be scheduled for an appointment at a tertiary hospital. MMODL / IJN: [id number] /
[2024-02-21] MEDS ORDERED: DAPAGLIFLOZIN PROPANEDIOL 10 MG TABLET PO SCH (09:00)
--- NOTE | 2024-02-22 01:49 | PN ---
PROGRESS NOTE DATE OF SERVICE: 02/19/2024 CHIEF COMPLAINT: Chest pain and CHF. HISTORY OF PRESENT ILLNESS: This gentleman is improving. Blood pressure is coming down. Shortness of breath is improving and there is less edema. His BUN is 34 with a creatinine of 2.15. Hemoglobin is slightly low at 10.6. PHYSICAL EXAMINATION: VITAL SIGNS: Normal. CHEST: Fairly clear. CARDIAC: Normal. ABDOMEN: Soft and protuberant. IMPRESSION: 1. Chest pain. 2. Acute on chronic congestive heart failure. 3. Anemia. 4. CKD. PLAN: Continue with diuresis and management of hypertension and start increasing his activity. MMODL / IJN: [id number] /
[2024-02-23 14:26] LABS: Albumin 3.25 g/dL (3.80-4.90); Gamma Globulin 1.39 g/dL (0.70-1.50)
== END 2024-02-20 18:51 | disposition home or self-care (01) | DRG 280 ==
LOC: EC 09:01 → 3SCARD 12:08 → INTOOBSV 12:09 → OBSVTOIN 12:09 → 3SCARD 14:33 → OBSVTOIN 02-13 13:17 → UNDODISIN 02-20 18:51
PROVIDERS: ADMIT Family Medicine; ATTEND Family Medicine
DX: I13.0 Hypertensive heart and chronic kidney disease with heart failure and stage 1 through stage 4 chronic kidney disease, or unspecified chronic kidney disease (principal); I50.33 Acute on chronic diastolic (congestive) heart failure; I21.A1 Myocardial infarction type 2; N17.0 Acute kidney failure with tubular necrosis; E66.2 Morbid (severe) obesity with alveolar hypoventilation; Z68.44 Body mass index [BMI] 60.0-69.9, adult; I48.20 Chronic atrial fibrillation, unspecified; I16.1 Hypertensive emergency; E11.22 Type 2 diabetes mellitus with diabetic chronic kidney disease; E11.40 Type 2 diabetes mellitus with diabetic neuropathy, unspecified; Z79.01 Long term (current) use of anticoagulants; N18.32 Chronic kidney disease, stage 3b; J44.9 Chronic obstructive pulmonary disease, unspecified; Z79.4 Long term (current) use of insulin; I48.0 Paroxysmal atrial fibrillation; I50.82 Biventricular heart failure; E26.09 Other primary hyperaldosteronism; I89.0 Lymphedema, not elsewhere classified; E87.6 Hypokalemia; I1A.0 Resistant hypertension; N28.89 Other specified disorders of kidney and ureter; N28.1 Cyst of kidney, acquired; E78.5 Hyperlipidemia, unspecified; Z79.84 Long term (current) use of oral hypoglycemic drugs; Z79.85 Long-term (current) use of injectable non-insulin antidiabetic drugs; Z88.6 Allergy status to analgesic agent; Z79.899 Other long term (current) drug therapy; Z82.49 Family history of ischemic heart disease and other diseases of the circulatory system
CPT/HCPCS: 36415; 71045; 71046; 74176; 76770; 80048; 80053; 80074; 81001; 82088; 82570; 83036; 83735; 83880; 84156; 84165; 84244; 84484; 85025; 85027; 85610; 85730; 86038; 86160; 86162; 86225; 86255; 86334; 93005; 93306; 94760; 96374; 96375; 99285

== ENCOUNTER 2024-05-17 11:29 | Emergency (ER) | payer OTHER ==
[2024-05-17 11:36] LABS: Glucose,Whole Blood 256 mg/dL (70-110)
[2024-05-17 11:42] VITALS: TEMP 98
--- NOTE | 2024-05-17 12:27 | ED ---
General Adult HPI - General Chief complaint: Syncope Stated complaint: Near Syncope Time Seen by Provider: 05/17/24 12:15 Source: patient, EMS Mode of arrival: EMS Limitations: no limitations - History of Present Illness Initial comments: Dictation was produced using [employer] dictation software. please excuse any grammatical, word or spelling errors. Chief Complaint: 58-year-old male presents to the emergency department for syncope History of Present Illness: Patient is a 58-year-old male he has multiple comorbidities including A-fib diabetes dyslipidemia. Patient has sleep apnea. Today he woke up having his couple coffee when all of a sudden he started to feel little lightheaded and tingling in his hands. Patient states that his significant other told him that he passed out. EMS was called and patient was found to be hypoglycemic with blood sugar 55. Had some orange juice and ate some cereal and his sugar was rechecked was found to be in the 200s. Patient states that he feels like his neck and head feel little heavy however does not have any other complaints. The ROS documented in this emergency department record has been reviewed and confirmed by me. Those systems with pertinent positive or negative responses have been documented in the HPI. All other systems are other negative and/or noncontributory. - Related Data Home Medications Medication Instructions Recorded Confirmed HYDROcodone/APAP 10-325MG [[place] 1 tab PO TID PRN 04/25/20 02/12/24 10-325] Empagliflozin [Jardiance] 25 mg PO DAILY 03/14/23 02/12/24 Rivaroxaban [Xarelto] 20 mg PO DAILY 03/14/23 02/12/24 Tamsulosin [Flomax] 0.4 mg PO DAILY 03/14/23 02/12/24 hydrALAZINE HCL [Apresoline] 100 mg PO TID 03/14/23 02/12/24 Insulin Glargine,Hum.rec.anlog 110 units SQ DAILY 02/12/24 02/12/24 [Lantus Solostar Pen] Semaglutide [Ozempic] 1 mg SQ TH 02/12/24 02/12/24 Previous Rx's Medication Instructions Recorded NIFEdipine XL [Procardia XL] 90 mg PO DAILY@12 #30 capsule 02/19/24 Potassium Chloride ER [K-Dur 20] 20 meq PO BID #60 tab 02/19/24 Sacubitril/Valsartan [Entresto 97 1 each PO BID #30 tab 02/19/24 mg-103 mg Tablet] Spironolactone [Aldactone] 25 mg PO DAILY #30 tab 02/19/24 carvediloL [Coreg*] 25 mg PO BID-W/MEALS #60 tab 02/19/24 cloNIDine 0.1 MG/24HR PATCH 1 patch TRANSDERM Q7D #4 patch 02/19/24 [Catapres-TTS] Allergies Allergy/AdvReac Type Severity Reaction Status Date / Time aspirin AdvReac Dyspnea Verified 02/12/24 10:45 Review of Systems ROS Statement: Those systems with pertinent positive or pertinent negative responses have been documented in the HPI. ROS Other: All systems not noted in ROS Statement are negative. Past Medical History Past Medical History: Atrial Fibrillation, Heart Failure, Diabetes Mellitus, Hyperlipidemia, Hypertension, Renal Disease, Sleep Apnea/CPAP/BIPAP Additional Past Medical History / Comment(s): neuropathy, stage 3 renal failure, uses CPAP at home History of Any Multi-Drug Resistant Organisms: None Reported Past Surgical History: No Surgical Hx Reported Additional Past Surgical History / Comment(s): COLONOSCOPY Past Anesthesia/Blood Transfusion Reactions: No Reported Reaction Past Psychological History: No Psychological Hx Reported Smoking Status: Never smoker Past Alcohol Use History: None Reported Past Drug Use History: None Reported - Past Family History Father Family Medical History: No Reported History Additional Family Medical History / Comment(s): not sure Mother Family Medical History: Diabetes Mellitus, Hypertension Additional Family Medical History / Comment(s): mom is still alive General Exam - General Exam Comments Initial Comments: PHYSICAL EXAM: General Impression: Alert and oriented x3, not in acute distress HEENT: Normocephalic atraumatic, extra-ocular movements intact, pupils equal and reactive to light bilaterally, mucous membranes moist. Cardiovascular: Heart regular rate and rhythm Chest: Able to complete full sentences, no retractions, no tachypnea Abdomen: abdomen soft, non-tender, non-distended, no organomegaly Musculoskeletal: Pulses present and equal in all extremities, no peripheral edema Motor: no focal deficits noted Neurological: CN II-XII grossly intact, no focal motor or sensory deficits noted Skin: Intact with no visualized rashes Psych: Normal affect and mood Limitations: no limitations Course Vital Signs 05/17/24 05/17/24 05/17/24 11:38 11:44 14:22 Temperature 98.0 F 98.0 F Pulse Rate 78 Pulse Rate [ 78 63 Car Rental Agency Manager ] Respiratory 18 20 Rate Blood Pressure 140/57 Blood Pressure 171/79 [Right Arm Sitting] Blood Pressure 158/81 [Right Arm Standing] Blood Pressure 166/75 [Right Arm Supine] O2 Sat by Pulse 99 97 Oximetry 05/17/24 14:31 Temperature Pulse Rate 68 Pulse Rate [ Car Rental Agency Manager ] Respiratory 18 Rate Blood Pressure 172/84 Blood Pressure [Right Arm Sitting] Blood Pressure [Right Arm Standing] Blood Pressure [Right Arm Supine] O2 Sat by Pulse 96 Oximetry - Reevaluation(s) Reevaluation #1: 05/17/24 15:20 Echocardiogram from February 14, 2024 shows normal ejection fraction and no significant abnormalities. EKG Findings - EKG Comments: EKG Findings:: My EKG interpretation: Ventricular rate 77, sinus rhythm,. 09/18/2025, QRS 133, QTc 478. No NH prolongation, no QTC prolongation, no ST or T- wave changes noted. Overall, this EKG is unremarkable Medical Decision Making - Medical Decision Making Was pt. sent in by a medical professional or institution (, PA, LABEL SEWER, urgent care, hospital, or skilled nursing...) When possible be specific @ -No Did you speak to anyone other than the patient for history (EMS, parent, family, police, friend...)? What history was obtained from this source @ -No Did you review nursing and triage notes (agree or disagree)? Why? @ -I reviewed and agree with nursing and triage notes Were old charts reviewed (outside hosp., previous admission, EMS record, old EKG, old radiological studies, urgent care reports/EKG's, skilled nursing records)? Report findings @ -See above Differential Diagnosis (chest pain, altered mental status, abdominal pain women, abdominal pain men, vaginal bleeding, musculoskeletal, weakness, fever, dyspnea, syncope, headache, dizziness, GI bleed, back pain, seizure, CVA, palpatations, mental health)? @ -Differential Syncope: Valvular disease, hypertrophic cardiomyopathy, pulmonary embolism, tamponade, tachycardia, bradycardia, VA, hypovolemia, hemorrhage, dissection, anemia, intracranial hemorrhage, seizure, hypoglycemia, carbon monoxide poisoning, this is not meant to be an all-inclusive list. EKG interpreted by me (3pts min.). @ -See above X-rays interpreted by me (1pt min.). @ -None done CT interpreted by me (1pt min.). @ -None done U/S interpreted by me (1pt. min.). @ -None done What testing was considered but not performed or refused? (CT, X-rays, U/S, labs)? Why? @ -None What meds were considered but not given or refused? Why? @ -None Was smoking cessation discussed for >3mins.? @ -No Were there social determinants of health that impacted care today? How? (Homelessness, low income, unemployed, alcoholism, drug addiction, transportation, low edu. Level, literacy, decrease access to med. care, custodial, rehab)? @ -No Was there de-escalation of care discussed even if they declined (Discuss DNR or withdrawal of care, Hospice)? DNR status @ -No What co-morbidities impacted this encounter? (DM, HTN, Smoking, COPD, CAD, Cancer, CVA, ARF, Chemo, Hep., AIDS, mental health diagnosis, sleep apnea, morbid obesity)? @ -58-year-old male presents to the emergency department with episode of presyncope. More history was obtained from at the bedside states that he did not fully pass out but started to feel little lightheaded sweaty. That is when it was discovered that patient's blood glucose was 55. Patient is a diabetic.. Does not take insulin. Vital signs stable. Patient well-appearing his physical examination is unremarkable. Laboratory evaluation obtained. Potassium level 2.6. Patient given IV and oral potassium. reports that patient forgot to take some of his potassium pills recently. Patient monitored in the ER with no recurrence of hypoglycemia. Disposition options were discussed. Patient was offered observation admission however would prefer to be discharged. at the bedside states that they have a glucometer and he still to be monitored at home. Return precautions discussed. Was patient admitted / discharged? Hospital course, mention meds given and route, prescriptions, significant lab abnormalities, going to OR and other pertinent info. @ -See above Did you discuss the management of the patient with other professionals (professionals i.e. , PA, LABEL SEWER, lab, RT, psych nurse, social science instructor, test desk trouble locator, teacher, licensed mortgage loan officer, comp field case manager)? Give summary @ -No Was critical care preformed (if so, how long)? @ -No Undiagnosed new problem with uncertain prognosis? @ -No Drug Therapy requiring intensive monitoring for toxicity (Heparin, Nitro, Insulin, Cardizem)? @ -No Were any procedures done? @ -No Diagnosis/symptom? Acute, or Chronic, or Acute on Chronic? Uncomplicated (without systemic symptoms) or Complicated (systemic symptoms)? @ -Hypoglycemia Side effects of treatment? @ -No Exacerbation, Progression, or Severe Exacerbation? @ -No Poses a threat to life or bodily function? How? (Chest pain, [place], VA, pneumonia, PE, COPD, DKA, ARF, appy, cholecystitis, CVA, Diverticulitis, Homicidal, Suicidal, threat to staff... and all critical care pts) @ -yes - Lab Data Result diagrams: 05/17/24 12:33 05/17/24 12:33 Lab Results 05/17/24 05/17/24 05/17/24 Range/Units 11:35 12:33 12:33 WBC 8.8 (3.8-10.6) k/uL RBC 3.86 L (4.30-5.90) m/uL Hgb 10.6 L (13.0-17.5) gm/dL Hct 32.8 L (39.0-53.0) % MCV 84.9 (80.0-100.0) fL MCH 27.5 (25.0-35.0) pg MCHC 32.4 (31.0-37.0) g/dL RDW 15.8 H (11.5-15.5) % Plt Count 269 (150-450) k/uL MPV 8.6 Neutrophils % 82 % Lymphocytes % 9 % Monocytes % 5 % Eosinophils % 3 % Basophils % 0 % Neutrophils # 7.2 (1.3-7.7) k/uL Lymphocytes # 0.8 L (1.0-4.8) k/uL Monocytes # 0.5 (0-1.0) k/uL Eosinophils # 0.2 (0-0.7) k/uL Basophils # 0.0 (0-0.2) k/uL Sodium 140 (137-145) mmol/L Potassium 2.6 L* (3.5-5.1) mmol/L Chloride 106 (98-107) mmol/L Carbon Dioxide 28 (22-30) mmol/L Anion Gap 6 mmol/L BUN 24 H (9-20) mg/dL Creatinine 2.02 H (0.66-1.25) mg/dL Est GFR (CKD-EPI)AfAm 40 (>60 ml/min/1.73 sqM) Est GFR (CKD-EPI)NonAf 35 (>60 ml/min/1.73 sqM) Glucose 244 H (74-99) mg/dL POC Glucose (mg/dL) 256 H (70-110) mg/dL POC Glu [employer] ID Belval, Britt Calcium 8.5 (8.4-10.2) mg/dL Total Bilirubin 0.4 (0.2-1.3) mg/dL AST 22 (17-59) U/L ALT 19 (4-49) U/L Alkaline Phosphatase 85 (38-126) U/L Total Protein 5.8 L (6.3-8.2) g/dL Albumin 3.1 L (3.5-5.0) g/dL 05/17/24 Range/Units 14:18 WBC (3.8-10.6) k/uL RBC (4.30-5.90) m/uL Hgb (13.0-17.5) gm/dL Hct (39.0-53.0) % MCV (80.0-100.0) fL MCH (25.0-35.0) pg MCHC (31.0-37.0) g/dL RDW (11.5-15.5) % Plt Count (150-450) k/uL MPV Neutrophils % % Lymphocytes % % Monocytes % % Eosinophils % % Basophils % % Neutrophils # (1.3-7.7) k/uL Lymphocytes # (1.0-4.8) k/uL Monocytes # (0-1.0) k/uL Eosinophils # (0-0.7) k/uL Basophils # (0-0.2) k/uL Sodium (137-145) mmol/L Potassium (3.5-5.1) mmol/L Chloride (98-107) mmol/L Carbon Dioxide (22-30) mmol/L Anion Gap mmol/L BUN (9-20) mg/dL Creatinine (0.66-1.25) mg/dL Est GFR (CKD-EPI)AfAm (>60 ml/min/1.73 sqM) Est GFR (CKD-EPI)NonAf (>60 ml/min/1.73 sqM) Glucose (74-99) mg/dL POC Glucose (mg/dL) 226 H (70-110) mg/dL POC Glu [employer] Belval, Britt Calcium (8.4-10.2) mg/dL Total Bilirubin (0.2-1.3) mg/dL AST (17-59) U/L ALT (4-49) U/L Alkaline Phosphatase (38-126) U/L Total Protein (6.3-8.2) g/dL Albumin (3.5-5.0) g/dL Disposition Clinical Impression: Hypokalemia Disposition: HOME SELF-CARE Condition: Fair Instructions (If sedation given, give patient instructions): Hypokalemia (ED) Is patient prescribed a controlled substance at d/c from ED?: No Referrals: Tj Chavis MD [Primary Care Provider] - 1-2 days Time of Disposition: 15:30
[2024-05-17 12:42] LABS: Basophils % (A) 0 %; Eosinophils # (A) 0.2 k/uL (0-0.7); Eosinophils % (A) 3 %; HCT 32.8 % (39.0-53.0); HGB 10.6 gm/dL (13.0-17.5); Lymphocytes # (A) 0.8 k/uL (1.0-4.8); Lymphocytes % (A) 9 %; MCH 27.5 pg (25.0-35.0); MCHC 32.4 g/dL (31.0-37.0); MCV 84.9 fL (80.0-100.0); Mean Platelet Volume 8.6; Monocytes # (A) 0.5 k/uL (0-1.0); Monocytes % (A) 5 %; Neutrophils # (A) 7.2 k/uL (1.3-7.7); Neutrophils % (A) 82 %; Platelet Count 269 k/uL (150-450); RBC 3.86 m/uL (4.30-5.90); RDW 15.8 % (11.5-15.5); WBC 8.8 k/uL (3.8-10.6)
[2024-05-17 13:10] LABS: ALT 19 U/L (4-49); AST 22 U/L (17-59); African American GFR (CKD) 40 (>60 ml/min/1.73 sqM); Albumin 3.1 g/dL (3.5-5.0); Alkaline Phosphatase 85 U/L (38-126); Anion Gap 6 mmol/L; Blood Urea Nitrogen 24 mg/dL (9-20); Calcium 8.5 mg/dL (8.4-10.2); Carbon Dioxide 28 mmol/L (22-30); Chloride 106 mmol/L (98-107); Glucose 244 mg/dL (74-99); Non-African American GFR(CKD) 35 (>60 ml/min/1.73 sqM); Sodium 140 mmol/L (137-145); Total Bilirubin 0.4 mg/dL (0.2-1.3); Total Protein 5.8 g/dL (6.3-8.2)
[2024-05-17 13:13] LABS: Potassium 2.6 mmol/L (3.5-5.1)
[2024-05-17] MEDS: POTASSIUM CHLORIDE 20 MEQ in WATER FOR INJECTION 1 100ML.BAG IVPB STA (13:24)
[2024-05-17] MEDS: POTASSIUM CHLORIDE ER 20 MEQ TAB.ER PO STA (13:29)
[2024-05-17 14:19] LABS: Glucose,Whole Blood 226 mg/dL (70-110)
[2024-05-17 14:32] VITALS: RESP 18
[2024-05-17 15:44] VITALS: BP 172/79; PULSE 80
== END 2024-05-17 15:43 | disposition home or self-care (01) ==
LOC: EC 11:29
CPT/HCPCS: 36415; 80053; 85025; 93005; 96365; 96366; 99284

== ENCOUNTER → 2024-05-22 | Outpatient (CLI) | payer OTHER ==
--- NOTE | 2024-05-28 19:30 | PE ---
EXAMINATION TYPE: PET CT fusion skull to thigh DATE OF EXAM: 05/22/2024 COMPARISON: 02/19/2024 CT abdomen pelvis Prior PET/CT: No prior PET/CT at this location HISTORY: Right renal cancer TECHNIQUE: Following the intravenous administration of 11.39 mCi of F-18 FDG, whole body images are performed from the skull base to the midthigh. Images are reviewed on the computer in the coronal, a xial, and sagittal planes. Reconstructed rotating images are created on independent workstation and reviewed on the computer. A localization and attenuation correction CT is performed in conjunction with the PET scan. DLP: 1157.27 mGycm SCAN: Initial Blood glucose: 57 mg/dL Average Mediastinum SUV: 2.13 Average Liver SUV: 2.16 FINDINGS: NECK: No abnormal uptake THORAX: No abnormal uptake ABDOMEN: There is intense activity at superior pole right kidney with an SUV of 13.66, Example image 135. Remainder of the kidneys have normal uptake for the kidneys. PELVIS: No suspicious uptake. The prominent inguinal lymph nodes do not have elevated uptake. OSSEOUS STRUCTURES: No abnormal uptake LOCALIZATION CT: Beam hardening artifact limits evaluation of the visualized structures on the locali zation CT. There may be a retroesophageal right subclavian artery. Enlarged bilateral inguinal lymph nodes are readily apparent COMPARISON: No significant interval change within the right kidney is evident. IMPRESSION: 1. There is intense heterogenous uptake within the upper pole right kidney greater than the remainder of the more normal-appearing uptake within the kidneys. Finding may be related to the patient's repo rted right renal cancer. 2. No suspicious changes to suggest metastasis.
== END | disposition home or self-care (01) ==
LOC: RADPETMAIN 11:19
PROVIDERS: ATTEND Internal Medicine Hematology & Oncology
DX: C64.1 Malignant neoplasm of right kidney, except renal pelvis (principal); D49.511 Neoplasm of unspecified behavior of right kidney
CPT/HCPCS: 78815; A9552

== ENCOUNTER 2024-07-29 13:19 | Emergency (ER) | payer OTHER ==
[2024-07-29 15:13] LABS: Basophils % (A) 0 %; Eosinophils # (A) 0.2 k/uL (0-0.7); Eosinophils % (A) 3 %; HCT 32.6 % (39.0-53.0); HGB 10.3 gm/dL (13.0-17.5); Hypochromasia Slight; Lymphocytes # (A) 1.1 k/uL (1.0-4.8); Lymphocytes % (A) 14 %; MCH 26.6 pg (25.0-35.0); MCHC 31.6 g/dL (31.0-37.0); Monocytes # (A) 0.5 k/uL (0-1.0); Monocytes % (A) 6 %; Neutrophils % (A) 75 %; Platelet Count 270 k/uL (150-450); RBC 3.88 m/uL (4.30-5.90); RDW 14.9 % (11.5-15.5)
[2024-07-29 15:22] LABS: INR 1.2 (<1.2); Partial Thromboplastin Time 33.9 sec (22.0-30.0); Prothrombin Time 13.1 sec (10.0-12.5)
--- NOTE | 2024-07-29 15:22 | ED ---
Recheck HPI - General Chief Complaint: Recheck/Abnormal Lab/Rx Stated Complaint: Abn labs Time Seen by Provider: 07/29/24 15:20 Source: patient Mode of arrival: ambulatory Limitations: no limitations - History of Present Illness Initial Comments: 58-year-old male presenting to the ER for low potassium level. Patient states he was getting labs drawn at [facility] as he is currently being worked up for possible kidney cancer. Patient was called and told he needed to go to the ER for low potassium level. Patient is currently asymptomatic. Denies chest pain, shortness of breath, abdominal pain. Patient states he has a history of low potassium and usually takes potassium chloride supplements daily however has been out for the past 3 days. Takes Xarelto for atrial fibrillation - Related Data Home Medications Medication Instructions Recorded Confirmed HYDROcodone/APAP 10-325MG [[place] 1 tab PO TID PRN 04/25/20 07/29/24 10-325] Rivaroxaban [Xarelto] 20 mg PO DAILY 03/14/23 07/29/24 Tamsulosin [Flomax] 0.4 mg PO DAILY 03/14/23 07/29/24 hydrALAZINE HCL [Apresoline] 100 mg PO TID 03/14/23 07/29/24 Insulin Glargine,Hum.rec.anlog 110 units SQ DAILY PRN 02/12/24 07/29/24 [Lantus Solostar Pen] Semaglutide [Ozempic] 1 mg SQ TH 02/12/24 07/29/24 Atorvastatin [Lipitor] 80 mg PO HS 07/29/24 07/29/24 Furosemide [Lasix] 80 mg PO DAILY 07/29/24 07/29/24 NIFEdipine XL [Procardia XL] 90 mg PO DAILY 07/29/24 07/29/24 Potassium Chloride ER [K-Dur 20] 20 meq PO DAILY 07/29/24 07/29/24 Sacubitril/Valsartan [Entresto 97 1 tab PO BID 07/29/24 07/29/24 mg-103 mg Tablet] Zolpidem [Ambien] 10 mg PO HS PRN 07/29/24 07/29/24 cloNIDine 0.1 MG/24HR PATCH 1 patch TRANSDERM TU 07/29/24 07/29/24 [Catapres-TTS] Previous Rx's Medication Instructions Recorded carvediloL [Coreg*] 25 mg PO BID-W/MEALS #60 tab 02/19/24 Allergies Allergy/AdvReac Type Severity Reaction Status Date / Time aspirin AdvReac Dyspnea Verified 07/29/24 17:06 Review of Systems ROS Statement: Those systems with pertinent positive or pertinent negative responses have been documented in the HPI. ROS Other: All systems not noted in ROS Statement are negative. Past Medical History Past Medical History: Atrial Fibrillation, Cancer, Heart Failure, Diabetes Mellitus, Hyperlipidemia, Hypertension, Renal Disease, Sleep Apnea/CPAP/BIPAP Additional Past Medical History / Comment(s): neuropathy, stage 3 renal failure, uses CPAP at home History of Any Multi-Drug Resistant Organisms: None Reported Past Surgical History: No Surgical Hx Reported Additional Past Surgical History / Comment(s): COLONOSCOPY Past Anesthesia/Blood Transfusion Reactions: No Reported Reaction Past Psychological History: No Psychological Hx Reported Smoking Status: Never smoker Past Alcohol Use History: None Reported Past Drug Use History: None Reported - Past Family History Father Family Medical History: No Reported History Additional Family Medical History / Comment(s): not sure Mother Family Medical History: Diabetes Mellitus, Hypertension Additional Family Medical History / Comment(s): mom is still alive General Exam Limitations: no limitations General appearance: alert, in no apparent distress Head exam: Present: atraumatic, normocephalic, normal inspection Eye exam: Present: normal appearance, PERRL, EOMI. Absent: scleral icterus, conjunctival injection, periorbital swelling ENT exam: Present: normal exam, mucous membranes moist Respiratory exam: Present: normal lung sounds bilaterally. Absent: respiratory distress, wheezes, rales, rhonchi, stridor Cardiovascular Exam: Present: regular rate, normal rhythm, normal heart sounds. Absent: systolic murmur, diastolic murmur, rubs, gallop, clicks GI/Abdominal exam: Present: soft, normal bowel sounds. Absent: distended, tenderness, guarding, rebound, rigid Neurological exam: Present: alert, oriented X3 Psychiatric exam: Present: normal affect, normal mood Skin exam: Present: warm, dry, intact, normal color. Absent: rash Course Vital Signs 07/29/24 13:20 Temperature 97.9 F Pulse Rate 77 Respiratory 20 Rate Blood Pressure 131/77 O2 Sat by Pulse 98 Oximetry Medical Decision Making - Medical Decision Making Was pt. sent in by a medical professional or institution (FORTINO Whyte, [facility], urgent care, hospital, or long term...) When possible be specific @ -Sent by PCP for hypokalemia Did you speak to anyone other than the patient for history (EMS, parent, family, police, friend...)? What history was obtained from this source @ -No Did you review nursing and triage notes (agree or disagree)? Why? @ -I reviewed and agree with nursing and triage notes Were old charts reviewed (outside hosp., previous admission, EMS record, old EKG, old radiological studies, urgent care reports/EKG's, long term records)? Report findings @ -No old charts were reviewed Differential Diagnosis (chest pain, altered mental status, abdominal pain women, abdominal pain men, vaginal bleeding, weakness, fever, dyspnea, syncope, headache, dizziness, GI bleed, back pain, seizure, CVA, palpatations, mental health, musculoskeletal)? @ -Not applicable EKG interpreted by me (3pts min.). @ -As above X-rays interpreted by me (1pt min.). @ -None done CT interpreted by me (1pt min.). @ -None done U/S interpreted by me (1pt. min.). @ -None done What testing was considered but not performed or refused? (CT, X-rays, U/S, labs)? Why? @ -None What meds were considered but not given or refused? Why? @ -None Did you discuss the management of the patient with other professionals (professionals i.e. FORTINO Whyte, EDGE GLUER, lab, RT, psych nurse, aids social worker, supervisor cleaning and annealing, teacher, business enterprise officer, heel caser)? Give summary @ -No Was smoking cessation discussed for >3mins.? @ -No Was critical care preformed (if so, how long)? @ -No Were there social determinants of health that impacted care today? How? (Homelessness, low income, unemployed, alcoholism, drug addiction, transportation, low edu. Level, literacy, decrease access to med. care, group home, rehab)? @ -No Was there de-escalation of care discussed even if they declined (Discuss DNR or withdrawal of care, Hospice)? DNR status @ -No What co-morbidities impacted this encounter? (DM, HTN, Smoking, COPD, CAD, Cancer, CVA, ARF, Chemo, Hep., AIDS, mental health diagnosis, sleep apnea, m orbid obesity)? @ -None Was patient admitted / discharged? Hospital course, mention meds given and r oute, prescriptions, significant lab abnormalities, going to OR and other pertinent info. @ -Discharged. This is a 58-year-old male sent by PCP for hypokalemia during routine lab draw earlier today. Patient states he has a history of hypokalemia and takes potassium supplements twice daily however has been out of his supplements for about 3 days. Denies chest pain, shortness of breath. He is as ymptomatic. EKG reveals atrial fibrillation with normal rate and no ST changes. Patient states that this is chronic and is currently on Xarelto. Lab work remarkable for potassium 2.8, creatinine 1.9 which is comparable to baseline, hemoglobin 10.3 comparable to baseline, troponin 0.042 comparable to baseline. Patient is adamant that he does not want to be admitted to the hospital today. I believe it is reasonable to give 1 bag potassium IV and 40 oral units of potassium and discharged with close follow-up with PCP tomorrow. Patient is agreeable to this plan. Case was discussed with my ED attending Dr. Ludwig. Undiagnosed new problem with uncertain prognosis? @ -No Drug Therapy requiring intensive monitoring for toxicity (Heparin, Nitro, Insulin, Cardizem)? @ -No Were any procedures done? @ -No Diagnosis/symptom? @ -Hypokalemia Acute, or Chronic, or Acute on Chronic? @ -Acute Uncomplicated (without systemic symptoms) or Complicated (systemic symptoms)? @ -Uncomplicated Side effects of treatment? @ -No Exacerbation, Progression, or Severe Exacerbation? @ -No Poses a threat to life or bodily function? How? (Chest pain, [place], [place], pneumonia, PE, COPD, DKA, ARF, appy, cholecystitis, CVA, Diverticulitis, Homicidal, Suicidal, threat to staff... and all critical care pts) @ -Not at this time - Lab Data Result diagrams: 07/29/24 15:05 07/29/24 15:05 Lab Results 07/29/24 07/29/24 07/29/24 Range/Units 15:05 15:05 15:05 WBC 8.0 (3.8-10.6) k/uL RBC 3.88 L (4.30-5.90) m/uL Hgb 10.3 L (13.0-17.5) gm/dL Hct 32.6 L (39.0-53.0) % MCV 84.0 (80.0-100.0) fL MCH 26.6 (25.0-35.0) pg MCHC 31.6 (31.0-37.0) g/dL RDW 14.9 (11.5-15.5) % Plt Count 270 (150-450) k/uL MPV 8.0 Neutrophils % 75 % Lymphocytes % 14 % Monocytes % 6 % Eosinophils % 3 % Basophils % 0 % Neutrophils # 6.0 (1.3-7.7) k/uL Lymphocytes # 1.1 (1.0-4.8) k/uL Monocytes # 0.5 (0-1.0) k/uL Eosinophils # 0.2 (0-0.7) k/uL Basophils # 0.0 (0-0.2) k/uL Hypochromasia Slight PT 13.1 H (10.0-12.5) sec INR 1.2 H (<1.2) APTT 33.9 H (22.0-30.0) sec Sodium 141 (137-145) mmol/L Potassium 2.8 L (3.5-5.1) mmol/L Chloride 105 (98-107) mmol/L Carbon Dioxide 30 (22-30) mmol/L Anion Gap 6 mmol/L BUN 20 (9-20) mg/dL Creatinine 1.90 H (0.66-1.25) mg/dL Est GFR (CKD-EPI)AfAm 43 (>60 ml/min/1.73 sqM) Est GFR (CKD-EPI)NonAf 38 (>60 ml/min/1.73 sqM) Glucose 117 H (74-99) mg/dL Calcium 8.4 (8.4-10.2) mg/dL Total Bilirubin 0.4 (0.2-1.3) mg/dL AST 28 (17-59) U/L ALT 16 (4-49) U/L Alkaline Phosphatase 70 (38-126) U/L Troponin I (0.000-0.034) ng/mL Total Protein 6.3 (6.3-8.2) g/dL Albumin 3.3 L (3.5-5.0) g/dL 07/29/24 Range/Units 15:05 WBC (3.8-10.6) k/uL RBC (4.30-5.90) m/uL Hgb (13.0-17.5) gm/dL Hct (39.0-53.0) % MCV (80.0-100.0) fL MCH (25.0-35.0) pg MCHC (31.0-37.0) g/dL RDW (11.5-15.5) % Plt Count (150-450) k/uL MPV Neutrophils % % Lymphocytes % % Monocytes % % Eosinophils % % Basophils % % Neutrophils # (1.3-7.7) k/uL Lymphocytes # (1.0-4.8) k/uL Monocytes # (0-1.0) k/uL Eosinophils # (0-0.7) k/uL Basophils # (0-0.2) k/uL Hypochromasia PT (10.0-12.5) sec INR (<1.2) APTT (22.0-30.0) sec Sodium (137-145) mmol/L Potassium (3.5-5.1) mmol/L Chloride (98-107) mmol/L Carbon Dioxide (22-30) mmol/L Anion Gap mmol/L BUN (9-20) mg/dL Creatinine (0.66-1.25) mg/dL Est GFR (CKD-EPI)AfAm (>60 ml/min/1.73 sqM) Est GFR (CKD-EPI)NonAf (>60 ml/min/1.73 sqM) Glucose (74-99) mg/dL Calcium (8.4-10.2) mg/dL Total Bilirubin (0.2-1.3) mg/dL AST (17-59) U/L ALT (4-49) U/L Alkaline Phosphatase (38-126) U/L Troponin I 0.042 H* (0.000-0.034) ng/mL Total Protein (6.3-8.2) g/dL Albumin (3.5-5.0) g/dL - EKG Data -: EKG Interpreted by Sd EKG Comments: EKG reveals atrial fibrillation with no ST changes. Ventricular rate 80 bpm, AR interval 151, QRS duration 120, QT/QTc 417/453 Disposition Clinical Impression: Hypokalemia Disposition: HOME SELF-CARE Condition: Stable Instructions (If sedation given, give patient instructions): Hypokalemia (ED) Additional Instructions: Follow-up with PCP tomorrow. Please return to the Emergency Department if s ymptoms worsen or any other concerns. Is patient prescribed a controlled substance at d/c from ED?: No Referrals: Tj Chavis MD [Primary Care Provider] - 1-2 days Time of Disposition: 17:00
[2024-07-29 16:30] LABS: ALT 16 U/L (4-49); AST 28 U/L (17-59); African American GFR (CKD) 43 (>60 ml/min/1.73 sqM); Albumin 3.3 g/dL (3.5-5.0); Alkaline Phosphatase 70 U/L (38-126); Anion Gap 6 mmol/L; Blood Urea Nitrogen 20 mg/dL (9-20); Calcium 8.4 mg/dL (8.4-10.2); Carbon Dioxide 30 mmol/L (22-30); Chloride 105 mmol/L (98-107); Glucose 117 mg/dL (74-99); Non-African American GFR(CKD) 38 (>60 ml/min/1.73 sqM); Potassium 2.8 mmol/L (3.5-5.1); Sodium 141 mmol/L (137-145); Total Bilirubin 0.4 mg/dL (0.2-1.3); Total Protein 6.3 g/dL (6.3-8.2)
[2024-07-29] MEDS: POTASSIUM CHLORIDE ER 20 MEQ TAB.ER PO STA (17:09)
[2024-07-29] MEDS: POTASSIUM CHLORIDE 20 MEQ in WATER FOR INJECTION 1 100ML.BAG IVPB STA (17:17)
[2024-07-29 18:42] VITALS: RESP 18
[2024-07-29 19:39] VITALS: BP 183/89; PULSE 72; TEMP 98
== END 2024-07-29 19:39 | disposition home or self-care (01) ==
LOC: EC 13:19
DX: E87.6 Hypokalemia (principal); Z88.6 Allergy status to analgesic agent
CPT/HCPCS: 36415; 93005; 80053; 84484; 85025; 85610; 85730; 99284; 96365; 96366; J3480

== ENCOUNTER 2024-08-31 22:51 | Inpatient (IN) | payer OTHER ==
--- NOTE | 2024-08-31 23:16 | ED ---
Abdominal Pain HPI - General Chief Complaint: Abdominal Pain Stated Complaint: R Abd Pain Time Seen by Provider: 08/31/24 23:15 Source: patient, RN notes reviewed Mode of arrival: wheelchair Limitations: no limitations - History of Present Illness Initial Comments: 59-year-old male presenting to the ER with chief complaint of right flank pain x 1 day. Describes sharp pain in the right flank with associated nausea. Has never had this pain before. States he has a known mass on his right kidney that is scheduled for biopsy next week. Denies urinary symptoms. Denies history of kidney stones. He is currently on Xarelto. He has numerous medical problems including chronic renal disease, hypertension, hyperlipidemia, atrial fibrillation, and diabetes. - Related Data Home Medications Medication Instructions Recorded Confirmed HYDROcodone/APAP 10-325MG [[place] 1 tab PO TID PRN 04/25/20 07/29/24 10-325] Rivaroxaban [Xarelto] 20 mg PO DAILY 03/14/23 07/29/24 Tamsulosin [Flomax] 0.4 mg PO DAILY 03/14/23 07/29/24 hydrALAZINE HCL [Apresoline] 100 mg PO TID 03/14/23 07/29/24 Insulin Glargine,Hum.rec.anlog 110 units SQ DAILY PRN 02/12/24 07/29/24 [Lantus Solostar Pen] Semaglutide [Ozempic] 1 mg SQ TH 02/12/24 07/29/24 Atorvastatin [Lipitor] 80 mg PO HS 07/29/24 07/29/24 Furosemide [Lasix] 80 mg PO DAILY 07/29/24 07/29/24 NIFEdipine XL [Procardia XL] 90 mg PO DAILY 07/29/24 07/29/24 Potassium Chloride ER [K-Dur 20] 20 meq PO DAILY 07/29/24 07/29/24 Sacubitril/Valsartan [Entresto 97 1 tab PO BID 07/29/24 07/29/24 mg-103 mg Tablet] Zolpidem [Ambien] 10 mg PO HS PRN 07/29/24 07/29/24 cloNIDine 0.1 MG/24HR PATCH 1 patch TRANSDERM TU 07/29/24 07/29/24 [Catapres-TTS] Previous Rx's Medication Instructions Recorded carvediloL [Coreg*] 25 mg PO BID-W/MEALS #60 tab 02/19/24 Allergies Allergy/AdvReac Type Severity Reaction Status Date / Time aspirin AdvReac Dyspnea Verified 08/31/24 22:58 Review of Systems ROS Statement: Those systems with pertinent positive or pertinent negative responses have been documented in the HPI. ROS Other: All systems not noted in ROS Statement are negative. Past Medical History Past Medical History: Atrial Fibrillation, Cancer, Heart Failure, Diabetes Sheri litus, Hyperlipidemia, Hypertension, Renal Disease, Sleep Apnea/CPAP/BIPAP Additional Past Medical History / Comment(s): neuropathy, stage 3 renal failure, uses CPAP at home History of Any Multi-Drug Resistant Organisms: None Reported Past Surgical History: No Surgical Hx Reported Additional Past Surgical History / Comment(s): COLONOSCOPY Past Anesthesia/Blood Transfusion Reactions: No Reported Reaction Past Psychological History: No Psychological Hx Reported Smoking Status: Never smoker Past Alcohol Use History: None Reported Past Drug Use History: None Reported - Past Family History Father Family Medical History: No Reported History Additional Family Medical History / Comment(s): not sure Mother Family Medical History: Diabetes Mellitus, Hypertension Additional Family Medical History / Comment(s): mom is still alive General Exam - General Exam Comments Initial Comments: Visual Physical Exam Vital signs reviewed General: Well-appearing, nontoxic, no acute distress. Head: Normocephalic, atraumatic Eyes: PERRLA, EOMI ENT: Airway patent Chest: Nonlabored breathing Skin: No visual rash, normal skin tone Neuro: Alert and oriented 3 Musculoskeletal: No gross abnormalities Limitations: no limitations General appearance: alert, in no apparent distress Head exam: Present: atraumatic, normocephalic, normal inspection Respiratory exam: Present: normal lung sounds bilaterally. Absent: respiratory distress, wheezes, rales, rhonchi, stridor Cardiovascular Exam: Present: regular rate, normal rhythm, normal heart sounds. Absent: systolic murmur, diastolic murmur, rubs, gallop, clicks GI/Abdominal exam: Present: soft, normal bowel sounds. Absent: distended, tenderness, guarding, rebound, rigid Back exam: Absent: CVA tenderness (R), CVA tenderness (L) Neurological exam: Present: alert, oriented X3 Psychiatric exam: Present: normal affect, normal mood Skin exam: Present: warm, dry, intact, normal color. Absent: rash Course Vital Signs 08/31/24 09/01/24 22:56 01:17 Temperature 98.2 F Pulse Rate 71 76 Respiratory 18 16 Rate Blood Pressure 190/99 211/94 O2 Sat by Pulse 96 95 Oximetry Medical Decision Making - Medical Decision Making I completed the quick note portion of this chart signed Rachel An PA-C Was pt. sent in by a medical professional or institution (, FORTINO, SAFE DEPOSIT ATTENDANT, urgent care, hospital, or long-term...) When possible be specific @ -No Did you speak to anyone other than the patient for history (EMS, parent, family, police, friend...)? What history was obtained from this source @ -No Did you review nursing and triage notes (agree or disagree)? Why? @ -I reviewed and agree with nursing and triage notes Were old charts reviewed (outside hosp., previous admission, EMS record, old EKG, old radiological studies, urgent care reports/EKG's, long-term records)? Report findings @ -No old charts were reviewed Differential Diagnosis (chest pain, altered mental status, abdominal pain women, abdominal pain men, vaginal bleeding, weakness, fever, dyspnea, syncope, headache, dizziness, GI bleed, back pain, seizure, CVA, palpatations, mental health, musculoskeletal)? @ -Differential Abdominal Pain Men: Appendicitis, cholecystitis, diverticulosis, ischemic bowel, pancreatitis, hepatitis, UTI, gastroenteritis, AAA, incarcerated hernia, bowel obstruction, constipation, inflammatory bowel, hepatitis, peptic ulcer disease, splenic infarction, perforated viscus, testicular torsion, this is not meant to be an all-inclusive list EKG interpreted by me (3pts min.). @ -None X-rays interpreted by me (1pt min.). @ -None done CT interpreted by me (1pt min.). @ -CT abdomen pelvis reveals new nonspecific moderate ill-defined right sided perinephric fluid, known right side neoplasm, no hydronephrosis seen, no significant acute findings U/S interpreted by me (1pt. min.). @ -None done What testing was considered but not performed or refused? (CT, X-rays, U/S, labs)? Why? @ -None What meds were considered but not given or refused? Why? @ -None Did you discuss the management of the patient with other professionals (professionals i.e. , PA, SAFE DEPOSIT ATTENDANT, lab, RT, psych nurse, social science manager, field marketing associate, teacher, fisheries officer, ed case manager)? Give summary @ -No Was smoking cessation discussed for >3mins.? @ -No Was critical care preformed (if so, how long)? @ -No Were there social determinants of health that impacted care today? How? (Homelessness, low income, unemployed, alcoholism, drug addiction, transportation, low edu. Level, literacy, decrease access to med. care, half-way, rehab)? @ -No Was there de-escalation of care discussed even if they declined (Discuss DNR or withdrawal of care, Hospice)? DNR status @ -No What co-morbidities impacted this encounter? (DM, HTN, Smoking, COPD, CAD, Cancer, CVA, ARF, Chemo, Hep., AIDS, mental health diagnosis, sleep apnea, morbid obesity)? @ -None Was patient admitted / discharged? Hospital course, mention meds given and route, prescriptions, significant lab abnormalities, going to OR and other pertinent info. @ -Admitted. This is a 59-year-old male presenting with right flank pain x 1 day. Patient is hypertensive, otherwise vital signs within acceptable limits. Patient states he forgot to take meds today. Abdomen is soft and nontender. No CVA tenderness. Patient is provided with analgesics and antiemetics. Lab work remarkable for leukocytosis of 14.5 with left shift, hypokalemia at 2.8, he moglobin 10.8 comparable to baseline, creatinine 1.91 at baseline, BUN 24 at baseline, and glucose 64. CT abdomen pelvis reveals new nonspecific moderate ill-defined right-sided perinephric fluid, known right sided neoplasm, no hydronephrosis seen no significant acute finding. Discussed findings with patient. Patient was started on IV and oral potassium and given hydralazine for hypertension. Patient was admitted to [facility] for hypokalemia. Case was discussed with my ED attending Dr. Ludwig Undiagnosed new problem with uncertain prognosis? @ -No Drug Therapy requiring intensive monitoring for toxicity (Heparin, Nitro, Insulin, Cardizem)? @ -No Were any procedures done? @ -No Diagnosis/symptom? @ -Hypokalemia Acute, or Chronic, or Acute on Chronic? @ -Acute Uncomplicated (without systemic symptoms) or Complicated (systemic symptoms)? @ -Complicated Side effects of treatment? @ -No Exacerbation, Progression, or Severe Exacerbation? @ -No Poses a threat to life or bodily function? How? (Chest pain, [place], [place], pneumonia, PE, COPD, DKA, ARF, appy, cholecystitis, CVA, Diverticulitis, Homicidal, Suicidal, threat to staff... and all critical care pts) @ -Yes - Lab Data Result diagrams: 08/31/24 23:56 08/31/24 23:56 Lab Results 08/31/24 08/31/24 08/31/24 Range/Units 23:56 23:56 23:56 WBC 14.5 H (3.8-10.6) k/uL RBC 4.23 L (4.30-5.90) m/uL Hgb 10.8 L (13.0-17.5) gm/dL Hct 34.9 L (39.0-53.0) % MCV 82.4 (80.0-100.0) fL MCH 25.6 (25.0-35.0) pg MCHC 31.0 (31.0-37.0) g/dL RDW 15.2 (11.5-15.5) % Plt Count 275 (150-450) k/uL MPV 7.8 Neutrophils % 87 % Lymphocytes % 5 % Monocytes % 5 % Eosinophils % 1 % Basophils % 0 % Neutrophils # 12.7 H (1.3-7.7) k/uL Lymphocytes # 0.8 L (1.0-4.8) k/uL Monocytes # 0.7 (0-1.0) k/uL Eosinophils # 0.2 (0-0.7) k/uL Basophils # 0.0 (0-0.2) k/uL Hypochromasia Slight Sodium 141 (137-145) mmol/L Potassium 2.8 L (3.5-5.1) mmol/L Chloride 104 (98-107) mmol/L Carbon Dioxide 29 (22-30) mmol/L Anion Gap 8 mmol/L BUN 24 H (9-20) mg/dL Creatinine 1.91 H (0.66-1.25) mg/dL Est GFR (CKD-EPI)AfAm 43 (>60 ml/min/1.73 sqM) Est GFR (CKD-EPI)NonAf 37 (>60 ml/min/1.73 sqM) Glucose 64 L (74-99) mg/dL Plasma Lactic Acid Vick 0.8 (0.7-2.0) mmol/L Calcium 9.0 (8.4-10.2) mg/dL Total Bilirubin 0.5 (0.2-1.3) mg/dL AST 52 (17-59) U/L ALT 22 (4-49) U/L Alkaline Phosphatase 86 (38-126) U/L Total Protein 7.1 (6.3-8.2) g/dL Albumin 3.9 (3.5-5.0) g/dL Amylase 53 (30-110) U/L Lipase 28 (23-300) U/L Urine Color Urine Appearance (Clear) Urine pH (5.0-8.0) Ur Specific Tiff (1.001-1.035) Urine Protein (Negative) Urine Glucose (UA) (Negative) Urine Ketones (Negative) Urine Blood (Negative) Urine Nitrite (Negative) Urine Bilirubin (Negative) Urine Urobilinogen (<2.0) mg/dL Ur Leukocyte Esterase (Negative) Urine RBC (0-5) /hpf Urine WBC (0-5) /hpf Ur Squamous Epith Cells (0-4) /hpf Amorphous Sediment (None) /hpf Hyaline Casts (0-2) /lpf 09/01/24 Range/Units 01:18 WBC (3.8-10.6) k/uL RBC (4.30-5.90) m/uL Hgb (13.0-17.5) gm/dL Hct (39.0-53.0) % MCV (80.0-100.0) fL MCH (25.0-35.0) pg MCHC (31.0-37.0) g/dL RDW (11.5-15.5) % Plt Count (150-450) k/uL MPV Neutrophils % % Lymphocytes % % Monocytes % % Eosinophils % % Basophils % % Neutrophils # (1.3-7.7) k/uL Lymphocytes # (1.0-4.8) k/uL Monocytes # (0-1.0) k/uL Eosinophils # (0-0.7) k/uL Basophils # (0-0.2) k/uL Hypochromasia Sodium (137-145) mmol/L Potassium (3.5-5.1) mmol/L Chloride (98-107) mmol/L Carbon Dioxide (22-30) mmol/L Anion Gap mmol/L BUN (9-20) mg/dL Creatinine (0.66-1.25) mg/dL Est GFR (CKD-EPI)AfAm (>60 ml/min/1.73 sqM) Est GFR (CKD-EPI)NonAf (>60 ml/min/1.73 sqM) Glucose (74-99) mg/dL Plasma Lactic Acid Vick (0.7-2.0) mmol/L Calcium (8.4-10.2) mg/dL Total Bilirubin (0.2-1.3) mg/dL AST (17-59) U/L ALT (4-49) U/L Alkaline Phosphatase (38-126) U/L Total Protein (6.3-8.2) g/dL Albumin (3.5-5.0) g/dL Amylase (30-110) U/L Lipase (23-300) U/L Urine Color Colorless Urine Appearance Clear (Clear) Urine pH 6.0 (5.0-8.0) Ur Specific Tiff 1.008 (1.001-1.035) Urine Protein 2+ H (Negative) Urine Glucose (UA) Negative (Negative) Urine Ketones Negative (Negative) Urine Blood Moderate H (Negative) Urine Nitrite Negative (Negative) Urine Bilirubin Negative (Negative) Urine Urobilinogen <2.0 (<2.0) mg/dL Ur Leukocyte Esterase Negative (Negative) Urine RBC 113 H (0-5) /hpf Urine WBC 3 (0-5) /hpf Ur Squamous Epith Cells <1 (0-4) /hpf Amorphous Sediment Rare H (None) /hpf Hyaline Casts 9 H (0-2) /lpf - EKG Data -: EKG Interpreted by Me EKG Comments: EKG reveals atrial fibrillation with no acute ST changes, ventricular rate 83 bpm, MS interval not calculated, QRS duration 122, QT/QTc 397/437 Disposition Clinical Impression: Hypokalemia Disposition: ADMITTED IP TO THIS [facility] Time of Disposition: 01:51
[2024-08-31] MEDS: ONDANSETRON 4 MG/2 ML VIAL IVP STA (23:59)
[2024-09-01] MEDS: HYDROmorphone 0.5 MG/0.5 ML SYRINGE IVP STA (00:01)
[2024-09-01 00:10] LABS: Basophils % (A) 0 %; Eosinophils # (A) 0.2 k/uL (0-0.7); Eosinophils % (A) 1 %; HCT 34.9 % (39.0-53.0); HGB 10.8 gm/dL (13.0-17.5); Hypochromasia Slight; Lymphocytes # (A) 0.8 k/uL (1.0-4.8); Lymphocytes % (A) 5 %; MCH 25.6 pg (25.0-35.0); MCV 82.4 fL (80.0-100.0); Mean Platelet Volume 7.8; Monocytes # (A) 0.7 k/uL (0-1.0); Monocytes % (A) 5 %; Neutrophils # (A) 12.7 k/uL (1.3-7.7); Neutrophils % (A) 87 %; Platelet Count 275 k/uL (150-450); RBC 4.23 m/uL (4.30-5.90); RDW 15.2 % (11.5-15.5); WBC 14.5 k/uL (3.8-10.6)
[2024-09-01 00:24] LABS: ALT 22 U/L (4-49); AST 52 U/L (17-59); African American GFR (CKD) 43 (>60 ml/min/1.73 sqM); Albumin 3.9 g/dL (3.5-5.0); Alkaline Phosphatase 86 U/L (38-126); Amylase 53 U/L (30-110); Anion Gap 8 mmol/L; Blood Urea Nitrogen 24 mg/dL (9-20); Carbon Dioxide 29 mmol/L (22-30); Chloride 104 mmol/L (98-107); Glucose 64 mg/dL (74-99); Lipase 28 U/L (23-300); Non-African American GFR(CKD) 37 (>60 ml/min/1.73 sqM); Potassium 2.8 mmol/L (3.5-5.1); Sodium 141 mmol/L (137-145); Total Bilirubin 0.5 mg/dL (0.2-1.3); Total Protein 7.1 g/dL (6.3-8.2)
--- NOTE | 2024-09-01 00:34 | CT ---
EXAMINATION TYPE: CT abdomen pelvis wo con DATE OF EXAM: 09/01/2024 HISTORY: Pt. c/o RUQ pain with radiation to right flank. History of right renal cancer. CT DLP: 3555.4 mGycm. Automated Exposure Control for Dose Reduction was Utilized. TECHNIQUE: CT scan of the abdomen and pelvis is performed without oral or IV contrast. COMPARISON: Prior CT February 19, 2024. Prior PET/CT May 22, 2024 FINDINGS: Within the limitations of a non-contrast study, the following observations are made. LUNG BASES: Persistent cardiomegaly. With stable small to tiny anterior pericardial effusion. LIVER/GB: No significant abnormality is appreciated. PANCREAS: No significant abnormality is seen. SPLEEN: No significant abnormality is seen. ADRENALS: No significant abnormality is seen. KIDNEYS: Exophytic suspicious solid mass posteriorly lower pole of the right kidney redemonstrated me asuring 4.6 x 3.6 cm axial image 91. Hyperintense uptake on PET/CT and corresponds to low dense lesio n measuring 6.9 cm image 52. There is new moderate right-sided perinephric ill-defined fluid. No hydr onephrosis seen bilaterally. BOWEL: No significant abnormality is seen. GENITAL ORGANS: No gross abnormality seen. LYMPH NODES: No greater than 1cm abdominal or pelvic lymph nodes are appreciated. OSSEOUS STRUCTURES: No significant abnormality is seen. OTHER: Mild to moderate diffuse subcutaneous edema is now present. IMPRESSION: There is new Nonspecific moderate ill-defined right-sided perinephric fluid in patient wi th known right-sided neoplasm. No hydronephrosis seen. No significant acute finding otherwise seen to account for patient's symptoms. [facility], , 09/01/2024 12:32 AM
[2024-09-01] MEDS ORDERED: HYDROmorphone 0.5 MG/0.5 ML SYRINGE IVP PRN (01:39)
[2024-09-01] MEDS ORDERED: NALOXONE 0.4 MG/ML 1 ML VIAL IV PRN (01:39)
[2024-09-01] MEDS ORDERED: ACETAMINOPHEN TAB 325 MG TAB PO PRN (01:39)
[2024-09-01] MEDS: POTASSIUM CHLORIDE ER 20 MEQ TAB.ER PO STA (02:00)
[2024-09-01] MEDS: hydrALAZINE HCL 50 MG TAB PO STA (02:00)
[2024-09-01 02:11] LABS: Amorphous Sediment,Urine Rare /hpf; Appearance,Urine Clear (Clear); Bilirubin,Urine Negative (Negative); Blood,Urine Moderate (Negative); Color,Urine Colorless; Glucose,Urine (UA) Negative (Negative); Hyaline Casts,Urine 9 /lpf (0-2); Ketones,Urine Negative (Negative); Leukocyte Esterase,Urine Negative (Negative); Nitrite,Urine Negative (Negative); Protein,Urine 2+ (Negative); RBC,Urine 113 /hpf (0-5); Specific Gravity,Urine 1.008 (1.001-1.035); Squamous Epithelial Cell,Urine <1 /hpf (0-4); Urobilinogen,Urine <2.0 mg/dL (<2.0); WBC,Urine 3 /hpf (0-5)
[2024-09-01] MEDS: HYDROmorphone 1 MG/ML 1 ML SYRINGE IVP PRN (02:23)
[2024-09-01] MEDS: POTASSIUM CHLORIDE 20 MEQ in WATER FOR INJECTION 1 100ML.BAG IVPB STA (02:52)
[2024-09-01] MEDS: ONDANSETRON 4 MG/2 ML VIAL IVP PRN (09:13)
[2024-09-01] MEDS ORDERED: ZOLPIDEM 5 MG TAB PO PRN (15:42)
[2024-09-01] MEDS ORDERED: INSULIN DETEMIR (LEVEMIR) 100 UNIT/ML SYR SQ PRN (15:42)
[2024-09-01] MEDS: hydrALAZINE HCL 50 MG TAB PO SCH (15:59)
[2024-09-01] MEDS: POTASSIUM CHLORIDE ER 20 MEQ TAB.ER PO SCH (16:00)
[2024-09-01] MEDS: carvediloL 12.5 MG TAB PO SCH (20:24)
[2024-09-01] MEDS: HYDROcodone/APAP 10-325MG 1 EACH TAB PO PRN (20:24)
[2024-09-01] MEDS: ATORVASTATIN 80 MG TAB PO SCH (20:25)
[2024-09-01] MEDS: SACUBITRIL/VALSARTAN 97 MG-103 MG TABLET PO SCH (21:52)
--- NOTE | 2024-09-01 22:23 | XR ---
EXAMINATION TYPE: XR chest 1V portable DATE OF EXAM: 09/01/2024 CLINICAL HISTORY: Shortness of breath TECHNIQUE: Single AP portable frontal upright view of the chest is obtained. COMPARISON: Chest x-ray February 14, 2024 FINDINGS: Slightly suboptimal secondary to portable technique and patient's large body habitus. Cardi omegaly is seen. With possible mild central vascular congestion. There is no suspicious focal air spa ce opacity, pleural effusion, or pneumothorax seen. The osseous structures are intact. IMPRESSION: Cardiomegaly with perhaps mild central vascular congestion. Correlate for fluid overload state/CHF exacerbation. [facility], , 09/01/2024 10:21 PM
[2024-09-01 22:50] LABS: African American GFR (CKD) 31 (>60 ml/min/1.73 sqM); Anion Gap 8 mmol/L; Blood Urea Nitrogen 30 mg/dL (9-20); Calcium 8.3 mg/dL (8.4-10.2); Carbon Dioxide 29 mmol/L (22-30); Chloride 101 mmol/L (98-107); Glucose 179 mg/dL (74-99); Non-African American GFR(CKD) 27 (>60 ml/min/1.73 sqM); Sodium 138 mmol/L (137-145)
[2024-09-01 22:56] LABS: Potassium 3.8 mmol/L (3.5-5.1)
[2024-09-02] LABS: Glucose,Whole Blood 164 mg/dL (70-110)
[2024-09-02 06:42] LABS: Glucose,Whole Blood 183 mg/dL (70-110)
[2024-09-02] MEDS: INSULIN DETEMIR (LEVEMIR) 100 UNIT/ML SYR SQ SCH (06:44)
[2024-09-02 08:44] LABS: Glucose,Whole Blood 212 mg/dL (70-110)
[2024-09-02] MEDS: RIVAROXABAN 15 MG TAB PO SCH (10:54)
[2024-09-02] MEDS: NIFEdipine XL 90 MG TAB.ER.24 PO SCH (10:56)
[2024-09-02] MEDS: cloNIDine 0.1 MG/24HR PATCH TRANSDERM SCH (10:56)
[2024-09-02] MEDS: LACTATED RINGERS 500 ML IV ONE (11:09)
[2024-09-02] MEDS: LACTATED RINGERS 1,000 ML IV SCH (11:10)
[2024-09-02 11:50] LABS: ALT 20 U/L (4-49); AST 55 U/L (17-59); African American GFR (CKD) 21 (>60 ml/min/1.73 sqM); Alkaline Phosphatase 71 U/L (38-126); Anion Gap 8 mmol/L; Blood Urea Nitrogen 36 mg/dL (9-20); Calcium 8.1 mg/dL (8.4-10.2); Carbon Dioxide 30 mmol/L (22-30); Chloride 98 mmol/L (98-107); Glucose 189 mg/dL (74-99); Non-African American GFR(CKD) 18 (>60 ml/min/1.73 sqM); Potassium 3.3 mmol/L (3.5-5.1); Sodium 136 mmol/L (137-145); Total Bilirubin 0.7 mg/dL (0.2-1.3); Total Protein 5.7 g/dL (6.3-8.2)
[2024-09-02 11:54] LABS: Glucose,Whole Blood 197 mg/dL (70-110)
[2024-09-02 14:37] LABS: Appearance,Urine Turbid (Clear); Bacteria,Urine Occasional /hpf; Bilirubin,Urine Negative (Negative); Blood,Urine Trace (Negative); Budding Yeast,Urine Moderate /hpf; Color,Urine Yellow; Glucose,Urine (UA) Trace (Negative); Hyaline Casts,Urine 6 /lpf (0-2); Ketones,Urine Negative (Negative); Leukocyte Esterase,Urine Negative (Negative); Mucus,Urine Rare /hpf; Nitrite,Urine Negative (Negative); PH, Urine 5.5 (5.0-8.0); Protein,Urine 3+ (Negative); RBC,Urine 73 /hpf (0-5); Specific Gravity,Urine 1.021 (1.001-1.035); Squamous Epithelial Cell,Urine 3 /hpf (0-4); WBC,Urine 17 /hpf (0-5)
--- NOTE | 2024-09-02 16:31 | P.GSCN ---
History of Present Illness Consult date: 09/02/24 History of present illness: 59 yo male in the hospital for right flank pain. the patient is known as he was evaluated for an abnormal mri in March of 2024. He was found to have multiple renal cysts and a 6 cm rup mass that was reviewed and felt to maybe a hemorrhagic cyst. But he also had a 4 cm rlp mass of mixed echogenicity worrisome for a malignancy. This was reviewed with radiology and my partners here. Due to his morbid obesity at 5"6" and 415 lbs as well as his crf he was referred to [facility]. He ended up going to a doctor in [facility]. He is to have a biopsy in the next few days. His pain is better this afternoon. His crf is noted. Review of Systems All systems: negative - Constitutional Denies fever, Denies weight loss - EENT Eyes: denies blurred vision Ears, nose, mouth and throat: Denies dysphagia - Cardiovascular Denies chest pain, Denies shortness of breath - Respiratory Denies cough, Denies 7 - Gastrointestinal Reports as per HPI - Genitourinary Denies dysuria, Denies hematuria - Integumentary Denies rash, Denies unusual bruising - Neurological Denies headaches, Denies syncope - Hematologic/Lymphatic Denies easy bleeding, Denies easy bruising Past Medical History Past Medical History: Atrial Fibrillation, Cancer, Heart Failure, Diabetes Mellitus, Hyperlipidemia, Hypertension, Renal Disease, Sleep Apnea/CPAP/BIPAP Additional Past Medical History / Comment(s): neuropathy, stage 3 renal failure, uses CPAP at home History of Any Multi-Drug Resistant Organisms: None Reported Past Surgical History: No Surgical Hx Reported Additional Past Surgical History / Comment(s): COLONOSCOPY Past Anesthesia/Blood Transfusion Reactions: No Reported Reaction Smoking Status: Never smoker - Past Family History Father Family Medical History: No Reported History Additional Family Medical History / Comment(s): not sure Mother Family Medical History: Diabetes Mellitus, Hypertension Additional Family Medical History / Comment(s): mom is still alive Medications and Allergies Home Medications Medication Instructions Recorded Confirmed Type HYDROcodone/APAP 10-325MG [[place] 1 tab PO TID PRN 04/25/20 09/01/24 History 10-325] Rivaroxaban [Xarelto] 20 mg PO DAILY 03/14/23 09/01/24 History Tamsulosin [Flomax] 0.4 mg PO DAILY 03/14/23 09/01/24 History hydrALAZINE HCL [Apresoline] 100 mg PO TID 03/14/23 09/01/24 History Insulin Glargine,Hum.rec.anlog 110 units SQ DAILY PRN 02/12/24 09/01/24 History [Lantus Solostar Pen] Semaglutide [Ozempic] 1 mg SQ TH 02/12/24 09/01/24 History carvediloL [Coreg*] 25 mg PO BID-W/MEALS #60 tab 02/19/24 09/01/24 Rx Atorvastatin [Lipitor] 80 mg PO HS 07/29/24 09/01/24 History Furosemide [Lasix] 80 mg PO DAILY 07/29/24 09/01/24 History NIFEdipine XL [Procardia XL] 90 mg PO DAILY 07/29/24 09/01/24 History Potassium Chloride ER [K-Dur 20] 20 meq PO TID 07/29/24 09/01/24 History Sacubitril/Valsartan [Entresto 97 1 tab PO BID 07/29/24 09/01/24 History mg-103 mg Tablet] Zolpidem [Ambien] 10 mg PO HS PRN 07/29/24 09/01/24 History cloNIDine 0.1 MG/24HR PATCH 1 patch TRANSDERM TU 07/29/24 09/01/24 History [Catapres-TTS] Allergies Allergy/AdvReac Type Severity Reaction Status Date / Time aspirin AdvReac Dyspnea Verified 09/01/24 07:32 Surgical - Exam Vital Signs Temp Pulse Resp BP Pulse Ox 98.2 F 71 18 190/99 96 08/31/24 22:56 08/31/24 22:56 08/31/24 22:56 08/31/24 22:56 08/31/24 22:56 - General obese - Eyes normal ocular movement, no icteric - ENT no hearing loss, no congestion - Neck no masses, trachea midline - Respiratory normal respiratory effort, clear to auscultation - Abdomen Abdomen: soft, non tender, no guarding, no rigid, no rebound - Integumentary no rash, no abnormal pigmentation - Neurologic no disoriented, no combative - Psychiatric oriented to time, oriented to person, oriented to place, speech is normal, memory intact Results - Labs 08/31/24 23:56 09/02/24 11:13 Abnormal Lab Results - Last 24 Hours (Table) 09/01/24 09/01/24 09/01/24 Range/Units 15:51 22:12 23:59 Sodium (137-145) mmol/L Potassium (3.5-5.1) mmol/L BUN 30 H (9-20) mg/dL Creatinine 2.48 H (0.66-1.25) mg/dL Glucose 179 H (74-99) mg/dL POC Glucose (mg/dL) 164 H (70-110) mg/dL Calcium 8.3 L (8.4-10.2) mg/dL NT-Pro-B Natriuret Pep 2535 H (0-125) pg/mL Total Protein (6.3-8.2) g/dL Albumin (3.5-5.0) g/dL 09/02/24 09/02/24 09/02/24 Range/Units 06:41 08:42 11:13 Sodium 136 L (137-145) mmol/L Potassium 3.3 L (3.5-5.1) mmol/L BUN 36 H (9-20) mg/dL Creatinine 3.48 H (0.66-1.25) mg/dL Glucose 189 H (74-99) mg/dL POC Glucose (mg/dL) 183 H 212 H (70-110) mg/dL Calcium 8.1 L (8.4-10.2) mg/dL NT-Pro-B Natriuret Pep (0-125) pg/mL Total Protein 5.7 L (6.3-8.2) g/dL Albumin 3.0 L (3.5-5.0) g/dL 09/02/24 Range/Units 11:52 Sodium (137-145) mmol/L Potassium (3.5-5.1) mmol/L BUN (9-20) mg/dL Creatinine (0.66-1.25) mg/dL Glucose (74-99) mg/dL POC Glucose (mg/dL) 197 H (70-110) mg/dL Calcium (8.4-10.2) mg/dL NT-Pro-B Natriuret Pep (0-125) pg/mL Total Protein (6.3-8.2) g/dL Albumin (3.5-5.0) g/dL Diabetes panel 09/01/24 09/02/24 Range/Units 22:12 11:13 Sodium 138 136 L (137-145) mmol/L Potassium 3.8 3.3 L (3.5-5.1) mmol/L Chloride 101 98 (98-107) mmol/L Carbon Dioxide 29 30 (22-30) mmol/L BUN 30 H 36 H (9-20) mg/dL Creatinine 2.48 H 3.48 H (0.66-1.25) mg/dL Glucose 179 H 189 H (74-99) mg/dL Calcium 8.3 L 8.1 L (8.4-10.2) mg/dL AST 55 (17-59) U/L ALT 20 (4-49) U/L Alkaline Phosphatase 71 (38-126) U/L Total Protein 5.7 L (6.3-8.2) g/dL Albumin 3.0 L (3.5-5.0) g/dL Calcium panel 09/01/24 09/02/24 Range/Units 22:12 11:13 Calcium 8.3 L 8.1 L (8.4-10.2) mg/dL Albumin 3.0 L (3.5-5.0) g/dL Pituitary panel 09/01/24 09/02/24 Range/Units 22:12 11:13 Sodium 138 136 L (137-145) mmol/L Potassium 3.8 3.3 L (3.5-5.1) mmol/L Chloride 101 98 (98-107) mmol/L Carbon Dioxide 29 30 (22-30) mmol/L BUN 30 H 36 H (9-20) mg/dL Creatinine 2.48 H 3.48 H (0.66-1.25) mg/dL Glucose 179 H 189 H (74-99) mg/dL Calcium 8.3 L 8.1 L (8.4-10.2) mg/dL Adrenal panel 09/01/24 09/02/24 Range/Units 22:12 11:13 Sodium 138 136 L (137-145) mmol/L Potassium 3.8 3.3 L (3.5-5.1) mmol/L Chloride 101 98 (98-107) mmol/L Carbon Dioxide 29 30 (22-30) mmol/L BUN 30 H 36 H (9-20) mg/dL Creatinine 2.48 H 3.48 H (0.66-1.25) mg/dL Glucose 179 H 189 H (74-99) mg/dL Calcium 8.3 L 8.1 L (8.4-10.2) mg/dL Total Bilirubin 0.7 (0.2-1.3) mg/dL AST 55 (17-59) U/L ALT 20 (4-49) U/L Alkaline Phosphatase 71 (38-126) U/L Total Protein 5.7 L (6.3-8.2) g/dL Albumin 3.0 L (3.5-5.0) g/dL - Imaging CT scan - abdomen: report reviewed, image reviewed CT scan - pelvis: report reviewed, image reviewed Assessment and Plan Assessment: Impression: right renal mass, right flank pain, crf, morbid obesity. Plan: He is being evaluated at [facility] and is scheduled for a mass biopsy in the future. He should continue his evaluation there as he has multiple medical health issues, crf, , let alone obesity. there is nothing further do do at this point in time.
[2024-09-02] MEDS: TAMSULOSIN 0.4 MG CAP.ER.24H PO SCH (16:32)
[2024-09-02] MEDS: POTASSIUM CHLORIDE ER 20 MEQ TAB.ER PO STA (16:32)
[2024-09-02 16:39] LABS: Glucose,Whole Blood 207 mg/dL (70-110)
[2024-09-02] MEDS: INSULIN ASPART (NovoLOG) 100 UNIT/ML VIAL SQ SCH (17:20)
--- NOTE | 2024-09-02 19:43 | HP ---
HISTORY AND PHYSICAL CHIEF COMPLAINT: Abdominal pain. HISTORY OF PRESENT ILLNESS: This 59-year-old morbidly obese male presented to the emergency room with abdominal pain. In the emergency room, CT scan was unremarkable except for showing his right renal mass. It is thought that he has renal cell carcinoma. Because of his obesity and that no one could obtain an MRI or treat him locally, he had been referred to [facility]. His treatment and workup have been delayed. However, he does have a date for a biopsy. He came to the emergency room with right-sided abdominal pain. He still has his gallbladder and appendix. He had no melena, hematochezia, nausea, vomiting, etc. In the emergency room, laboratory studies are unremarkable except for a BNP of 2535. He has a longstanding history of chronic congestive heart failure. REVIEW OF SYSTEMS: He is lethargic, but denies chest pain. He points to the right side of the abdomen as being where he has discomfort. He has not had any urinary complaints. Past medical history, family history, personal and social histories reveal that he is on numerous medications for his heart failure, renal failure, diabetes, etc. He takes, 1. Potassium. 2. Ozempic. 3. Nifedipine. 4. Atorvastatin. 5. Tamsulosin. 6. Lantus. 7. Lasix. 8. Clonidine. 9. Entresto. 10.Carvedilol. 11.Hydralazine. 12.Xarelto. 13.Vicodin. He has not been able to lose weight. He does not smoke. In the emergency room, he had laboratory studies with a white count of 14,500, hemoglobin 10.8. His potassium was low at 2.8. BUN was 24 with a creatinine 1.9 and GFR 43. Urine did demonstrate red blood cells. PHYSICAL EXAMINATION: VITAL SIGNS: Blood pressure 170/65 with a pulse of 92, respirations of 36, and he is afebrile. GENERAL: He was morbidly obese. He was lethargic. HEAD, EARS, EYES, NOSE, AND MOUTH: Appeared to be normal. NECK: Neck veins could not be assessed. CHEST: Sounded clear. CARDIAC: Sounded like atrial fibrillation. ABDOMEN: Protuberant and he was tender in the right upper and right lower quadrants. There are no definite masses. Bowel sounds are present. EXTREMITIES: Demonstrated obesity and stasis disease of lower extremities. NEUROLOGIC: He was intact, but lethargic. ASSESSMENT: He is admitted to the hospital with diagnoses of, 1. Abdominal pain. 2. Lethargy and mental status changes. 3. Right kidney mass. 4. History of diabetes. 5. History of renal failure. 6. History of congestive heart failure. PLAN: 1. Bedrest. 2. IV fluids. 3. Consult Surgery. [email or web address] / MODESTAN: [id number] /
[2024-09-02 20:14] LABS: Glucose,Whole Blood 184 mg/dL (70-110)
[2024-09-03 06:38] LABS: HCT 29.5 % (39.0-53.0); Hypochromasia Moderate; MCH 26.3 pg (25.0-35.0); MCHC 31.2 g/dL (31.0-37.0); MCV 84.3 fL (80.0-100.0); Mean Platelet Volume 8.8; Platelet Count 259 k/uL (150-450); RDW 15.3 % (11.5-15.5); WBC 23.1 k/uL (3.8-10.6)
[2024-09-03 06:39] LABS: Glucose,Whole Blood 136 mg/dL (70-110)
[2024-09-03 07:02] LABS: ALT 22 U/L (4-49); AST 47 U/L (17-59); African American GFR (CKD) 16 (>60 ml/min/1.73 sqM); Albumin 2.8 g/dL (3.5-5.0); Alkaline Phosphatase 73 U/L (38-126); Anion Gap 4 mmol/L; Blood Urea Nitrogen 46 mg/dL (9-20); Carbon Dioxide 30 mmol/L (22-30); Chloride 102 mmol/L (98-107); Glucose 131 mg/dL (74-99); Non-African American GFR(CKD) 13 (>60 ml/min/1.73 sqM); Potassium 3.5 mmol/L (3.5-5.1); Sodium 136 mmol/L (137-145); Total Bilirubin 0.7 mg/dL (0.2-1.3); Total Protein 5.7 g/dL (6.3-8.2)
[2024-09-03 07:13] LABS: HGB 9.2 gm/dL (13.0-17.5)
--- NOTE | 2024-09-03 09:56 | P.NPCON ---
History of Present Illness - Reason for Consult acute renal failure, chronic renal failure - History of Present Illness Reason for consultation: Acute kidney injury on chronic kidney disease History of present illness: Patient is a 59-year-old male seen in renal consultation for acute kidney injury on chronic kidney disease. Patient has chronic kidney disease stage IV with baseline creatinine near 2 secondary to diabetic kidney disease and cardiorenal syndrome. Patient came to the hospital due to right-sided flank pain as well as nausea going on for about 3 days. CAT scan showed a right renal mass with no hydronephrosis. Patient is scheduled to undergo renal mass biopsy at [facility] tomorrow. He denies use of nonsteroidals. Patient does have longstanding history of diabetes. Denies gross hematuria or dysuria. He has been receiving IV fluids and is currently maintained on LR at 100 cc an hour. Creatinine was 1.9 on admission and is up to 4.4 today. Denies history of coronary artery disease. No fever or chills. Hemodynamically stable. Lowest blood pressure reading 94/49 which was yesterday at 1020 in the morning. This morning's blood pressure was 125/69. Prior echocardiogram showed diastolic CHF. Vital signs are stable. General: No acute distress. HEENT: Head exam is unremarkable. LUNGS: No audible rhonchi or wheezes. HEART: Rate and Rhythm are regular. ABDOMEN: Obese, nontender. EXTREMITITES: 2+ edema. Past Medical History Past Medical History: Atrial Fibrillation, Cancer, Heart Failure, Diabetes Mellitus, Hyperlipidemia, Hypertension, Renal Disease, Sleep Apnea/CPAP/BIPAP Additional Past Medical History / Comment(s): neuropathy, stage 3 renal failure, uses CPAP at home History of Any Multi-Drug Resistant Organisms: None Reported Past Surgical History: No Surgical Hx Reported Additional Past Surgical History / Comment(s): COLONOSCOPY Past Anesthesia/Blood Transfusion Reactions: No Reported Reaction Smoking Status: Never smoker - Past Family History Father Family Medical History: No Reported History Additional Family Medical History / Comment(s): not sure Mother Family Medical History: Diabetes Mellitus, Hypertension Additional Family Medical History / Comment(s): mom is still alive Medications and Allergies Home Medications Medication Instructions Recorded Confirmed Type HYDROcodone/APAP 10-325MG [[place] 1 tab PO TID PRN 04/25/20 09/01/24 History 10-325] Rivaroxaban [Xarelto] 20 mg PO DAILY 03/14/23 09/01/24 History Tamsulosin [Flomax] 0.4 mg PO DAILY 03/14/23 09/01/24 History hydrALAZINE HCL [Apresoline] 100 mg PO TID 03/14/23 09/01/24 History Insulin Glargine,Hum.rec.anlog 110 units SQ DAILY PRN 02/12/24 09/01/24 History [Lantus Solostar Pen] Semaglutide [Ozempic] 1 mg SQ TH 02/12/24 09/01/24 History carvediloL [Coreg*] 25 mg PO BID-W/MEALS #60 tab 02/19/24 09/01/24 Rx Atorvastatin [Lipitor] 80 mg PO HS 07/29/24 09/01/24 History Furosemide [Lasix] 80 mg PO DAILY 07/29/24 09/01/24 History NIFEdipine XL [Procardia XL] 90 mg PO DAILY 07/29/24 09/01/24 History Potassium Chloride ER [K-Dur 20] 20 meq PO TID 07/29/24 09/01/24 History Sacubitril/Valsartan [Entresto 97 1 tab PO BID 07/29/24 09/01/24 History mg-103 mg Tablet] Zolpidem [Ambien] 10 mg PO HS PRN 07/29/24 09/01/24 History cloNIDine 0.1 MG/24HR PATCH 1 patch TRANSDERM TU 07/29/24 09/01/24 History [Catapres-TTS] Allergies Allergy/AdvReac Type Severity Reaction Status Date / Time aspirin AdvReac Dyspnea Verified 09/01/24 07:32 Physical Exam Vitals: Vital Signs Temp Pulse Resp BP Pulse Ox 09/03/24 07:00 98.1 F 94 18 125/69 98 09/03/24 04:44 77 17 106/64 96 09/03/24 02:00 98.2 F 78 17 129/76 90 L 09/02/24 23:20 98.2 F 79 17 122/69 94 L 09/02/24 20:00 99.2 F 83 17 106/58 94 L 09/02/24 17:17 85 132/62 09/02/24 13:31 97.4 F L 82 18 124/64 93 L 09/02/24 10:21 94/49 Intake and Output 09/02/24 09/03/24 09/03/24 22:59 06:59 14:59 Output Total 100 Balance -100 Output: Urine 100 Other: Voiding Method Urinal Urinal Results - Lab Results Most recent lab results Calcium 8.0 mg/dL (8.4-10.2) L 09/03/24 05:58 Magnesium 1.7 mg/dL (1.6-2.3) 09/03/24 05:58 09/03/24 05:58 09/03/24 05:58 Assessment and Plan Plan: Assessment: 1. Acute kidney injury secondary to ATN. Creatinine 1.9 admission and is up to 4.4 today. No hydronephrosis noted on CT. 2. Chronic kidney disease stage IV with baseline creatinine near 2 secondary to diabetic kidney disease and cardiorenal syndrome. 3. Right renal mass scheduled for kidney biopsy at [facility] tomorrow. 4. Volume overload. 5. Diabetes mellitus. 6. Morbid obesity. 7. Acute on chronic diastolic CHF. Plan: Decrease rate of LR to 50 cc an hour. Insert Mir catheter. Strict I's and O's. Lasix 80 mg IV once this afternoon. Stop Entresto and hydralazine. Hold nifedipine for systolic blood pressure less than 120. Continue to assess daily for need for renal replacement therapy. Awaits transfer to [facility]. Thank you for the consultation. I will continue to follow the patient with you during his hospital stay.
[2024-09-03 10:59] LABS: Amorphous Sediment,Urine Occasional /hpf; Appearance,Urine Cloudy (Clear); Bilirubin,Urine Negative (Negative); Blood,Urine Moderate (Negative); Color,Urine Yellow; Glucose,Urine (UA) Negative (Negative); Ketones,Urine Negative (Negative); Leukocyte Esterase,Urine Trace (Negative); Mucus,Urine Rare /hpf; Nitrite,Urine Negative (Negative); PH, Urine 5.5 (5.0-8.0); Protein,Urine 2+ (Negative); RBC,Urine 129 /hpf (0-5); Specific Gravity,Urine 1.018 (1.001-1.035); Squamous Epithelial Cell,Urine 1 /hpf (0-4); WBC,Urine 9 /hpf (0-5)
[2024-09-03] MEDS: FUROSEMIDE 10 MG/ML 10 ML VIAL IV STA (12:02)
[2024-09-03] MEDS: CEFEPIME 2 GM in SODIUM CHLORIDE 0.9% 100 ML IVPB SCH (12:02)
[2024-09-03 12:10] LABS: Glucose,Whole Blood 223 mg/dL (70-110)
--- NOTE | 2024-09-03 12:45 | P.CONS ---
History of Present Illness - Reason for Consult Consult date: 09/03/24 renal mass Requesting physician: Tj Chavis - Chief Complaint flank pain - History of Present Illness Mr. Harvey is a 59-year-old male patient we have been asked to see in regards to a right kidney mass. We saw the patient 02/20/2024, at that time ultrasound was reporting a possible cyst. Patient was being referred to tertiary center for further workup. Ultrasound done 02/19 due to the abnormal CT reported a mass in the upper pole of the right kidney measuring 7.2 x 8.5 x 7.1 cm, hypoechoic lesion. There was an additional rounded contour at the lower pole of the right kidney, not well-demonstrated on the ultrasound but seen on the CT, compared to CT 02/08 when it was 3.3 cm, now measuring 3.6 cm. Patient had a PET/CT May 22. Intense activity in the superior pole of the right kidney, SUV 13.66, normal uptake otherwise, no metastatic disease. CT of the abdomen and pelvis without contrast 09/01/2024 is reporting on image 91 lower pole of the right kidney mass 4.6 x 3.6 cm. Hyperintense uptake on PET/CT corresponds to a low-density lesion 6.9 cm on image 52. Patient is supposed to be having biopsy at [facility] this week. Patient is admitted currently with complaints of discomfort in the right flank area, worse when moving around, he denies any acute changes in bowel or bladder habits, no hematuria, hematochezia or melena. No unintentional weight loss, sweats, nausea or vomiting. Additionally the impression of the CAT scan done inpatient this admission is reporting new nonspecific moderate ill-defined right sided perinephric fluid. Patient's WBC has significantly increased since admission. No reported fevers. Review of Systems 10 point review of systems is negative except as stated in HPI Past Medical History Past Medical History: Atrial Fibrillation, Cancer, Heart Failure, Diabetes Mellitus, Hyperlipidemia, Hypertension, Renal Disease, Sleep Apnea/CPAP/BIPAP Additional Past Medical History / Comment(s): neuropathy, stage 3 renal failure, uses CPAP at home History of Any Multi-Drug Resistant Organisms: None Reported Past Surgical History: No Surgical Hx Reported Additional Past Surgical History / Comment(s): COLONOSCOPY Past Anesthesia/Blood Transfusion Reactions: No Reported Reaction Past Psychological History: No Psychological Hx Reported Smoking Status: Never smoker Past Alcohol Use History: Unable to Obtain Past Drug Use History: Unable to Obtain - Past Family History Father Family Medical History: No Reported History Additional Family Medical History / Comment(s): not sure Mother Family Medical History: Diabetes Mellitus, Hypertension Additional Family Medical History / Comment(s): mom is still alive Medications and Allergies Home Medications Medication Instructions Recorded Confirmed Type HYDROcodone/APAP 10-325MG [[place] 1 tab PO TID PRN 04/25/20 09/01/24 History 10-325] Rivaroxaban [Xarelto] 20 mg PO DAILY 03/14/23 09/01/24 History Tamsulosin [Flomax] 0.4 mg PO DAILY 03/14/23 09/01/24 History hydrALAZINE HCL [Apresoline] 100 mg PO TID 03/14/23 09/01/24 History Insulin Glargine,Hum.rec.anlog 110 units SQ DAILY PRN 02/12/24 09/01/24 History [Lantus Solostar Pen] Semaglutide [Ozempic] 1 mg SQ TH 02/12/24 09/01/24 History carvediloL [Coreg*] 25 mg PO BID-W/MEALS #60 tab 02/19/24 09/01/24 Rx Atorvastatin [Lipitor] 80 mg PO HS 07/29/24 09/01/24 History Furosemide [Lasix] 80 mg PO DAILY 07/29/24 09/01/24 History NIFEdipine XL [Procardia XL] 90 mg PO DAILY 07/29/24 09/01/24 History Potassium Chloride ER [K-Dur 20] 20 meq PO TID 07/29/24 09/01/24 History Sacubitril/Valsartan [Entresto 97 1 tab PO BID 07/29/24 09/01/24 History mg-103 mg Tablet] Zolpidem [Ambien] 10 mg PO HS PRN 07/29/24 09/01/24 History cloNIDine 0.1 MG/24HR PATCH 1 patch TRANSDERM TU 07/29/24 09/01/24 History [Catapres-TTS] Allergies Allergy/AdvReac Type Severity Reaction Status Date / Time aspirin AdvReac Dyspnea Verified 09/01/24 07:32 Physical Exam Vitals: Vital Signs Temp Pulse Resp BP Pulse Ox 09/03/24 07:00 98.1 F 94 18 125/69 98 09/03/24 04:44 77 17 106/64 96 09/03/24 02:00 98.2 F 78 17 129/76 90 L 09/02/24 23:20 98.2 F 79 17 122/69 94 L 09/02/24 20:00 99.2 F 83 17 106/58 94 L 09/02/24 17:17 85 132/62 09/02/24 13:31 97.4 F L 82 18 124/64 93 L Intake and Output 09/02/24 09/03/24 09/03/24 22:59 06:59 14:59 Output Total 100 20 Balance -100 -20 Output: Urine 100 20 Other: Voiding Method Urinal Urinal Indwelling Catheter - Constitutional General appearance: cooperative, morbidly obese, no acute distress - EENT Eyes: anicteric sclerae, EOMI ENT: hearing grossly normal, normal oropharynx - Neck Neck: no lymphadenopathy - Respiratory Respiratory: bilateral: diminished - Cardiovascular Rhythm: regular Heart sounds: normal: S1, S2 Abnormal Heart Sounds: no systolic murmur, no diastolic murmur, no rub, no S3 Gallop, no S4 Gallop, no click, no other leg Peripheral Edema: bilateral: 1+ - Gastrointestinal General gastrointestinal: no absent bowel sounds, no decreased bowel sounds, no distended, no hepatomegaly, no hyperactive bowel sounds, normal bowel sounds, no organomegaly, no rigid, no scaphoid, soft, no splenomegaly, tenderness (inferior to costal margin on the right flank), no umbilical hernia, no ventral hernia - Integumentary Integumentary: normal - Neurologic Neurologic: CNII-XII intact - Musculoskeletal Musculoskeletal: generalized weakness, strength equal bilaterally - Psychiatric Psychiatric: A&O x's 3, appropriate affect, intact judgment & insight Results CBC & Chem 7: 09/03/24 05:58 09/03/24 05:58 Labs: Abnormal Lab Results - Last 24 Hours (Table) 09/02/24 09/02/24 09/02/24 Range/Units 14:25 16:38 20:13 WBC (3.8-10.6) k/uL RBC (4.30-5.90) m/uL Hgb (13.0-17.5) gm/dL Hct (39.0-53.0) % Sodium (137-145) mmol/L BUN (9-20) mg/dL Creatinine (0.66-1.25) mg/dL Glucose (74-99) mg/dL POC Glucose (mg/dL) 207 H 184 H (70-110) mg/dL Calcium (8.4-10.2) mg/dL Total Protein (6.3-8.2) g/dL Albumin (3.5-5.0) g/dL Urine Protein 3+ H (Negative) Urine Glucose (UA) Trace H (Negative) Urine Blood Trace H (Negative) Ur Leukocyte Esterase (Negative) Urine RBC 73 H (0-5) /hpf Urine WBC 17 H (0-5) /hpf Urine WBC Clumps Moderate H (None) /hpf Amorphous Sediment (None) /hpf Urine Bacteria Occasional H (None) /hpf Hyaline Casts 6 H (0-2) /lpf Urine Mucus Rare H (None) /hpf Urine Yeast (Budding) Moderate H (None) /hpf 09/03/24 09/03/24 09/03/24 Range/Units 05:58 05:58 06:38 WBC 23.1 H (3.8-10.6) k/uL RBC 3.50 L (4.30-5.90) m/uL Hgb 9.2 L D (13.0-17.5) gm/dL Hct 29.5 L (39.0-53.0) % Sodium 136 L (137-145) mmol/L BUN 46 H (9-20) mg/dL Creatinine 4.41 H (0.66-1.25) mg/dL Glucose 131 H (74-99) mg/dL POC Glucose (mg/dL) 136 H (70-110) mg/dL Calcium 8.0 L (8.4-10.2) mg/dL Total Protein 5.7 L (6.3-8.2) g/dL Albumin 2.8 L (3.5-5.0) g/dL Urine Protein (Negative) Urine Glucose (UA) (Negative) Urine Blood (Negative) Ur Leukocyte Esterase (Negative) Urine RBC (0-5) /hpf Urine WBC (0-5) /hpf Urine WBC Clumps (None) /hpf Amorphous Sediment (None) /hpf Urine Bacteria (None) /hpf Hyaline Casts (0-2) /lpf Urine Mucus (None) /hpf Urine Yeast (Budding) (None) /hpf 09/03/24 09/03/24 Range/Units 10:20 12:09 WBC (3.8-10.6) k/uL RBC (4.30-5.90) m/uL Hgb (13.0-17.5) gm/dL Hct (39.0-53.0) % Sodium (137-145) mmol/L BUN (9-20) mg/dL Creatinine (0.66-1.25) mg/dL Glucose (74-99) mg/dL POC Glucose (mg/dL) 223 H (70-110) mg/dL Calcium (8.4-10.2) mg/dL Total Protein (6.3-8.2) g/dL Albumin (3.5-5.0) g/dL Urine Protein 2+ H (Negative) Urine Glucose (UA) (Negative) Urine Blood Moderate H (Negative) Ur Leukocyte Esterase Trace H (Negative) Urine RBC 129 H (0-5) /hpf Urine WBC 9 H (0-5) /hpf Urine WBC Clumps (None) /hpf Amorphous Sediment Occasional H (None) /hpf Urine Bacteria (None) /hpf Hyaline Casts (0-2) /lpf Urine Mucus Rare H (None) /hpf Urine Yeast (Budding) (None) /hpf Comments: Ultrasound report dated 02/20/2024 report reviewed PET/CT scan dated 05/22/2024, report reviewed CT scan - abdomen: report reviewed CT scan - pelvis: report reviewed Assessment and Plan (1) Renal mass, right Current Visit: Yes Status: Acute Priority: High Code(s): N28.89 - OTHER SPECIFIED DISORDERS OF KIDNEY AND URETER SNOMED Code(s): 581090503 Plan: Right renal mass -Renal mass first noted earlier this year. Patient was seen in consult by Oncology in February. Plan at that time was for further imaging, possible biopsy. Since then patient had PET/CT on May 22, reporting intense activity at the superior pole of the right kidney, no metastatic disease detected at that time. Patient is currently pending appt at [facility] for assessment, possible biopsy vs surgical recommendations. -Dr. Mace discussed with the patient and his at the bedside that unfortunately he is a very high initial surgical risk secondary to multiple medical comorbidities. Also, nephrectomy, with his already compromised renal function, could potentially cause him to have to be on dialysis. Because of these scenarios patient is not likely going to be a candidate for an immediate surgery. Immunotherapy to reduce tumor burden could possibly reduce the amount of tissue needed to surgical excised or, if sized reduced enough, SRS could be done with definitive intent. -Currently patient has no evidence of metastatic disease. Would need biopsy to consider for systemic treatment. Pending findings from [facility]. All of patient's questions were answered to their satisfaction. Because of significant elevation in white count overnight as well as fluid collection/inflammation noted on CT scan, infectious disease has been consulted. Urine culture has been ordered. Doctor attests: I performed a history and physical examination of this patient, developed impression and plan of care. Discussed with dictator. I agree with dictators note, documented as a scribe.
[2024-09-03 18:23] LABS: Glucose,Whole Blood 210 mg/dL (70-110)
[2024-09-03 20:52] LABS: Glucose,Whole Blood 195 mg/dL (70-110)
--- NOTE | 2024-09-03 21:48 | P.CONS ---
History of Present Illness - Reason for Consult Consult date: 09/03/[address] Requesting physician: Shelia Duran - Chief Complaint Right-sided abdominal pain x 1 day - History of Present Illness Patient is a 59-year-old -N[place]alese male with a past medical history significant for diabetes mellitus hypertension hyperlipidemia sleep apnea atrial fibrillation stage III renal failure and neuropathy patient presenting to the hospital for evaluation of right-sided flank pain that apparently has been getting worse for a day before the patient presented to hospital patient was describing the pain to be sharp moderate intensity almost 8 out of 10 by the time he presented to hospital with associated nausea but no vomiting apparently patient did have history of mass on his right kidney that was supposed to be biopsied next week on presentation to the hospital patient was afebrile did have low-grade fever of 99.2 last night patient was not tachycardic hypotensive mildly hypoxic currently on 4 L nasal oxygen patient did have a white count of 14.5 initially which is up to 23.1 did have elevated BUN and creatinine did have positive UA mostly with hematuria patient did have CT abdominal pelvis which was suspicious for a solid mass posterior lower pole of the right kidney redemonstrated is a new moderate right-sided perinephric ill-defined fluid infectious disease was consulted because of abnormality with elevated white count and need for antibiotic therapy Review of Systems Positive point and negatives has been mentioned in the HPI, complete review of systems was performed and all other systems are negative Past Medical History Past Medical History: Atrial Fibrillation, Cancer, Heart Failure, Diabetes Mellitus, Hyperlipidemia, Hypertension, Renal Disease, Sleep Apnea/CPAP/BIPAP Additional Past Medical History / Comment(s): neuropathy, stage 3 renal failure, uses CPAP at home History of Any Multi-Drug Resistant Organisms: None Reported Past Surgical History: No Surgical Hx Reported Additional Past Surgical History / Comment(s): COLONOSCOPY Past Anesthesia/Blood Transfusion Reactions: No Reported Reaction Smoking Status: Never smoker - Past Family History Father Family Medical History: No Reported History Additional Family Medical History / Comment(s): not sure Mother Family Medical History: Diabetes Mellitus, Hypertension Additional Family Medical History / Comment(s): mom is still alive Medications and Allergies Home Medications Medication Instructions Recorded Confirmed Type HYDROcodone/APAP 10-325MG [[place] 1 tab PO TID PRN 04/25/20 09/01/24 History 10-325] Rivaroxaban [Xarelto] 20 mg PO DAILY 03/14/23 09/01/24 History Tamsulosin [Flomax] 0.4 mg PO DAILY 03/14/23 09/01/24 History hydrALAZINE HCL [Apresoline] 100 mg PO TID 03/14/23 09/01/24 History Insulin Glargine,Hum.rec.anlog 110 units SQ DAILY PRN 02/12/24 09/01/24 History [Lantus Solostar Pen] Semaglutide [Ozempic] 1 mg SQ TH 02/12/24 09/01/24 History carvediloL [Coreg*] 25 mg PO BID-W/MEALS #60 tab 02/19/24 09/01/24 Rx Atorvastatin [Lipitor] 80 mg PO HS 07/29/24 09/01/24 History Furosemide [Lasix] 80 mg PO DAILY 07/29/24 09/01/24 History NIFEdipine XL [Procardia XL] 90 mg PO DAILY 07/29/24 09/01/24 History Potassium Chloride ER [K-Dur 20] 20 meq PO TID 07/29/24 09/01/24 History Sacubitril/Valsartan [Entresto 97 1 tab PO BID 07/29/24 09/01/24 History mg-103 mg Tablet] Zolpidem [Ambien] 10 mg PO HS PRN 07/29/24 09/01/24 History cloNIDine 0.1 MG/24HR PATCH 1 patch TRANSDERM TU 07/29/24 09/01/24 History [Catapres-TTS] Allergies Allergy/AdvReac Type Severity Reaction Status Date / Time aspirin AdvReac Dyspnea Verified 09/01/24 07:32 Physical Exam Vitals: Vital Signs Temp Pulse Resp BP Pulse Ox 09/03/24 07:00 98.1 F 94 18 125/69 98 09/03/24 04:44 77 17 106/64 96 09/03/24 02:00 98.2 F 78 17 129/76 90 L 09/02/24 23:20 98.2 F 79 17 122/69 94 L 09/02/24 20:00 99.2 F 83 17 106/58 94 L 09/02/24 17:17 85 132/62 09/02/24 13:31 97.4 F L 82 18 124/64 93 L Intake and Output 09/02/24 09/03/24 09/03/24 22:59 06:59 14:59 Output Total 100 Balance -100 Output: Urine 100 Other: Voiding Method Urinal Urinal GENERAL DESCRIPTION: Middle-aged male lying in bed, no distress. No tachypnea or accessory muscle of respiration use. HEENT: Shows Pallor , no scleral icterus. Oral mucous membrane is dry. NECK: Trachea central, no thyromegaly. LUNGS: Unlabored breathing. Decreased breath sound the base HEART: S1, S2, regular rate and rhythm. No loud murmur ABDOMEN: Soft, no tenderness , EXTREMITIES: Diffuse swelling to the leg but no significant redness SKIN: No rash, no masses palpable. NEUROLOGICAL: The patient is awake, alert, oriented x3, mood and affect normal. Results CBC & Chem 7: 09/03/24 05:58 09/03/24 05:58 Labs: Abnormal Lab Results - Last 24 Hours (Table) 09/02/24 09/02/24 09/02/24 Range/Units 11:13 11:52 14:25 WBC (3.8-10.6) k/uL RBC (4.30-5.90) m/uL Hgb (13.0-17.5) gm/dL Hct (39.0-53.0) % Sodium 136 L (137-145) mmol/L Potassium 3.3 L (3.5-5.1) mmol/L BUN 36 H (9-20) mg/dL Creatinine 3.48 H (0.66-1.25) mg/dL Glucose 189 H (74-99) mg/dL POC Glucose (mg/dL) 197 H (70-110) mg/dL Calcium 8.1 L (8.4-10.2) mg/dL Total Protein 5.7 L (6.3-8.2) g/dL Albumin 3.0 L (3.5-5.0) g/dL Urine Protein 3+ H (Negative) Urine Glucose (UA) Trace H (Negative) Urine Blood Trace H (Negative) Urine RBC 73 H (0-5) /hpf Urine WBC 17 H (0-5) /hpf Urine WBC Clumps Moderate H (None) /hpf Urine Bacteria Occasional H (None) /hpf Hyaline Casts 6 H (0-2) /lpf Urine Mucus Rare H (None) /hpf Urine Yeast (Budding) Moderate H (None) /hpf 09/02/24 09/02/24 09/03/24 Range/Units 16:38 20:13 05:58 WBC 23.1 H (3.8-10.6) k/uL RBC 3.50 L (4.30-5.90) m/uL Hgb 9.2 L D (13.0-17.5) gm/dL Hct 29.5 L (39.0-53.0) % Sodium (137-145) mmol/L Potassium (3.5-5.1) mmol/L BUN (9-20) mg/dL Creatinine (0.66-1.25) mg/dL Glucose (74-99) mg/dL POC Glucose (mg/dL) 207 H 184 H (70-110) mg/dL Calcium (8.4-10.2) mg/dL Total Protein (6.3-8.2) g/dL Albumin (3.5-5.0) g/dL Urine Protein (Negative) Urine Glucose (UA) (Negative) Urine Blood (Negative) Urine RBC (0-5) /hpf Urine WBC (0-5) /hpf Urine WBC Clumps (None) /hpf Urine Bacteria (None) /hpf Hyaline Casts (0-2) /lpf Urine Mucus (None) /hpf Urine Yeast (Budding) (None) /hpf 09/03/24 09/03/24 Range/Units 05:58 06:38 WBC (3.8-10.6) k/uL RBC (4.30-5.90) m/uL Hgb (13.0-17.5) gm/dL Hct (39.0-53.0) % Sodium 136 L (137-145) mmol/L Potassium (3.5-5.1) mmol/L BUN 46 H (9-20) mg/dL Creatinine 4.41 H (0.66-1.25) mg/dL Glucose 131 H (74-99) mg/dL POC Glucose (mg/dL) 136 H (70-110) mg/dL Calcium 8.0 L (8.4-10.2) mg/dL Total Protein 5.7 L (6.3-8.2) g/dL Albumin 2.8 L (3.5-5.0) g/dL Urine Protein (Negative) Urine Glucose (UA) (Negative) Urine Blood (Negative) Urine RBC (0-5) /hpf Urine WBC (0-5) /hpf Urine WBC Clumps (None) /hpf Urine Bacteria (None) /hpf Hyaline Casts (0-2) /lpf Urine Mucus (None) /hpf Urine Yeast (Budding) (None) /hpf Assessment and Plan (1) Leukocytosis Status: Acute Code(s): D72.829 - ELEVATED WHITE BLOOD CELL COUNT, UNSPECIFIED SNOMED Code(s): 881554428 (2) Pyelonephritis Status: Acute Code(s): N12 - TUBULO-INTERSTITIAL NEPHRITIS, NOT SPCF ACUTE OR CHRONIC SNOMED Code(s): 36168196 (3) Renal mass, right Status: Acute Priority: High Code(s): N28.89 - OTHER SPECIFIED DISORDERS OF KIDNEY AND URETER SNOMED Code(s): 811234698 Plan: 1patient with significant elevated white count which is likely multifactorial in this patient who did have a history of right kidney mass currently waiting for biopsy now with a recent CT did shows a perinephric stranding and some fluid question of either leakage or developing abscess/pyelonephritis and will need to cover for the enteric gram-negative pathogen 2-patient with renal insufficiency with elevated creatinine high risk of nephrotoxicity from certain antibiotic 3-blood urine culture have been obtained and results will be followed 4-I will empirically start the patient on cefepime while waiting for the culture to be finalized We will follow on clinical condition and cultures to further adjust medication if needed Thank you for this consultation we will follow the patient along with you Dictation was produced using [employer] dictation software. please excuse any grammatical, word or spelling errors. Time with Patient: Greater than 30
[2024-09-03] MEDS: CEFEPIME 1 GM in SODIUM CHLORIDE 0.9% 50 ML IVPB SCH (23:52)
[2024-09-04 01:54] VITALS: BP 145/77; PULSE 89; RESP 18; TEMP 98.3
--- NOTE | 2024-09-04 05:49 | HP ---
HISTORY AND PHYSICAL CHIEF COMPLAINT: Shortness of breath and abdominal pain. HISTORY OF PRESENT ILLNESS: This is another admission for this 59-year-old morbidly obese with cardiomyopathy, congestive heart failure, diabetes, and right renal mass, presented to the emergency room with right-sided abdominal pain. He has had no vomiting. He has a fairly large right renal mass which is thought to be carcinoma. He has been difficult to workup because of his size. He finally has been established with [facility] and is to have a right renal biopsy in several days. REVIEW OF SYSTEMS: He has had no vomiting, diarrhea, melena, dysuria, etc. Past medical history, family history, personal and social history are otherwise significant largely due to his other medical problems. PHYSICAL EXAMINATION: VITAL SIGNS: Revealed his blood pressure to be 102/64 with a pulse of 90, respirations of 36, and he is afebrile. GENERAL: He appeared to be obese and he is lethargic. SKIN: Dry. HEAD, EARS, EYES, NOSE, MOUTH AND THROAT: Normal. CHEST: Breath sounds bilaterally. CARDIAC: Difficult to auscultate. ABDOMEN: Massively protuberant and he is tender in the right upper quadrant. There are no detectable masses. EXTREMITIES: Stasis dermatitis secondary to edema. NEUROLOGICAL: He was more lethargic than usual. DIAGNOSES: He is admitted to the hospital diagnoses, 1. Right upper quadrant pain. 2. Right renal mass. 3. Morbid obesity. 4. Congestive heart failure. PLAN: 1. Bed rest. 2. IV fluids. 3. Consult with General Surgery and Urology. MMODL / IJN: [id number] /
--- NOTE | 2024-09-04 07:55 | PN ---
PROGRESS NOTE DATE OF SERVICE: 09/02/2024 CHIEF COMPLAINT: Right-sided abdominal pain and congestive heart failure with hypokalemia. HISTORY OF PRESENT ILLNESS: This gentleman is not doing well. He is complaining of pain. He is also weak, and he sounds like he is slightly lethargic or delirious. His BNP is 2535. PHYSICAL EXAMINATION: VITAL SIGNS: Blood pressure is only 94/49, and it is going down. HEAD, EARS, EYES, NOSE AND MOUTH: Seem normal. LUNGS: Breath sounds are shallow. CARDIAC EXAM: Sounds like sinus. ABDOMEN: Protuberant, and he seems to be a little bit more tender in the right upper quadrant. EXTREMITIES: Unchanged. IMPRESSION: 1. Right upper quadrant pain. 2. Right renal mass. 3. Congestive heart failure. 4. Cardiomyopathy. 5. Morbid obesity. 6. Hypotension. PLAN: 1. IV fluid challenge. 2. Continue to monitor vital signs and laboratory studies. MMODL / IJN: [id number] /
--- NOTE | 2024-09-04 08:04 | PN ---
PROGRESS NOTE DATE OF SERVICE: 09/03/2024 CHIEF COMPLAINT: Right upper quadrant pain and congestive heart failure with progressive renal failure. HISTORY OF PRESENT ILLNESS: This gentleman has requested to be transferred to [facility] and as of last night, they agreed to take him. Bed is not available yet. He is still having right upper quadrant pain. LABORATORY STUDIES: Reveal white count up to 23,100 with a hemoglobin 9.2 and a hematocrit of 29.5. His blood sugar is elevated to 223. PHYSICAL EXAMINATION: LUNGS: Breath sounds are poor bilaterally. CARDIAC: Exam is faint, but sounds like sinus rhythm. ABDOMEN: skip tender in the right upper quadrant. Bowel sounds are present. IMPRESSION: 1. Right upper quadrant pain. 2. Right renal mass. 3. Cardiomyopathy. 4. Congestive heart failure. 5. Renal failure. 6. Anemia. 7. Elevated white count. 8. Morbid obesity. PLAN: Await a bed at [facility] for transfer. MMODL / IJN: [id number] /
== END 2024-09-04 01:00 | disposition short-term general hospital (02) | DRG 698 ==
LOC: EC 22:51 → 6NMEDSUR 09-01 01:50 → OBSVTOIN 09-01 01:51 → 6NMEDSUR 09-01 06:41 → 1SOBS 09-01 19:37 → 4SSUR 09-03 18:37
PROVIDERS: ADMIT Family Medicine; ATTEND Family Medicine
DX: N28.1 Cyst of kidney, acquired (principal); I50.33 Acute on chronic diastolic (congestive) heart failure; I13.0 Hypertensive heart and chronic kidney disease with heart failure and stage 1 through stage 4 chronic kidney disease, or unspecified chronic kidney disease; Z68.44 Body mass index [BMI] 60.0-69.9, adult; I42.9 Cardiomyopathy, unspecified; N17.0 Acute kidney failure with tubular necrosis; N18.4 Chronic kidney disease, stage 4 (severe); N12 Tubulo-interstitial nephritis, not specified as acute or chronic; E87.6 Hypokalemia; I48.91 Unspecified atrial fibrillation; E78.5 Hyperlipidemia, unspecified; E66.01 Morbid (severe) obesity due to excess calories; E11.42 Type 2 diabetes mellitus with diabetic polyneuropathy; E11.22 Type 2 diabetes mellitus with diabetic chronic kidney disease; D64.9 Anemia, unspecified; Z79.01 Long term (current) use of anticoagulants; Z79.899 Other long term (current) drug therapy; Z82.49 Family history of ischemic heart disease and other diseases of the circulatory system; Z88.6 Allergy status to analgesic agent
CPT/HCPCS: 36415; 71045; 74176; 80048; 80053; 81001; 82150; 83605; 83690; 83735; 83880; 85025; 85027; 87040; 93005